=== PATIENT | male | born 1935 | race Caucasian/White ===

== ENCOUNTER → 2016-07-05 | Outpatient (CLI) | payer OTHER ==
[~2016-07-05] MED LIST: ACET-1311 PO; ASPI-232 PO; ASPI81TA28 PO; ATOR-26 PO; CARV12.52 PO; CARV3.122 PO; CARV6.252 PO; CNT PO; CRG3125 PO; EMOL-19 TOP; FISHOIL PO; FRS/40 PO; FURO40TA3 PO; LISI40TA PO; LSX20 PO; MENTOIN TOP; MULT-188 PO; MULT-845 PO; MULTTAB66 PO; OMEGCAP2 PO; POTA20TA16 PO; PRLSR20 PO; TERA5CAP PO
[2016-07-05 12:37] LABS: URINE APPEARANCE CLEAR (CLEAR); URINE BILIRUBIN NEG (NEG); URINE COLOR YELLOW; URINE EPITHELIAL CELL AUTO 20-30 /lpf (0-5); URINE NITRITE NEG (NEG); URINE SPECIFIC GRAVITY 1.014 (1.000-1.030); UROBILINOGEN NEG (NEG)
[2016-07-05 12:43] LABS: MANUAL MICROSCOPIC REQUIRED? NO; REVIEW REQ? NO
[2016-07-05 12:53] LABS: BLOOD UREA NITROGEN 26 mg/dl (7-18); BUN/CREATININE RATIO 17.4 (10-20); CALCIUM 8.8 mg/dl (8.5-10.1); CARBON DIOXIDE 23 mmol/L (21-32); CHLORIDE 109 mmol/L (98-107); GLUCOSE 92 mg/dl (70-99); PHOSPHORUS 2.5 mg/dl (2.5-4.9); POTASSIUM 4.3 mmol/L (3.5-5.1); SODIUM 141 mmol/L (136-145)
[2016-07-05 12:56] LABS: URINE PROTIEN/CREAT RATIO 0.2 (0-0.2); URINE TOTAL PROTEIN 31.7 mg/dl (0-11.9)
[2016-07-05 13:20] LABS: HEMATOCRIT 31.2 % (42-52); MEAN CELL VOLUME 88.9 fL (80-100); MEAN CORPUSCULAR HEMOGLOBIN 27.9 pg (25-34); MEAN CORPUSCULAR HGB CONC 31.4 g/dl (32-36); RED BLOOD COUNT 3.51 M/uL (4.7-6.1); WHITE BLOOD COUNT 4.11 K/uL (4.8-10.8)
== END | disposition home or self-care (01) ==
LOC: C.LAB1850 10:57
PROVIDERS: ATTEND Internal Medicine Nephrology
DX: I12.9 Hypertensive chronic kidney disease with stage 1 through stage 4 chronic kidney disease, or unspecified chronic kidney disease (principal); N25.81 Secondary hyperparathyroidism of renal origin; R60.9 Edema, unspecified; N18.3 Chronic kidney disease, stage 3 (moderate); D64.9 Anemia, unspecified

== ENCOUNTER 2016-08-02 10:46 | Inpatient (IN) | payer OTHER ==
[~2016-08-02] VITALS: Ht 162.6 cm; Wt 86.0 kg
[~2016-08-02 10:46] MED LIST changes: -ACET-1311 PO; -ASPI-232 PO; -ATOR-26 PO; -CARV3.122 PO; -CARV6.252 PO; -CRG3125 PO; -EMOL-19 TOP; -FRS/40 PO; -FURO40TA3 PO; -MENTOIN TOP; -MULT-845 PO; -MULTTAB66 PO; -OMEGCAP2 PO; -POTA20TA16 PO; -PRLSR20 PO
[2016-08-02] MEDS ORDERED: SODIUM CHLORIDE 0.9% 500ML 500 ML IV STA (11:34)
--- NOTE | 2016-08-02 11:43 | EMERGENCY ROOM VISIT NOTE ---
History Report prepared by Selma: Gagan Parker Under the Supervision of: Dr. Duran Pate M.D. First contact with patient: 11:35 Chief Complaint: FALL Stated Complaint: FALL History of Present Illness The patient is a 81 year old male who presents to the Emergency Room with complaints of an acute fall that occurred at approximately 0630 this morning. The patient was unable to get up this morning, even with the assistance of a friend. He required the assistance of EMS to get up. He has had minimal nose bleeding since the fall. The patient states that he was having black spots in his vision this morning, which usually indicates hypertension for him. Nursing notes indicate that he was actually hypotensive upon arrival. The patient has had diarrhea for two weeks. He denies abdominal pain. Patient's records indicate that he has a history of AAA. He is not on any blood thinners other than baby aspirin. Source of History: patient, transfer records, nursing staff Onset: 0630 this morning Position: other (global) Quality: other (fall) Timing: other (acute) Associated Symptoms: + diarrhea, No abdominal pain Review of Systems See HPI for pertinent positives & negatives. A total of 10 systems reviewed and were otherwise negative. Past Medical & Surgical Medical Problems: (1) BPH (benign prostatic hypertrophy) (2) CAD (coronary artery disease) (3) CKD (chronic kidney disease) stage 3, GFR 30-59 ml/min (4) Dyslipidemia (5) GERD (gastroesophageal reflux disease) (6) HTN (hypertension) (7) Thoracic aneurysm Surgical Problems: (1) H/O aortic aneurysm repair (2) H/O cataract removal with insertion of prosthetic lens (3) History of appendectomy (4) History of bilateral knee arthroplasty (5) History of tonsillectomy and adenoidectomy (6) S/P AVR (aortic valve replacement) Family History Patient reports no known family medical history. Social History Smoking Status: Former Smoker Alcohol Use: none Drug Use: none Occupation Status: retired Current/Historical Medications Scheduled Aspirin (Aspirin Ec), 81 MG PO DAILY Atorvastatin (Lipitor), 80 MG PO DAILY Carvedilol (Coreg), 12.5 MG PO BID Fish Oil (Fletcher-3), 1 CAP PO BID Furosemide (Lasix *), 20 MG PO DAILY Lisinopril (Zestril), 40 MG PO DAILY Multiple Vitamins W/ Minerals (Ocuvite), 1 TAB PO DAILY Multivitamins/Minerals (Centrum *), 1 TAB PO DAILY Omeprazole (Prilosec), 20 MG PO BID Potassium Ext Rel (Klor-Con), 20 MEQ PO QAM Terazosin (Hytrin), 5 MG PO DHS Allergies Coded Allergies: Penicillins (Verified Allergy, Unknown, ITCH,RASH, 02/26/15) ITCHY Physical Exam Vital Signs Date Time Temp Pulse Resp B/P Pulse Ox O2 Delivery O2 Flow Rate FiO2 08/02/16 15:11 54 21 96 08/02/16 15:06 58 20 08/02/16 15:01 61 20 08/02/16 14:59 123/62 08/02/16 14:58 58 12 123/62 93 Room Air 2.0 08/02/16 14:56 62 21 08/02/16 14:51 60 21 08/02/16 14:46 61 18 08/02/16 14:41 58 22 08/02/16 14:36 57 19 08/02/16 14:31 58 21 08/02/16 14:30 110/54 08/02/16 14:26 56 18 08/02/16 14:21 59 19 08/02/16 14:18 59 08/02/16 14:17 59 16 110/57 93 Room Air 08/02/16 14:16 60 21 110/57 08/02/16 12:36 66 22 08/02/16 12:31 65 23 93 Nasal Cannula 2.0 08/02/16 12:26 71 25 08/02/16 12:21 67 20 08/02/16 12:16 66 21 08/02/16 12:11 68 22 08/02/16 12:06 70 24 08/02/16 12:01 66 15 08/02/16 11:57 126/69 08/02/16 11:56 64 21 08/02/16 11:51 72 22 08/02/16 11:46 64 17 08/02/16 11:41 68 08/02/16 11:32 91 Nasal Cannula 2.0 08/02/16 11:32 88 Room Air 08/02/16 11:24 105/53 08/02/16 11:24 37.2 74 16 105/53 92 Room Air Physical Exam GENERAL: Patient is a healthy-appearing well-nourished HEAD: Normocephalic atraumatic EYES: Ocular movements intact pupils equal and react to light OROPHARYNX mucous membranes are moist no exudates present. Petechial lesions throughout, no bleeding on exam. NECK: Supple no nuchal rigidity CHEST: Good equal expansion LUNGS: Clear and equal to auscultation CARDIAC: Normal S1 and S2. Grade 2/6 systolic murmur. ABDOMEN: Soft nontender no guarding BACK: No CVA tenderness EXTREMITIES: No pain upon palpation normal muscle strength in all groups no clubbing cyanosis or edema NEURO: Patient is following commands is answering questions appropriately. Alert and oriented x3 Cranial Nerves 2-12 grossly intact Medical Decision & Procedures ER Provider Diagnostic Interpretation: Radiology results as stated below per my review and radiologist interpretation: CHEST ONE VIEW PORTABLE CLINICAL HISTORY: weakness, cough COMPARISON STUDY: 01/03/2014 FINDINGS: There are postsurgical changes of midline sternotomy. There is progressive aneurysmal dilatation of the aortic arch and descending thoracic aorta. There is no failure. There is no focal pulmonary consolidation. There are no pleural effusions..[ IMPRESSION: 1. Progressive dilatation of the aortic arch and descending thoracic aorta 2. No evidence of focal pulmonary consolidation Electronically signed by: Mateo Hutton M.D. 08/02/2016 12:14 PM Dictated Date/Time: 08/02/2016 12:[address] chest angiogram combination HISTORY: Dissection. Chest pain. Findings generalized aneurysmal dilatation of the apex of the thoracic aorta extending inferiorly to the upper abdomen. This is generally similar in configuration compared to the prior study. Maximum diameter has slightly slightly increased to 6.1 cm There continues be a small amount of posterior mural thrombus. This is similar as compared to the prior study and is considered chronic. Postoperative changes including a sending thoracic aneurysm repair are noted. There is no evidence for acute dissection. The proximal to mid aspect of the abdominal aorta is similar. There is no increase in diameter. Lungs are considered generally clear. Findings are prior median sternotomy. Upper pole left renal cyst unchanged. Mild splenomegaly. IMPRESSION:. Slight increase in aneurysmal dilatation of the proximal to mid thoracic aorta. 2. Maximum diameter has increased slightly to 6.1 cm from a prior maximum dimension of 5.7 cm. 3. Lungs remain clear. 4. No evidence for dissection. 5. Stable aneurysmal distention of the proximal to mid abdominal aorta. 7. Multiple gallstones within a contracted gallbladder lumen. Electronically signed by: Cliff Christiansen M.D. 08/02/2016 1:39 PM Dictated Date/Time: 08/02/2016 1:[address] HEAD WITHOUT CONTRAST (CT) CLINICAL HISTORY: Head trauma. Ecchymosis. Pain. Hypertension. COMPARISON STUDY: No previous studies for comparison. TECHNIQUE: Axial CT of the brain is performed from the vertex to the skull base. IV contrast was not administered for this examination. CT DOSE: 537.48 mGy.cm FINDINGS: No intra or extra-axial mass lesions are visualized. There is no CT evidence of acute cortical infarction. There is no evidence of midline shift. There is no acute hemorrhage. No calvarial fractures are visualized. A tiny focus of increased attenuation within the right frontal luna-white junction, likely represents dystrophic calcification. There are patchy white matter hypodensities likely on a small vessel basis. There is no evidence of pathologic ventricular dilatation. There is opacification of the right frontal sinus. IMPRESSION: No acute intracranial findings Electronically signed by: Mateo Hutton M.D. 08/02/2016 1:30 PM Dictated Date/Time: 08/02/2016 1:27 PM Laboratory Results Test 08/02/16 12:08 08/02/16 12:20 08/02/16 12:28 08/02/16 12:29 White Blood Count 5.00 K/uL (4.8-10.8) Red Blood Count 3.53 M/uL (4.7-6.1) Hemoglobin 9.9 g/dL (14.0-18.0) Hematocrit 30.5 % (42-52) Mean Corpuscular Volume 86.4 fL (80-100) Mean Corpuscular Hemoglobin 28.0 pg (25-34) Mean Corpuscular Hemoglobin Concent 32.5 g/dl (32-36) Platelet Count 6 K/uL (130-400) Mean Platelet Volume fL (7.4-10.4) Neutrophils (%) (Auto) 65.4 % Lymphocytes (%) (Auto) 24.0 % Monocytes (%) (Auto) 10.2 % Eosinophils (%) (Auto) 0.0 % Basophils (%) (Auto) 0.2 % Neutrophils # (Auto) 3.27 K/uL (1.4-6.5) Lymphocytes # (Auto) 1.20 K/uL (1.2-3.4) Monocytes # (Auto) 0.51 K/uL (0.11-0.59) Eosinophils # (Auto) 0.00 K/uL (0-0.5) Basophils # (Auto) 0.01 K/uL (0-0.2) Nucleated RBC Absolute Count (auto) 0.04 K/uL (0-0) Nucleated Red Blood Cells % 0.9 % Acanthocytes 1+ Peripheral Blood Smear Path Consult Prothrombin Time 16.1 SECONDS (9.0-12.0) Prothromb Time International Ratio 1.5 (0.9-1.1) Activated Partial Thromboplast Time 44.7 SECONDS (21.0-31.0) Partial Thromboplastin Ratio 1.7 Total Creatine Kinase 57 U/L (39-308) Creatine Kinase MB 2.0 ng/ml (0.5-3.6) Creatine Kinase MB Ratio 3.5 (0-3.0) Troponin I 0.016 ng/ml (0-0.045) Globulin 4.2 gm/dl (2.5-4.0) Albumin/Globulin Ratio 0.7 (0.9-2) Thyroid Stimulating Hormone (TSH) 2.330 uIu/ml (0.300-4.500) Bedside Troponin I 0.000 ng/ml (0-0.045) Bedside Hemoglobin 9.9 g/dl (14.0-18.0) Bedside Hematocrit 29 % (42-52) Bedside Sodium 138 mEq/L (135-144) Bedside Potassium 4.9 mEq/L (3.3-5.0) Bedside Chloride 106 mEq/L (101-112) Bedside Total CO2 20 mEq/l (24-31) Bedside Blood Urea Nitrogen 53 mg/dl (7-18) Bedside Creatinine 2.0 mg/dl (0.6-1.3) Bedside Glucose (other) 104 mg/dl (70-99) Bedside Ionized Calcium (Chris) 1.36 mmol/l (1.12-1.32) Date/Time Source Procedure Growth Status 08/02/16 12:08 Stool C.difficile Toxin B Gene (PCR) - Final No C. difficile toxin B gene detected Complete Labs reviewed by ED physician. Medications Administered Medications (Trade) Dose Ordered Sig/Song Route Start Time Stop Time Status Last Admin Dose Admin Sodium Chloride (Nss 500ml) 500 ml @ 999 mls/hr Q31M STAT IV 08/02/16 11:34 08/02/16 12:04 DC 08/02/16 12:32 999 MLS/HR ECG Indication: other (fall) Rate (beats per minute): 64 Rhythm: sinus rhythm Findings: 1st degree AV block, LBBB, other (old inferior infarct) Comparison ECG Date: no prior available ED Course 1134: NSS 500 ml @ 999 mls/hr. 1140: Past medical records reviewed. The patient was evaluated in room B6. A complete history and physical examination was performed. 1415: Discussed the case with Kay Acosta PA-C, [facility]. The patient will be evaluated. Medical Decision Differential diagnosis: Etiologies such as metabolic, infection, hypo/hyperglycemia, electrolyte abnormalities, cardiac sources, intracerebral event, toxicologic, neurologic, as well as others were entertained. This is a 81-year-old male who presents emergency Department with generalized weakness and inability to walk after fall at home. The patient is in acute renal failure in addition he has thrombocytopenia. The patient was started on antibiotics and pancultured up. He was also given normal saline bolus. Due to the nature the patient's conditions I did discuss the case with the hospitalist service who agreed to admit the patient. Patient was in agreement with the treatment plan. Consults Time Called: 1410 Consulting Physician: Kay Acosta PA-C, [facility]. Returned Call: 1415 1415: Discussed the case with Kay Acosta PA-C, [facility]. The patient will be evaluated. Impression Primary Impression: Thrombocytopenia Additional Impressions: Fall Weakness ARF (acute renal failure) Scribe Attestation The scribe's documentation has been prepared under my direction and personally reviewed by me in its entirety. I confirm that the note above accurately reflects all work, treatment, procedures, and medical decision making performed by me. Departure Information Dispostion Being Evaluated By Hospitalist Cliff Otero M.D. (PCP) Patient Instructions [facility] Problem Qualifiers Additional Impressions: Fall Encounter type: initial encounter Qualified Codes: W19.XXXA - Unspecified fall, initial encounter ARF (acute renal failure) Acute renal failure type: unspecified Qualified Codes: N17.9 - Acute kidney failure, unspecified
[2016-08-02] MEDS ORDERED: OPTIRAY 320 IV PRN (12:15)
--- NOTE | 2016-08-02 12:15 | DIAGNOSTIC IMAGING REPORT ---
CHEST ONE VIEW PORTABLE CLINICAL HISTORY: weakness, cough COMPARISON STUDY: 01/03/2014 FINDINGS: There are postsurgical changes of midline sternotomy. There is progressive aneurysmal dilatation of the aortic arch and descending thoracic aorta. There is no failure. There is no focal pulmonary consolidation. There are no pleural effusions..[ IMPRESSION: 1. Progressive dilatation of the aortic arch and descending thoracic aorta 2. No evidence of focal pulmonary consolidation Electronically signed by: Mateo Hutton M.D. 08/02/2016 12:14 PM Dictated Date/Time: 08/02/2016 12:12 PM
[2016-08-02 12:44] LABS: ISTAT HEMOGLOBIN 9.9 g/dl (14.0-18.0); ISTAT IONIZED CALCIUM 1.36 mmol/l (1.12-1.32)
[2016-08-02 12:52] LABS: URINE APPEARANCE CLEAR (CLEAR); URINE BILIRUBIN NEG (NEG); URINE COLOR DK YELLOW; URINE NITRITE NEG (NEG); URINE SPECIFIC GRAVITY 1.015 (1.000-1.030); UROBILINOGEN NEG (NEG); ZZUR CULT IF INDIC CLEAN CATCH YES
[2016-08-02 12:53] LABS: BUN/CREATININE RATIO 24.9 (10-20); CALCIUM 8.9 mg/dl (8.5-10.1); CREATININE 2.2 mg/dl (0.60-1.40); POTASSIUM 4.5 mmol/L (3.5-5.1)
[2016-08-02 13:01] LABS: MANUAL MICROSCOPIC REQUIRED? NO; REVIEW REQ? YES
[2016-08-02 13:03] LABS: ALB/GLOB RATIO 0.7 (0.9-2); CKMB/CK RATIO 3.5 (0-3.0); THYROID STIMULATING HORMONE 2.33 uIu/ml (0.300-4.500)
[2016-08-02 13:10] LABS: PLATELET COUNT 6 K/uL (130-400)
[2016-08-02 13:11] LABS: ACANTHOCYTES 1+; BASO % 0.2 %; BASO ABS # 0.01 K/uL (0-0.2); COMPLETE YES; HEMATOCRIT 30.5 % (42-52); IG% 0.2 %; MEAN CELL VOLUME 86.4 fL (80-100); MEAN CORPUSCULAR HGB CONC 32.5 g/dl (32-36); MONO % 10.2 %; NEUT % 65.4 %; RED BLOOD COUNT 3.53 M/uL (4.7-6.1)
[2016-08-02 13:11] LABS: URINE PATH CASTS 0-3 GRANULAR CASTS /lpf (0)
--- NOTE | 2016-08-02 13:31 | DIAGNOSTIC IMAGING REPORT ---
CT HEAD WITHOUT CONTRAST (CT) CLINICAL HISTORY: Head trauma. Ecchymosis. Pain. Hypertension. COMPARISON STUDY: No previous studies for comparison. TECHNIQUE: Axial CT of the brain is performed from the vertex to the skull base. IV contrast was not administered for this examination. CT DOSE: 537.48 mGy.cm FINDINGS: No intra or extra-axial mass lesions are visualized. There is no CT evidence of acute cortical infarction. There is no evidence of midline shift. There is no acute hemorrhage. No calvarial fractures are visualized. A tiny focus of increased attenuation within the right frontal luna-white junction, likely represents dystrophic calcification. There are patchy white matter hypodensities likely on a small vessel basis. There is no evidence of pathologic ventricular dilatation. There is opacification of the right frontal sinus. IMPRESSION: No acute intracranial findings Electronically signed by: Mateo Hutton M.D. 08/02/2016 1:30 PM Dictated Date/Time: 08/02/2016 1:27 PM
[2016-08-02 13:40] LABS: INR 1.5 (0.9-1.1); PARTIAL THROMBOPLASTIN RATIO 1.7; PROTHROMBIN TIME (PATIENT) 16.1 SECONDS (9.0-12.0)
--- NOTE | 2016-08-02 13:41 | DIAGNOSTIC IMAGING REPORT ---
Study. CT chest angiogram combination HISTORY: Dissection. Chest pain. Findings generalized aneurysmal dilatation of the apex of the thoracic aorta extending inferiorly to the upper abdomen. This is generally similar in configuration compared to the prior study. Maximum diameter has slightly slightly increased to 6.1 cm There continues be a small amount of posterior mural thrombus. This is similar as compared to the prior study and is considered chronic. Postoperative changes including a sending thoracic aneurysm repair are noted. There is no evidence for acute dissection. The proximal to mid aspect of the abdominal aorta is similar. There is no increase in diameter. Lungs are considered generally clear. Findings are prior median sternotomy. Upper pole left renal cyst unchanged. Mild splenomegaly. IMPRESSION:. Slight increase in aneurysmal dilatation of the proximal to mid thoracic aorta. 2. Maximum diameter has increased slightly to 6.1 cm from a prior maximum dimension of 5.7 cm. 3. Lungs remain clear. 4. No evidence for dissection. 5. Stable aneurysmal distention of the proximal to mid abdominal aorta. 7. Multiple gallstones within a contracted gallbladder lumen. Electronically signed by: Cliff Christiansen M.D. 08/02/2016 1:39 PM Dictated Date/Time: 08/02/2016 1:28 PM
[2016-08-02] MEDS ORDERED: NITROGLYCERIN 0.4 MG SL PER TAB CHARGE SL PRN (15:15)
[2016-08-02] MEDS ORDERED: ONDANSETRON INJ 2 MG/ML 2 ML VIAL IV PRN (15:15)
--- NOTE | 2016-08-02 16:47 | History and Physical ---
History & Physical Date & Time of Service: Aug 02, 2016 at 15:20 Chief Complaint: FALL Primary Care Physician: Cliff Perez M.D. History of Present Illness Source: patient This is a 81 y/o male with PMHx of CAD, aortic aneurysm s/p repair in 2009, CKD stage 3, HTN, Dyslipidemia and other problems as outlined below who presents to the ED c/o fall this morning. Pt reports that around 0630 this morning he lost his balance and fell while getting up out of his chair. Pt reports that he fell onto his bottom. He did not think he hit his head however patient has bruising to the top of his head. Pt was unable to get up on his own due to weakness and EMS was called. Pt admits he has not been feeling well for a few weeks. He has had diarrhea for 2 weeks as well as a productive cough and minor sore throat. He has been getting progressively weaker and he estimates he has fallen approximately 3 times in the past couple months. Pt currently lives at home alone. He uses a cane to assist with ambulation. Pt denies fever/chills, diaphoresis, chest pain, palpitations, SOB, wheezing, abd pain, N/V, hematochezia, bladder issues, worsening LE edema, calf pain, lightheadedness/ dizziness. In the ED, vitals are stable. HgB 9.9. Plt count 6. creat 2.2. BUN 55. INR 1.5. EKG: sinus rhythm at 64 bpm with 1* AV block and LBBB. CT head and CXR are negative for acute process. Pt is stable and will be admitted for further evaluation and treatment. Past Medical/Surgical History Medical Problems: (1) BPH (benign prostatic hypertrophy) Status: Chronic (2) CAD (coronary artery disease) Status: Chronic (3) CKD (chronic kidney disease) stage 3, GFR 30-59 ml/min Status: Chronic (4) Dyslipidemia Status: Chronic (5) GERD (gastroesophageal reflux disease) Status: Chronic (6) HTN (hypertension) Status: Chronic (7) Thoracic aneurysm Status: Chronic Surgical Problems: (1) H/O aortic aneurysm repair Status: Resolved (2) H/O cataract removal with insertion of prosthetic lens Status: Resolved (3) History of appendectomy Status: Resolved (4) History of bilateral knee arthroplasty Status: Resolved (5) History of tonsillectomy and adenoidectomy Status: Resolved (6) S/P AVR (aortic valve replacement) Status: Resolved Family History Patient reports no known family medical history. Social History Smoking Status: Former Smoker (15 pack year history; quit 40 years ago) Drug Use: none Occupational Status: retired Immunizations History of Influenza Vaccine: N/A History of Tetanus Vaccine?: Yes History of Pneumococcal: Yes History of Hepatitis B Vaccine: No Multi-Drug Resistant Organisms History of MDRO: No Allergies Coded Allergies: Penicillins (Verified Allergy, Unknown, ITCH,RASH, 02/26/15) ITCHY Home Medications Scheduled Aspirin (Aspirin Ec), 81 MG PO DAILY Atorvastatin (Lipitor), 80 MG PO DAILY Carvedilol (Coreg), 12.5 MG PO BID Fish Oil ([place]-3), 1 CAP PO BID Furosemide (Lasix *), 20 MG PO DAILY Lisinopril (Zestril), 40 MG PO DAILY Multiple Vitamins W/ Minerals (Ocuvite), 1 TAB PO DAILY Multivitamins/Minerals (Centrum *), 1 TAB PO DAILY Omeprazole (Prilosec), 20 MG PO BID Potassium Ext Rel (Klor-Con), 20 MEQ PO QAM Terazosin (Hytrin), 5 MG PO DHS Physical Exam Vital Signs Date Time Temp Pulse Resp B/P Pulse Ox O2 Delivery O2 Flow Rate FiO2 08/02/16 14:58 58 12 123/62 93 Room Air 2.0 08/02/16 14:18 59 08/02/16 14:17 59 16 110/57 93 Room Air 08/02/16 12:36 66 22 08/02/16 12:31 65 23 93 Nasal Cannula 2.0 08/02/16 12:26 71 25 08/02/16 12:21 67 20 08/02/16 12:16 66 21 08/02/16 12:11 68 22 08/02/16 12:06 70 24 08/02/16 12:01 66 15 08/02/16 11:57 126/69 08/02/16 11:56 64 21 08/02/16 11:51 72 22 08/02/16 11:46 64 17 08/02/16 11:41 68 08/02/16 11:32 91 Nasal Cannula 2.0 08/02/16 11:32 88 Room Air 08/02/16 11:24 105/53 08/02/16 11:24 37.2 74 16 105/53 92 Room Air General Appearance: WD/WN, no apparent distress, + pertinent finding (Pt is sitting up comfortably in bed; sleeping on my arrival ) Head: normocephalic, atraumatic Eyes: normal inspection, PERRL ENT: hearing grossly normal Neck: supple Respiratory/Chest: chest non-tender, lungs clear, normal breath sounds, no respiratory distress Cardiovascular: regular rate, rhythm, + systolic murmur Abdomen/GI: normal bowel sounds, non tender, soft Back: normal inspection Extremities/Musculoskelatal: normal inspection, + swelling, + pertinent finding (no open wounds noted) Neurologic/Psych: alert, normal mood/affect, oriented x 3 Skin: normal color, warm/dry, + pertinent finding (no bruising noted) Diagnostics Laboratory Results Results Past 24 Hours Test 08/02/16 11:42 08/02/16 12:08 08/02/16 12:20 08/02/16 12:28 Range/Units Urine Color DK YELLOW Urine Appearance CLEAR CLEAR Urine pH 5.0 4.5-7.5 Urine Specific [place] 1.015 1.000-1.030 Urine Protein NEG NEG Urine Glucose (UA) NEG NEG Urine Ketones NEG NEG Urine Occult Blood 1+ NEG Urine Nitrite NEG NEG Urine Bilirubin NEG NEG Urine Urobilinogen NEG NEG Urine Leukocyte Esterase MODERATE NEG Urine WBC (Auto) >30 0-5 /hpf Urine RBC (Auto) 5-10 0-4 /hpf Urine Hyaline Casts (Auto) 1-5 0-5 /lpf Urine Epithelial Cells (Auto) 10-20 0-5 /lpf Urine Bacteria (Auto) 1+ NEG Urine Crystals CALCIUM OXALATE NONE PRSENT Urine Pathogenic Casts 0-3 GRANULAR CASTS 0 /lpf White Blood Count 5.00 4.8-10.8 K/uL Red Blood Count 3.53 4.7-6.1 M/uL Hemoglobin 9.9 14.0-18.0 g/dL Hematocrit 30.5 42-52 % Mean Corpuscular Volume 86.4 80-100 fL Mean Corpuscular Hemoglobin 28.0 25-34 pg Mean Corpuscular Hemoglobin Concent 32.5 32-36 g/dl Platelet Count 6 130-400 K/uL Mean Platelet Volume 7.4-10.4 fL Neutrophils (%) (Auto) 65.4 % Lymphocytes (%) (Auto) 24.0 % Monocytes (%) (Auto) 10.2 % Eosinophils (%) (Auto) 0.0 % Basophils (%) (Auto) 0.2 % Neutrophils # (Auto) 3.27 1.4-6.5 K/uL Lymphocytes # (Auto) 1.20 1.2-3.4 K/uL Monocytes # (Auto) 0.51 0.11-0.59 K/uL Eosinophils # (Auto) 0.00 0-0.5 K/uL Basophils # (Auto) 0.01 0-0.2 K/uL RDW Standard Deviation 53.1 36.4-46.3 fL RDW Coefficient of Variation 16.7 11.5-14.5 % Immature Granulocyte % (Auto) 0.2 % Immature Granulocyte # (Auto) 0.01 0.00-0.02 K/uL Nucleated RBC Absolute Count (auto) 0.04 0-0 K/uL Nucleated Red Blood Cells % 0.9 % Acanthocytes 1+ Prothrombin Time 16.1 9.0-12.0 SECONDS Prothromb Time International Ratio 1.5 0.9-1.1 Activated Partial Thromboplast Time 44.7 21.0-31.0 SECONDS Partial Thromboplastin Ratio 1.7 Sodium Level 138 136-145 mmol/L Potassium Level 4.5 3.5-5.1 mmol/L Chloride Level 108 98-107 mmol/L Carbon Dioxide Level 21 21-32 mmol/L Anion Gap 9.0 3-11 mmol/L Blood Urea Nitrogen 55 7-18 mg/dl Creatinine 2.20 0.60-1.40 mg/dl Est Creatinine Clear Calc Drug Dose 24.6 ml/min Estimated GFR () 31.8 Estimated GFR (Non- 27.5 BUN/Creatinine Ratio 24.9 10-20 Random Glucose 100 70-99 mg/dl Calcium Level 8.9 8.5-10.1 mg/dl Total Bilirubin 1.5 0.2-1 mg/dl Aspartate Amino Transf (AST/SGOT) 28 15-37 U/L Alanine Aminotransferase (ALT/SGPT) 34 12-78 U/L Alkaline Phosphatase 97 45-117 U/L Total Creatine Kinase 57 39-308 U/L Creatine Kinase MB 2.0 0.5-3.6 ng/ml Creatine Kinase MB Ratio 3.5 0-3.0 Troponin I 0.016 0-0.045 ng/ml Total Protein 7.1 6.4-8.2 gm/dl Albumin 2.9 3.4-5.0 gm/dl Globulin 4.2 2.5-4.0 gm/dl Albumin/Globulin Ratio 0.7 0.9-2 Thyroid Stimulating Hormone (TSH) 2.330 0.300-4.500 uIu/ml Bedside Troponin I 0.000 0-0.045 ng/ml Test 08/02/16 12:29 Range/Units Bedside Hemoglobin 9.9 14.0-18.0 g/dl Bedside Hematocrit 29 42-52 % Bedside Sodium 138 135-144 mEq/L Bedside Potassium 4.9 3.3-5.0 mEq/L Bedside Chloride 106 101-112 mEq/L Bedside Total CO2 20 24-31 mEq/l Anion Gap 18.0 16-25 mmol/L Bedside Blood Urea Nitrogen 53 7-18 mg/dl Bedside Creatinine 2.0 0.6-1.3 mg/dl Bedside Glucose (other) 104 70-99 mg/dl Bedside Ionized Calcium (Chris) 1.36 1.12-1.32 mmol/l Microbiology Results 08/02/16 C.difficile Toxin B Gene (PCR) - Final, Complete No C. difficile toxin B gene detected 08/02/16 Shiga Toxin Test, Received Pending 08/02/16 Stool Culture, Received Pending 08/02/16 Urine Culture, Received Pending Diagnostic Radiology CT CHEST IMPRESSION:. Slight increase in aneurysmal dilatation of the proximal to mid thoracic aorta. 2. Maximum diameter has increased slightly to 6.1 cm from a prior maximum dimension of 5.7 cm. 3. Lungs remain clear. 4. No evidence for dissection. 5. Stable aneurysmal distention of the proximal to mid abdominal aorta. 7. Multiple gallstones within a contracted gallbladder lumen. CXR IMPRESSION: 1. Progressive dilatation of the aortic arch and descending thoracic aorta 2. No evidence of focal pulmonary consolidation CT HEAD IMPRESSION: No acute intracranial findings EKG EKG: sinus rhythm at 64 bpm with 1* AV Block, LBBB and LAD; T wave inversion in no longer present when compared to EKG from 01/04/14 Impression Assessment and Plan SEVERE THROMBOCYTOPENIA; ? ITP -admit to telemetry -plt count 6 (plt count dec 2015 was 118) -transfuse 1 unit platelets now -start IVF and Solu-Medrol -consult hem/onc, Dr. Fransisco Suero -pt denies any active bleeding -monitor with CBC daily DEE DEE ON CKD STAGE 3 -creatinine 2.2; baseline creatinine 1.3; may be secondary to dehydration from GI losses -hold Lasix and lisinopril -IVF -monitor with daily prp and avoid nephrotoxic agents when able DIARRHEA -C.diff negative -stool culture-pending -cont IVF MECHANICAL FALL -CT head negative -PT/OT -fall precautions AORTIC ANEURYSM -s/p graft repair in 2009 -CT chest + increase in dilatation of prox to mid thoracic aorta. Max diameter increased from 5.7 cm (01/30/15) to 6.1 cm. No evidence of dissection. -monitor AORTIC STENOSIS -s/p AVR 2009 CORONARY ARTERY DISEASE -EKG: no acute ischemic changes -cont ASA, BB, statin -follows with cardio, Dr. Colindres (apt scheduled for next month) -pt currently denies anginal sxs GERD -cont PPI HTN -BP stable -holding lisinopril and lasix 2* DEE DEE -cont carvedilol -monitor DYSLIPIDEMIA -cont statin DVT PROPHYLAXIS -SCDs only in setting of severe thrombocytopenia CODE STATUS -FULL CODE per discussion with patient upon admission DISPO Pt seen in collaboration with Dr. Arthur. Please see his addendum for further details. Thanks! -Of note : patient will be followed by Dr. Cartwright starting tomorrow AM. Attending Addendum Pt was seen and examined. 81 y/o male with PMHx of CAD, aortic aneurysm s/p repair in 2009, CKD stage 3, HTN, Dyslipidemia presents to the ED after he had an episode of Fall this morning from his chair. Pt said that EMS was called because he was not able to get up because he was very weak.. Pt said that he has not been feeling well for few weeks because he has had diarrhea. He said that he had a productive cough associated with sore throat. Denies any chest pain, palpitation, dizziness and SOB. General- No acute distress Head- atraumatic Eyes- PERRL, EOMI ENT- oropharynx clear Neck- supple, no JVD Lungs- clear to auscultation and percussion Heart- +systolic murmur Abdomen- normal bowel sounds, soft Extremities- +edema, no calf tenderness Neuro- alert, oriented x 3; PERRL, EOMI Skin- warm & dry A/P SEVERE THROMBOCYTOPENIA Possible related to ITP due to recent viral infection -plt count 6 (plt count dec 2015 was 118) -No active bleeding - He said that he had one episode of epistaxis that resolved -Received 1 units platelet -Will start on Dexamethasone 40mg daily x 4 days -consult hem/onc, Dr. Fransisco Suero - Case discussed with dr. Suero - Will get DIC panel ( fibrinogen, fibrin spit product, rec count, DDIMER, haptoglobin...) - Might consider to transfuse FFP base on lab result - Will check procalcitonin to r/o any source of infection - Will monitor closely for any bleeding -monitor with CBC daily AORTIC ANEURYSM -s/p graft repair in 2009 -CT chest showed Slight increase in aneurysmal dilatation of the proximal to mid thoracic aorta. Maximum diameter has increased slightly to 6.1 cm from a prior maximum dimension of 5.7 cm. - Will keep BP well control - Will need close monitor due to increase risk of dissection - Consider Vascular consult ANEMIA Will check iron study monitor cbc will transfuse if h/h drops below 8 MECHANICAL FALL -CT head negative -PT/OT -fall precautions Imaging, Lab, EKG reviewed by me Please refer to Kay DUGGAN documentation for other problems Koby Arthur MD VTE Prophylaxis VTE Risk Assessment Done? Y/N: Yes Risk Level: Moderate
[2016-08-02 17:00] VITALS: BP 109/63; PULSE 59; TEMP 37.1; O2SAT 94
[2016-08-02 17:10] VITALS: BP 109/63; PULSE 59; TEMP 37.1; O2SAT 93
[2016-08-02] MEDS ORDERED: METHYLPREDNISOLONE IV 20 MG in SYRINGE 0 ML IV SCH (18:00)
[2016-08-02 18:15] VITALS: BP 133/67; PULSE 72; TEMP 36.8; Ht 162.6 cm; Wt 86.0 kg
[2016-08-02 19:00] VITALS: BP 136/70; PULSE 76; TEMP 38.5; O2SAT 95
[2016-08-02] MEDS: SODIUM CHLORIDE 0.9% 1000ML 1,000 ML IV SCH (20:20)
[2016-08-02] MEDS: PANTOprazole SOD 40 MG TAB PO SCH (20:26)
[2016-08-02] MEDS: CARVEDILOL 12.5 MG TAB PO SCH (20:26)
[2016-08-02] MEDS: OMEGA-3 (PURIFIED FISH OIL) 1 GM CAP PO SCH (20:27)
[2016-08-02] MEDS: ACETAMINOPHEN 325 MG TAB PO PRN (20:47)
[2016-08-02] MEDS ORDERED: DEXAMETHASONE INJ 40 MG in SYRINGE 0 ML IV ONE (21:47)
[2016-08-02] MEDS ORDERED: DEXAMETHASONE INJ 40 MG in DEXTROSE 5% 50ML 50 ML IV STA (21:52)
[2016-08-02 22:30] LABS: FIBRINOGEN* 80 mg/dl (184-400)
[2016-08-02 23:07] LABS: HEMATOCRIT 27.2 % (42-52); IPF 15.5 % (0.9-8.3); MEAN CELL VOLUME 88.6 fL (80-100); MEAN CORPUSCULAR HEMOGLOBIN 28.3 pg (25-34); PLATELET COUNT 6 K/uL (130-400); PLT ESTIMATE SIGNIFIC DECREASED; RED BLOOD COUNT 3.07 M/uL (4.7-6.1); WHITE BLOOD COUNT 4.02 K/uL (4.8-10.8)
[2016-08-02 23:12] VITALS: BP 94/56; PULSE 59; TEMP 37.3; O2SAT 93
[2016-08-03] VITALS (28 sets, daily range): BP systolic 105–156; BP diastolic 55–81; PULSE 40–65; TEMP 36.2–36.8; O2SAT 92–100
--- NOTE | 2016-08-03 07:49 | Medical Consult ---
Consultation Date of Consultation: Aug 03, 2016. Attending Physician: Ronnie Cartwright M.D. Reason for Consultation: thrombocytopenia History of Present Illness 81 year old male present to ER after a fall. He states that for several weeks he has noted generalized weakness and fatigue and "not feeling well." He has had about 3 falls in the past few months. He denies hitting his head but was unable to get up. He states that he lost his balance while getting up and fell onto his buttock and back. He denies any LOC. He denies any fever or chills. He denies any abdominal pain. He denies any melena or hematochezia. He states that has diarrhea 3 to 5 times per day for about 2 weeks. He denies any cough or shortness of breath or lightheadedness. Last evening he had a fever 38.3 He denies any dysuria or hematuria or frequency. Fibrinogen low at 80, FDP>40 D dimer is also elevated, Platelet count severely low 5,000. I spoke to Dr Arthur and patient received platelet transfusion and 2 units of FFPs Had 1 episode of diarrhea this morning. Past Medical/Surgical History past medical history and past surgical history: Her artery disease, aortic aneurysm CKD stage 3, hypertension, dyslipidemia, BPH, GERD, thoracic aneurysm status post repair in 2009, cataract removal with insertion of prostatic glands, appendectomy, bilateral knee arthroplasty, status post AVR , tonsillectomy and adenoidectomy Medical Problems: (1) ARF (acute renal failure) Status: Acute (2) Thrombocytopenia Status: Acute Family History Patient reports no known family medical history. Social History Smoking Status: Former Smoker Alcohol Use: none Drug Use: none Housing Status: lives alone Occupation Status: retired Allergies Coded Allergies: Penicillins (Verified Allergy, Unknown, ITCH,RASH, 02/26/15) ITCHY Current Inpatient Medications Current Inpatient Medications Medications (Trade) Dose Ordered Sig/Song Route Start Time Stop Time Status Last Admin Dose Admin Ioversol 125 ml 125 ml UD PRN IV 08/02/16 12:15 08/06/16 12:14 Sodium Chloride (Nss 1000ml) 1,000 ml @ 75 mls/hr [id number] IV 08/02/16 18:00 09/01/16 17:59 08/02/16 20:20 75 MLS/HR Acetaminophen (Tylenol Tab) 650 mg Q4H PRN PO 08/02/16 15:15 09/01/16 15:14 08/02/16 20:47 650 MG Ondansetron HCl (Zofran Inj) 4 mg Q6H PRN IV 08/02/16 15:15 09/01/16 15:14 Nitroglycerin (Nitrostat Tab) 0.4 mg UD PRN SL 08/02/16 15:15 09/01/16 15:14 Atorvastatin Calcium (Lipitor Tab) 80 mg DAILY PO 08/03/16 09:00 09/02/16 08:59 Carvedilol (Coreg Tab) 12.5 mg BID PO 08/02/16 21:00 09/01/16 20:59 08/02/16 20:26 12.5 MG Fish Oil ([place]-3 (Purified Fish Oil) Cap) 1 gm BID PO 08/02/16 21:00 09/01/16 20:59 08/02/16 20:27 1 GM Multivitamins/ Minerals (Multivitamin W/ Minerals Tab) 1 tab DAILY PO 08/03/16 09:00 09/02/16 08:59 Terazosin HCl (Hytrin Cap) 5 mg HS PO 08/02/16 21:00 09/01/16 20:59 08/02/16 20:27 5 MG Pantoprazole Sodium 40 mg 40 mg BID PO 08/02/16 21:00 09/01/16 20:59 08/02/16 20:26 40 MG Dexamethasone Sodium Phosphate/ Dextrose (Decadron Inj/D5 50ml) 54 ml @ 50 mls/hr DAILY@0900 IV 08/03/16 09:00 08/06/16 10:05 Review of Systems Constitutional: + fatigue, + weakness, No chills, No sweats Eyes: No eye pain ENT: + sore throat (2 weeks ago, mild), + unusual epistaxis (once) Respiratory: No cough, No hemoptysis, No shortness of breath, No sputum, No wheezing Cardiovascular: No chest pain, No orthopnea, No palpitations Abdomen: + diarrhea, No nausea, No pain, No vomiting Genitourinary - Male: No dysuria, No hematuria (he has stahl catheter) Neurologic: + weakness (generalized), No numbness/tingling Psychiatric: No anxiety, No depression symptoms Endocrine: + excessive thirst, + fatigue Hematologic / Lymphatic: + problem reported ( epistaxis 1 episode yesterday), No night sweats, No swollen lymph nodes Integumentary: + problem reported ( pressure ulcer in gluteal fold) Physical Exam Date Time Temp Pulse Resp B/P Pulse Ox O2 Delivery O2 Flow Rate FiO2 08/03/16 06:44 36.3 46 20 124/62 94 08/03/16 06:36 40 08/03/16 06:14 36.5 46 20 115/55 96 08/03/16 06:12 42 08/03/16 05:46 36.6 49 20 116/65 96 08/03/16 05:33 36.6 56 18 115/67 96 08/03/16 05:15 43 08/03/16 04:29 36.5 50 20 105/68 96 08/03/16 04:02 Room Air 08/03/16 03:59 36.3 65 20 107/68 95 08/03/16 02:45 36.6 50 18 118/67 93 08/03/16 01:42 36.8 57 20 109/64 92 08/03/16 01:13 36.8 57 20 106/70 95 08/03/16 01:09 36.8 57 20 106/70 95 08/03/16 00:00 Room Air 08/02/16 23:12 37.3 59 20 94/56 93 Room Air 08/02/16 20:04 Room Air 08/02/16 19:00 38.5 76 18 136/70 95 Room Air 08/02/16 18:15 36.8 72 19 133/67 Room Air 08/02/16 17:36 37.1 58 20 109/63 93 08/02/16 17:11 58 20 08/02/16 17:10 37.1 59 16 109/63 93 08/02/16 17:06 59 17 08/02/16 17:01 57 19 08/02/16 17:00 37.1 59 14 109/63 94 08/02/16 17:00 109/63 08/02/16 16:56 57 22 08/02/16 16:51 57 18 08/02/16 16:46 56 18 08/02/16 16:41 56 20 08/02/16 16:36 58 20 08/02/16 16:31 65 21 136/72 08/02/16 16:26 65 25 08/02/16 16:21 68 23 08/02/16 16:16 62 22 08/02/16 16:11 56 20 08/02/16 16:06 58 19 08/02/16 16:01 59 13 100/46 08/02/16 15:56 57 19 08/02/16 15:51 58 19 08/02/16 15:46 59 19 08/02/16 15:41 60 22 08/02/16 15:36 61 19 08/02/16 15:31 79 24 08/02/16 15:30 128/60 08/02/16 15:26 68 19 08/02/16 15:21 66 24 08/02/16 15:16 63 24 98 08/02/16 15:11 54 21 96 08/02/16 15:06 58 20 08/02/16 15:01 61 20 08/02/16 14:59 123/62 08/02/16 14:58 58 12 123/62 93 Room Air 2.0 08/02/16 14:56 62 21 08/02/16 14:51 60 21 08/02/16 14:46 61 18 08/02/16 14:41 58 22 08/02/16 14:36 57 19 08/02/16 14:31 58 21 08/02/16 14:30 110/54 08/02/16 14:26 56 18 08/02/16 14:21 59 19 08/02/16 14:18 59 08/02/16 14:17 59 16 110/57 93 Room Air 08/02/16 14:16 60 21 110/57 08/02/16 12:36 66 22 08/02/16 12:31 65 23 93 Nasal Cannula 2.0 08/02/16 12:26 71 25 08/02/16 12:21 67 20 08/02/16 12:16 66 21 08/02/16 12:11 68 22 08/02/16 12:06 70 24 08/02/16 12:01 66 15 08/02/16 11:57 126/69 08/02/16 11:56 64 21 08/02/16 11:51 72 22 08/02/16 11:46 64 17 08/02/16 11:41 68 08/02/16 11:32 91 Nasal Cannula 2.0 08/02/16 11:32 88 Room Air 08/02/16 11:24 105/53 08/02/16 11:24 37.2 74 16 105/53 92 Room Air General Appearance: WD/WN, no apparent distress Head: normocephalic, + pertinent finding (ecchymotic area on frontal scalp) Eyes: PERRL, sclerae normal ENT: + pertinent finding ( hard of hearing) Neck: no adenopathy, no JVD Respiratory/Chest: chest non-tender, lungs clear, normal breath sounds, no respiratory distress, no accessory muscle use Cardiovascular: regular rate, rhythm, + systolic murmur, + pertinent finding ( trace edema) Abdomen/GI: normal bowel sounds, non tender, soft Back: normal inspection, no CVA tenderness Extremities/Musculoskelatal: no calf tenderness, non-tender, + pertinent finding ( trace pedal edema) Neurologic/Psych: alert, + pertinent finding ( oriented to person and place) Skin: warm/dry, + pertinent finding (+erythema in gluteal fold with ulceration , no drainage seen) Lymphatic: no adenopathy Laboratory Results CT head - no acute intracranial abnormality CT chest :reviewed CXR: revieweed Last 24 Hours Test 08/02/16 12:08 08/02/16 12:20 08/02/16 12:28 08/02/16 12:29 Urine Color DK YELLOW Urine Appearance CLEAR Urine pH 5.0 Urine Specific [place] 1.015 Urine Protein NEG Urine Glucose (UA) NEG Urine Ketones NEG Urine Occult Blood 1+ Urine Nitrite NEG Urine Bilirubin NEG Urine Urobilinogen NEG Urine Leukocyte Esterase MODERATE Urine WBC (Auto) >30 /hpf Urine RBC (Auto) 5-10 /hpf Urine Hyaline Casts (Auto) 1-5 /lpf Urine Epithelial Cells (Auto) 10-20 /lpf Urine Bacteria (Auto) 1+ Urine Crystals CALCIUM OXALATE Urine Pathogenic Casts 0-3 GRANULAR CASTS /lpf White Blood Count 5.00 K/uL Red Blood Count 3.53 M/uL Hemoglobin 9.9 g/dL Hematocrit 30.5 % Mean Corpuscular Volume 86.4 fL Mean Corpuscular Hemoglobin 28.0 pg Mean Corpuscular Hemoglobin Concent 32.5 g/dl Platelet Count 6 K/uL Mean Platelet Volume fL Neutrophils (%) (Auto) 65.4 % Lymphocytes (%) (Auto) 24.0 % Monocytes (%) (Auto) 10.2 % Eosinophils (%) (Auto) 0.0 % Basophils (%) (Auto) 0.2 % Neutrophils # (Auto) 3.27 K/uL Lymphocytes # (Auto) 1.20 K/uL Monocytes # (Auto) 0.51 K/uL Eosinophils # (Auto) 0.00 K/uL Basophils # (Auto) 0.01 K/uL RDW Standard Deviation 53.1 fL RDW Coefficient of Variation 16.7 % Immature Granulocyte % (Auto) 0.2 % Immature Granulocyte # (Auto) 0.01 K/uL Nucleated RBC Absolute Count (auto) 0.04 K/uL Nucleated Red Blood Cells % 0.9 % Acanthocytes 1+ Peripheral Blood Smear Path Consult Prothrombin Time 16.1 SECONDS Prothromb Time International Ratio 1.5 Activated Partial Thromboplast Time 44.7 SECONDS Partial Thromboplastin Ratio 1.7 Sodium Level 138 mmol/L Potassium Level 4.5 mmol/L Chloride Level 108 mmol/L Carbon Dioxide Level 21 mmol/L Anion Gap 9.0 mmol/L 18.0 mmol/L Blood Urea Nitrogen 55 mg/dl Creatinine 2.20 mg/dl Est Creatinine Clear Calc Drug Dose 24.6 ml/min Estimated GFR () 31.8 Estimated GFR (Non- 27.5 BUN/Creatinine Ratio 24.9 Random Glucose 100 mg/dl Calcium Level 8.9 mg/dl Total Bilirubin 1.5 mg/dl Aspartate Amino Transf (AST/SGOT) 28 U/L Alanine Aminotransferase (ALT/SGPT) 34 U/L Alkaline Phosphatase 97 U/L Total Creatine Kinase 57 U/L Creatine Kinase MB 2.0 ng/ml Creatine Kinase MB Ratio 3.5 Troponin I 0.016 ng/ml Total Protein 7.1 gm/dl Albumin 2.9 gm/dl Globulin 4.2 gm/dl Albumin/Globulin Ratio 0.7 Thyroid Stimulating Hormone (TSH) 2.330 uIu/ml Bedside Troponin I 0.000 ng/ml Bedside Hemoglobin 9.9 g/dl Bedside Hematocrit 29 % Bedside Sodium 138 mEq/L Bedside Potassium 4.9 mEq/L Bedside Chloride 106 mEq/L Bedside Total CO2 20 mEq/l Bedside Blood Urea Nitrogen 53 mg/dl Bedside Creatinine 2.0 mg/dl Bedside Glucose (other) 104 mg/dl Bedside Ionized Calcium (Chris) 1.36 mmol/l Test 08/02/16 21:30 08/03/16 04:44 08/03/16 07:08 White Blood Count 4.02 K/uL Red Blood Count 3.07 M/uL Hemoglobin 8.7 g/dL Hematocrit 27.2 % Mean Corpuscular Volume 88.6 fL Mean Corpuscular Hemoglobin 28.3 pg Mean Corpuscular Hemoglobin Concent 32.0 g/dl RDW Standard Deviation 54.4 fL RDW Coefficient of Variation 16.7 % Platelet Count 6 K/uL Platelet Estimate SIGNIFIC DECREASED Immature Platelet Fraction 15.5 % Absolute Reticulocyte Count 0.05 10^6/uL Percent Reticulocyte Count 1.6 % Fibrinogen 80 mg/dl Fibrin Degradation Products >40 mcg/ml D-Dimer 8550 ug/L FEU Lactate Dehydrogenase 268 U/L Transferrin % Saturation % Assessment & Plan 81 year old male with severe thrombocytopenia and moderate anemia Smear reviewed. No schistocytes. several acanthocytes, no clumping Coagulopathy and severe thrombocytopenia most likely secondary to acute DIC given the elevated D dimer and low fibrinogen. Treat underlying cause He is admitted s/p fall Recommend rule out infection/sepsis Recommend monitor serial CBC and fibrinogen level every 8hrs and and transfuse platelets and cryo as needed to keep platelet count >10 and fibrinogen >100. Repeat PT/PTT. Transfuse PRBCs/platelets/cryo or FFPs as needed if any bleeding. Recommend Check flow cytometry recommend age and gender appropriate screening Check CT scan abdomen/pelvis when feasible to rule out occult malignancy Recommend consider GI consult for his diarrhea Thanks you for allowing me to participate in the care of this patient
[2016-08-03 07:52] LABS: HEMATOCRIT 24.3 % (42-52); MEAN CELL VOLUME 86.2 fL (80-100); MEAN CORPUSCULAR HGB CONC 32.5 g/dl (32-36); PLATELET COUNT 10 K/uL (130-400); RED BLOOD COUNT 2.82 M/uL (4.7-6.1); WHITE BLOOD COUNT 2.47 K/uL (4.8-10.8)
[2016-08-03 07:58] LABS: BUN/CREATININE RATIO 28.5 (10-20); CALCIUM 8.8 mg/dl (8.5-10.1); CREATININE 1.9 mg/dl (0.60-1.40); POTASSIUM 4.5 mmol/L (3.5-5.1)
[2016-08-03] MEDS: CARVEDILOL 12.5 MG TAB PO SCH (08:02)
[2016-08-03] MEDS: SODIUM CHLORIDE 0.9% 1000ML 1,000 ML IV SCH ×2 (08:02→20:40)
[2016-08-03 08:03] LABS: FERRITIN 414.6 ng/ml (8.0-388.0)
[2016-08-03] MEDS: ATORVASTATIN 40 MG TAB PO SCH (08:03)
[2016-08-03] MEDS: OMEGA-3 (PURIFIED FISH OIL) 1 GM CAP PO SCH ×2 (08:03→20:23)
[2016-08-03] MEDS: PANTOprazole SOD 40 MG TAB PO SCH ×2 (08:04→20:23)
[2016-08-03] MEDS: CEROVITE ADV FORMULA TAB PO SCH (08:04)
[2016-08-03] MEDS ORDERED: DEXAMETHASONE INJ 40 MG in SYRINGE 0 ML IV SCH (09:00)
[2016-08-03] MEDS ORDERED: CEROVITE ADV FORMULA TAB PO SCH (09:00)
[2016-08-03] MEDS ORDERED: DEXAMETHASONE INJ 40 MG in DEXTROSE 5% 50ML 50 ML IV SCH (09:00)
[2016-08-03 09:51] LABS: COMPLETE YES; IG% 0.4 %; LYMPH % 35.2 %; LYMPH ABS # 0.87 K/uL (1.2-3.4); NEUT % 62.4 %
--- NOTE | 2016-08-03 11:50 | Clinical Documentation Query ---
CLINICAL DOCUMENTATION QUERY 81 year old male who presents to the Emergency Room with complaints of an acute fall. CBC has shown leukopenia 2.47, anemia (RBC 2.82, Hgb 7.9, Hct 24.3,) and low platelet count (6-10). In your clinical opinion is this patient being managed for: (+ ) Pancytopenia of unknown etiology ( ) Other explanation of clinical findings (Please Explain) ( ) Unable to determine (Please Define) ( ) Need to Discuss ( ) Not Agree The medical record reflects the following clinical findings, treatment, and risk factors. Clinical Indicators: As above. Treatment: FFP, platelets, and hematology consult. Risk Factors: Age Please clarify and document your clinical opinion in the progress notes and discharge summary. Terms such as "probable", "suspected", "likely", "questionable", "possible", or "still to be ruled out" are acceptable. IF IN AGREEMENT, YOU MUST DOCUMENT ABOVE DIAGNOSTIC STATEMENT IN DAILY PROGRESS NOTES AND DISCHARGE SUMMARY. This document is not part of the patient's record. Thank You, Omi Malhotra, RN [phone]
--- NOTE | 2016-08-03 14:09 | Surgery Consultation ---
Consultation Date of Service Aug 03, 2016. (Rea Flores, OLGA LIDIA) Chief Complaint Thoracic AA (Rea Flores, OLGA LIDIA) History of Present Illness The patient is a 81 year old male with multiple medical problems, including HTN , CKD, CAD, hypercholesterolemia, seen in consultation today for thoracic AA noted on CTA chest. Pt currently admitted d/t fall and severe thrombocytopenia. Pt with hx of ascending aortic aneurysm repair and aortic valve repair d/t severe aortic regurgitation in 2009 at [facility]. Pt states he has been aware of his Thoracic AA for years, but that Dr Perez monitors this yearly and advised him that no surgery needed to be done. Pt himself admits malaise. Denies SORIA, fever, chills, chest pain, SOB, abd pain, N/V, rest pain, claudication, other complaints. (Rea Flores, OLGA LIDIA) Vitals Vital Signs Past 12 Hours Date Time Temp Pulse Resp B/P Pulse Ox O2 Delivery O2 Flow Rate FiO2 08/03/16 11:43 36.2 48 20 136/66 97 Nasal Cannula 2.0 08/03/16 08:00 36.7 58 16 130/71 96 Room Air 08/03/16 07:31 36.5 51 20 125/66 95 Room Air 08/03/16 07:30 36.5 58 16 130/71 96 08/03/16 07:30 36.5 58 18 130/71 96 08/03/16 06:44 36.3 46 20 124/62 94 08/03/16 06:36 40 08/03/16 06:14 36.5 46 20 115/55 96 08/03/16 06:12 42 08/03/16 05:46 36.6 49 20 116/65 96 08/03/16 05:33 36.6 56 18 115/67 96 08/03/16 05:15 43 08/03/16 04:29 36.5 50 20 105/68 96 08/03/16 04:02 Room Air 08/03/16 03:59 36.3 65 20 107/68 95 08/03/16 02:45 36.6 50 18 118/67 93 (Rea Flores, OLGA LIDIA) Allergies Coded Allergies: Penicillins (Verified Allergy, Unknown, ITCH,RASH, 02/26/15) ITCHY Home Medications Scheduled Aspirin (Aspirin Ec), 81 MG PO DAILY Atorvastatin (Lipitor), 80 MG PO DAILY Carvedilol (Coreg), 12.5 MG PO BID Fish Oil (Hiram-3), 1 CAP PO BID Furosemide (Lasix *), 20 MG PO DAILY Lisinopril (Zestril), 40 MG PO DAILY Multiple Vitamins W/ Minerals (Ocuvite), 1 TAB PO DAILY Multivitamins/Minerals (Centrum *), 1 TAB PO DAILY Omeprazole (Prilosec), 20 MG PO BID Potassium Ext Rel (Klor-Con), 20 MEQ PO QAM Terazosin (Hytrin), 5 MG PO DHS Problem List Medical Problems: (1) BPH (benign prostatic hypertrophy) (2) CAD (coronary artery disease) (3) CKD (chronic kidney disease) stage 3, GFR 30-59 ml/min (4) Dyslipidemia (5) GERD (gastroesophageal reflux disease) (6) HTN (hypertension) (7) Thoracic aneurysm Surgical Problems: (1) H/O aortic aneurysm repair (2) H/O cataract removal with insertion of prosthetic lens (3) History of appendectomy (4) History of bilateral knee arthroplasty (5) History of tonsillectomy and adenoidectomy (6) S/P AVR (aortic valve replacement) (Rea Flores PA-C) Surgical / Medical History Hx Cardiac Surgery: Yes (valve replacement) Hx Abdominal Surgery: No Hx Cancer Surgery: No Hx Thoracic Surgery: No Hx Orthopedic: No Hx Urinary Tract Surgery: No HX Other Surgery: No Past Medical/Surgical History: Heart Disease, High Cholesterol, Hypertension, Kidney Disease, Valve Replacement (Rea Flores, KAVINC) Family History Patient reports no known family medical history. (Rea Flores PA-C) Patient reports no known family medical history. (Shemar Morrissey M.D.) Social History Smoking Status: Former Smoker Hx Tobacco Use In Past Year?: No Hx Alcohol Use - Type & Amnt: No Hx Substance Use -Type & Amnt: No (Rea Flores, KAVINC) Review of Systems Constitutional: + malaise, No chills, No fever Skin: No change in color Eyes: No visual changes ENMT: No sore throat Respiratory: No [place], No cough, No short of breath Cardiovascular: + edema, No chest pain, No intermittent claudication, No palpitations, No syncope Gastrointestinal: No abdominal pain, No nausea, No vomiting Musculoskeletal: No back pain Neurologic: No dizziness, No lethargy, No numbness, No tingling (Rea Flores, KAVINC) Physical Exam Constitutional: General Apperance: well-nourished, well-developed, obese Level of Distress: NAD, acutely ill, chronically ill Psychiatric: Mental Status: active & alert, normal mood, normal affect Orientation: oriented except where noted, to time, to place, to person Memory: recent memory abnormal (vague, poor historian), remote memory abnormal (vague, poor historian) Head: normocephalic, atraumatic Eyes: EOM: EOMI ENMT: normal ENT inspection, hearing grossly normal, TMs normal, pharynx normal Neck: supple, trachea midline, no masses, FROM Lungs: Respiratory effort: no dyspnea Auscultation: no wheezing, no rales/crackles, no rhonchi, decreased breath sounds Cardiovascular: Apical Impulse: not displaced Heart Auscultation: RRR, murmur (with click) Peripheral Pulses: Pulses: full and equal, in all extremities except if noted Bruits: none appreciated Carotid Pulse: normal on the left, normal on the right Brachial Pulses: normal on the left, normal on the right Radial Pulse: normal on the left, normal on the right Posterior Tibialis Pulse: decreased on the left, decreased on the right Dorsalis Pedis Pulse: decreased on the left, decreased on the right Abdomen: Bowel Sounds: normal Inspection & Palpation: soft, non-distended, no tenderness, guarding & rebound Musculoskeletal: normal strength (5/5 throughout), normal tone Extremities: Upper Right: no cyanosis, no edema, no varicosities Upper Left: no cyanosis, no edema, no varicosities Lower Right: no cyanosis, no varicosities, edema Lower Left: no cyanosis, no varicosities, edema Neurologic: Cranial Nerves: grossly intact Sensation: grossly intact (Rea Flores, KAVINC) Assessment and Plan ASSESSMENT and PLAN: Thoracic AA, 6.1cm by CTA Pt discussed with Dr Morrissey, who also reviewed CTA. No indications for vascular surgical intervention at this time. Pt is poor surgical candidate d/t multiple comorbidities. Please call if needed. (Rea Flores, PA-C) Patient was seen, examined, and chart reviewed. Agree with exam and treatment plan of the Vascular PA. Patient a high risk candidate for open and endovascular repair of his thoracic aortic aneurysm. No follow up needed by us. Thank you very much for letting me participate in the care of this patient. (Shemar Morrissey M.D.)
[2016-08-03 15:44] LABS: HEMATOCRIT 23.6 % (42-52); MEAN CELL VOLUME 87.7 fL (80-100); MEAN CORPUSCULAR HEMOGLOBIN 28.6 pg (25-34); MEAN CORPUSCULAR HGB CONC 32.6 g/dl (32-36); PLATELET COUNT 11 K/uL (130-400); RED BLOOD COUNT 2.69 M/uL (4.7-6.1); WHITE BLOOD COUNT 2.52 K/uL (4.8-10.8)
[2016-08-03 15:45] LABS: PLT ESTIMATE SIGNIFIC DECREASED
[2016-08-03 15:58] LABS: FIBRINOGEN* 86 mg/dl (184-400)
--- NOTE | 2016-08-03 16:26 | Progress Note ---
Internal Med Progress Note Date of Service: Aug 03, 2016. Provider Documentation: SUBJECTIVE: The patient was seen and examined Complains of generalized weakness Some abdominal pain OBJECTIVE: Vital Signs-as noted below Exam: General-Looks pale Not in any distress Eyes-normal ENT-normal Neck-supple Lungs-clear to ausucltate bilaterally Heart-Regular,3/6 ESM precordial and AA radiation to neck Abdomen-Benign,mildly tender upper quadrants Extremities-No edema Neuro-AAOx3 Generally weak Lab data as noted below. ASSESSMENT & PLAN: Pancytopenia with severe Thrombocytopenia -plt count 6 (plt count dec 2015 was 118) -Generally weak -differential includes-infection,sepsis,ITP,marrow infiltration,leukemia , aplastic anemia -transfuse as needed-received 2 unit of FFP and 2 plateletpheresis -appreciate Hematology input -no evidence of hemolysis -LDH is high -check Flow Cytometry Possible DIC Sepsis not yet ruled out Blood and Urine cultures CT abdomen and Pelvis for any source Transfuse blood products as needed No signs of active bleeding Will monitor Fibrinogen and FDP DEE DEE ON CKD STAGE 3 -creatinine 2.2; baseline creatinine 1.3; may be secondary to dehydration from GI losses -hold Lasix and lisinopril -IVF with caution -monitor with daily prp and avoid nephrotoxic agents when able DIARRHEA -C.diff negative -stool culture-negative -cont IVF MECHANICAL FALL -likely secondary to dehydration and anemia -CT head negative -PT/OT -fall precautions AORTIC ANEURYSM -s/p graft repair in 2009 -CT chest + increase in dilatation of prox to mid thoracic aorta. Max diameter increased from 5.7 cm (01/30/15) to 6.1 cm. No evidence of dissection. -appreciate Vascular surgery input-no intervention now AORTIC STENOSIS -s/p AVR 2009 -no chest pain CORONARY ARTERY DISEASE -EKG: no acute ischemic changes -cont ASA, BB, statin -follows with cardio, Dr. Colindres (apt scheduled for next month) -pt currently denies anginal sxs -having bradyarrhythmia -may need cardiology input if not any better GERD -cont PPI HTN -BP stable -holding lisinopril and lasix 2* DEE DEE -cont carvedilol -monitor DYSLIPIDEMIA -cont statin DVT PROPHYLAXIS -SCDs only in setting of severe thrombocytopenia CODE STATUS -FULL CODE per discussion with patient upon admission DISPO Awaited Vital Signs: Date Time Temp Pulse Resp B/P Pulse Ox O2 Delivery O2 Flow Rate FiO2 3/22/17 11:43 36.2 48 20 136/66 97 Nasal Cannula 2.0 08/03/16 08:00 36.7 58 16 130/71 96 Room Air 08/03/16 07:31 36.5 51 20 125/66 95 Room Air 08/03/16 07:30 36.5 58 16 130/71 96 08/03/16 07:30 36.5 58 18 130/71 96 08/03/16 06:44 36.3 46 20 124/62 94 08/03/16 06:36 40 08/03/16 06:14 36.5 46 20 115/55 96 08/03/16 06:12 42 08/03/16 05:46 36.6 49 20 116/65 96 08/03/16 05:33 36.6 56 18 115/67 96 08/03/16 05:15 43 08/03/16 04:29 36.5 50 20 105/68 96 08/03/16 04:02 Room Air 08/03/16 03:59 36.3 65 20 107/68 95 08/03/16 02:45 36.6 50 18 118/67 93 08/03/16 01:42 36.8 57 20 109/64 92 08/03/16 01:13 36.8 57 20 106/70 95 08/03/16 01:09 36.8 57 20 106/70 95 08/03/16 00:00 Room Air 08/02/16 23:12 37.3 59 20 94/56 93 Room Air 08/02/16 20:04 Room Air 08/02/16 19:00 38.5 76 18 136/70 95 Room Air 08/02/16 18:15 36.8 72 19 133/67 Room Air 08/02/16 17:36 37.1 58 20 109/63 93 08/02/16 17:11 58 20 08/02/16 17:10 37.1 59 16 109/63 93 08/02/16 17:06 59 17 08/02/16 17:01 57 19 08/02/16 17:00 37.1 59 14 109/63 94 08/02/16 17:00 109/63 08/02/16 16:56 57 22 08/02/16 16:51 57 18 08/02/16 16:46 56 18 08/02/16 16:41 56 20 08/02/16 16:36 58 20 08/02/16 16:31 65 21 136/72 08/02/16 16:26 65 25 08/02/16 16:21 68 23 08/02/16 16:16 62 22 Lab Results: Results Past 24 Hours Test 08/02/16 21:30 08/03/16 00:00 08/03/16 07:08 08/03/16 15:10 Range/Units White Blood Count 4.02 2.47 2.52 4.8-10.8 K/uL Red Blood Count 3.07 2.82 2.69 4.7-6.1 M/uL Hemoglobin 8.7 7.9 7.7 14.0-18.0 g/dL Hematocrit 27.2 24.3 23.6 42-52 % Mean Corpuscular Volume 88.6 86.2 87.7 80-100 fL Mean Corpuscular Hemoglobin 28.3 28.0 28.6 25-34 pg Mean Corpuscular Hemoglobin Concent 32.0 32.5 32.6 32-36 g/dl RDW Standard Deviation 54.4 52.6 54.2 36.4-46.3 fL RDW Coefficient of Variation 16.7 16.6 16.7 11.5-14.5 % Platelet Count 6 10 11 130-400 K/uL Platelet Estimate SIGNIFIC DECREASED SIGNIFIC DECREASED Immature Platelet Fraction 15.5 0.9-8.3 % Absolute Reticulocyte Count 0.05 0.05 0.02-0.10 10^6/uL Percent Reticulocyte Count 1.6 1.7 0.5-2.0 % Fibrinogen 80 86 184-400 mg/dl Fibrin Degradation Products >40 10-40 <10 mcg/ml D-Dimer 8550 0-500 ug/L FEU Lactate Dehydrogenase 268 87-241 U/L Neutrophils (%) (Auto) 62.4 % Lymphocytes (%) (Auto) 35.2 % Monocytes (%) (Auto) 2.0 % Eosinophils (%) (Auto) 0.0 % Basophils (%) (Auto) 0.0 % Neutrophils # (Auto) 1.54 1.4-6.5 K/uL Lymphocytes # (Auto) 0.87 1.2-3.4 K/uL Monocytes # (Auto) 0.05 0.11-0.59 K/uL Eosinophils # (Auto) 0.00 0-0.5 K/uL Basophils # (Auto) 0.00 0-0.2 K/uL Immature Granulocyte % (Auto) 0.4 % Immature Granulocyte # (Auto) 0.01 0.00-0.02 K/uL Sodium Level 140 136-145 mmol/L Potassium Level 4.5 3.5-5.1 mmol/L Chloride Level 111 98-107 mmol/L Carbon Dioxide Level 20 21-32 mmol/L Anion Gap 9.0 3-11 mmol/L Blood Urea Nitrogen 54 7-18 mg/dl Creatinine 1.90 0.60-1.40 mg/dl Est Creatinine Clear Calc Drug Dose 28.5 ml/min Estimated GFR () 38.0 Estimated GFR (Non- 32.8 BUN/Creatinine Ratio 28.5 10-20 Random Glucose 165 70-99 mg/dl Calcium Level 8.8 8.5-10.1 mg/dl Iron Level 41 35-175 mcg/dl Total Iron Binding Capacity 218 250-450 mcg/dl Transferrin 180 200-360 mg/dl Transferrin % Saturation 16 20-50 % Ferritin 414.6 8.0-388.0 ng/ml Vitamin B12 Level 1207 211-911 pg/mL Folate > 24.00 >5.38 ng/mL Procalcitonin 0.19 0-0.5 ng/mL Test 08/03/16 16:01 Range/Units
[2016-08-03 16:34] LABS: URINE APPEARANCE TURBID (CLEAR); URINE BILIRUBIN NEG (NEG); URINE COLOR YELLOW; URINE NITRITE NEG (NEG); UROBILINOGEN NEG (NEG); ZZUR CULT IF INDIC CLEAN CATCH YES
--- NOTE | 2016-08-03 16:47 | DIAGNOSTIC IMAGING REPORT ---
CT SCAN OF THE ABDOMEN AND PELVIS WITHOUT CONTRAST CLINICAL HISTORY: Abdominal pain. Evaluate for occult source of infection. COMPARISON STUDY: A 2214 TECHNIQUE: CT scan of the abdomen and pelvis was performed from the lung bases to the proximal femurs. Images are reviewed in the axial, sagittal, and coronal planes. IV contrast was not administered for this examination. CT DOSE: 465.21 mGy.cm FINDINGS: Lower chest: There is aneurysmal dilatation of the descending thoracic aorta which measures 6.1 cm. This previously measured 5.2 cm. There is mild left lower lobe bronchial wall thickening and presumed atelectatic change. Liver: The unenhanced liver is normal in size, contour, and attenuation. There is no intrahepatic biliary ductal dilatation. Gallbladder: Cholelithiasis Spleen: The spleen is mildly enlarged measuring 12 cm. Pancreas: Unremarkable. Adrenal glands: Unremarkable. Kidneys: There are bilateral renal masses. Most of these represent cysts. A 14 mm lower pole left renal lesion exceeds water attenuation and is therefore indeterminate. The largest cyst on the left measures 26 mm. There is also a 7 mm exophytic left renal nodule which exceeds water attenuation and is also indeterminate. Bowel: There are no transition zones indicate bowel obstruction. Evaluation the bowel is limited given the lack of intravenous and oral contrast. Peritoneum: There is a small amount of free fluid within the pelvis. No free air is visualized. There is mild edema within the mesentery. Vasculature: There is aneurysmal dilatation of the descending thoracic aorta as described above. There is mild diffuse ectasia of the abdominal aorta which measures 32 mm in diameter. Adenopathy: None. Pelvic viscera: There is indwelling Atkinson catheter. There is mild bladder wall thickening. Skeletal structures: No destructive osseous lesions are seen. IMPRESSION: 1. Technically limited study given the lack of intravenous and oral contrast, and moderate respiratory motion artifact 2. Low volume pelvic ascites 3. Cholelithiasis 4. Mild splenomegaly 5. Bilateral renal cysts, and small bilateral indeterminate renal lesions 6. No evidence of bowel obstruction. No evidence of free air 7. 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 Electronically signed by: Mateo Hutton M.D. 08/03/2016 4:46 PM Dictated Date/Time: 08/03/2016 4:36 PM
[2016-08-03 16:53] LABS: MANUAL MICROSCOPIC REQUIRED? NO; REVIEW REQ? YES
[2016-08-03] MEDS: ACETAMINOPHEN 325 MG TAB PO PRN (19:35)
[2016-08-04] VITALS (18 sets, daily range): BP systolic 122–156; BP diastolic 64–79; PULSE 31–70; TEMP 36.3–36.9; O2SAT 91–100
[2016-08-04 07:50] LABS: HEMATOCRIT 27.7 % (42-52); MEAN CELL VOLUME 85.8 fL (80-100); MEAN CORPUSCULAR HEMOGLOBIN 28.5 pg (25-34); MEAN CORPUSCULAR HGB CONC 33.2 g/dl (32-36); PLATELET COUNT 21 K/uL (130-400); RED BLOOD COUNT 3.23 M/uL (4.7-6.1); WHITE BLOOD COUNT 4.18 K/uL (4.8-10.8)
[2016-08-04 07:56] LABS: FIBRINOGEN* 106 mg/dl (184-400)
[2016-08-04] MEDS: CEROVITE ADV FORMULA TAB PO SCH (08:15)
[2016-08-04] MEDS: OMEGA-3 (PURIFIED FISH OIL) 1 GM CAP PO SCH ×2 (08:15→20:21)
[2016-08-04] MEDS: ATORVASTATIN 40 MG TAB PO SCH (08:15)
[2016-08-04] MEDS: PANTOprazole SOD 40 MG TAB PO SCH ×2 (08:16→20:21)
[2016-08-04 08:18] LABS: BUN/CREATININE RATIO 26.9 (10-20); CALCIUM 8.5 mg/dl (8.5-10.1); CREATININE 1.8 mg/dl (0.60-1.40); POTASSIUM 4.6 mmol/L (3.5-5.1)
[2016-08-04 08:34] LABS: MAGNESIUM 2.2 mg/dl (1.8-2.4); PHOSPHORUS 3.6 mg/dl (2.5-4.9)
[2016-08-04 10:34] LABS: LYME DISEASE AB IGG NEG (NEG); LYME DISEASE AB IGM NEG (NEG)
[2016-08-04] MEDS ORDERED: VANCOMYCIN CONSULT ACTIVE PRN (10:45)
--- NOTE | 2016-08-04 10:49 | Pharmacy Progress Note ---
Pharmacy Antibiotic Consult Date of Service: Aug 04, 2016. Pharmacy Dosing Scope Pharmacy is consulted to initiate vancomycin IV dosing therapy, order appropriate labs and adjust drug dose/frequency. Mr Hartman was admitted the other day for weakness and falling multiple times over the past month. He has a history of CKD stage 3 but currently serum creatinine is elevated 1.8 mg/dL ( baseline is 1.4-1.5 mg/dL). The patient also has developed pancytopenia. Two separate urine samples were cultured and are growing streptococcus and enterococcus species. Sensitivities are pending. Subjective The patient is a 81 year old male admitted on Aug 02, 2016 at 15:11. Objective Height (Feet): 5 Height (Inches): 2.00 Weight (Kilograms): 80.100 Lab Results (24hrs): Laboratory Tests Test 08/03/16 15:10 08/04/16 07:15 White Blood Count 2.52 K/uL 4.18 K/uL BUN/Creatinine Ratio 26.9 Blood Urea Nitrogen 48 mg/dl Creatinine 1.80 mg/dl Micro Results: RUN DATE: 08/04/16 [facility] LAB PAGE 1 RUN TIME: 1001 Specimen Inquiry PATIENT: JOSHUA HARTMAN LOC: [facility] U # : [id number] AGE/SX: 81/M ROOM: 41 REG : 08/02/[address]: Ronnie Cartwright M.D. : 1935 BED: 2 DIS : STATUS: ADM IN TLOC: SPEC #: [id number] MITCHELL: 08/03/16-UNK STATUS: RES REQ #: [id number] RECD: 08/03/[address] [facility] [address]: Ronnie Cartwright M.D. SOURCE: UR, CC ENTR: 08/03/[address] [facility] [address]: Koby Arthur M.D. SPDESC: Fransisco Suero MD Landrey, Shauna ., Cliff Travis M.D. Simoni, Eugene J., M.D. ORDERED: CULTURE URCLEAN Procedure Result Verified Site URINE CULTURE Preliminary 08/04/16-1001 Organism 1 ENTEROCOCCUS SPECIES COLONY COUNT >100,000 CFU/ml SENS SENSITIVITY TO FOLLOW RUN DATE: 08/03/16 [facility] LAB PAGE 1 RUN TIME: 917 Specimen Inquiry PATIENT: JOSHUA HARTMAN LOC: [facility] U # : [id number] AGE/SX: 81/M ROOM: [place] REG : 08/02/[address]: Ronnie Cartwright M.D. : 1935 BED: 2 DIS : STATUS: ADM IN TLOC: SPEC #: [id number] MITCHELL: 08/02/16-1208 STATUS: RES REQ #: [id number] RECD: 08/02/16-[address]: ARIELLE,PROTOCOL SOURCE: MIKAYLA PAZ ENTR: 08/02/16-1 NAVEED BRANNON: Duran Pate MD [facility]: Cliff Perez M.D. ORDERED: CULTURE URCLEAN Procedure Result Verified Site URINE CULTURE Preliminary 08/03/16 Organism 1 STREPTOCOCCUS SPECIES COLONY COUNT >100,000 CFU/ml SENS SENSITIVITY TO FOLLOW +MIX PLUS LOW COUNTS OTHER MIXED DARCIE Assessment & Plan Loading dose: vancomycin 1600 mg IV X 1 dose then: Random level has been ordered for: . Goal peak level estimate: between 35 - 40 mcg/mL. Goal trough level estimate: between 10 - 15 mcg/mL (indication UTI). Pharmacy will continue to follow and will adjust dose/frequency as necessary. Thank you
--- NOTE | 2016-08-04 10:52 | DIAGNOSTIC IMAGING REPORT ---
CHEST ONE VIEW PORTABLE CLINICAL HISTORY: [facility] dyspnea COMPARISON STUDY: 08/02/2016 FINDINGS: Findings of congestive failure slightly improved from the prior study. Pulmonary vasculature is moderately diminished in prominence. Prominence of the thoracic aorta is stable. IMPRESSION: 1. Stable prominence of the thoracic aorta. 2. Improving components of mild congestive failure Electronically signed by: Cliff Christiansen M.D. 08/04/2016 10:51 AM Dictated Date/Time: 08/04/2016 10:50 AM
[2016-08-04] MEDS ORDERED: VANCOMYCIN INJ 1,600 MG in SODIUM CHLORIDE 0.9% 500ML 500 ML IV ONE (11:00)
--- NOTE | 2016-08-04 17:10 | Progress Note ---
Internal Med Progress Note Date of Service: Aug 04, 2016. Provider Documentation: SUBJECTIVE: The patient was seen and examined Complains of generalized weakness Some abdominal pain Clinically much better today Remains generally weak OBJECTIVE: Vital Signs-as noted below Exam: General-Looks better today Not in any distress Eyes-normal ENT-normal Neck-supple Lungs-clear to ausucltate bilaterally Heart-Regular,3/6 ESM precordial and AA radiation to neck Abdomen-Benign,mildly tender upper quadrants Extremities-No edema Neuro-AAOx3 Generally weak Lab data as noted below. ASSESSMENT & PLAN: Pancytopenia with severe Thrombocytopenia -plt count 6 (plt count dec 2015 was 118) -Generally weak and lethargic -differential includes-infection,sepsis,ITP,marrow infiltration,leukemia , aplastic anemia -transfuse as needed-received 2 unit of FFP and 3 plateletpheresis,2 units PRBC and 1 pool of Cryoprecipitate -appreciate Hematology input -no evidence of hemolysis -LDH is high -check Flow Cytometry -pending -counts are a little better CORONARY ARTERY DISEASE-with Bradyarrhythmia and pauses -EKG: no acute ischemic changes -cont ASA, BB, statin -follows with cardio, Dr. Colindres (apt scheduled for next month) -pt currently denies anginal sxs -having bradyarrhythmia -will consult CARDIOLOGY Sepsis Likely secondary to Enterococci UTI Started on Vancomycin Possible DIC Sepsis not yet ruled out Blood and Urine cultures CT abdomen and Pelvis for any source Transfuse blood products as needed No signs of active bleeding Will monitor Fibrinogen and FDP Fibrinogen >100 08/04/16 DEE DEE ON CKD STAGE 3 -creatinine 2.2; baseline creatinine 1.3; may be secondary to dehydration from GI losses -hold Lasix and lisinopril -IVF with caution -monitor with daily prp and avoid nephrotoxic agents when able -Kidney function is improving DIARRHEA -C.diff negative -stool culture-negative -cont IVF MECHANICAL FALL -likely secondary to dehydration and anemia -CT head negative -PT/OT -fall precautions AORTIC ANEURYSM -s/p graft repair in 2009 -CT chest + increase in dilatation of prox to mid thoracic aorta. Max diameter increased from 5.7 cm (01/30/15) to 6.1 cm. No evidence of dissection. -appreciate Vascular surgery input-no intervention now AORTIC STENOSIS -s/p AVR 2009 -no chest pain GERD -cont PPI HTN -BP stable -holding lisinopril and lasix 2* DEE DEE -cont carvedilol -monitor DYSLIPIDEMIA -cont statin DVT PROPHYLAXIS -SCDs only in setting of severe thrombocytopenia CODE STATUS -FULL CODE per discussion with patient upon admission DISPO Awaited Vital Signs: Date Time Temp Pulse Resp B/P Pulse Ox O2 Delivery O2 Flow Rate FiO2 08/04/16 15:23 36.5 46 18 129/64 100 Nasal Cannula 3.0 08/04/16 12:00 Nasal Cannula 2.0 08/04/16 11:35 36.3 43 20 144/72 100 Nasal Cannula 2.0 08/04/16 08:00 Nasal Cannula 2.0 08/04/16 07:50 36.5 51 20 133/72 99 Nasal Cannula 2.0 08/04/16 04:57 36.4 41 18 151/75 96 2.0 08/04/16 04:00 36.4 35 20 146/79 96 Nasal Cannula 3.0 08/04/16 04:00 Nasal Cannula 2.0 08/04/16 03:30 36.5 42 18 141/73 98 2.0 08/04/16 03:00 36.6 31 18 127/69 98 2.0 08/04/16 03:00 36.5 37 20 141/73 97 2.0 08/04/16 02:51 36.4 42 18 140/76 97 2.0 08/04/16 02:48 36.4 42 18 140/76 97 2.0 08/04/16 02:43 36.5 38 16 124/74 98 2.0 08/04/16 02:00 36.6 41 18 133/78 98 2.0 08/04/16 01:59 36.6 40 18 140/75 100 2.0 08/04/16 01:30 36.5 41 18 135/74 100 2.0 08/04/16 01:19 36.5 45 20 142/77 98 2.0 08/04/16 00:01 Nasal Cannula 2.0 08/03/16 23:46 36.5 48 20 127/69 97 Nasal Cannula 3.0 08/03/16 22:30 36.6 53 20 151/75 100 2.0 08/03/16 21:45 36.5 49 20 156/77 100 2.0 08/03/16 21:23 36.5 51 22 152/81 100 3/22/17 20:00 36.4 52 19 149/77 100 2.0 08/03/16 20:00 Nasal Cannula 2.0 08/03/16 19:45 36.4 51 18 155/79 100 08/03/16 19:29 36.4 55 20 144/69 100 2.0 08/03/16 19:08 36.4 54 20 136/70 99 Nasal Cannula 3.0 Lab Results: Results Past 24 Hours Test 08/04/16 07:15 Range/Units White Blood Count 4.18 4.8-10.8 K/uL Red Blood Count 3.23 4.7-6.1 M/uL Hemoglobin 9.2 14.0-18.0 g/dL Hematocrit 27.7 42-52 % Mean Corpuscular Volume 85.8 80-100 fL Mean Corpuscular Hemoglobin 28.5 25-34 pg Mean Corpuscular Hemoglobin Concent 33.2 32-36 g/dl RDW Standard Deviation 50.3 36.4-46.3 fL RDW Coefficient of Variation 16.0 11.5-14.5 % Platelet Count 21 130-400 K/uL Fibrinogen 106 184-400 mg/dl Fibrin Degradation Products >40 <10 mcg/ml Sodium Level 140 136-145 mmol/L Potassium Level 4.6 3.5-5.1 mmol/L Chloride Level 110 98-107 mmol/L Carbon Dioxide Level 20 21-32 mmol/L Anion Gap 10.0 3-11 mmol/L Blood Urea Nitrogen 48 7-18 mg/dl Creatinine 1.80 0.60-1.40 mg/dl Est Creatinine Clear Calc Drug Dose 30.5 ml/min Estimated GFR () 40.6 Estimated GFR (Non- 35.0 BUN/Creatinine Ratio 26.9 10-20 Random Glucose 140 70-99 mg/dl Calcium Level 8.5 8.5-10.1 mg/dl Phosphorus Level 3.6 2.5-4.9 mg/dl Magnesium Level 2.2 1.8-2.4 mg/dl Total Bilirubin 1.0 0.2-1 mg/dl Direct Bilirubin 0.4 0-0.2 mg/dl Aspartate Amino Transf (AST/SGOT) 20 15-37 U/L Alanine Aminotransferase (ALT/SGPT) 33 12-78 U/L Alkaline Phosphatase 82 45-117 U/L Total Protein 6.7 6.4-8.2 gm/dl Albumin 2.8 3.4-5.0 gm/dl Lyme Disease IgG Antibody NEG NEG Lyme Disease IgM Antibody NEG NEG
[2016-08-04] MEDS: SODIUM CHLORIDE 0.9% 1000ML 1,000 ML IV SCH ×2 (20:21→23:34)
[2016-08-05 04:09] VITALS: BP 137/72; PULSE 51; TEMP 36.8; O2SAT 96
--- NOTE | 2016-08-05 07:09 | CARDIOLOGY CONSULTATION ---
DATE OF CONSULTATION: 08/04/2016 TIME OF CONSULTATION: 5:15 p.m. CONSULTATION REQUESTED BY: Ronnie Cartwright MD REASON FOR CONSULTATION: Bradycardia. 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 Hartman is a 81-year-old man with a complex prior cardiac history including coronary artery disease, prior aortic valve insufficiency, status post bioprosthetic aortic valve replacement and ascending aortic aneurysm repair, known descending thoracic aortic aneurysm and mild nonischemic cardiomyopathy; who was admitted in the setting of generalized fatigue and found to have severe hematologic abnormalities and possible sepsis with DIC. Cardiology was consulted for further management of bradycardia noted on telemetry. The patient states he had been in his usual state of health up until a week or so prior when he noticed increasing diarrhea. He had been at his home the day prior to admission and endorsed generalized fatigue. He had a fall, was unable to get up and as a result EMS was contacted. Upon presentation initial lab work was remarkable for a white blood cell count of 2.5, hemoglobin of 7.9 and initial platelet count of 6. In addition, creatinine was 2.2 and fibrinogen was less than 80 with a D-dimer greater than 8500. The patient was treated for possible infection with broad spectrum antibiotics, has been evaluated by hematology and thought to possibly have DIC which has been treated with FFP, packed red blood cells and cryoprecipitate. The patient has also underwent a CT scan of the chest which showed slightly increased descending aorta dilation. The patient has known descending thoracic aortic aneurysm, up from 5.7 prior up to 6.1 on recent study. The patient was seen by vascular surgery and no intervention was thought necessary at this time. More recently, on the day of consultation the patient had recurrent episodes of bradycardia in the 30s and 40s. Today, he had one episode of prolonged what appears to be sinus arrest lasting four seconds. Evidently, the patient was working with physical therapy at that time. The patient denies any symptoms of dizziness, lightheadedness, chest pain or shortness of breath. Also of note, during the time of interview today, the patient also had an episode of wide complex tachycardia lasting approximately 25 beats; the patient was completely asymptomatic during this event. PAST MEDICAL HISTORY: 1. Prior aortic insufficiency with ascending aortic aneurysm, status post bioprosthetic aortic valve replacement, aortic aneurysm repair and known descending thoracic aortic aneurysm. 2. Coronary artery disease. 3. Chronic kidney disease stage 3. 4. History of anemia. 5. Hypertension. 6. Hyperlipidemia. 7. Left bundle branch block. 8. Secondary hyperparathyroidism. FAMILY HISTORY: Noncontributory to current issues. SOCIAL HISTORY: The patient is single. He is retired. He is a former smoker, quit 15 years ago, previously smoked for 40 years. ALLERGIES: PENICILLINS. HOME MEDICATIONS: Include; aspirin 81, atorvastatin 80 mg, Coreg 12.5 p.o. b.i.d., fish oil 1 cap p.o. b.i.d., furosemide 20 mg daily, lisinopril 40, multivitamin, omeprazole 20 b.i.d., potassium and terazosin. PHYSICAL EXAMINATION: VITAL SIGNS: Temperature 36.5, pulse 46, blood pressure 129/64 and he is satting 100% on 3 liters. GENERAL: The patient appears comfortable. He is sitting up in a chair, eating his dinner without any issues. HEENT: Sclerae are anicteric. Oropharynx is clear. Mucous membranes are moist. He appears slightly pale. NECK: Supple, though with no lymphadenopathy. LUNGS: Clear to auscultation bilaterally. HEART: He has a 2/6 systolic murmur heard best at the left upper sternal border. Otherwise, though he is regular, bradycardic and no other appreciable rubs or gallops. ABDOMEN: Soft, nontender and nondistended with positive bowel sounds. EXTREMITIES: Warm with intact distal pulses. SKIN: Shows a few petechiae and minimal bruising. NEUROLOGIC: Grossly nonfocal. PSYCHIATRIC: He is alert, oriented and appropriate. LABORATORY DATA: Fibrinogen this morning was 106. Sodium was 140, potassium 4.6, bicarbonate of 20, BUN of 48 and creatinine 1.8. LFTs were within normal limits. White blood cell count 4.2, hemoglobin 9.2 and platelets of 21. Urine culture growing enterococcus. Stool cultures negative for C. diff. Blood cultures have been no growth to date. IMAGING: Chest x-ray showed no acute cardiopulmonary process. Head CT showed no acute intracranial findings. CT of chest showed a 6.1 cm descending thoracic aortic aneurysm, slightly increased from prior. CT scan of abdomen and pelvis showed no evidence of bowel obstruction, free air or any other sources of infection. Prior cardiac studies include; abdominal aortic ultrasound in 01/2015 which showed a suprarenal AAA 3.4 to 3.8 cm. Pharmacologic SPECT in 01/2014 showed small amount of moderate stress induced perfusion defect involving the anterior apical segments, EF of 45%. Echo in 12/2013 showed an EF of 55-60%. Bioprosthetic aortic valve with expected transvalvular gradient with a mean gradient of 17 and a mildly dilated arch. He had a cardiac catheterization in 06/2009 which showed a total apical LAD occlusion with collateral flow from RCA. No other significant coronary artery disease. Current cardiac imaging; EKG shows sinus rhythm with first degree AV block and left bundle branch block. IMPRESSION AND PLAN: 1. Sinus pauses, sinus bradycardia. 2. Nonsustained, wide complex tachycardia. 3. Sepsis. 4. Severe thrombocytopenia, pancytopenia with suspected disseminated intravascular coagulation. 5. Chronic left bundle branch block. 6. Bioprosthetic aortic valve. 7. Descending thoracic aortic aneurysm. 8. Chronic kidney disease. I have reviewed the patient's recent telemetry including 4-second pause earlier today and nonsustained wide complex tachycardia which occurred during the time of interview. The patient's pause earlier this afternoon appears to be sinus in nature, lasting approximately 4 seconds. With this, though the patient appeared to be largely asymptomatic. Wide complex tachycardia was monomorphic with heart rates in the 120s to 130s, and appears most consistent with VT; again, with this though the patient was asymptomatic. In the setting of the patient's significant acute illness including suspected disseminated intravascular coagulation with severe thrombocytopenia would favor conservative management at this time. Would continue to monitor on telemetry as asymptomatic, no acute need for either temporary or permanent pacing at this time. Would continue to hold patient's prior AV benny agents and continue to monitor electrolytes with goal, potassium greater than 4 and magnesium greater than 2. We will continue to follow the patient on telemetry. Further decisions regarding antiarrhythmic therapy or need for pacing pending clinical course. Thank you for allowing us to participate in the care of this patient. Please contact with any questions. DL
[2016-08-05 08:01] LABS: BUN/CREATININE RATIO 26.7 (10-20); CALCIUM 8.9 mg/dl (8.5-10.1); CREATININE 1.6 mg/dl (0.60-1.40); POTASSIUM 4.4 mmol/L (3.5-5.1)
[2016-08-05] MEDS ORDERED: SODIUM PHOSPHATE 3 MMOL/1 ML INFUSION IV STA (08:40)
[2016-08-05] MEDS ORDERED: SODIUM PHOSPHATE INJ 15 MMOL in SODIUM CHLORIDE 0.9% 250ML 250 ML IV SCH (09:00)
[2016-08-05 09:18] LABS: HEMATOCRIT 30.3 % (42-52); MEAN CELL VOLUME 88.9 fL (80-100); MEAN CORPUSCULAR HEMOGLOBIN 28.7 pg (25-34); MEAN CORPUSCULAR HGB CONC 32.3 g/dl (32-36); PLATELET COUNT 22 K/uL (130-400); RED BLOOD COUNT 3.41 M/uL (4.7-6.1); WHITE BLOOD COUNT 3.53 K/uL (4.8-10.8)
[2016-08-05 09:21] LABS: PLT ESTIMATE SIGNIFIC DECREASED
[2016-08-05] MEDS: ATORVASTATIN 40 MG TAB PO SCH (09:46)
[2016-08-05] MEDS: CEROVITE ADV FORMULA TAB PO SCH (09:46)
[2016-08-05] MEDS: OMEGA-3 (PURIFIED FISH OIL) 1 GM CAP PO SCH ×2 (09:47→21:14)
[2016-08-05] MEDS: PANTOprazole SOD 40 MG TAB PO SCH ×2 (09:47→21:14)
[2016-08-05] MEDS ORDERED: FUROSEMIDE INJ 20 MG in SYRINGE 0 ML IV ONE (10:15)
[2016-08-05 11:14] VITALS: BP 142/73; PULSE 55; TEMP 36.7; O2SAT 99
[2016-08-05 11:23] VITALS: BP 161/67; PULSE 56; O2SAT 100
[2016-08-05] MEDS ORDERED: LEVOFLOXACIN CONSULT ACTIVE PRN (11:45)
--- NOTE | 2016-08-05 11:48 | CARDIOLOGY PROGRESS NOTE ---
DATE: 08/04/2016 SUBJECTIVE: This morning Mr. Hartman claims to be feeling well. He was up eating breakfast. He denied any symptoms of abdominal discomfort, breathing difficulty or chest pain. Question regarding his ambulation yesterday, he states that while up with physical therapy, he had no symptoms despite having a documented 4-second pause during that time. He states he has not had episodes of significant dizziness at home. He did suffer a fall recently, but does not appear to be in any loss of consciousness and his fall appears to be due to gait instability. PHYSICAL EXAMINATION: GENERAL: He was alert and oriented. His mood and affect appeared to be normal. He answered all questions appropriately. CURRENT VITAL SIGNS: Include blood pressure 161/67 with a pulse of 56. LUNGS: Auscultation of both lung byrnes revealed them to be clear. There were no rales, wheezes or rhonchi. He had good respiratory effort without use of accessory muscles. CARDIAC EVALUATION: Reveals him to be a regular rhythm with occasional ectopy. LABORATORY DATA: Today included a white cell count of 3.5, a hemoglobin of 9.8, and a platelet count of 22. Sodium was 140, potassium was 4.4, BUN was 43, and creatinine was 1.6. ASSESSMENT AND PLAN: 1. Sinus arrest. Review of the patient's telemetry suggests this is likely sinus arrest, although very low amplitude P waves could be present in the tracing. He does have an element of baseline conduction of these and it seems reasonable to discontinue the beta anthony as previously mentioned. In the absence of additional symptoms or evidence of additional pauses or high grade AV block, it would seem reasonable to simply monitor the patient overtime. Given the patient's other acute medical problems, would defer any additional intervention at this time. 2. Ventricular tachycardia. No additional episodes overnight. Ideally, the patient would be maintained on beta anthony, but given the aforementioned conduction disease, discontinue at this time. DL
--- NOTE | 2016-08-05 12:18 | Progress Note ---
Internal Med Progress Note Date of Service: Aug 05, 2016. Provider Documentation: SUBJECTIVE: The patient was seen and examined Complains of generalized weakness Some abdominal pain after food Clinically much better today Remains generally weak OBJECTIVE: Vital Signs-as noted below Exam: General-Looks better today Not in any distress Eyes-normal ENT-normal Neck-supple Lungs-clear to ausucltate bilaterally Heart-Regular,3/6 ESM precordial and AA radiation to neck Abdomen-Benign,mildly tender upper quadrants mainly on the left side Extremities-No edema Neuro-AAOx3 Generally weak Lab data as noted below. ASSESSMENT & PLAN: Pancytopenia with severe Thrombocytopenia -plt count 6 (plt count dec 2015 was 118) -Generally weak and lethargic -differential includes-infection,sepsis,ITP,marrow infiltration,leukemia , aplastic anemia -transfuse as needed-received 2 unit of FFP and 3 plateletpheresis,2 units PRBC and 1 pool of Cryoprecipitate -appreciate Hematology input -no evidence of hemolysis -LDH is high -check Flow Cytometry -pending -counts are a little better -Will transfuse 1 unit of Cryo today CORONARY ARTERY DISEASE-with Bradyarrhythmia and pauses -EKG: no acute ischemic changes -cont ASA, BB, statin -follows with cardio, Dr. Colindres (apt scheduled for next month) -pt currently denies anginal sxs -having bradyarrhythmia -will consult CARDIOLOGY-appreciate Input -may need PPM Sepsis Likely secondary to Enterococci UTI Started on Vancomycin Deescalated to Levaquin Pharmacy consult -appreciate input Possible DIC Sepsis not yet ruled out Blood and Urine cultures CT abdomen and Pelvis for any source Transfuse blood products as needed No signs of active bleeding Will monitor Fibrinogen and FDP Fibrinogen >100 08/04/16 DEE DEE ON CKD STAGE 3 -creatinine 2.2; baseline creatinine 1.3; may be secondary to dehydration from GI losses -hold Lasix and lisinopril -IVF with caution -monitor with daily prp and avoid nephrotoxic agents when able -Kidney function is improving DIARRHEA -C.diff negative -stool culture-negative -cont IVF MECHANICAL FALL -likely secondary to dehydration and anemia -CT head negative -PT/OT -fall precautions AORTIC ANEURYSM -s/p graft repair in 2009 -CT chest + increase in dilatation of prox to mid thoracic aorta. Max diameter increased from 5.7 cm (01/30/15) to 6.1 cm. No evidence of dissection. -appreciate Vascular surgery input-no intervention now AORTIC STENOSIS -s/p AVR 2009 -no chest pain GERD -cont PPI HTN -BP stable -holding lisinopril and lasix 2* DEE DEE -cont carvedilol -monitor DYSLIPIDEMIA -cont statin DVT PROPHYLAXIS -SCDs only in setting of severe thrombocytopenia CODE STATUS -FULL CODE per discussion with patient upon admission DISPO Awaited Vital Signs: Date Time Temp Pulse Resp B/P Pulse Ox O2 Delivery O2 Flow Rate FiO2 08/05/16 11:23 56 20 161/67 100 2.0 08/05/16 11:14 36.7 55 20 142/73 99 08/05/16 04:09 36.8 51 20 137/72 96 Nasal Cannula 2.0 08/05/16 04:00 Nasal Cannula 2.0 08/05/16 00:01 Nasal Cannula 2.0 08/04/16 23:54 36.8 54 20 156/79 99 Nasal Cannula 2.0 08/04/16 20:00 Nasal Cannula 2.0 08/04/16 19:00 36.9 52 18 150/76 99 Nasal Cannula 3.0 08/04/16 17:54 65 21 153/72 98 Nasal Cannula 2.0 08/04/16 16:00 Nasal Cannula 2.0 08/04/16 16:00 Nasal Cannula 2.0 08/04/16 15:23 36.5 46 18 129/64 100 Nasal Cannula 3.0 Lab Results: Results Past 24 Hours Test 08/05/16 07:13 Range/Units White Blood Count 3.53 4.8-10.8 K/uL Red Blood Count 3.41 4.7-6.1 M/uL Hemoglobin 9.8 14.0-18.0 g/dL Hematocrit 30.3 42-52 % Mean Corpuscular Volume 88.9 80-100 fL Mean Corpuscular Hemoglobin 28.7 25-34 pg Mean Corpuscular Hemoglobin Concent 32.3 32-36 g/dl RDW Standard Deviation 54.6 36.4-46.3 fL RDW Coefficient of Variation 16.7 11.5-14.5 % Platelet Count 22 130-400 K/uL Platelet Estimate SIGNIFIC DECREASED Fibrinogen 73 184-400 mg/dl Sodium Level 140 136-145 mmol/L Potassium Level 4.4 3.5-5.1 mmol/L Chloride Level 110 98-107 mmol/L Carbon Dioxide Level 24 21-32 mmol/L Anion Gap 6.0 3-11 mmol/L Blood Urea Nitrogen 43 7-18 mg/dl Creatinine 1.60 0.60-1.40 mg/dl Est Creatinine Clear Calc Drug Dose 34.3 ml/min Estimated GFR () 46.8 Estimated GFR (Non- 40.4 BUN/Creatinine Ratio 26.7 10-20 Random Glucose 93 70-99 mg/dl Calcium Level 8.9 8.5-10.1 mg/dl Phosphorus Level 2.0 2.5-4.9 mg/dl Magnesium Level 2.0 1.8-2.4 mg/dl Random Vancomycin Level 10.6 mcg/ml
[2016-08-05 12:29] VITALS: BP 120/83; PULSE 61; O2SAT 99
[2016-08-05] MEDS ORDERED: NURSING VERBAL MED ORDER ONE (13:30)
[2016-08-05] MEDS: LEVOFLOXACIN 750MG / D5W IV SCH (13:31)
[2016-08-05 15:18] VITALS: BP 127/67; PULSE 92; TEMP 36.9; O2SAT 93
[2016-08-05 18:57] VITALS: BP 129/73; PULSE 87; TEMP 37.3; O2SAT 94
--- NOTE | 2016-08-05 19:50 | Hematology/Oncology Prog Note ---
Hematology/Onc Progress Note Date of Service Aug 05, 2016. Diagnoses 1. Coagulopathy and severe thrombocytopenia most likely secondary to acute DIC given the elevated D dimer and low fibrinogen 2. UTI from E. Faecalis Medications Medications Administered Medications (Trade) Dose Ordered Sig/Song Route Start Time Stop Time Status Last Admin Dose Admin Sodium Chloride 500 ml @ 999 mls/hr Q31M STAT IV 08/02/16 11:34 08/02/16 12:04 DC 08/02/16 12:32 999 MLS/HR Sodium Chloride (Nss 1000ml) 1,000 ml @ 75 mls/hr [id number] IV 08/02/16 18:00 09/01/16 17:59 Future hold 08/04/16 23:34 75 MLS/HR Acetaminophen (Tylenol Tab) 650 mg Q4H PRN PO 08/02/16 15:15 09/01/16 15:14 08/03/16 19:35 650 MG Atorvastatin Calcium (Lipitor Tab) 80 mg DAILY PO 08/03/16 09:00 09/02/16 08:59 08/05/16 09:46 80 MG Carvedilol (Coreg Tab) 12.5 mg BID PO 08/02/16 21:00 09/01/16 20:59 Future Hold 08/02/16 20:26 12.5 MG Fish Oil ([place]-3 (Purified Fish Oil) Cap) 1 gm BID PO 08/02/16 21:00 09/01/16 20:59 08/05/16 09:47 1 GM Multivitamins/ Minerals (Multivitamin W/ Minerals Tab) 1 tab DAILY PO 08/03/16 09:00 09/02/16 08:59 08/05/16 09:46 1 TAB Terazosin HCl (Hytrin Cap) 5 mg HS PO 08/02/16 21:00 09/01/16 20:59 08/04/16 20:22 5 MG Pantoprazole Sodium 40 mg 40 mg BID PO 08/02/16 21:00 09/01/16 20:59 08/05/16 09:47 40 MG Methylprednisolone Sodium Succinate 20 mg/Syringe 0.32 ml @ 1.5 mls/min Q8H IV 08/02/16 18:00 08/02/16 21:49 DC 08/02/16 20:19 1.5 MLS/MIN Dexamethasone Sodium Phosphate 40 mg/Dextrose 54 ml @ 50 mls/hr NOW STAT IV 08/02/16 21:52 08/03/16 07:46 DC 08/02/16 22:28 50 MLS/HR Vancomycin HCl 1600 mg/Sodium Chloride 532 ml @ 200 mls/hr NOW ONCE IV 08/04/16 11:00 08/04/16 13:39 DC 08/04/16 11:31 200 MLS/HR Sodium Phosphate 15 mmol/Sodium Chloride 255 ml @ 102 mls/hr TODAY@0900 IV 08/05/16 09:00 08/05/16 11:29 DC 08/05/16 09:46 102 MLS/HR Furosemide 20 mg/ Syringe 2 ml @ 4 mls/min NOW ONCE IV 08/05/16 10:15 08/05/16 10:16 DC 08/05/16 11:18 4 MLS/MIN Levofloxacin/Prmx (Levaquin / D5W/ Premixed D5W) 150 ml @ 100 mls/hr Q2D IV 08/05/16 14:00 08/15/16 13:59 08/05/16 13:31 100 MLS/HR Subjective The patient reports feeling somewhat better today. He continues to require Atkinson catheter as he has not regularly up and out of bed. His diarrhea has improved and he has not yet had a bowel movement today. He does experience cramping with eating. He has not had bleeding from any sites. He denies any chest pain, cough or dyspnea. He denies any peripheral pain. Vital Signs Vital Signs Past 12 Hours Date Time Temp Pulse Resp B/P Pulse Ox O2 Delivery O2 Flow Rate FiO2 08/05/16 16:00 Nasal Cannula 2.0 08/05/16 15:18 36.9 92 18 127/67 93 Nasal Cannula 2.0 08/05/16 12:29 61 18 120/83 99 2.0 08/05/16 12:00 Nasal Cannula 2.0 08/05/16 11:23 56 20 161/67 100 2.0 08/05/16 11:14 36.7 55 20 142/73 99 08/05/16 08:00 Nasal Cannula 2.0 Physical Exam ENMT: hearing grossly normal Lungs: Respiratory Effort: no dyspnea Auscuitation: no wheezing, no rhonchi Cardiovascular: Heart Auscultation: RRR, murmur (harsh systolic) Abdomen: Inspection & Palpation: soft, no tenderness, guarding & rebound, distended Extremities: edema (1+ bilateral ankles), pertinent finding (no calf tenderness ) Petechiae noted on anterior lower legs. Laboratory 08/02/16 21:30 08/03/16 07:08 Red Blood Count 2.82, Mean Corpuscular Volume 86.2, Mean Corpuscular Hemoglobin 28.0, Mean Corpuscular Hemoglobin Concent 32.5, Neutrophils (%) (Auto) 62.4, Lymphocytes (%) (Auto) 35.2, Monocytes (%) (Auto) 2.0, Eosinophils (%) (Auto) 0.0, Basophils (%) (Auto) 0.0, Neutrophils # (Auto) 1.54, Lymphocytes # (Auto) 0.87, Monocytes # (Auto) 0.05, Eosinophils # (Auto) 0.00, Basophils # (Auto) 0.00 08/03/16 15:10 08/04/16 07:15 08/05/16 07:13 08/03/16 07:08 08/04/16 07:15 08/05/16 07:13 Test 08/02/16 21:30 08/03/16 00:00 08/03/16 07:08 08/03/16 15:10 Red Blood Count 3.07 M/uL (4.7-6.1) 2.82 M/uL (4.7-6.1) 2.69 M/uL (4.7-6.1) Mean Corpuscular Volume 88.6 fL (80-100) 86.2 fL (80-100) 87.7 fL (80-100) Mean Corpuscular Hemoglobin 28.3 pg (25-34) 28.0 pg (25-34) 28.6 pg (25-34) Mean Corpuscular Hemoglobin Concent 32.0 g/dl (32-36) 32.5 g/dl (32-36) 32.6 g/dl (32-36) RDW Standard Deviation 54.4 fL (36.4-46.3) 52.6 fL (36.4-46.3) 54.2 fL (36.4-46.3) RDW Coefficient of Variation 16.7 % (11.5-14.5) 16.6 % (11.5-14.5) 16.7 % (11.5-14.5) Platelet Estimate SIGNIFIC DECREASED SIGNIFIC DECREASED Immature Platelet Fraction 15.5 % (0.9-8.3) Absolute Reticulocyte Count 0.05 10^6/uL (0.02-0.10) 0.05 10^6/uL (0.02-0.10) Percent Reticulocyte Count 1.6 % (0.5-2.0) 1.7 % (0.5-2.0) Haptoglobin <15 MG/DL (43-212) Fibrinogen 80 mg/dl (184-400) 86 mg/dl (184-400) Fibrin Degradation Products >40 mcg/ml (<10) 10-40 mcg/ml (<10) D-Dimer 8550 ug/L FEU (0-500) Lactate Dehydrogenase 268 U/L (87-241) Urine Color YELLOW Urine Appearance TURBID (CLEAR) Urine pH 5.0 (4.5-7.5) Urine Specific [place] 1.020 (1.000-1.030) Urine Protein 1+ (NEG) Urine Glucose (UA) NEG (NEG) Urine Ketones NEG (NEG) Urine Occult Blood 3+ (NEG) Urine Nitrite NEG (NEG) Urine Bilirubin NEG (NEG) Urine Urobilinogen NEG (NEG) Urine Leukocyte Esterase LARGE (NEG) Urine WBC (Auto) >30 /hpf (0-5) Urine RBC (Auto) >30 /hpf (0-4) Urine Hyaline Casts (Auto) 0 /lpf (0-5) Urine Epithelial Cells (Auto) 5-10 /lpf (0-5) Urine Bacteria (Auto) 2+ (NEG) Urine Crystals URIC ACID (NONE PRSENT) Urine Pathogenic Casts /lpf (0) Urine Yeast (Auto) (NONE PRSENT) White Blood Count 2.47 K/uL (4.8-10.8) Hemoglobin 7.9 g/dL (14.0-18.0) Hematocrit 24.3 % (42-52) Platelet Count 10 K/uL (130-400) Neutrophils (%) (Auto) 62.4 % Lymphocytes (%) (Auto) 35.2 % Monocytes (%) (Auto) 2.0 % Eosinophils (%) (Auto) 0.0 % Basophils (%) (Auto) 0.0 % Neutrophils # (Auto) 1.54 K/uL (1.4-6.5) Lymphocytes # (Auto) 0.87 K/uL (1.2-3.4) Monocytes # (Auto) 0.05 K/uL (0.11-0.59) Eosinophils # (Auto) 0.00 K/uL (0-0.5) Basophils # (Auto) 0.00 K/uL (0-0.2) Immature Granulocyte % (Auto) 0.4 % Immature Granulocyte # (Auto) 0.01 K/uL (0.00-0.02) Anion Gap 9.0 mmol/L (3-11) Est Creatinine Clear Calc Drug Dose 28.5 ml/min Estimated GFR () 38.0 Estimated GFR (Non- 32.8 BUN/Creatinine Ratio 28.5 (10-20) Calcium Level 8.8 mg/dl (8.5-10.1) Iron Level 41 mcg/dl (35-175) Total Iron Binding Capacity 218 mcg/dl (250-450) Transferrin 180 mg/dl (200-360) Transferrin % Saturation 16 % (20-50) Ferritin 414.6 ng/ml (8.0-388.0) Vitamin B12 Level 1207 pg/mL (211-911) Folate > 24.00 ng/mL (>5.38) Procalcitonin 0.19 ng/mL (0-0.5) Test 08/04/16 07:15 08/05/16 07:13 Red Blood Count 3.23 M/uL (4.7-6.1) 3.41 M/uL (4.7-6.1) Mean Corpuscular Volume 85.8 fL (80-100) 88.9 fL (80-100) Mean Corpuscular Hemoglobin 28.5 pg (25-34) 28.7 pg (25-34) Mean Corpuscular Hemoglobin Concent 33.2 g/dl (32-36) 32.3 g/dl (32-36) RDW Standard Deviation 50.3 fL (36.4-46.3) 54.6 fL (36.4-46.3) RDW Coefficient of Variation 16.0 % (11.5-14.5) 16.7 % (11.5-14.5) Fibrinogen 106 mg/dl (184-400) 73 mg/dl (184-400) Fibrin Degradation Products >40 mcg/ml (<10) Flow Cytometry Comment See Comment Anion Gap 10.0 mmol/L (3-11) 6.0 mmol/L (3-11) Est Creatinine Clear Calc Drug Dose 30.5 ml/min 34.3 ml/min Estimated GFR () 40.6 46.8 Estimated GFR (Non- 35.0 40.4 BUN/Creatinine Ratio 26.9 (10-20) 26.7 (10-20) Calcium Level 8.5 mg/dl (8.5-10.1) 8.9 mg/dl (8.5-10.1) Phosphorus Level 3.6 mg/dl (2.5-4.9) 2.0 mg/dl (2.5-4.9) Magnesium Level 2.2 mg/dl (1.8-2.4) 2.0 mg/dl (1.8-2.4) Total Bilirubin 1.0 mg/dl (0.2-1) Direct Bilirubin 0.4 mg/dl (0-0.2) Aspartate Amino Transf (AST/SGOT) 20 U/L (15-37) Alanine Aminotransferase (ALT/SGPT) 33 U/L (12-78) Alkaline Phosphatase 82 U/L (45-117) Total Protein 6.7 gm/dl (6.4-8.2) Albumin 2.8 gm/dl (3.4-5.0) Lyme Disease IgG Antibody NEG (NEG) Lyme Disease IgM Antibody NEG (NEG) Platelet Estimate SIGNIFIC DECREASED Random Vancomycin Level 10.6 mcg/ml Date/Time Source Procedure Growth Status 08/03/16 00:00 Urine , Clean Catch Urine Culture - Final Enterococcus Faecalis Complete Peripheral flow cytometry: No diagnostic immunophenotypic abnormalities detected. Specifically including lymphoproliferative disorder, acute leukemia or circulating blasts. CT of the abdomen/pelvis from 08/03/2016: Aneurysmal dilatation of the descending thoracic aorta measuring 6.1 centimeter. Previously measured 5.2 centimeter. The liver is normal in size, contour and attenuation. No intrahepatic biliary ductal dilatation. Spleen is mildly enlarged at 12 cm. 14 mm lower pole left renal lesion exceeds water or attenuation in is therefore indeterminate. Also a 7 millimeter exophytic left renal nodule which exceeds water attenuation and is also indeterminate. Mild edema within the mesentery. No adenopathy. No destructive osseous lesions. Chest x-ray from 08/04/2016: Findings of congestive failure slightly improved from prior study. Radiology See above. Assessment & Plan 1. Acute DIC likely from UTI from enterococcus * Has received 2 units PRBC, 3 units PLT, 2 cryo since admission * Treat underlying cause- UTI from enterococcus (blood cultures x 2 negative) * Expecting condition to improve in the next few days with treatment of infection * Recommend monitor serial CBC and fibrinogen level every 8hrs and and transfuse platelets and cryo as needed to keep platelet count >10 and fibrinogen >100. Repeat PT/PTT. Transfuse PRBCs/platelets/cryo or FFPs as needed if any bleeding. * Fibrinogen remains low as of today, PT/PTT have not been repeated, so these orders will be placed to be done tomorrow * Peripheral flow cyto negative pathologic findings * CT of abdomen/pelvis does not reveal malignancy- 2 indeterminate lesions in left kidney, recommend patient establish with urology for monitoring of lesions , further work up * Attending note Case discussed with Dr Cartwright and Rosalba Vazquez PA-C and agree with above
[2016-08-06] VITALS (7 sets, daily range): BP systolic 104–135; BP diastolic 56–75; PULSE 53–81; TEMP 36.5–37.1; O2SAT 96–99
[2016-08-06 07:34] LABS: MEAN CORPUSCULAR HEMOGLOBIN 28.6 pg (25-34); MEAN CORPUSCULAR HGB CONC 32.9 g/dl (32-36); PLATELET COUNT 22 K/uL (130-400); PLT ESTIMATE SIGNIFIC DECREASED; RED BLOOD COUNT 3.22 M/uL (4.7-6.1); WHITE BLOOD COUNT 3.19 K/uL (4.8-10.8)
[2016-08-06 07:37] LABS: INR 1.4 (0.9-1.1); PARTIAL THROMBOPLASTIN RATIO 1.6; PROTHROMBIN TIME (PATIENT) 15.7 SECONDS (9.0-12.0)
[2016-08-06 07:38] LABS: BUN/CREATININE RATIO 22.7 (10-20); CALCIUM 8.2 mg/dl (8.5-10.1); CREATININE 1.4 mg/dl (0.60-1.40); MAGNESIUM 1.9 mg/dl (1.8-2.4); POTASSIUM 3.9 mmol/L (3.5-5.1)
[2016-08-06 07:39] LABS: PHOSPHORUS 1.9 mg/dl (2.5-4.9)
[2016-08-06] MEDS: PANTOprazole SOD 40 MG TAB PO SCH ×2 (08:13→20:58)
[2016-08-06] MEDS: CEROVITE ADV FORMULA TAB PO SCH (08:14)
[2016-08-06] MEDS: OMEGA-3 (PURIFIED FISH OIL) 1 GM CAP PO SCH ×2 (08:14→20:58)
[2016-08-06] MEDS: ATORVASTATIN 40 MG TAB PO SCH (08:14)
[2016-08-06] MEDS ORDERED: POTASSIUM PHOS 3 MMOL/1 ML INFUSION IV STA (08:24)
[2016-08-06] MEDS ORDERED: NURSING VERBAL MED ORDER ONE (08:45)
[2016-08-06] MEDS ORDERED: POTASSIUM PHOSPHATE INJ 24 MMOL in SODIUM CHLORIDE 0.9% 500ML 500 ML IV ONE (09:00)
--- NOTE | 2016-08-06 17:19 | Progress Note ---
Internal Med Progress Note Date of Service: Aug 06, 2016. Provider Documentation: SUBJECTIVE: The patient was seen and examined Clinically better Denies any complaints OBJECTIVE: Vital Signs-as noted below Exam: General-Looks better today Not in any distress Eyes-normal ENT-normal Neck-supple Lungs-clear to ausucltate bilaterally Heart-Regular,3/6 ESM precordial and AA radiation to neck Abdomen-Benign,mildly tender upper quadrants mainly on the left side Extremities-No edema Neuro-AAOx3 Generally weak Lab data as noted below. ASSESSMENT & PLAN: Pancytopenia with severe Thrombocytopenia -plt count 6 (plt count dec 2015 was 118) -Generally weak and lethargic -differential includes-infection,sepsis,ITP,marrow infiltration,leukemia , aplastic anemia -transfuse as needed-received 2 unit of FFP and 3 plateletpheresis,2 units PRBC and 2 pool of Cryoprecipitate -appreciate Hematology input -no evidence of hemolysis -LDH is high -Flow Cyrtometry -negative -Platelet 22,WCC- 3.19 and Hb 9.2 as of 08/06/16 Sepsis Likely secondary to Enterococci UTI Started on Vancomycin Deescalated to Levaquin Pharmacy consult -appreciate input Clinically better and showing improvement Lyme-negative,Norovirus RNA-negative Parvovirus-pending DIC-secondary to Sepsis Enterococci UTI CT abdomen and Pelvis for any source Transfuse blood products as needed No signs of active bleeding Will monitor Fibrinogen and FDP Try to keep Fibrinogen >~100 CORONARY ARTERY DISEASE-with Bradyarrhythmia and pauses -EKG: no acute ischemic changes -cont ASA, BB, statin -follows with cardio, Dr. Colindres (apt scheduled for next month) -pt currently denies anginal sxs -having bradyarrhythmia -will consult CARDIOLOGY-appreciate Input -may need PPM DEE DEE ON CKD STAGE 3 -creatinine 2.2; baseline creatinine 1.3; may be secondary to dehydration from GI losses -hold Lasix and lisinopril -IVF with caution -monitor with daily prp and avoid nephrotoxic agents when able -Kidney function is improving DIARRHEA -C.diff negative -stool culture-negative -controlled MECHANICAL FALL -likely secondary to dehydration and anemia -CT head negative -PT/OT -fall precautions AORTIC ANEURYSM -s/p graft repair in 2009 -CT chest + increase in dilatation of prox to mid thoracic aorta. Max diameter increased from 5.7 cm (01/30/15) to 6.1 cm. No evidence of dissection. -appreciate Vascular surgery input-no intervention now AORTIC STENOSIS -s/p AVR 2009 -no chest pain GERD -cont PPI HTN -BP stable -holding lisinopril and lasix 2* DEE DEE -cont carvedilol -monitor DYSLIPIDEMIA -cont statin DVT PROPHYLAXIS -SCDs only in setting of severe thrombocytopenia CODE STATUS -FULL CODE per discussion with patient upon admission DISPO Awaited Vital Signs: Date Time Temp Pulse Resp B/P Pulse Ox O2 Delivery O2 Flow Rate FiO2 08/06/16 15:42 36.7 66 20 122/71 99 Nasal Cannula 1.0 08/06/16 12:00 37.0 81 20 125/75 97 Nasal Cannula 1.0 08/06/16 08:00 Nasal Cannula 2.0 08/06/16 07:40 36.5 66 22 135/71 98 Room Air 08/06/16 04:35 36.9 53 18 130/66 98 08/06/16 04:00 Nasal Cannula 2.0 08/06/16 00:13 37.0 58 18 104/56 96 08/06/16 00:00 Nasal Cannula 2.0 08/05/16 20:00 Nasal Cannula 2.0 08/05/16 18:57 37.3 87 18 129/73 94 Nasal Cannula 2.0 Lab Results: Results Past 24 Hours Test 08/06/16 06:35 Range/Units White Blood Count 3.19 4.8-10.8 K/uL Red Blood Count 3.22 4.7-6.1 M/uL Hemoglobin 9.2 14.0-18.0 g/dL Hematocrit 28.0 42-52 % Mean Corpuscular Volume 87.0 80-100 fL Mean Corpuscular Hemoglobin 28.6 25-34 pg Mean Corpuscular Hemoglobin Concent 32.9 32-36 g/dl RDW Standard Deviation 52.5 36.4-46.3 fL RDW Coefficient of Variation 16.6 11.5-14.5 % Platelet Count 22 130-400 K/uL Platelet Estimate SIGNIFIC DECREASED Prothrombin Time 15.7 9.0-12.0 SECONDS Prothromb Time International Ratio 1.4 0.9-1.1 Activated Partial Thromboplast Time 41.4 21.0-31.0 SECONDS Partial Thromboplastin Ratio 1.6 Fibrinogen 93 184-400 mg/dl Sodium Level 140 136-145 mmol/L Potassium Level 3.9 3.5-5.1 mmol/L Chloride Level 109 98-107 mmol/L Carbon Dioxide Level 27 21-32 mmol/L Anion Gap 4.0 3-11 mmol/L Blood Urea Nitrogen 32 7-18 mg/dl Creatinine 1.40 0.60-1.40 mg/dl Est Creatinine Clear Calc Drug Dose 39.5 ml/min Estimated GFR () 55.0 Estimated GFR (Non- 47.5 BUN/Creatinine Ratio 22.7 10-20 Random Glucose 86 70-99 mg/dl Calcium Level 8.2 8.5-10.1 mg/dl Phosphorus Level 1.9 2.5-4.9 mg/dl Magnesium Level 1.9 1.8-2.4 mg/dl
[2016-08-07] VITALS (7 sets, daily range): BP systolic 118–157; BP diastolic 69–87; PULSE 63–90; TEMP 36.6–37.6; O2SAT 96–99
[2016-08-07 07:15] LABS: CREATININE 1.4 mg/dl (0.60-1.40)
[2016-08-07] MEDS: PANTOprazole SOD 40 MG TAB PO SCH ×2 (08:25→21:44)
[2016-08-07] MEDS: CEROVITE ADV FORMULA TAB PO SCH (08:26)
[2016-08-07] MEDS: OMEGA-3 (PURIFIED FISH OIL) 1 GM CAP PO SCH ×2 (08:26→21:44)
[2016-08-07] MEDS: ATORVASTATIN 40 MG TAB PO SCH (08:26)
[2016-08-07 09:03] LABS: HEMATOCRIT 31.5 % (42-52); MEAN CELL VOLUME 87.5 fL (80-100); MEAN CORPUSCULAR HEMOGLOBIN 28.6 pg (25-34); MEAN CORPUSCULAR HGB CONC 32.7 g/dl (32-36); MEAN PLATELET VOLUME 10.3 fL (7.4-10.4); PLATELET COUNT 20 K/uL (130-400); WHITE BLOOD COUNT 3.49 K/uL (4.8-10.8)
[2016-08-07 09:08] LABS: BUN/CREATININE RATIO 19.1 (10-20); CALCIUM 8.6 mg/dl (8.5-10.1); CREATININE 1.4 mg/dl (0.60-1.40); POTASSIUM 3.7 mmol/L (3.5-5.1)
--- NOTE | 2016-08-07 14:38 | Progress Note ---
Internal Med Progress Note Date of Service: Aug 07, 2016. Provider Documentation: SUBJECTIVE: The patient was seen and examined Clinically much better Denies any complaints OOB in a chair OBJECTIVE: Vital Signs-as noted below Exam: General-Looks better today Not in any distress Eyes-normal ENT-normal Neck-supple Lungs-clear to ausucltate bilaterally Heart-Regular,3/6 ESM precordial and AA radiation to neck Abdomen-Benign,mildly tender upper quadrants mainly on the left side Extremities-No edema Neuro-AAOx3 Generally weak Lab data as noted below. ASSESSMENT & PLAN: Pancytopenia with severe Thrombocytopenia -plt count 6 (plt count dec 2015 was 118) -Generally weak and lethargic -differential includes-infection,sepsis,ITP,marrow infiltration,leukemia , aplastic anemia -transfuse as needed-received 2 unit of FFP and 3 plateletpheresis,2 units PRBC and 2 pool of Cryoprecipitate -appreciate Hematology input -no evidence of hemolysis -LDH is high -Flow Cyrtometry -negative -Platelet 20,WCC- 3.49 and Hb 10.3 as of 08/07/16 Sepsis Likely secondary to Enterococci UTI Started on Vancomycin Deescalated to Levaquin Pharmacy consult -appreciate input Clinically better and showing improvement Lyme-negative,Norovirus RNA-negative Parvovirus-pending DIC-secondary to Sepsis Enterococci UTI CT abdomen and Pelvis for any source Transfuse blood products as needed No signs of active bleeding Will monitor Fibrinogen and FDP Try to keep Fibrinogen >~100 PTT ratio 1.6 CORONARY ARTERY DISEASE-with Bradyarrhythmia and pauses -EKG: no acute ischemic changes -cont ASA, BB, statin -follows with cardio, Dr. Colindres (apt scheduled for next month) -pt currently denies anginal sxs -having bradyarrhythmia -will consult CARDIOLOGY-appreciate Input -may need PPM -No more Bradyarrhythmia DEE DEE ON CKD STAGE 3 -creatinine 2.2; baseline creatinine 1.3; may be secondary to dehydration from GI losses -hold Lasix and lisinopril -IVF with caution -monitor with daily prp and avoid nephrotoxic agents when able -Kidney function is improving and normalized DIARRHEA -C.diff negative -stool culture-negative -controlled MECHANICAL FALL -likely secondary to dehydration and anemia -CT head negative -PT/OT -fall precautions AORTIC ANEURYSM -s/p graft repair in 2009 -CT chest + increase in dilatation of prox to mid thoracic aorta. Max diameter increased from 5.7 cm (01/30/15) to 6.1 cm. No evidence of dissection. -appreciate Vascular surgery input-no intervention now AORTIC STENOSIS -s/p AVR 2010 -no chest pain GERD -cont PPI HTN -BP stable -holding lisinopril and lasix 2* DEE DEE -cont carvedilol -monitor DYSLIPIDEMIA -cont statin DVT PROPHYLAXIS -SCDs only in setting of severe thrombocytopenia CODE STATUS -FULL CODE per discussion with patient upon admission DISPO Awaited Vital Signs: Date Time Temp Pulse Resp B/P Pulse Ox O2 Delivery O2 Flow Rate FiO2 08/07/16 12:18 37.0 90 20 118/69 99 Nasal Cannula 1.0 08/07/16 12:00 Room Air 08/07/16 08:00 Room Air 08/07/16 07:19 36.9 81 20 148/83 98 Nasal Cannula 1.0 08/07/16 04:05 36.6 63 20 122/71 97 Nasal Cannula 1.0 08/07/16 04:00 Room Air 08/07/16 00:00 Room Air 08/06/16 23:25 36.7 59 16 129/72 98 Nasal Cannula 1.0 08/06/16 20:00 Room Air 08/06/16 18:58 37.1 70 20 119/68 97 Nasal Cannula 1.0 08/06/16 16:00 Nasal Cannula 2.0 08/06/16 15:42 36.7 66 20 122/71 99 Nasal Cannula 1.0 Lab Results: Results Past 24 Hours Test 08/07/16 06:25 08/07/16 08:23 Range/Units Creatinine 1.40 1.40 0.60-1.40 mg/dl Est Creatinine Clear Calc Drug Dose 39.5 39.5 ml/min Estimated GFR () 55.0 55.0 Estimated GFR (Non- 47.5 47.5 White Blood Count 3.49 4.8-10.8 K/uL Red Blood Count 3.60 4.7-6.1 M/uL Hemoglobin 10.3 14.0-18.0 g/dL Hematocrit 31.5 42-52 % Mean Corpuscular Volume 87.5 80-100 fL Mean Corpuscular Hemoglobin 28.6 25-34 pg Mean Corpuscular Hemoglobin Concent 32.7 32-36 g/dl RDW Standard Deviation 53.2 36.4-46.3 fL RDW Coefficient of Variation 16.6 11.5-14.5 % Platelet Count 20 130-400 K/uL Mean Platelet Volume 10.3 7.4-10.4 fL Fibrinogen 90 184-400 mg/dl Sodium Level 140 136-145 mmol/L Potassium Level 3.7 3.5-5.1 mmol/L Chloride Level 108 98-107 mmol/L Carbon Dioxide Level 26 21-32 mmol/L Anion Gap 6.0 3-11 mmol/L Blood Urea Nitrogen 27 7-18 mg/dl BUN/Creatinine Ratio 19.1 10-20 Random Glucose 122 70-99 mg/dl Calcium Level 8.6 8.5-10.1 mg/dl
[2016-08-07] MEDS: LEVOFLOXACIN 750MG / D5W IV SCH (15:00)
[2016-08-07 19:37] LABS: PARVOVIRUS IgG INDEX 1.2 (<0.9); PARVOVIRUS IgM INDEX 0.1 (<0.9)
[2016-08-08] VITALS (14 sets, daily range): BP systolic 118–156; BP diastolic 69–82; PULSE 60–92; TEMP 36.8–37.2; O2SAT 94–100
[2016-08-08 07:42] LABS: PARTIAL THROMBOPLASTIN RATIO 1.9
[2016-08-08 07:58] LABS: BUN/CREATININE RATIO 20.6 (10-20); CALCIUM 8.1 mg/dl (8.5-10.1); CREATININE 1.2 mg/dl (0.60-1.40); MAGNESIUM 1.7 mg/dl (1.8-2.4); PHOSPHORUS 1.9 mg/dl (2.5-4.9)
[2016-08-08] MEDS: PANTOprazole SOD 40 MG TAB PO SCH ×2 (08:02→21:18)
[2016-08-08] MEDS: CEROVITE ADV FORMULA TAB PO SCH (08:02)
[2016-08-08] MEDS: OMEGA-3 (PURIFIED FISH OIL) 1 GM CAP PO SCH ×2 (08:03→21:18)
[2016-08-08] MEDS: ATORVASTATIN 40 MG TAB PO SCH (08:03)
[2016-08-08 08:16] LABS: HEMATOCRIT 29.5 % (42-52); MEAN CELL VOLUME 88.3 fL (80-100); MEAN CORPUSCULAR HEMOGLOBIN 28.4 pg (25-34); MEAN CORPUSCULAR HGB CONC 32.2 g/dl (32-36); PLATELET COUNT 29 K/uL (130-400); RED BLOOD COUNT 3.34 M/uL (4.7-6.1); WHITE BLOOD COUNT 3.64 K/uL (4.8-10.8)
[2016-08-08] MEDS ORDERED: SODIUM PHOSPHATE 3 MMOL/1 ML INFUSION IV STA (09:24)
[2016-08-08] MEDS ORDERED: SODIUM PHOSPHATE INJ 24 MMOL in SODIUM CHLORIDE 0.9% 500ML 500 ML IV SCH (09:45)
[2016-08-08] MEDS ORDERED: MAGNESIUM SULFATE 1GM / D5W 1 GM in PREMIXED IN D5W 100 ML IV ONE (09:45)
--- NOTE | 2016-08-08 10:46 | CARDIOLOGY PROGRESS NOTE ---
DATE: 08/08/2016 This morning Mr. Hartman claims to be feeling well. He denies any significant chest discomfort. He has not had any episodes of dizziness or lightheadedness. He denies any breathing difficulty. He has not been very ambulatory over the weekend, he transferred from the bed to chair but did little other activity. PHYSICAL EXAMINATION: GENERAL: He is alert and oriented. His mood and affect appeared normal. CURRENT VITAL SIGNS: Included a blood pressure of 119/74 and a pulse of 76. HEENT: Sclerae anicteric. LUNGS: Auscultation of his lungs revealed them to be clear. He had no rales, wheezes or rhonchi. CARDIAC: Revealed him to be in a regular rhythm. He had a slightly crescendo systolic murmur heard at the upper sternal border. There was no evidence of peripheral edema on exam. LABORATORY STUDIES: Today included a white cell count of 3.6, hemoglobin of 9.5, platelet count was 29. Fibrinogen was 74. Sodium was 141, potassium was 4.0, BUN was 25, creatinine 1.2. ASSESSMENT AND PLAN: 1. Sinus arrest. The patient has not had any additional episodes of sinus arrest or pauses. He has not been symptomatic with respect to his bradycardia, although he has been very sedentary during this admission. I think with discontinuation of his carvedilol, we are unlikely to see any additional episodes in the short term. He does have significant conduction disease and we will need to monitor him for symptoms of recurrent pauses, bradycardia or heart block. 2. Ventricular tachycardia. Early in the patient's admission, he did have a brief episode of nonsustained ventricular tachycardia. He has a history of preserved left ventricular systolic function, no symptoms of heart failure. The episode itself was asymptomatic. Ideally, he would be on a beta anthony, but given his conduction disease and the documented sinus arrest, it seems reasonable to discontinue the beta anthony as accomplished. No recurrent episodes during this hospitalization. 3. Aortic valve disease. The patient appears to have normally functioning bioprosthetic aortic valve, no symptoms currently. 4. Thoracic aortic aneurysm. He has been evaluated by the surgeons during this hospitalization and their recommendations were reviewed.
--- NOTE | 2016-08-08 12:41 | Hematology/Oncology Prog Note ---
Hematology/Onc Progress Note Date of Service Aug 08, 2016. Diagnoses 1. Coagulopathy and severe thrombocytopenia most likely secondary to acute DIC given the elevated D dimer and low fibrinogen 2. Sepsis from UTI due to E. Faecalis 3. Anemia of multiple mechanisms- blood from infection, acute illness Medications Medications Administered Medications (Trade) Dose Ordered Sig/Song Route Start Time Stop Time Status Last Admin Dose Admin Sodium Chloride 500 ml @ 999 mls/hr Q31M STAT IV 08/02/16 11:34 08/02/16 12:04 DC 08/02/16 12:32 999 MLS/HR Sodium Chloride (Nss 1000ml) 1,000 ml @ 75 mls/hr [id number] IV 08/02/16 18:00 08/06/16 08:50 DC 08/04/16 23:34 75 MLS/HR Acetaminophen (Tylenol Tab) 650 mg Q4H PRN PO 08/02/16 15:15 09/01/16 15:14 08/03/16 19:35 650 MG Atorvastatin Calcium (Lipitor Tab) 80 mg DAILY PO 08/03/16 09:00 09/02/16 08:59 08/08/16 08:03 80 MG Carvedilol (Coreg Tab) 12.5 mg BID PO 08/02/16 21:00 09/01/16 20:59 Future Hold 08/02/16 20:26 12.5 MG Fish Oil ([place]-3 (Purified Fish Oil) Cap) 1 gm BID PO 08/02/16 21:00 09/01/16 20:59 08/08/16 08:03 1 GM Multivitamins/ Minerals (Multivitamin W/ Minerals Tab) 1 tab DAILY PO 08/03/16 09:00 09/02/16 08:59 08/08/16 08:02 1 TAB Terazosin HCl (Hytrin Cap) 5 mg HS PO 08/02/16 21:00 09/01/16 20:59 08/07/16 21:44 5 MG Pantoprazole Sodium 40 mg 40 mg BID PO 08/02/16 21:00 09/01/16 20:59 08/08/16 08:02 40 MG Methylprednisolone Sodium Succinate 20 mg/Syringe 0.32 ml @ 1.5 mls/min Q8H IV 08/02/16 18:00 08/02/16 21:49 DC 08/02/16 20:19 1.5 MLS/MIN Dexamethasone Sodium Phosphate 40 mg/Dextrose 54 ml @ 50 mls/hr NOW STAT IV 08/02/16 21:52 08/03/16 07:46 DC 08/02/16 22:28 50 MLS/HR Vancomycin HCl 1600 mg/Sodium Chloride 532 ml @ 200 mls/hr NOW ONCE IV 08/04/16 11:00 08/04/16 13:39 DC 08/04/16 11:31 200 MLS/HR Sodium Phosphate 15 mmol/Sodium Chloride 255 ml @ 102 mls/hr TODAY@0900 IV 08/05/16 09:00 08/05/16 11:29 DC 08/05/16 09:46 102 MLS/HR Furosemide 20 mg/ Syringe 2 ml @ 4 mls/min NOW ONCE IV 08/05/16 10:15 08/05/16 10:16 DC 08/05/16 11:18 4 MLS/MIN Levofloxacin 750 mg/Prmx 150 ml @ 100 mls/hr Q2D IV 08/05/16 14:00 08/15/16 13:59 08/07/16 15:00 100 MLS/HR Potassium Phosphate 24 mmol/ Sodium Chloride 508 ml @ 127 mls/hr NOW ONCE IV 08/06/16 09:00 08/06/16 12:59 DC 08/06/16 09:18 127 MLS/HR Magnesium Sulfate 1 gm/Prmx 100 ml @ 100 mls/hr NOW ONCE IV 08/08/16 09:45 08/08/16 10:44 DC 08/08/16 10:34 100 MLS/HR Sodium Phosphate/ Sodium Chloride (Sodium Phosphate Inj/Nss 500ml) 508 ml @ 127 mls/hr TODAY@0945 IV 08/08/16 09:45 08/08/16 13:44 08/08/16 10:33 127 MLS/HR Subjective The patient reports feeling fine today, has been up and out of bed. He continues to require Atkinson catheter; he is planning to start walking today and after that point consideration for removal of Atkinson as likely. He had 2 liquid stools yesterday, but no hematochezia or melena. He has a good appetite and denies nausea. He has not had epistaxis or gingival bleeding. He denies cough or dyspnea. He has not had dizziness getting up out of bed. He denies any peripheral pain. Review of Systems: Constitutional: No chills, No fever Respiratory: No cough, No shortness of breath, No sputum Abdomen: + diarrhea, No GI bleeding, No nausea, No pain Musculoskeletal: No calf pain Male : + see HPI Vital Signs Vital Signs Past 12 Hours Date Time Temp Pulse Resp B/P Pulse Ox O2 Delivery O2 Flow Rate FiO2 08/08/16 12:15 82 20 131/74 97 1.0 08/08/16 12:02 37.2 63 20 156/82 98 1.0 08/08/16 08:10 37.0 76 22 118/74 99 Nasal Cannula 1.0 08/08/16 04:00 96 Nasal Cannula 1.0 08/08/16 03:01 36.8 60 22 127/70 100 Nasal Cannula 1.0 Physical Exam ENMT: hearing grossly normal Lungs: Respiratory Effort: no dyspnea Auscuitation: no wheezing, no rhonchi Cardiovascular: Heart Auscultation: RRR, murmur (harsh systolic) Abdomen: Inspection & Palpation: soft, no tenderness, guarding & rebound, distended Extremities: edema (1+ bilateral ankles), pertinent finding (no calf tenderness ) Laboratory 08/06/16 06:35 08/07/16 08:23 08/08/16 07:12 08/06/16 06:35 08/07/16 06:25 08/07/16 08:23 08/08/16 07:12 Test 08/06/16 06:35 08/07/16 06:25 08/07/16 08:23 08/08/16 07:12 Red Blood Count 3.22 M/uL (4.7-6.1) 3.60 M/uL (4.7-6.1) 3.34 M/uL (4.7-6.1) Mean Corpuscular Volume 87.0 fL (80-100) 87.5 fL (80-100) 88.3 fL (80-100) Mean Corpuscular Hemoglobin 28.6 pg (25-34) 28.6 pg (25-34) 28.4 pg (25-34) Mean Corpuscular Hemoglobin Concent 32.9 g/dl (32-36) 32.7 g/dl (32-36) 32.2 g/dl (32-36) RDW Standard Deviation 52.5 fL (36.4-46.3) 53.2 fL (36.4-46.3) 53.3 fL (36.4-46.3) RDW Coefficient of Variation 16.6 % (11.5-14.5) 16.6 % (11.5-14.5) 16.6 % (11.5-14.5) Platelet Estimate SIGNIFIC DECREASED Prothrombin Time 15.7 SECONDS (9.0-12.0) Prothromb Time International Ratio 1.4 (0.9-1.1) Activated Partial Thromboplast Time 41.4 SECONDS (21.0-31.0) 48.7 SECONDS (21.0-31.0) Partial Thromboplastin Ratio 1.6 1.9 Fibrinogen 93 mg/dl (184-400) 90 mg/dl (184-400) 74 mg/dl (184-400) Anion Gap 4.0 mmol/L (3-11) 6.0 mmol/L (3-11) 8.0 mmol/L (3-11) Est Creatinine Clear Calc Drug Dose 39.5 ml/min 39.5 ml/min 39.5 ml/min 45.2 ml/min Estimated GFR () 55.0 55.0 55.0 66.3 Estimated GFR (Non- 47.5 47.5 47.5 57.2 BUN/Creatinine Ratio 22.7 (10-20) 19.1 (10-20) 20.6 (10-20) Calcium Level 8.2 mg/dl (8.5-10.1) 8.6 mg/dl (8.5-10.1) 8.1 mg/dl (8.5-10.1) Phosphorus Level 1.9 mg/dl (2.5-4.9) 1.9 mg/dl (2.5-4.9) Magnesium Level 1.9 mg/dl (1.8-2.4) 1.7 mg/dl (1.8-2.4) Mean Platelet Volume 10.3 fL (7.4-10.4) Nucleated RBC Absolute Count (auto) 0.04 K/uL (0-0) Nucleated Red Blood Cells % 1.2 % Assessment & Plan 1. Acute DIC likely from UTI from enterococcus complicated by sepsis on admission * Has received 2 units PRBC, 3 units PLT, 3 cryo since admission (including cryo ordered today) * Treat underlying cause- UTI from enterococcus (blood cultures x 2 negative) * Expecting condition to improve in the next few days with treatment of infection * Recommend monitor serial CBC and fibrinogen level daily and and transfuse platelets and cryo as needed to keep platelet count >10 and fibrinogen >100. Transfuse PRBCs/platelets/cryo or FFPs as needed if any bleeding. * Fibrinogen remains low as of today, hospitalist team has ordered cryoprecipitate today * Platelets minimally improved today, at 29K * Peripheral flow cyto negative pathologic findings * CT of abdomen/pelvis does not reveal malignancy- 2 indeterminate lesions in left kidney, recommend patient establish with urology for monitoring of lesions , further work up 2. UTI from enterococcus- management per hospitalist team. Antibiotics backed down to Levaquin. 3. Anemia of multiple mechanisms- stable- acute blood loss from infection, acute illness; had baseline at low 11 g/dL in 12/28, possibly from chronic disease. Iron studies, vitamin B 12 and folate not deficient this hospitalization.
--- NOTE | 2016-08-08 12:49 | Progress Note ---
Internal Med Progress Note Date of Service: Aug 08, 2016. Provider Documentation: SUBJECTIVE: The patient was seen and examined Clinically much better OOB in a chair Remains stable without any complaints OBJECTIVE: Vital Signs-as noted below Exam: General-Looks much better today Not in any distress at rest Eyes-normal ENT-normal Neck-supple Lungs-clear to ausucltate bilaterally Heart-Regular,3/6 ESM precordial and AA radiation to neck Abdomen-Benign,mildly tender upper quadrants mainly on the left side Extremities-No edema Neuro-AAOx3 Generally weak Lab data as noted below. ASSESSMENT & PLAN: Pancytopenia with severe Thrombocytopenia -plt count 6 (plt count dec 2015 was 118) -Generally weak and lethargic -differential includes-infection,sepsis,ITP,marrow infiltration,leukemia , aplastic anemia -transfuse as needed-received 2 unit of FFP and 3 plateletpheresis,2 units PRBC and 2 pool of Cryoprecipitate -appreciate Hematology input -no evidence of hemolysis -LDH is high -Flow Cyrtometry -negative -Platelet 29,WCC- 3.49 and Hb >9 as of 08/08/16 Electrolytes Imbalance Supplement and recheck Sepsis Likely secondary to Enterococci UTI Started on Vancomycin Deescalated to Levaquin Pharmacy consult -appreciate input Clinically better and showing improvement Lyme-negative,Norovirus RNA-negative Parvovirus-Ig M -negative ,Ig G positive Clinically better DIC-secondary to Sepsis Enterococci UTI CT abdomen and Pelvis for any source Transfuse blood products as needed No signs of active bleeding Will monitor Fibrinogen and FDP Try to keep Fibrinogen >~100 PTT ratio 1.6 Fibrinogen <80 will give another coprecipitate CORONARY ARTERY DISEASE-with Bradyarrhythmia and pauses -EKG: no acute ischemic changes -cont ASA, BB, statin -follows with cardio, Dr. Colindres (apt scheduled for next month) -pt currently denies anginal sxs -having bradyarrhythmia -will consult CARDIOLOGY-appreciate Input -may need PPM -No more Bradyarrhythmia DEE DEE ON CKD STAGE 3 -creatinine 2.2; baseline creatinine 1.3; may be secondary to dehydration from GI losses -hold Lasix and lisinopril -IVF with caution -monitor with daily prp and avoid nephrotoxic agents when able -Kidney function is improving and normalized DIARRHEA -C.diff negative -stool culture-negative -controlled MECHANICAL FALL -likely secondary to dehydration and anemia -CT head negative -PT/OT -fall precautions AORTIC ANEURYSM -s/p graft repair in 2010 -CT chest + increase in dilatation of prox to mid thoracic aorta. Max diameter increased from 5.7 cm (01/30/15) to 6.1 cm. No evidence of dissection. -appreciate Vascular surgery input-no intervention now AORTIC STENOSIS -s/p AVR 2010 -no chest pain GERD -cont PPI HTN -BP stable -holding lisinopril and lasix 2* DEE DEE -cont carvedilol -monitor DYSLIPIDEMIA -cont statin DVT PROPHYLAXIS -SCDs only in setting of severe thrombocytopenia CODE STATUS -FULL CODE per discussion with patient upon admission DISPO PT/OT evaluation Awaited Vital Signs: Date Time Temp Pulse Resp B/P Pulse Ox O2 Delivery O2 Flow Rate FiO2 08/08/16 12:15 82 20 131/74 97 1.0 08/08/16 12:02 37.2 63 20 156/82 98 1.0 08/08/16 08:10 37.0 76 22 118/74 99 Nasal Cannula 1.0 08/08/16 04:00 96 Nasal Cannula 1.0 08/08/16 03:01 36.8 60 22 127/70 100 Nasal Cannula 1.0 08/08/16 00:00 96 Nasal Cannula 1.0 08/07/16 23:36 36.8 64 18 128/74 97 Nasal Cannula 2.0 08/07/16 20:00 96 Nasal Cannula 1.0 08/07/16 19:08 36.8 85 20 157/87 96 Nasal Cannula 1.0 08/07/16 16:00 Room Air 08/07/16 15:22 37.6 77 19 144/84 99 Room Air Lab Results: Results Past 24 Hours Test 08/08/16 07:12 Range/Units White Blood Count 3.64 4.8-10.8 K/uL Red Blood Count 3.34 4.7-6.1 M/uL Hemoglobin 9.5 14.0-18.0 g/dL Hematocrit 29.5 42-52 % Mean Corpuscular Volume 88.3 80-100 fL Mean Corpuscular Hemoglobin 28.4 25-34 pg Mean Corpuscular Hemoglobin Concent 32.2 32-36 g/dl RDW Standard Deviation 53.3 36.4-46.3 fL RDW Coefficient of Variation 16.6 11.5-14.5 % Platelet Count 29 130-400 K/uL Nucleated RBC Absolute Count (auto) 0.04 0-0 K/uL Nucleated Red Blood Cells % 1.2 % Activated Partial Thromboplast Time 48.7 21.0-31.0 SECONDS Partial Thromboplastin Ratio 1.9 Fibrinogen 74 184-400 mg/dl Sodium Level 141 136-145 mmol/L Potassium Level 4.0 3.5-5.1 mmol/L Chloride Level 109 98-107 mmol/L Carbon Dioxide Level 24 21-32 mmol/L Anion Gap 8.0 3-11 mmol/L Blood Urea Nitrogen 25 7-18 mg/dl Creatinine 1.20 0.60-1.40 mg/dl Est Creatinine Clear Calc Drug Dose 45.2 ml/min Estimated GFR () 66.3 Estimated GFR (Non- 57.2 BUN/Creatinine Ratio 20.6 10-20 Random Glucose 90 70-99 mg/dl Calcium Level 8.1 8.5-10.1 mg/dl Phosphorus Level 1.9 2.5-4.9 mg/dl Magnesium Level 1.7 1.8-2.4 mg/dl
[2016-08-09] VITALS (15 sets, daily range): BP systolic 111–148; BP diastolic 61–84; PULSE 62–109; TEMP 36.4–37.1; O2SAT 96–99
[2016-08-09 07:39] LABS: CALCIUM 8.4 mg/dl (8.5-10.1); CREATININE 1.3 mg/dl (0.60-1.40); MAGNESIUM 1.9 mg/dl (1.8-2.4); POTASSIUM 3.8 mmol/L (3.5-5.1)
[2016-08-09 07:52] LABS: PARTIAL THROMBOPLASTIN RATIO 1.7
[2016-08-09 07:56] LABS: HEMATOCRIT 28.5 % (42-52); MEAN CELL VOLUME 87.2 fL (80-100); MEAN CORPUSCULAR HEMOGLOBIN 28.1 pg (25-34); MEAN CORPUSCULAR HGB CONC 32.3 g/dl (32-36); PLATELET COUNT 27 K/uL (130-400); RED BLOOD COUNT 3.27 M/uL (4.7-6.1); WHITE BLOOD COUNT 4.04 K/uL (4.8-10.8)
[2016-08-09] MEDS: CEROVITE ADV FORMULA TAB PO SCH (10:36)
[2016-08-09] MEDS: ATORVASTATIN 40 MG TAB PO SCH (10:36)
[2016-08-09] MEDS: PANTOprazole SOD 40 MG TAB PO SCH ×2 (10:37→20:42)
[2016-08-09] MEDS: OMEGA-3 (PURIFIED FISH OIL) 1 GM CAP PO SCH ×2 (10:37→20:41)
--- NOTE | 2016-08-09 11:14 | Cardiology Follow-Up ---
Subjective Subjective Date of Service: Aug 09, 2016. Pt evaluation today including: conversation w/ patient, physical exam, chart review, lab review, review of studies, review of inpatient medication list Additional Details: Patient feeling well. No chest pain, palpitations, or presyncope Tele reviewed -- no further events. Problem List Medical Problems: (1) ARF (acute renal failure) Status: Acute (2) Thrombocytopenia Status: Acute Review of Systems Constitutional: No fever Respiratory: No cough, No shortness of breath Cardiac: No chest pain, No palpitations Abdomen: + diarrhea, No nausea, No pain Musculoskeletal: No calf pain Heme: + abnormal bleeding/bruising Endo: No fatigue Skin: No rash Objective Vital Signs Last Vital Signs Documentation Date Time Temp Pulse Resp B/P Pulse Ox O2 Delivery O2 Flow Rate FiO2 08/09/16 08:19 36.4 63 18 136/77 97 08/09/16 04:00 Nasal Cannula 1.0 Physical Exam: General Appearance: no apparent distress Neck: no JVD Respiratory/Chest: lungs clear, normal breath sounds Cardiovascular: regular rate, rhythm, + systolic murmur (3/6 systolic ejectiom murmur) Abdomen: non tender, soft Extremities: + pertinent finding (1+ edema to shins) Neurologic/Psychiatric: alert, normal mood/affect Skin: warm/dry, no rash Assessment and Plan 1. Urosepsis -- on IV antibiotics 2. DIC/thrombocytopenia/anemia -- stable platelets, Hb, fibrinogen 3. Sinus arrest -- No further events off beta-anthony 4. NSVT -- no further events over-weekend 5. TAA -- stable 6. Bioprosthetic AVR -- expected transvalvular gradients on prior echo Has remained electrically stable over last 4 days. Agree with continuing to hold beta-anthony Continue telemetry No new other changes to current cardiac regiment Medications: Current Inpatient Medications Medications (Trade) Dose Ordered Sig/Song Route Start Time Stop Time Status Last Admin Dose Admin Acetaminophen (Tylenol Tab) 650 mg Q4H PRN PO 08/02/16 15:15 09/01/16 15:14 08/03/16 19:35 650 MG Ondansetron HCl (Zofran Inj) 4 mg Q6H PRN IV 08/02/16 15:15 09/01/16 15:14 Nitroglycerin (Nitrostat Tab) 0.4 mg UD PRN SL 3/21/17 15:15 09/01/16 15:14 Atorvastatin Calcium (Lipitor Tab) 80 mg DAILY PO 08/03/16 09:00 09/02/16 08:59 08/09/16 10:36 80 MG Carvedilol (Coreg Tab) 12.5 mg BID PO 08/02/16 21:00 09/01/16 20:59 Future Hold 08/02/16 20:26 12.5 MG Fish Oil ([place]-3 (Purified Fish Oil) Cap) 1 gm BID PO 08/02/16 21:00 09/01/16 20:59 08/09/16 10:37 1 GM Multivitamins/ Minerals (Multivitamin W/ Minerals Tab) 1 tab DAILY PO 08/03/16 09:00 09/02/16 08:59 08/09/16 10:36 1 TAB Terazosin HCl (Hytrin Cap) 5 mg HS PO 08/02/16 21:00 09/01/16 20:59 08/08/16 21:18 5 MG Pantoprazole Sodium (Protonix Tab) 40 mg BID PO 08/02/16 21:00 09/01/16 20:59 08/09/16 10:37 40 MG Levofloxacin 1 ea 1 ea UD PRN N/A 08/05/16 11:45 09/04/16 11:44 Levofloxacin/Prmx (Levaquin / D5W/ Premixed D5W) 150 ml @ 100 mls/hr Q2D IV 08/05/16 14:00 08/15/16 13:59 08/07/16 15:00 100 MLS/HR Lab Results: 08/09/16 06:36 08/09/16 06:36 Test 08/09/16 06:36 Red Blood Count 3.27 M/uL (4.7-6.1) Mean Corpuscular Volume 87.2 fL (80-100) Mean Corpuscular Hemoglobin 28.1 pg (25-34) Mean Corpuscular Hemoglobin Concent 32.3 g/dl (32-36) RDW Standard Deviation 52.6 fL (36.4-46.3) RDW Coefficient of Variation 16.4 % (11.5-14.5) Mean Platelet Volume 11.0 fL (7.4-10.4) Activated Partial Thromboplast Time 45.1 SECONDS (21.0-31.0) Partial Thromboplastin Ratio 1.7 Fibrinogen 94 mg/dl (184-400) Anion Gap 7.0 mmol/L (3-11) Est Creatinine Clear Calc Drug Dose 42.4 ml/min Estimated GFR () 60.1 Estimated GFR (Non- 51.9 BUN/Creatinine Ratio 18.0 (10-20) Calcium Level 8.4 mg/dl (8.5-10.1) Phosphorus Level 2.0 mg/dl (2.5-4.9) Magnesium Level 1.9 mg/dl (1.8-2.4)
--- NOTE | 2016-08-09 13:06 | Progress Note ---
Medicine Progress Note Date & Time of Visit: Aug 09, 2016 at 12:44. Subjective Pt was seen and examined Sitting in chair very comfortable with no distress Pt said that he feels fine Denies any chest pain, palpitation, dizziness, fever and SOB Objective Last 8 Hrs Date Time Temp Pulse Resp B/P Pulse Ox O2 Delivery O2 Flow Rate FiO2 08/09/16 11:59 37.0 68 18 111/61 99 Nasal Cannula 1.0 08/09/16 08:19 36.4 63 18 136/77 97 Physical Exam: General- no acute distress Head- atraumatic Eyes- PERRL, EOMI ENT- oropharynx clear Neck- supple, no JVD, Lungs- clear to auscultation, no wheezing Heart- regular rhythm, 3/6 ESM precordial and AA radiation to neck Abdomen- normal bowel sounds, soft Extremities- no calf tenderness Neuro- alert, oriented x 3; PERRL, EOMI Skin- warm & dry Laboratory Results: Last 24 Hours Test 08/09/16 06:36 White Blood Count 4.04 K/uL Red Blood Count 3.27 M/uL Hemoglobin 9.2 g/dL Hematocrit 28.5 % Mean Corpuscular Volume 87.2 fL Mean Corpuscular Hemoglobin 28.1 pg Mean Corpuscular Hemoglobin Concent 32.3 g/dl RDW Standard Deviation 52.6 fL RDW Coefficient of Variation 16.4 % Platelet Count 27 K/uL Mean Platelet Volume 11.0 fL Activated Partial Thromboplast Time 45.1 SECONDS Partial Thromboplastin Ratio 1.7 Fibrinogen 94 mg/dl Sodium Level 140 mmol/L Potassium Level 3.8 mmol/L Chloride Level 108 mmol/L Carbon Dioxide Level 25 mmol/L Anion Gap 7.0 mmol/L Blood Urea Nitrogen 23 mg/dl Creatinine 1.30 mg/dl Est Creatinine Clear Calc Drug Dose 42.4 ml/min Estimated GFR () 60.1 Estimated GFR (Non- 51.9 BUN/Creatinine Ratio 18.0 Random Glucose 90 mg/dl Calcium Level 8.4 mg/dl Phosphorus Level 2.0 mg/dl Magnesium Level 1.9 mg/dl Assessment & Plan Pancytopenia with severe Thrombocytopenia -plt count 6 on admission (plt count dec 2015 was 118) -Generally weak and lethargic -differential includes-infection,sepsis,ITP,marrow infiltration,leukemia , aplastic anemia -received 2 unit of FFP and 3 platelet, 2 units PRBC and 3 pool of Cryoprecipitate -no evidence of hemolysis -LDH is high -Flow Cyrtometry -negative -Platelet 27,WCC- 4.04 and Hb >9 as of 08/09/16 - Hematology on board recommended platelets and cryo as needed to keep platelet count >10 and fibrinogen >100. -Transfuse PRBCs/platelets/cryo or FFPs as needed if any bleeding. -Monitor cbc and fibrinogen daily -Will transfuse 1 cryo today Electrolytes Imbalance continue monitor Sepsis Likely secondary to Enterococci UTI Started on Vancomycin Deescalated to [facility] consult -appreciate input Clinically better and showing improvement Lyme-negative,Norovirus RNA-negative Parvovirus-Ig M -negative ,Ig G positive Clinically better DIC-secondary to Sepsis Enterococci UTI CT abdomen and Pelvis shown any mource for malignancy No signs of active bleeding Will monitor Fibrinogen and FDP Try to keep Fibrinogen >~100 PTT ratio 1.7 Fibrinogen 94 today will give another cryoprecipitate 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 Colindres (apt scheduled for next month) -pt currently denies anginal sxs -having bradyarrhythmia -Cardiology consult recommended to continue hold BB -No more Bradyarrhythmia DEE DEE ON CKD STAGE 3 -creatinine 2.2; baseline creatinine 1.3; may be secondary to dehydration from GI losses -hold Lasix and lisinopril -Creatine today 1.3 -monitor with daily prp and avoid nephrotoxic agents when able -Kidney function is improving and normalized - Resolved DIARRHEA -C.diff negative -stool culture-negative -controlled MECHANICAL FALL -likely secondary to dehydration and anemia -CT head negative -PT/OT -fall precautions AORTIC ANEURYSM -s/p graft repair in 2009 -CT chest showed increase in dilatation of prox to mid thoracic aorta. Max diameter increased from 5.7 cm (01/30/15) to 6.1 cm. No evidence of dissection. -Vascular surgery consulted recommended no intervention.at this time AORTIC STENOSIS -s/p AVR 2009 -no chest pain GERD -cont PPI HTN -BP stable -holding lisinopril and lasix 2* DEE DEE -cont carvedilol -monitor DYSLIPIDEMIA -cont statin DVT PROPHYLAXIS -SCDs only in setting of severe thrombocytopenia CODE STATUS FULL CODE Current Inpatient Medications: Current Inpatient Medications Medications (Trade) Dose Ordered Sig/Song Route Start Time Stop Time Status Last Admin Dose Admin Acetaminophen (Tylenol Tab) 650 mg Q4H PRN PO 08/02/16 15:15 09/01/16 15:14 08/03/16 19:35 650 MG Ondansetron HCl (Zofran Inj) 4 mg Q6H PRN IV 08/02/16 15:15 09/01/16 15:14 Nitroglycerin (Nitrostat Tab) 0.4 mg UD PRN SL 08/02/16 15:15 09/01/16 15:14 Atorvastatin Calcium (Lipitor Tab) 80 mg DAILY PO 08/03/16 09:00 09/02/16 08:59 08/09/16 10:36 80 MG Carvedilol (Coreg Tab) 12.5 mg BID PO 08/02/16 21:00 09/01/16 20:59 Future Hold 08/02/16 20:26 12.5 MG Fish Oil ([place]-3 (Purified Fish Oil) Cap) 1 gm BID PO 08/02/16 21:00 09/01/16 20:59 08/09/16 10:37 1 GM Multivitamins/ Minerals (Multivitamin W/ Minerals Tab) 1 tab DAILY PO 08/03/16 09:00 09/02/16 08:59 08/09/16 10:36 1 TAB Terazosin HCl (Hytrin Cap) 5 mg HS PO 08/02/16 21:00 09/01/16 20:59 08/08/16 21:18 5 MG Pantoprazole Sodium (Protonix Tab) 40 mg BID PO 08/02/16 21:00 09/01/16 20:59 08/09/16 10:37 40 MG Levofloxacin 1 ea 1 ea UD PRN N/A 08/05/16 11:45 09/04/16 11:44 Levofloxacin/Prmx (Levaquin / D5W/ Premixed D5W) 150 ml @ 100 mls/hr Q2D IV 08/05/16 14:00 08/15/16 13:59 08/07/16 15:00 100 MLS/HR
[2016-08-09] MEDS ORDERED: POTASSIUM PHOS 3 MMOL/1 ML INFUSION IV ONE (13:15)
--- NOTE | 2016-08-09 13:33 | Hematology/Oncology Prog Note ---
Hematology/Onc Progress Note Date of Service Aug 09, 2016. Diagnoses 1. Coagulopathy and severe thrombocytopenia most likely secondary to acute DIC given the elevated D dimer and low fibrinogen 2. Sepsis from UTI due to E. Faecalis 3. Anemia of multiple mechanisms- blood loss from infection, acute illness Medications Medications Administered Medications (Trade) Dose Ordered Sig/Song Route Start Time Stop Time Status Last Admin Dose Admin Sodium Chloride 500 ml @ 999 mls/hr Q31M STAT IV 08/02/16 11:34 08/02/16 12:04 DC 08/02/16 12:32 999 MLS/HR Sodium Chloride (Nss 1000ml) 1,000 ml @ 75 mls/hr [id number] IV 08/02/16 18:00 08/06/16 08:50 DC 08/04/16 23:34 75 MLS/HR Acetaminophen (Tylenol Tab) 650 mg Q4H PRN PO 08/02/16 15:15 09/01/16 15:14 08/03/16 19:35 650 MG Atorvastatin Calcium (Lipitor Tab) 80 mg DAILY PO 08/03/16 09:00 09/02/16 08:59 08/09/16 10:36 80 MG Carvedilol (Coreg Tab) 12.5 mg BID PO 08/02/16 21:00 09/01/16 20:59 Future Hold 08/02/16 20:26 12.5 MG Fish Oil ([place]-3 (Purified Fish Oil) Cap) 1 gm BID PO 08/02/16 21:00 09/01/16 20:59 08/09/16 10:37 1 GM Multivitamins/ Minerals (Multivitamin W/ Minerals Tab) 1 tab DAILY PO 08/03/16 09:00 09/02/16 08:59 08/09/16 10:36 1 TAB Terazosin HCl (Hytrin Cap) 5 mg HS PO 08/02/16 21:00 09/01/16 20:59 08/08/16 21:18 5 MG Pantoprazole Sodium 40 mg 40 mg BID PO 08/02/16 21:00 09/01/16 20:59 08/09/16 10:37 40 MG Methylprednisolone Sodium Succinate 20 mg/Syringe 0.32 ml @ 1.5 mls/min Q8H IV 08/02/16 18:00 08/02/16 21:49 DC 08/02/16 20:19 1.5 MLS/MIN Dexamethasone Sodium Phosphate 40 mg/Dextrose 54 ml @ 50 mls/hr NOW STAT IV 08/02/16 21:52 08/03/16 07:46 DC 08/02/16 22:28 50 MLS/HR Vancomycin HCl 1600 mg/Sodium Chloride 532 ml @ 200 mls/hr NOW ONCE IV 08/04/16 11:00 08/04/16 13:39 DC 08/04/16 11:31 200 MLS/HR Sodium Phosphate 15 mmol/Sodium Chloride 255 ml @ 102 mls/hr TODAY@0900 IV 08/05/16 09:00 08/05/16 11:29 DC 08/05/16 09:46 102 MLS/HR Furosemide 20 mg/ Syringe 2 ml @ 4 mls/min NOW ONCE IV 08/05/16 10:15 08/05/16 10:16 DC 08/05/16 11:18 4 MLS/MIN Levofloxacin 750 mg/Prmx 150 ml @ 100 mls/hr Q2D IV 08/05/16 14:00 08/09/16 12:52 DC 08/07/16 15:00 100 MLS/HR Potassium Phosphate 24 mmol/ Sodium Chloride 508 ml @ 127 mls/hr NOW ONCE IV 08/06/16 09:00 08/06/16 12:59 DC 08/06/16 09:18 127 MLS/HR Magnesium Sulfate 1 gm/Prmx 100 ml @ 100 mls/hr NOW ONCE IV 08/08/16 09:45 08/08/16 10:44 DC 08/08/16 10:34 100 MLS/HR Sodium Phosphate/ Sodium Chloride (Sodium Phosphate Inj/Nss 500ml) 508 ml @ 127 mls/hr TODAY@0945 IV 08/08/16 09:45 08/08/16 13:44 DC 08/08/16 10:33 127 MLS/HR Subjective The patient reports feeling stable today, has been up in his chair by bedside. He did walk yesterday without any issues; he plans to walk the halls again today. He continues to require Atkinson catheter. His stools are formed today, and he continues to deny hematochezia or melena. He has a good appetite and denies nausea. He denies cough or dyspnea. He has not had dizziness or headache. He denies any peripheral pain. Vital Signs Vital Signs Past 12 Hours Date Time Temp Pulse Resp B/P Pulse Ox O2 Delivery O2 Flow Rate FiO2 08/09/16 11:59 37.0 68 18 111/61 99 Nasal Cannula 1.0 08/09/16 08:19 36.4 63 18 136/77 97 08/09/16 04:00 Nasal Cannula 1.0 08/09/16 03:36 36.6 62 20 142/84 98 Nasal Cannula 1.0 Physical Exam ENMT: hearing grossly normal Lungs: Respiratory Effort: no dyspnea Auscuitation: no wheezing, no rhonchi Cardiovascular: Heart Auscultation: RRR, murmur (harsh systolic) Extremities: edema (1+ bilateral ankles), pertinent finding (no calf tenderness ) Petechiae on lower legs Laboratory 08/07/16 08:23 08/08/16 07:12 08/09/16 06:36 08/07/16 06:25 08/07/16 08:23 08/08/16 07:12 08/09/16 06:36 Test 08/07/16 06:25 08/07/16 08:23 08/08/16 07:12 08/09/16 06:36 Est Creatinine Clear Calc Drug Dose 39.5 ml/min 39.5 ml/min 45.2 ml/min 42.4 ml/min Estimated GFR () 55.0 55.0 66.3 60.1 Estimated GFR (Non- 47.5 47.5 57.2 51.9 Red Blood Count 3.60 M/uL (4.7-6.1) 3.34 M/uL (4.7-6.1) 3.27 M/uL (4.7-6.1) Mean Corpuscular Volume 87.5 fL (80-100) 88.3 fL (80-100) 87.2 fL (80-100) Mean Corpuscular Hemoglobin 28.6 pg (25-34) 28.4 pg (25-34) 28.1 pg (25-34) Mean Corpuscular Hemoglobin Concent 32.7 g/dl (32-36) 32.2 g/dl (32-36) 32.3 g/dl (32-36) RDW Standard Deviation 53.2 fL (36.4-46.3) 53.3 fL (36.4-46.3) 52.6 fL (36.4-46.3) RDW Coefficient of Variation 16.6 % (11.5-14.5) 16.6 % (11.5-14.5) 16.4 % (11.5-14.5) Mean Platelet Volume 10.3 fL (7.4-10.4) 11.0 fL (7.4-10.4) Fibrinogen 90 mg/dl (184-400) 74 mg/dl (184-400) 94 mg/dl (184-400) Anion Gap 6.0 mmol/L (3-11) 8.0 mmol/L (3-11) 7.0 mmol/L (3-11) BUN/Creatinine Ratio 19.1 (10-20) 20.6 (10-20) 18.0 (10-20) Calcium Level 8.6 mg/dl (8.5-10.1) 8.1 mg/dl (8.5-10.1) 8.4 mg/dl (8.5-10.1) Nucleated RBC Absolute Count (auto) 0.04 K/uL (0-0) Nucleated Red Blood Cells % 1.2 % Activated Partial Thromboplast Time 48.7 SECONDS (21.0-31.0) 45.1 SECONDS (21.0-31.0) Partial Thromboplastin Ratio 1.9 1.7 Phosphorus Level 1.9 mg/dl (2.5-4.9) 2.0 mg/dl (2.5-4.9) Magnesium Level 1.7 mg/dl (1.8-2.4) 1.9 mg/dl (1.8-2.4) Assessment & Plan 1. Acute DIC likely from UTI from enterococcus complicated by sepsis on admission * Has received 2 units PRBC, 3 units PLT, 4 cryo since admission (including today) * Treat underlying cause- UTI from enterococcus (blood cultures x 2 negative) * Expecting condition to improve with treatment of infection, slow recovery expected * Recommend monitor serial CBC and fibrinogen level daily and transfuse platelets and cryo as needed to keep platelet count >10 and fibrinogen >100. Transfuse PRBCs/platelets/cryo or FFPs as needed if any bleeding. * Fibrinogen is borderline today in 90 range, cryoprecipitate ordered today * Platelets minimally improved today, at 27K * Peripheral flow cyto negative pathologic findings * CT of abdomen/pelvis does not reveal malignancy- 2 indeterminate lesions in left kidney, recommend patient establish with urology for monitoring of lesions , further work up 2. UTI from enterococcus- management per hospitalist team. Antibiotics backed down to Levaquin. 3. Anemia of multiple mechanisms- stable- acute blood loss from infection, acute illness; had baseline at low 11 g/dL in 12/28, possibly from chronic disease. Iron studies, vitamin B 12 and folate not deficient this hospitalization.
[2016-08-09] MEDS ORDERED: POTASSIUM PHOSPHATE INJ 9 MMOL in SODIUM CHLORIDE 0.9% 250ML 250 ML IV SCH (13:45)
[2016-08-09] MEDS: LEVOFLOXACIN 750 MG TAB PO SCH (14:35)
[2016-08-10] VITALS (9 sets, daily range): BP systolic 114–143; BP diastolic 71–77; PULSE 71–80; TEMP 36.9–37.3; O2SAT 95–98
[2016-08-10 07:15] LABS: HEMATOCRIT 28.5 % (42-52); MEAN CELL VOLUME 86.1 fL (80-100); MEAN CORPUSCULAR HEMOGLOBIN 28.7 pg (25-34); MEAN CORPUSCULAR HGB CONC 33.3 g/dl (32-36); PLATELET COUNT 21 K/uL (130-400); RED BLOOD COUNT 3.31 M/uL (4.7-6.1); WHITE BLOOD COUNT 3.63 K/uL (4.8-10.8)
[2016-08-10 07:42] LABS: PARTIAL THROMBOPLASTIN RATIO 1.7
[2016-08-10] MEDS: CEROVITE ADV FORMULA TAB PO SCH (08:13)
[2016-08-10] MEDS: PANTOprazole SOD 40 MG TAB PO SCH ×2 (08:13→19:50)
[2016-08-10] MEDS: ATORVASTATIN 40 MG TAB PO SCH (08:13)
[2016-08-10] MEDS: OMEGA-3 (PURIFIED FISH OIL) 1 GM CAP PO SCH ×2 (08:13→19:50)
[2016-08-10] MEDS ORDERED: POTASSIUM PHOS 3 MMOL/1 ML INFUSION IV ONE (10:15)
[2016-08-10] MEDS ORDERED: POTASSIUM PHOSPHATE INJ 21 MMOL in SODIUM CHLORIDE 0.9% 500ML 500 ML IV ONE (11:30)
--- NOTE | 2016-08-10 11:33 | Progress Note ---
Medicine Progress Note Date & Time of Visit: Aug 10, 2016 at 11:19. Subjective Pt was seen and examined Sitting in bed very comfortable with no distress Pt said that he feels OK he denies any chest pain, palpitation, dizziness and SOB. Objective Last 8 Hrs Date Time Temp Pulse Resp B/P Pulse Ox O2 Delivery O2 Flow Rate FiO2 08/10/16 08:13 36.9 75 20 120/77 95 Room Air 08/10/16 04:00 Nasal Cannula 08/10/16 03:43 37.1 71 18 120/73 96 Room Air Physical Exam: General- no acute distress Head- atraumatic Eyes- PERRL, EOMI ENT- oropharynx clear Neck- supple, no JVD, Lungs- clear to auscultation, no wheezing Heart- regular rhythm, Systolic murmur precordial and AA radiation to neck Abdomen- normal bowel sounds, soft Extremities- no calf tenderness Neuro- alert, oriented x 3; PERRL, EOMI Skin- warm & dry Laboratory Results: Last 24 Hours Test 08/10/16 06:22 08/10/16 06:38 White Blood Count 3.63 K/uL Red Blood Count 3.31 M/uL Hemoglobin 9.5 g/dL Hematocrit 28.5 % Mean Corpuscular Volume 86.1 fL Mean Corpuscular Hemoglobin 28.7 pg Mean Corpuscular Hemoglobin Concent 33.3 g/dl RDW Standard Deviation 52.5 fL RDW Coefficient of Variation 16.5 % Platelet Count 21 K/uL Phosphorus Level 1.8 mg/dl Activated Partial Thromboplast Time 44.1 SECONDS Partial Thromboplastin Ratio 1.7 Fibrinogen 110 mg/dl Assessment & Plan Pancytopenia with severe Thrombocytopenia -plt count 6 on admission (plt count dec 2015 was 118) -Generally weak and lethargic -differential includes-infection,sepsis,ITP,marrow infiltration,leukemia , aplastic anemia -received 2 unit of FFP and 3 platelet, 2 units PRBC and 4 pool of Cryoprecipitate -no evidence of hemolysis -Elevated LDH on admission -Flow Cyrtometry -negative -Platelet 21,WCC- 3.63 and Hb >9.5 (stable) as of 08/10/16 - Hematology on board recommended platelets and cryo as needed to keep platelet count >10 and fibrinogen >100. -Transfuse PRBCs/platelets/cryo or FFPs as needed if any bleeding. -Monitor cbc and fibrinogen daily Electrolytes Imbalance continue monitor Phosphate replaced Sepsis Likely secondary to Enterococci UTI Started on Vancomycin Deescalated to Levaquin On levaquin PO Pharmacy consult -appreciate input Clinically better and showing improvement Lyme-negative,Norovirus RNA-negative Parvovirus-Ig M -negative ,Ig G positive Clinically better DIC-secondary to Sepsis Enterococci UTI CT abdomen and Pelvis shown any mource for malignancy No signs of active bleeding Will monitor Fibrinogen and FDP Try to keep Fibrinogen 110 today PTT ratio 1.7 Fibrinogen 94 today will give another cryoprecipitate 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 Colindres (apt scheduled for next month) -pt currently denies anginal sxs -having bradyarrhythmia -Cardiology consult recommended to continue hold BB -No more Bradyarrhythmia DEE DEE ON CKD STAGE 3 -creatinine 2.2; baseline creatinine 1.3; may be secondary to dehydration from GI losses -hold Lasix and lisinopril -Creatine today 1.3 -monitor with daily prp and avoid nephrotoxic agents when able -Kidney function is improving and normalized - Resolved DIARRHEA -C.diff negative -stool culture-negative -controlled MECHANICAL FALL -likely secondary to dehydration and anemia -CT head negative -PT/OT -fall precautions AORTIC ANEURYSM -s/p graft repair in 2009 -CT chest showed increase in dilatation of prox to mid thoracic aorta. Max diameter increased from 5.7 cm (01/30/15) to 6.1 cm. No evidence of dissection. -Vascular surgery consulted recommended no intervention.at this time AORTIC STENOSIS -s/p AVR 2009 -no chest pain B/L RENAL LESIONS Need outpatient follow GERD -cont PPI HTN -BP stable -holding lisinopril and lasix 2* DEE DEE -cont carvedilol -monitor DYSLIPIDEMIA -cont statin DVT PROPHYLAXIS -SCDs only in setting of severe thrombocytopenia CODE STATUS FULL CODE DISPOSITION Will transfer to medical floor Consultants: Hematology/oncology Current Inpatient Medications: Current Inpatient Medications Medications (Trade) Dose Ordered Sig/Song Route Start Time Stop Time Status Last Admin Dose Admin Acetaminophen (Tylenol Tab) 650 mg Q4H PRN PO 08/02/16 15:15 09/01/16 15:14 08/03/16 19:35 650 MG Ondansetron HCl (Zofran Inj) 4 mg Q6H PRN IV 08/02/16 15:15 09/01/16 15:14 Nitroglycerin (Nitrostat Tab) 0.4 mg UD PRN SL 08/02/16 15:15 09/01/16 15:14 Atorvastatin Calcium (Lipitor Tab) 80 mg DAILY PO 08/03/16 09:00 09/02/16 08:59 08/10/16 08:13 80 MG Carvedilol (Coreg Tab) 12.5 mg BID PO 08/02/16 21:00 09/01/16 20:59 Future Hold 08/02/16 20:26 12.5 MG Fish Oil ([place]-3 (Purified Fish Oil) Cap) 1 gm BID PO 08/02/16 21:00 09/01/16 20:59 08/10/16 08:13 1 GM Multivitamins/ Minerals (Multivitamin W/ Minerals Tab) 1 tab DAILY PO 08/03/16 09:00 09/02/16 08:59 08/10/16 08:13 1 TAB Terazosin HCl (Hytrin Cap) 5 mg HS PO 08/02/16 21:00 09/01/16 20:59 08/09/16 20:41 5 MG Pantoprazole Sodium (Protonix Tab) 40 mg BID PO 08/02/16 21:00 09/01/16 20:59 08/10/16 08:13 40 MG Levofloxacin (Consult) 1 ea UD PRN N/A 08/05/16 11:45 08/14/16 23:59 Levofloxacin 750 mg 750 mg Q2D@1400 PO 08/09/16 14:00 08/14/16 23:59 08/09/16 14:35 750 MG Potassium Phosphate/Sodium Chloride (Potassium Phosphate Inj/Nss 500ml) 507 ml @ 145 mls/hr TODAY@1130 ONCE IV 08/10/16 11:30 08/10/16 14:59
--- NOTE | 2016-08-10 21:36 | Hematology/Oncology Prog Note ---
Hematology/Onc Progress Note Date of Service Aug 10, 2016. Diagnoses 1. Coagulopathy and severe thrombocytopenia most likely secondary to acute DIC given the elevated D dimer and low fibrinogen 2. Sepsis from UTI due to E. Faecalis 3. Anemia of multiple mechanisms- blood loss from infection, acute illness Medications Medications Administered Medications (Trade) Dose Ordered Sig/Song Route Start Time Stop Time Status Last Admin Dose Admin Sodium Chloride 500 ml @ 999 mls/hr Q31M STAT IV 08/02/16 11:34 08/02/16 12:04 DC 08/02/16 12:32 999 MLS/HR Sodium Chloride (Nss 1000ml) 1,000 ml @ 75 mls/hr [id number] IV 08/02/16 18:00 08/06/16 08:50 DC 08/04/16 23:34 75 MLS/HR Acetaminophen (Tylenol Tab) 650 mg Q4H PRN PO 08/02/16 15:15 09/01/16 15:14 08/03/16 19:35 650 MG Atorvastatin Calcium (Lipitor Tab) 80 mg DAILY PO 08/03/16 09:00 09/02/16 08:59 08/10/16 08:13 80 MG Carvedilol (Coreg Tab) 12.5 mg BID PO 08/02/16 21:00 09/01/16 20:59 Future Hold 08/02/16 20:26 12.5 MG Fish Oil ([place]-3 (Purified Fish Oil) Cap) 1 gm BID PO 08/02/16 21:00 09/01/16 20:59 08/10/16 19:50 1 GM Multivitamins/ Minerals (Multivitamin W/ Minerals Tab) 1 tab DAILY PO 08/03/16 09:00 09/02/16 08:59 08/10/16 08:13 1 TAB Terazosin HCl (Hytrin Cap) 5 mg HS PO 08/02/16 21:00 09/01/16 20:59 08/10/16 19:50 5 MG Pantoprazole Sodium 40 mg 40 mg BID PO 08/02/16 21:00 09/01/16 20:59 08/10/16 19:50 40 MG Methylprednisolone Sodium Succinate 20 mg/Syringe 0.32 ml @ 1.5 mls/min Q8H IV 08/02/16 18:00 08/02/16 21:49 DC 08/02/16 20:19 1.5 MLS/MIN Dexamethasone Sodium Phosphate 40 mg/Dextrose 54 ml @ 50 mls/hr NOW STAT IV 08/02/16 21:52 08/03/16 07:46 DC 08/02/16 22:28 50 MLS/HR Vancomycin HCl 1600 mg/Sodium Chloride 532 ml @ 200 mls/hr NOW ONCE IV 08/04/16 11:00 08/04/16 13:39 DC 08/04/16 11:31 200 MLS/HR Sodium Phosphate 15 mmol/Sodium Chloride 255 ml @ 102 mls/hr TODAY@0900 IV 08/05/16 09:00 08/05/16 11:29 DC 08/05/16 09:46 102 MLS/HR Furosemide 20 mg/ Syringe 2 ml @ 4 mls/min NOW ONCE IV 08/05/16 10:15 08/05/16 10:16 DC 08/05/16 11:18 4 MLS/MIN Levofloxacin 750 mg/Prmx 150 ml @ 100 mls/hr Q2D IV 08/05/16 14:00 08/09/16 12:52 DC 08/07/16 15:00 100 MLS/HR Potassium Phosphate 24 mmol/ Sodium Chloride 508 ml @ 127 mls/hr NOW ONCE IV 08/06/16 09:00 08/06/16 12:59 DC 08/06/16 09:18 127 MLS/HR Magnesium Sulfate 1 gm/Prmx 100 ml @ 100 mls/hr NOW ONCE IV 08/08/16 09:45 08/08/16 10:44 DC 08/08/16 10:34 100 MLS/HR Sodium Phosphate/ Sodium Chloride (Sodium Phosphate Inj/Nss 500ml) 508 ml @ 127 mls/hr TODAY@0945 IV 08/08/16 09:45 08/08/16 13:44 DC 08/08/16 10:33 127 MLS/HR Levofloxacin 750 mg 750 mg Q2D@1400 PO 08/09/16 14:00 08/14/16 23:59 08/09/16 14:35 750 MG Potassium Phosphate 9 mmol/ Sodium Chloride 253 ml @ 150 mls/hr TODAY@1345 IV 08/09/16 13:45 08/09/16 15:27 DC 08/09/16 14:35 150 MLS/HR Potassium Phosphate/Sodium Chloride (Potassium Phosphate Inj/Nss 500ml) 507 ml @ 145 mls/hr TODAY@1130 ONCE IV 08/10/16 11:30 08/10/16 14:59 DC 08/10/16 12:38 145 MLS/HR Subjective The patient reports feeling stable today, up finishing his breakfast. He did walk yesterday without any [place]; he plans to walk the halls again today. He retains his [place] catheter. it has been about 2 days since his last bowel movement. He has a good appetite and denies nausea. He denies cough or dyspnea. He is not requiring oxygen at this time. He denies any bleeding from any sites. Vital Signs Vital Signs Past 12 Hours Date Time Temp Pulse Resp B/P Pulse Ox O2 Delivery O2 Flow Rate FiO2 08/10/16 20:00 Room Air 08/10/16 19:48 37.3 80 22 143/74 95 Room Air 08/10/16 16:00 96 Room Air 08/10/16 15:35 37.0 72 20 121/71 97 Room Air 08/10/16 12:23 37.1 79 20 126/73 98 Room Air 08/10/16 12:00 98 Room Air Physical Exam ENMT: hearing grossly normal Lungs: Respiratory Effort: no dyspnea Auscuitation: no wheezing, no rhonchi, pertinent finding (coarse at left lung base) Cardiovascular: Heart Auscultation: RRR, murmur (harsh systolic) Extremities: edema (1+ bilateral ankles), pertinent finding (no calf tenderness ) Laboratory 08/10/16 06:22 Test 08/10/16 06:22 08/10/16 06:38 08/10/16 11:38 Red Blood Count 3.31 M/uL (4.7-6.1) Mean Corpuscular Volume 86.1 fL (80-100) Mean Corpuscular Hemoglobin 28.7 pg (25-34) Mean Corpuscular Hemoglobin Concent 33.3 g/dl (32-36) RDW Standard Deviation 52.5 fL (36.4-46.3) RDW Coefficient of Variation 16.5 % (11.5-14.5) Phosphorus Level 1.8 mg/dl (2.5-4.9) Activated Partial Thromboplast Time 44.1 SECONDS (21.0-31.0) Partial Thromboplastin Ratio 1.7 Fibrinogen 110 mg/dl (184-400) Bedside Glucose 107 mg/dl (70-99) Assessment & Plan 1. Acute DIC likely from UTI from enterococcus complicated by sepsis on admission * Has received 2 units PRBC, 3 units PLT, 4 cryo since admission * Treat underlying cause- UTI from enterococcus (blood cultures x 2 negative) * Expecting condition to improve with treatment of infection, slow recovery expected * Recommend monitor serial CBC and fibrinogen level daily and transfuse platelets and cryo as needed to keep platelet count >10 and fibrinogen >100. Transfuse PRBCs/platelets/cryo or FFPs as needed if any bleeding. * Fibrinogen > 100 today * Platelets stable today, at 21K * Peripheral flow cyto negative pathologic findings * CT of abdomen/pelvis does not reveal malignancy- 2 indeterminate lesions in left kidney, recommend patient establish with urology for monitoring of lesions , further work up 2. UTI from enterococcus- management per hospitalist team. Antibiotics backed down to Levaquin. 3. Anemia of multiple mechanisms- stable- acute blood loss from infection, acute illness; had baseline at low 11 g/dL in 12/28, possibly from chronic disease. Iron studies, vitamin B 12 and folate not deficient this hospitalization. Case discussed with Rosalba Vazquez PA-C and agree with her note above
[2016-08-11] VITALS (8 sets, daily range): BP systolic 117–142; BP diastolic 54–82; PULSE 69–76; TEMP 36.6–37.3; O2SAT 96–98
[2016-08-11 07:56] LABS: CREATININE 1.3 mg/dl (0.60-1.40)
[2016-08-11 08:06] LABS: HEMATOCRIT 28.7 % (42-52); MEAN CELL VOLUME 87.8 fL (80-100); MEAN CORPUSCULAR HEMOGLOBIN 28.7 pg (25-34); MEAN CORPUSCULAR HGB CONC 32.8 g/dl (32-36); PLATELET COUNT 23 K/uL (130-400); RED BLOOD COUNT 3.27 M/uL (4.7-6.1); WHITE BLOOD COUNT 3.11 K/uL (4.8-10.8)
[2016-08-11 08:34] LABS: PARTIAL THROMBOPLASTIN RATIO 1.8
[2016-08-11] MEDS: CEROVITE ADV FORMULA TAB PO SCH (08:59)
[2016-08-11] MEDS: PANTOprazole SOD 40 MG TAB PO SCH ×2 (08:59→21:07)
[2016-08-11] MEDS: ATORVASTATIN 40 MG TAB PO SCH (08:59)
[2016-08-11] MEDS: OMEGA-3 (PURIFIED FISH OIL) 1 GM CAP PO SCH ×2 (08:59→21:07)
[2016-08-11] MEDS: LEVOFLOXACIN 750 MG TAB PO SCH (13:40)
--- NOTE | 2016-08-11 15:56 | Progress Note ---
Medicine Progress Note Date & Time of Visit: Aug 11, 2016 at 15:50. Subjective Pt was seen and examined Sitting in bed with no distress Pt said that he feels fine denies any chest pain, palpitation, dizziness and SOB Objective Last 8 Hrs Date Time Temp Pulse Resp B/P Pulse Ox O2 Delivery O2 Flow Rate FiO2 08/11/16 12:32 36.6 75 20 131/54 97 Room Air 08/11/16 10:50 97 08/11/16 08:01 37.0 71 20 131/82 97 Room Air Physical Exam: General- no acute distress Head- atraumatic Eyes- PERRL, EOMI ENT- oropharynx clear Neck- supple, no JVD, Lungs- clear to auscultation, no wheezing Heart- regular rhythm, Systolic murmur precordial and AA radiation to neck Abdomen- normal bowel sounds, soft Extremities- no calf tenderness Neuro- alert, oriented x 3; PERRL, EOMI Skin- warm & dry Laboratory Results: Last 24 Hours Test 08/11/16 06:58 White Blood Count 3.11 K/uL Red Blood Count 3.27 M/uL Hemoglobin 9.4 g/dL Hematocrit 28.7 % Mean Corpuscular Volume 87.8 fL Mean Corpuscular Hemoglobin 28.7 pg Mean Corpuscular Hemoglobin Concent 32.8 g/dl RDW Standard Deviation 53.2 fL RDW Coefficient of Variation 16.5 % Platelet Count 23 K/uL Activated Partial Thromboplast Time 46.9 SECONDS Partial Thromboplastin Ratio 1.8 Fibrinogen 101 mg/dl Creatinine 1.30 mg/dl Est Creatinine Clear Calc Drug Dose 42.4 ml/min Estimated GFR () 60.1 Estimated GFR (Non- 51.9 Assessment & Plan Pancytopenia with severe Thrombocytopenia -plt count 6 on admission (plt count dec 2015 was 118) -Generally weak and lethargic -differential includes-infection,sepsis,ITP,marrow infiltration,leukemia , aplastic anemia -received 2 unit of FFP and 3 platelet, 2 units PRBC and 4 pool of Cryoprecipitate -no evidence of hemolysis -Elevated LDH on admission -Flow Cyrtometry -negative -Platelet 23,WCC- 3.11 and Hb >9.4 (stable) as of 08/11/16 - Hematology on board recommended platelets and cryo as needed to keep platelet count >10 and fibrinogen >100. -Transfuse PRBCs/platelets/cryo or FFPs as needed if any bleeding. -Monitor cbc and fibrinogen daily Electrolytes Imbalance continue monitor Sepsis Likely secondary to Enterococci UTI Started on Vancomycin Deescalated to Levaquin On levaquin PO Pharmacy consult -appreciate input Clinically better and showing improvement Lyme-negative,Norovirus RNA-negative Parvovirus-Ig M -negative ,Ig G positive Clinically better DIC-secondary to Sepsis Enterococci UTI CT abdomen and Pelvis shown any mource for malignancy No signs of active bleeding Will monitor Fibrinogen and FDP Try to keep Fibrinogen 110 today PTT ratio 1.8 Fibrinogen 101 today will give another cryoprecipitate 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 Colindres (apt scheduled for next month) -pt currently denies anginal sxs -having bradyarrhythmia -Cardiology consult recommended to continue hold BB -No more Bradyarrhythmia - Stable DEE DEE ON CKD STAGE 3 -creatinine 2.2; baseline creatinine 1.3; may be secondary to dehydration from GI losses -hold Lasix and lisinopril -Creatine today 1.3 -monitor with daily prp and avoid nephrotoxic agents when able -Kidney function is improving and normalized - Resolved DIARRHEA -C.diff negative -stool culture-negative -Resolved MECHANICAL FALL -likely secondary to dehydration and anemia -CT head negative -PT/OT -fall precautions AORTIC ANEURYSM -s/p graft repair in 2009 -CT chest showed increase in dilatation of prox to mid thoracic aorta. Max diameter increased from 5.7 cm (01/30/15) to 6.1 cm. No evidence of dissection. -Vascular surgery consulted recommended no intervention.at this time AORTIC STENOSIS -s/p AVR 2009 -no chest pain B/L RENAL LESIONS Need outpatient follow GERD -cont PPI HTN -BP stable -holding lisinopril and lasix 2* DEE DEE -will resume lisinopril in am -cont carvedilol -monitor DYSLIPIDEMIA -cont statin DVT PROPHYLAXIS -SCDs only in setting of severe thrombocytopenia CODE STATUS FULL CODE DISPOSITION Will transfer to medical floor Consultants: Hematology/oncology Current Inpatient Medications: Current Inpatient Medications Medications (Trade) Dose Ordered Sig/Song Route Start Time Stop Time Status Last Admin Dose Admin Acetaminophen (Tylenol Tab) 650 mg Q4H PRN PO 08/02/16 15:15 09/01/16 15:14 08/03/16 19:35 650 MG Ondansetron HCl (Zofran Inj) 4 mg Q6H PRN IV 08/02/16 15:15 09/01/16 15:14 Nitroglycerin (Nitrostat Tab) 0.4 mg UD PRN SL 08/02/16 15:15 09/01/16 15:14 Atorvastatin Calcium (Lipitor Tab) 80 mg DAILY PO 08/03/16 09:00 09/02/16 08:59 08/11/16 08:59 80 MG Carvedilol (Coreg Tab) 12.5 mg BID PO 08/02/16 21:00 09/01/16 20:59 Future Hold 08/02/16 20:26 12.5 MG Fish Oil ([place]-3 (Purified Fish Oil) Cap) 1 gm BID PO 08/02/16 21:00 09/01/16 20:59 08/11/16 08:59 1 GM Multivitamins/ Minerals (Multivitamin W/ Minerals Tab) 1 tab DAILY PO 08/03/16 09:00 09/02/16 08:59 08/11/16 08:59 1 TAB Terazosin HCl (Hytrin Cap) 5 mg HS PO 08/02/16 21:00 09/01/16 20:59 08/10/16 19:50 5 MG Pantoprazole Sodium (Protonix Tab) 40 mg BID PO 08/02/16 21:00 09/01/16 20:59 08/11/16 08:59 40 MG Levofloxacin (Consult) 1 ea UD PRN N/A 08/05/16 11:45 08/14/16 23:59 Levofloxacin (Levaquin Tab) 750 mg Q2D@1400 PO 08/09/16 14:00 08/14/16 23:59 08/11/16 13:40 750 MG
[2016-08-12] VITALS (9 sets, daily range): BP systolic 97–153; BP diastolic 57–79; PULSE 72–95; TEMP 36.8–37.1; O2SAT 93–97
[2016-08-12] MEDS: CEROVITE ADV FORMULA TAB PO SCH (07:29)
[2016-08-12] MEDS: PANTOprazole SOD 40 MG TAB PO SCH ×2 (07:30→20:33)
[2016-08-12] MEDS: OMEGA-3 (PURIFIED FISH OIL) 1 GM CAP PO SCH ×2 (07:30→20:33)
[2016-08-12] MEDS: ATORVASTATIN 40 MG TAB PO SCH (07:30)
[2016-08-12] MEDS: LISINOPRIL 40 MG TAB PO SCH (07:30)
[2016-08-12 08:01] LABS: HEMATOCRIT 29.1 % (42-52); MEAN CELL VOLUME 86.1 fL (80-100); MEAN CORPUSCULAR HEMOGLOBIN 27.8 pg (25-34); MEAN CORPUSCULAR HGB CONC 32.3 g/dl (32-36); PLATELET COUNT 23 K/uL (130-400); PLT ESTIMATE SIGNIFIC DECREASED; RED BLOOD COUNT 3.38 M/uL (4.7-6.1); WHITE BLOOD COUNT 3.68 K/uL (4.8-10.8)
[2016-08-12 08:13] LABS: BUN/CREATININE RATIO 19.4 (10-20); CREATININE 1.4 mg/dl (0.60-1.40); PHOSPHORUS 2.1 mg/dl (2.5-4.9)
[2016-08-12] MEDS ORDERED: POTASSIUM PHOS 3 MMOL/1 ML INFUSION IV ONE (09:45)
[2016-08-12] MEDS ORDERED: POTASSIUM PHOSPHATE INJ 15 MMOL in SODIUM CHLORIDE 0.9% 250ML 250 ML IV ONE (10:00)
[2016-08-12 11:29] LABS: PARTIAL THROMBOPLASTIN RATIO 1.5
[2016-08-12 11:32] LABS: FIBRINOGEN* 98 mg/dl (184-400)
--- NOTE | 2016-08-12 18:38 | Progress Note ---
Medicine Progress Note Date & Time of Visit: Aug 12, 2016 at 13:27. Subjective Pt was seen and examined Sitting in chair with no distress Pt said that he feels fine denies any chest pain, palpitation, dizziness and sob Objective Last 8 Hrs Date Time Temp Pulse Resp B/P Pulse Ox O2 Delivery O2 Flow Rate FiO2 08/12/16 11:15 37.0 95 18 153/77 96 Room Air 08/12/16 10:46 37.0 77 20 94 2.0 08/12/16 08:18 37.0 77 20 128/77 94 Room Air 08/12/16 08:00 Room Air Physical Exam: General- no acute distress Head- atraumatic Eyes- PERRL, EOMI ENT- oropharynx clear Neck- supple, no JVD, Lungs- clear to auscultation, no wheezing Heart- regular rhythm, Systolic murmur precordial and AA radiation to neck Abdomen- normal bowel sounds, soft Extremities- no calf tenderness Neuro- alert, oriented x 3; PERRL, EOMI Skin- warm & dry Laboratory Results: Last 24 Hours Test 08/12/16 07:25 08/12/16 10:56 White Blood Count 3.68 K/uL Red Blood Count 3.38 M/uL Hemoglobin 9.4 g/dL Hematocrit 29.1 % Mean Corpuscular Volume 86.1 fL Mean Corpuscular Hemoglobin 27.8 pg Mean Corpuscular Hemoglobin Concent 32.3 g/dl RDW Standard Deviation 52.2 fL RDW Coefficient of Variation 16.6 % Platelet Count 23 K/uL Platelet Estimate SIGNIFIC DECREASED Sodium Level 139 mmol/L Potassium Level 4.0 mmol/L Chloride Level 108 mmol/L Carbon Dioxide Level 24 mmol/L Anion Gap 7.0 mmol/L Blood Urea Nitrogen 27 mg/dl Creatinine 1.40 mg/dl Est Creatinine Clear Calc Drug Dose 39.4 ml/min Estimated GFR () 55.0 Estimated GFR (Non- 47.5 BUN/Creatinine Ratio 19.4 Random Glucose 89 mg/dl Calcium Level 8.0 mg/dl Phosphorus Level 2.1 mg/dl Activated Partial Thromboplast Time 39.2 SECONDS Partial Thromboplastin Ratio 1.5 Fibrinogen 98 mg/dl Fibrin Degradation Products >40 mcg/ml Date/Time Source Procedure Growth Status 08/12/16 06:20 Stool C.difficile Toxin B Gene (PCR) - Final No C. difficile toxin B gene detected Complete Assessment & Plan Pancytopenia with severe Thrombocytopenia -plt count 6 on admission (plt count dec 2015 was 118) -Generally weak and lethargic -differential includes-infection,sepsis,ITP,marrow infiltration,leukemia , aplastic anemia -received 2 unit of FFP and 3 platelet, 2 units PRBC and 5 pool of Cryoprecipitate -no evidence of hemolysis, no active bleeding -Elevated LDH on admission -Flow Cyrtometry -negative -Platelet 23,WCC- 3.68 and Hb >9.4 (stable) as of 08/12/16 - Hematology on board recommended platelets and cryo as needed to keep platelet count >10 and fibrinogen >100. -Transfuse PRBCs/platelets/cryo or FFPs as needed if any bleeding. -Case discussed with Dr. Suero today that recommended to continue monitor fibrinogen and cbc over the weekend. - Transfused 1 pool cryo today -Monitor cbc and fibrinogen daily Electrolytes Imbalance Phosphate replaced continue monitor Sepsis Likely secondary to Enterococci UTI Started on Vancomycin Deescalated to Levaquin On levaquin PO Pharmacy consult -appreciate input Clinically better and showing improvement Lyme-negative,Norovirus RNA-negative Parvovirus-Ig M -negative ,Ig G positive stable DIC-secondary to Sepsis Enterococci UTI CT abdomen and Pelvis shown any mource for malignancy No signs of active bleeding Will monitor Fibrinogen and FDP Try to keep Fibrinogen above 100 PTT ratio 1.5 Fibrinogen 98 today will give another cryoprecipitate 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 Colindres (apt scheduled for next month) -pt currently denies anginal sxs -having bradyarrhythmia -Cardiology consult recommended to continue hold BB -No more Bradyarrhythmia - Stable DEE DEE ON CKD STAGE 3 -creatinine 2.2; baseline creatinine 1.3; may be secondary to dehydration from GI losses -hold Lasix and lisinopril -Creatine today 1.3 -monitor with daily prp and avoid nephrotoxic agents when able -Kidney function is improving and normalized - Resolved DIARRHEA -C.diff negative -stool culture-negative -Resolved MECHANICAL FALL -likely secondary to dehydration and anemia -CT head negative -PT/OT -fall precautions AORTIC ANEURYSM -s/p graft repair in 2009 -CT chest showed increase in dilatation of prox to mid thoracic aorta. Max diameter increased from 5.7 cm (01/30/15) to 6.1 cm. No evidence of dissection. -Vascular surgery consulted recommended no intervention.at this time AORTIC STENOSIS -s/p AVR 2009 -no chest pain B/L RENAL LESIONS Need outpatient follow GERD -cont PPI HTN -BP stable -holding lisinopril and lasix 2* DEE DEE -will resume lisinopril in am -cont carvedilol -monitor DYSLIPIDEMIA -cont statin DVT PROPHYLAXIS -SCDs only in setting of severe thrombocytopenia CODE STATUS FULL CODE DISPOSITION will discharge once stable as per hematology Consultants: Hematology/oncology Current Inpatient Medications: Current Inpatient Medications Medications (Trade) Dose Ordered Sig/Song Route Start Time Stop Time Status Last Admin Dose Admin Acetaminophen (Tylenol Tab) 650 mg Q4H PRN PO 08/02/16 15:15 09/01/16 15:14 08/03/16 19:35 650 MG Ondansetron HCl (Zofran Inj) 4 mg Q6H PRN IV 08/02/16 15:15 09/01/16 15:14 Nitroglycerin (Nitrostat Tab) 0.4 mg UD PRN SL 08/02/16 15:15 09/01/16 15:14 Atorvastatin Calcium (Lipitor Tab) 80 mg DAILY PO 08/03/16 09:00 09/02/16 08:59 08/12/16 07:30 80 MG Carvedilol (Coreg Tab) 12.5 mg BID PO 08/02/16 21:00 09/01/16 20:59 Future Hold 08/02/16 20:26 12.5 MG Fish Oil ([place]-3 (Purified Fish Oil) Cap) 1 gm BID PO 08/02/16 21:00 09/01/16 20:59 08/12/16 07:30 1 GM Multivitamins/ Minerals (Multivitamin W/ Minerals Tab) 1 tab DAILY PO 08/03/16 09:00 09/02/16 08:59 08/12/16 07:29 1 TAB Terazosin HCl (Hytrin Cap) 5 mg HS PO 08/02/16 21:00 09/01/16 20:59 08/11/16 21:07 5 MG Pantoprazole Sodium (Protonix Tab) 40 mg BID PO 08/02/16 21:00 09/01/16 20:59 08/12/16 07:30 40 MG Levofloxacin (Consult) 1 ea UD PRN N/A 08/05/16 11:45 08/14/16 23:59 Levofloxacin (Levaquin Tab) 750 mg Q2D@1400 PO 08/09/16 14:00 08/14/16 23:59 08/11/16 13:40 750 MG Lisinopril (Zestril Tab) 40 mg QAM PO 08/12/16 09:00 09/11/16 08:59 08/12/16 07:30 40 MG
[2016-08-13] VITALS (7 sets, daily range): BP systolic 102–138; BP diastolic 60–83; PULSE 62–77; TEMP 36.6–36.9; O2SAT 96–97
[2016-08-13] MEDS: ATORVASTATIN 40 MG TAB PO SCH (09:08)
[2016-08-13] MEDS: PANTOprazole SOD 40 MG TAB PO SCH ×2 (09:08→20:48)
[2016-08-13] MEDS: CEROVITE ADV FORMULA TAB PO SCH (09:09)
[2016-08-13] MEDS: OMEGA-3 (PURIFIED FISH OIL) 1 GM CAP PO SCH ×2 (09:13→20:47)
[2016-08-13] MEDS: LISINOPRIL 40 MG TAB PO SCH (09:13)
[2016-08-13 10:27] LABS: PARTIAL THROMBOPLASTIN RATIO 1.9
[2016-08-13 10:34] LABS: HEMATOCRIT 29.4 % (42-52); MEAN CELL VOLUME 86.7 fL (80-100); MEAN CORPUSCULAR HGB CONC 32.3 g/dl (32-36); MEAN PLATELET VOLUME 11.5 fL (7.4-10.4); PLATELET COUNT 31 K/uL (130-400); RED BLOOD COUNT 3.39 M/uL (4.7-6.1); WHITE BLOOD COUNT 3.57 K/uL (4.8-10.8)
[2016-08-13 11:44] LABS: BUN/CREATININE RATIO 19.7 (10-20); CALCIUM 8.2 mg/dl (8.5-10.1); CREATININE 1.5 mg/dl (0.60-1.40); PHOSPHORUS 2.2 mg/dl (2.5-4.9); POTASSIUM 3.8 mmol/L (3.5-5.1)
[2016-08-13] MEDS: LEVOFLOXACIN 750 MG TAB PO SCH (16:55)
--- NOTE | 2016-08-13 20:46 | Progress Note ---
Medicine Progress Note Date & Time of Visit: Aug 13, 2016 at 20:41. Subjective Pt was seen and examined sitting in chair comfortable with no distress pt said that he feels fine denies any chest pain, palpitation, dizziness and sob Objective Last 8 Hrs Date Time Temp Pulse Resp B/P Pulse Ox O2 Delivery O2 Flow Rate FiO2 08/13/16 16:56 97 Room Air 08/13/16 15:00 36.9 71 18 102/60 97 Physical Exam: General- no acute distress Head- atraumatic Eyes- PERRL, EOMI ENT- oropharynx clear Neck- supple, no JVD, Lungs- clear to auscultation, no wheezing Heart- regular rhythm, Systolic murmur precordial and AA radiation to neck Abdomen- normal bowel sounds, soft Extremities- no calf tenderness Neuro- alert, oriented x 3; PERRL, EOMI Skin- warm & dry Laboratory Results: Last 24 Hours Test 08/13/16 10:00 White Blood Count 3.57 K/uL Red Blood Count 3.39 M/uL Hemoglobin 9.5 g/dL Hematocrit 29.4 % Mean Corpuscular Volume 86.7 fL Mean Corpuscular Hemoglobin 28.0 pg Mean Corpuscular Hemoglobin Concent 32.3 g/dl RDW Standard Deviation 53.1 fL RDW Coefficient of Variation 16.4 % Platelet Count 31 K/uL Mean Platelet Volume 11.5 fL Activated Partial Thromboplast Time 48.8 SECONDS Partial Thromboplastin Ratio 1.9 Fibrinogen 120 mg/dl Sodium Level 139 mmol/L Potassium Level 3.8 mmol/L Chloride Level 108 mmol/L Carbon Dioxide Level 24 mmol/L Anion Gap 7.0 mmol/L Blood Urea Nitrogen 30 mg/dl Creatinine 1.50 mg/dl Est Creatinine Clear Calc Drug Dose 36.8 ml/min Estimated GFR () 50.6 Estimated GFR (Non- 43.7 BUN/Creatinine Ratio 19.7 Random Glucose 134 mg/dl Calcium Level 8.2 mg/dl Phosphorus Level 2.2 mg/dl Assessment & Plan Pancytopenia with severe Thrombocytopenia -plt count 6 on admission (plt count dec 2015 was 118) -Generally weak and lethargic -differential includes-infection,sepsis,ITP,marrow infiltration,leukemia , aplastic anemia -received 2 unit of FFP and 3 platelet, 2 units PRBC and 5 pool of Cryoprecipitate -no evidence of hemolysis, no active bleeding -Elevated LDH on admission -Flow Cyrtometry -negative -Platelet 31,WCC- 3.68 and Hb >9.5 (stable) as of 08/13/16 - Hematology on board recommended platelets and cryo as needed to keep platelet count >10 and fibrinogen >100. -Transfuse PRBCs/platelets/cryo or FFPs as needed if any bleeding. -Case discussed with Dr. Suero today that recommended to continue monitor fibrinogen and cbc over the weekend. - Transfused 1 pool cryo yesterday -Monitor cbc and fibrinogen daily Electrolytes Imbalance Phosphate replaced continue monitor Sepsis Likely secondary to Enterococci UTI Started on Vancomycin Deescalated to Levaquin On levaquin PO Pharmacy consult -appreciate input Clinically better and showing improvement Lyme-negative,Norovirus RNA-negative Parvovirus-Ig M -negative ,Ig G positive stable DIC-secondary to Sepsis Enterococci UTI CT abdomen and Pelvis shown any mource for malignancy No signs of active bleeding Will monitor Fibrinogen and FDP Try to keep Fibrinogen above 100 PTT ratio 1.9 Fibrinogen 120 today 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 Colindres (apt scheduled for next month) -pt currently denies anginal sxs -having bradyarrhythmia -Cardiology consult recommended to continue hold BB -No more Bradyarrhythmia - Stable DEE DEE ON CKD STAGE 3 -creatinine 2.2; baseline creatinine 1.3; may be secondary to dehydration from GI losses -hold Lasix and lisinopril -Creatine today 1.5 -monitor with daily prp and avoid nephrotoxic agents when able -will hold lisinopril until tomorrow lab result and lasix DIARRHEA -C.diff negative -stool culture-negative -Resolved MECHANICAL FALL -likely secondary to dehydration and anemia -CT head negative -PT/OT -fall precautions AORTIC ANEURYSM -s/p graft repair in 2009 -CT chest showed increase in dilatation of prox to mid thoracic aorta. Max diameter increased from 5.7 cm (01/30/15) to 6.1 cm. No evidence of dissection. -Vascular surgery consulted recommended no intervention.at this time AORTIC STENOSIS -s/p AVR 2009 -no chest pain B/L RENAL LESIONS Need outpatient follow GERD -cont PPI HTN -BP stable -holding lisinopril and lasix 2* DEE DEE -will resume lisinopril in am -cont carvedilol -monitor DYSLIPIDEMIA -cont statin DVT PROPHYLAXIS -SCDs only in setting of severe thrombocytopenia CODE STATUS FULL CODE DISPOSITION will discharge once stable as per hematology Consultants: Hematology/oncology Current Inpatient Medications: Current Inpatient Medications Medications (Trade) Dose Ordered Sig/Song Route Start Time Stop Time Status Last Admin Dose Admin Acetaminophen (Tylenol Tab) 650 mg Q4H PRN PO 08/02/16 15:15 09/01/16 15:14 08/03/16 19:35 650 MG Ondansetron HCl (Zofran Inj) 4 mg Q6H PRN IV 08/02/16 15:15 09/01/16 15:14 Nitroglycerin (Nitrostat Tab) 0.4 mg UD PRN SL 08/02/16 15:15 09/01/16 15:14 Atorvastatin Calcium (Lipitor Tab) 80 mg DAILY PO 08/03/16 09:00 09/02/16 08:59 08/13/16 09:08 80 MG Carvedilol (Coreg Tab) 12.5 mg BID PO 08/02/16 21:00 09/01/16 20:59 Future Hold 08/02/16 20:26 12.5 MG Fish Oil ([place]-3 (Purified Fish Oil) Cap) 1 gm BID PO 08/02/16 21:00 09/01/16 20:59 08/13/16 09:13 1 GM Multivitamins/ Minerals (Multivitamin W/ Minerals Tab) 1 tab DAILY PO 08/03/16 09:00 09/02/16 08:59 08/13/16 09:09 1 TAB Terazosin HCl (Hytrin Cap) 5 mg HS PO 08/02/16 21:00 09/01/16 20:59 08/12/16 20:34 5 MG Pantoprazole Sodium (Protonix Tab) 40 mg BID PO 08/02/16 21:00 09/01/16 20:59 08/13/16 09:08 40 MG Levofloxacin (Consult) 1 ea UD PRN N/A 08/05/16 11:45 08/14/16 23:59 Levofloxacin (Levaquin Tab) 750 mg Q2D@1400 PO 08/09/16 14:00 08/14/16 23:59 08/13/16 16:55 750 MG Lisinopril (Zestril Tab) 40 mg QAM PO 08/12/16 09:00 09/11/16 08:59 08/13/16 09:13 40 MG
[2016-08-14] VITALS (7 sets, daily range): BP systolic 97–129; BP diastolic 58–68; PULSE 71–78; TEMP 36.6–36.7; O2SAT 95–97
[2016-08-14 06:53] LABS: PARTIAL THROMBOPLASTIN RATIO 1.7
[2016-08-14 07:18] LABS: HEMATOCRIT 26.9 % (42-52); MEAN CELL VOLUME 86.8 fL (80-100); MEAN CORPUSCULAR HEMOGLOBIN 28.1 pg (25-34); MEAN CORPUSCULAR HGB CONC 32.3 g/dl (32-36); PLATELET COUNT 28 K/uL (130-400); WHITE BLOOD COUNT 3.43 K/uL (4.8-10.8)
[2016-08-14 07:25] LABS: BUN/CREATININE RATIO 22.9 (10-20); CALCIUM 7.9 mg/dl (8.5-10.1); CREATININE 1.4 mg/dl (0.60-1.40); POTASSIUM 3.6 mmol/L (3.5-5.1)
[2016-08-14] MEDS: ATORVASTATIN 40 MG TAB PO SCH (07:42)
[2016-08-14] MEDS: CEROVITE ADV FORMULA TAB PO SCH (07:42)
[2016-08-14] MEDS: PANTOprazole SOD 40 MG TAB PO SCH ×2 (07:43→20:26)
[2016-08-14] MEDS: OMEGA-3 (PURIFIED FISH OIL) 1 GM CAP PO SCH ×2 (07:43→20:26)
--- NOTE | 2016-08-14 13:58 | Progress Note ---
Medicine Progress Note Date & Time of Visit: Aug 14, 2016 at 13:21. Subjective Pt was seen and examined Sitting in chair with no distress watching TV Pt said that he feels fine denies any chest pain, palpitation, dizziness and sob Objective Last 8 Hrs Date Time Temp Pulse Resp B/P Pulse Ox O2 Delivery O2 Flow Rate FiO2 08/14/16 08:00 95 Room Air 2.0 08/14/16 07:09 36.6 71 20 114/67 95 Room Air Physical Exam: General- no acute distress Head- atraumatic Eyes- PERRL, EOMI ENT- oropharynx clear Neck- supple, no JVD, Lungs- clear to auscultation, no wheezing Heart- regular rhythm, Systolic murmur precordial and AA radiation to neck Abdomen- normal bowel sounds, soft Extremities- no calf tenderness Neuro- alert, oriented x 3; PERRL, EOMI Skin- warm & dry Laboratory Results: Last 24 Hours Test 08/14/16 05:40 08/14/16 10:58 White Blood Count 3.43 K/uL Red Blood Count 3.10 M/uL Hemoglobin 8.7 g/dL Hematocrit 26.9 % Mean Corpuscular Volume 86.8 fL Mean Corpuscular Hemoglobin 28.1 pg Mean Corpuscular Hemoglobin Concent 32.3 g/dl RDW Standard Deviation 53.1 fL RDW Coefficient of Variation 16.6 % Platelet Count 28 K/uL Activated Partial Thromboplast Time 44.6 SECONDS Partial Thromboplastin Ratio 1.7 Sodium Level 140 mmol/L Potassium Level 3.6 mmol/L Chloride Level 110 mmol/L Carbon Dioxide Level 24 mmol/L Anion Gap 6.0 mmol/L Blood Urea Nitrogen 32 mg/dl Creatinine 1.40 mg/dl Est Creatinine Clear Calc Drug Dose 39.4 ml/min Estimated GFR () 55.0 Estimated GFR (Non- 47.5 BUN/Creatinine Ratio 22.9 Random Glucose 87 mg/dl Calcium Level 7.9 mg/dl Fibrinogen 93 mg/dl Assessment & Plan Pancytopenia with severe Thrombocytopenia -plt count 6 on admission (plt count dec 2015 was 118) -Generally weak and lethargic -differential includes-infection,sepsis,ITP,marrow infiltration,leukemia , aplastic anemia -received 2 unit of FFP and 3 platelet, 2 units PRBC and 6 pool of Cryoprecipitate (include today) -no evidence of hemolysis, no active bleeding -Elevated LDH on admission -Flow Cyrtometry -negative -Platelet 28,WCC- 3.43 and Hb >8.7 as of 08/14/16 - Hematology on board recommended platelets and cryo as needed to keep platelet count >10 and fibrinogen >100. -Transfuse PRBCs/platelets/cryo or FFPs as needed if any bleeding. -Case discussed with Dr. Suero today that recommended to continue monitor fibrinogen and cbc over the weekend. - Will Transfuse 1 pool cryo today -Monitor cbc and fibrinogen daily Electrolytes Imbalance Phosphate replaced continue monitor Sepsis Likely secondary to Enterococci UTI Started on Vancomycin Deescalated to Levaquin On levaquin PO Pharmacy consult -appreciate input Clinically better and showing improvement Lyme-negative,Norovirus RNA-negative Parvovirus-Ig M -negative ,Ig G positive stable DIC-secondary to Sepsis Enterococci UTI CT abdomen and Pelvis shown any mource for malignancy No signs of active bleeding Will monitor Fibrinogen and FDP Try to keep Fibrinogen above 100 PTT ratio 1.7 Fibrinogen 93 today 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 Colindres (apt scheduled for next month) -pt currently denies anginal sxs -having bradyarrhythmia -Cardiology consult recommended to continue hold BB -No more Bradyarrhythmia - Stable DEE DEE ON CKD STAGE 3 -creatinine 2.2; baseline creatinine 1.3; may be secondary to dehydration from GI losses -hold Lasix and lisinopril -Creatine today 1.4 -monitor with daily prp and avoid nephrotoxic agents when able -continue lisinopril DIARRHEA -C.diff negative -stool culture-negative -Resolved MECHANICAL FALL -likely secondary to dehydration and anemia -CT head negative -PT/OT -fall precautions AORTIC ANEURYSM -s/p graft repair in 2009 -CT chest showed increase in dilatation of prox to mid thoracic aorta. Max diameter increased from 5.7 cm (01/30/15) to 6.1 cm. No evidence of dissection. -Vascular surgery consulted recommended no intervention.at this time AORTIC STENOSIS -s/p AVR 2009 -no chest pain B/L RENAL LESIONS Need outpatient follow GERD -cont PPI HTN -BP stable -holding lisinopril and lasix 2* DEE DEE -will resume lisinopril in am -cont carvedilol -monitor DYSLIPIDEMIA -cont statin DVT PROPHYLAXIS -SCDs only in setting of severe thrombocytopenia CODE STATUS FULL CODE DISPOSITION will discharge once stable as per hematology Consultants: Hematology/oncology Current Inpatient Medications: Current Inpatient Medications Medications (Trade) Dose Ordered Sig/Song Route Start Time Stop Time Status Last Admin Dose Admin Acetaminophen (Tylenol Tab) 650 mg Q4H PRN PO 08/02/16 15:15 09/01/16 15:14 08/03/16 19:35 650 MG Ondansetron HCl (Zofran Inj) 4 mg Q6H PRN IV 08/02/16 15:15 09/01/16 15:14 Nitroglycerin (Nitrostat Tab) 0.4 mg UD PRN SL 08/02/16 15:15 09/01/16 15:14 Atorvastatin Calcium (Lipitor Tab) 80 mg DAILY PO 08/03/16 09:00 09/02/16 08:59 08/14/16 07:42 80 MG Carvedilol (Coreg Tab) 12.5 mg BID PO 08/02/16 21:00 09/01/16 20:59 Future Hold 08/02/16 20:26 12.5 MG Fish Oil ([place]-3 (Purified Fish Oil) Cap) 1 gm BID PO 08/02/16 21:00 09/01/16 20:59 08/14/16 07:43 1 GM Multivitamins/ Minerals (Multivitamin W/ Minerals Tab) 1 tab DAILY PO 08/03/16 09:00 09/02/16 08:59 08/14/16 07:42 1 TAB Terazosin HCl (Hytrin Cap) 5 mg HS PO 08/02/16 21:00 09/01/16 20:59 08/13/16 20:48 5 MG Pantoprazole Sodium (Protonix Tab) 40 mg BID PO 08/02/16 21:00 09/01/16 20:59 08/14/16 07:43 40 MG Levofloxacin (Consult) 1 ea UD PRN N/A 08/05/16 11:45 08/14/16 23:59 Levofloxacin (Levaquin Tab) 750 mg Q2D@1400 PO 08/09/16 14:00 08/14/16 23:59 08/13/16 16:55 750 MG Lisinopril (Zestril Tab) 40 mg QAM PO 08/12/16 09:00 09/11/16 08:59 Future hold 08/13/16 09:13 40 MG
[2016-08-15 00:12] VITALS: BP 143/77; PULSE 69; TEMP 36.4; O2SAT 98
[2016-08-15 08:04] VITALS: BP 134/80; PULSE 77; TEMP 36.7; O2SAT 95
[2016-08-15] MEDS: OMEGA-3 (PURIFIED FISH OIL) 1 GM CAP PO SCH ×2 (08:06→21:03)
[2016-08-15] MEDS: PANTOprazole SOD 40 MG TAB PO SCH ×2 (08:07→21:03)
[2016-08-15] MEDS: ATORVASTATIN 40 MG TAB PO SCH (08:07)
[2016-08-15] MEDS: CEROVITE ADV FORMULA TAB PO SCH (08:07)
[2016-08-15 09:11] LABS: HEMATOCRIT 29.4 % (42-52); MEAN CELL VOLUME 88.3 fL (80-100); MEAN CORPUSCULAR HEMOGLOBIN 28.2 pg (25-34); MEAN PLATELET VOLUME 10.9 fL (7.4-10.4); PLATELET COUNT 44 K/uL (130-400); RED BLOOD COUNT 3.33 M/uL (4.7-6.1); WHITE BLOOD COUNT 3.14 K/uL (4.8-10.8)
[2016-08-15 09:12] LABS: PARTIAL THROMBOPLASTIN RATIO 1.8
[2016-08-15 09:19] LABS: BUN/CREATININE RATIO 20.5 (10-20); CALCIUM 8.4 mg/dl (8.5-10.1); CREATININE 1.5 mg/dl (0.60-1.40); POTASSIUM 3.6 mmol/L (3.5-5.1)
--- NOTE | 2016-08-15 12:18 | Progress Note ---
Medicine Progress Note Date & Time of Visit: Aug 15, 2016 at 12:11. Subjective Pt was seen and examined sitting in chair with no distress Pt said that he feels fine. Denies any chest pain, palpitation and sob Objective Last 8 Hrs Date Time Temp Pulse Resp B/P Pulse Ox O2 Delivery O2 Flow Rate FiO2 08/15/16 08:04 36.7 77 18 134/80 95 Room Air Physical Exam: General- no acute distress Head- atraumatic Eyes- PERRL, EOMI ENT- oropharynx clear Neck- supple, no JVD, Lungs- clear to auscultation, no wheezing Heart- regular rhythm, Systolic murmur precordial and AA radiation to neck Abdomen- normal bowel sounds, soft Extremities- no calf tenderness Neuro- alert, oriented x 3; PERRL, EOMI Skin- warm & dry Laboratory Results: Last 24 Hours Test 08/15/16 08:44 08/15/16 12:05 White Blood Count 3.14 K/uL Red Blood Count 3.33 M/uL Hemoglobin 9.4 g/dL Hematocrit 29.4 % Mean Corpuscular Volume 88.3 fL Mean Corpuscular Hemoglobin 28.2 pg Mean Corpuscular Hemoglobin Concent 32.0 g/dl RDW Standard Deviation 53.4 fL RDW Coefficient of Variation 16.5 % Platelet Count 44 K/uL Mean Platelet Volume 10.9 fL Activated Partial Thromboplast Time 46.4 SECONDS Partial Thromboplastin Ratio 1.8 Sodium Level 141 mmol/L Potassium Level 3.6 mmol/L Chloride Level 108 mmol/L Carbon Dioxide Level 24 mmol/L Anion Gap 9.0 mmol/L Blood Urea Nitrogen 31 mg/dl Creatinine 1.50 mg/dl Est Creatinine Clear Calc Drug Dose 36.8 ml/min Estimated GFR () 50.6 Estimated GFR (Non- 43.7 BUN/Creatinine Ratio 20.5 Random Glucose 121 mg/dl Calcium Level 8.4 mg/dl Assessment & Plan Pancytopenia with severe Thrombocytopenia -plt count 6 on admission (plt count dec 2015 was 118) -Generally weak and lethargic -differential includes-infection,sepsis,ITP,marrow infiltration,leukemia , aplastic anemia -received 2 unit of FFP and 3 platelet, 2 units PRBC and 6 pool of Cryoprecipitate -no evidence of hemolysis, no active bleeding -Elevated LDH on admission -Flow Cyrtometry -negative -Platelet 44,WCC- 3.14 and Hb >9.4 as of 08/15/16 - Hematology on board recommended platelets and cryo as needed to keep platelet count >10 and fibrinogen >100. -Transfuse PRBCs/platelets/cryo or FFPs as needed if any bleeding. -Case discussed with Dr. Suero today that recommended to continue monitor fibrinogen and cbc over the weekend. - Transfuse 1 pool cryo yesterday -Monitor cbc and fibrinogen daily Electrolytes Imbalance Phosphate replaced continue monitor Sepsis Likely secondary to Enterococci UTI Started on Vancomycin Deescalated to Levaquin Completed levaquin course Pharmacy consult -appreciate input Clinically better and showing improvement Lyme-negative,Norovirus RNA-negative Parvovirus-Ig M -negative ,Ig G positive stable DIC-secondary to Sepsis Enterococci UTI CT abdomen and Pelvis shown any mource for malignancy No signs of active bleeding Will monitor Fibrinogen and FDP keep Fibrinogen above 100 PTT ratio 1.8 Fibrinogen 93 today 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 Colindres (apt scheduled for next month) -pt currently denies anginal sxs -having bradyarrhythmia -Cardiology consult recommended to continue hold BB -No more Bradyarrhythmia - Stable DEE DEE ON CKD STAGE 3 -creatinine 2.2; baseline creatinine 1.3; may be secondary to dehydration from GI losses -hold Lasix and lisinopril -Creatine today 1.5 -monitor with daily prp and avoid nephrotoxic agents when able - Will hold lisinopril morning dose until lab DIARRHEA -C.diff negative -stool culture-negative -Resolved MECHANICAL FALL -likely secondary to dehydration and anemia -CT head negative -PT/OT -fall precautions AORTIC ANEURYSM -s/p graft repair in 2009 -CT chest showed increase in dilatation of prox to mid thoracic aorta. Max diameter increased from 5.7 cm (01/30/15) to 6.1 cm. No evidence of dissection. -Vascular surgery consulted recommended no intervention.at this time AORTIC STENOSIS -s/p AVR 2009 -no chest pain B/L RENAL LESIONS Need outpatient follow GERD -cont PPI HTN -BP stable -holding lisinopril and lasix 2* DEE DEE -will resume lisinopril in am -cont carvedilol -monitor DYSLIPIDEMIA -cont statin DVT PROPHYLAXIS -SCDs only in setting of severe thrombocytopenia CODE STATUS FULL CODE DISPOSITION Possible discharge tomorrow once stable as per hematology Consultants: Hematology/oncology Current Inpatient Medications: Current Inpatient Medications Medications (Trade) Dose Ordered Sig/Song Route Start Time Stop Time Status Last Admin Dose Admin Acetaminophen (Tylenol Tab) 650 mg Q4H PRN PO 08/02/16 15:15 09/01/16 15:14 08/03/16 19:35 650 MG Ondansetron HCl (Zofran Inj) 4 mg Q6H PRN IV 08/02/16 15:15 09/01/16 15:14 Nitroglycerin (Nitrostat Tab) 0.4 mg UD PRN SL 08/02/16 15:15 09/01/16 15:14 Atorvastatin Calcium (Lipitor Tab) 80 mg DAILY PO 08/03/16 09:00 09/02/16 08:59 08/15/16 08:07 80 MG Carvedilol (Coreg Tab) 12.5 mg BID PO 08/02/16 21:00 09/01/16 20:59 Future Hold 08/02/16 20:26 12.5 MG Fish Oil ([place]-3 (Purified Fish Oil) Cap) 1 gm BID PO 08/02/16 21:00 09/01/16 20:59 08/15/16 08:06 1 GM Multivitamins/ Minerals (Multivitamin W/ Minerals Tab) 1 tab DAILY PO 08/03/16 09:00 09/02/16 08:59 08/15/16 08:07 1 TAB Terazosin HCl (Hytrin Cap) 5 mg HS PO 08/02/16 21:00 09/01/16 20:59 08/14/16 20:25 5 MG Pantoprazole Sodium (Protonix Tab) 40 mg BID PO 08/02/16 21:00 09/01/16 20:59 08/15/16 08:07 40 MG Lisinopril (Zestril Tab) 40 mg QAM PO 08/12/16 09:00 09/11/16 08:59 Future hold 08/13/16 09:13 40 MG
[2016-08-15 15:08] VITALS: BP 116/90; PULSE 65; TEMP 36.6; O2SAT 97
--- NOTE | 2016-08-15 19:56 | Hematology/Oncology Prog Note ---
Hematology/Onc Progress Note Date of Service Aug 15, 2016. Diagnoses 1. Coagulopathy and severe thrombocytopenia most likely secondary to acute DIC given the elevated D dimer and low fibrinogen 2. Sepsis from UTI due to E. Faecalis 3. Anemia of multiple mechanisms- blood loss from infection, acute illness Subjective The patient reports feeling fine today, up in his chair. He did walk yesterday with [place], but this resolved uneventfully. He has a good appetite and denies nausea. His bowels are regular. He is not requiring oxygen at this time. He denies any bleeding from any sites. He anticipates being discharged to rehabilitation facility prior to being able to return to his home. Vital Signs Vital Signs Past 12 Hours Date Time Temp Pulse Resp B/P Pulse Ox O2 Delivery O2 Flow Rate FiO2 08/15/16 16:00 Room Air 08/15/16 15:08 36.6 65 24 116/90 97 Room Air 08/15/16 08:20 Room Air 08/15/16 08:04 36.7 77 18 134/80 95 Room Air Physical Exam ENMT: hearing grossly normal Lungs: Respiratory Effort: no dyspnea Auscuitation: no wheezing, no rhonchi, pertinent finding (coarse at left lung base) Cardiovascular: Heart Auscultation: RRR, murmur (harsh systolic) Extremities: edema (2+ of calves), pertinent finding (no calf tenderness) Laboratory 08/15/16 08:44 08/15/16 08:44 Test 08/15/16 08:44 08/15/16 12:05 Red Blood Count 3.33 M/uL (4.7-6.1) Mean Corpuscular Volume 88.3 fL (80-100) Mean Corpuscular Hemoglobin 28.2 pg (25-34) Mean Corpuscular Hemoglobin Concent 32.0 g/dl (32-36) RDW Standard Deviation 53.4 fL (36.4-46.3) RDW Coefficient of Variation 16.5 % (11.5-14.5) Mean Platelet Volume 10.9 fL (7.4-10.4) Activated Partial Thromboplast Time 46.4 SECONDS (21.0-31.0) Partial Thromboplastin Ratio 1.8 Anion Gap 9.0 mmol/L (3-11) Est Creatinine Clear Calc Drug Dose 36.8 ml/min Estimated GFR () 50.6 Estimated GFR (Non- 43.7 BUN/Creatinine Ratio 20.5 (10-20) Calcium Level 8.4 mg/dl (8.5-10.1) Fibrinogen 106 mg/dl (184-400) Assessment & Plan 1. Acute DIC likely from UTI from enterococcus complicated by sepsis on admission * Has received 2 units PRBC, 2FFP, 3 units PLT, 6 cryo since admission * Treat underlying cause- UTI from enterococcus (blood cultures x 2 negative) * Slow recovery, PLT had significant increase to 40K range today, fibrinogen > 100 * Recommend monitor serial CBC and fibrinogen level daily and transfuse platelets and cryo as needed to keep platelet count >10 and fibrinogen >100. Transfuse PRBCs/platelets/cryo or FFPs as needed if any bleeding. * Peripheral flow cyto negative pathologic findings * CT of abdomen/pelvis does not reveal malignancy- 2 indeterminate lesions in left kidney, recommend patient establish with urology for monitoring of lesions , further work up 2. UTI from enterococcus- management per hospitalist team. Antibiotics backed down to Levaquin and now discontinued 3. Anemia of multiple mechanisms- stable- acute blood loss from infection, acute illness; had baseline at low 11 g/dL in 12/28, possibly from chronic disease. Iron studies, vitamin B 12 and folate not deficient this hospitalization. Attending Discussed with Rosalba Vazquez PA-C and agree with her note above. Platelet count is improved and he is not requiring platelet transfusion currently as it is improving now, however, he is still requiring cryo periodically for low fibrinogen less than 100
[2016-08-16] VITALS (8 sets, daily range): BP systolic 94–158; BP diastolic 57–79; PULSE 69–79; TEMP 36.4–36.8; O2SAT 90–98
[2016-08-16] MEDS: ATORVASTATIN 40 MG TAB PO SCH (07:50)
[2016-08-16] MEDS: CEROVITE ADV FORMULA TAB PO SCH (07:50)
[2016-08-16] MEDS: PANTOprazole SOD 40 MG TAB PO SCH ×2 (07:50→20:54)
[2016-08-16] MEDS: OMEGA-3 (PURIFIED FISH OIL) 1 GM CAP PO SCH ×2 (07:50→20:53)
[2016-08-16 08:25] LABS: HEMATOCRIT 30.4 % (42-52); MEAN CELL VOLUME 87.9 fL (80-100); MEAN CORPUSCULAR HEMOGLOBIN 28.6 pg (25-34); MEAN CORPUSCULAR HGB CONC 32.6 g/dl (32-36); MEAN PLATELET VOLUME 10.9 fL (7.4-10.4); PLATELET COUNT 42 K/uL (130-400); RED BLOOD COUNT 3.46 M/uL (4.7-6.1); WHITE BLOOD COUNT 3.45 K/uL (4.8-10.8)
[2016-08-16 08:39] LABS: PARTIAL THROMBOPLASTIN RATIO 1.7
[2016-08-16 08:55] LABS: BUN/CREATININE RATIO 21.1 (10-20); CALCIUM 8.7 mg/dl (8.5-10.1); CREATININE 1.4 mg/dl (0.60-1.40); PHOSPHORUS 2.3 mg/dl (2.5-4.9); POTASSIUM 3.7 mmol/L (3.5-5.1)
[2016-08-16] MEDS ORDERED: POTASSIUM PHOS 3 MMOL/1 ML INFUSION IV ONE (12:00)
--- NOTE | 2016-08-16 12:35 | Progress Note ---
Medicine Progress Note Date & Time of Visit: Aug 16, 2016 at 12:25. Subjective Pt was seen and examined Sitting in chair with no distress watching the news Pt said that he feels good he denies any bleeding, chest pain, palpitation and sob Objective Last 8 Hrs Date Time Temp Pulse Resp B/P Pulse Ox O2 Delivery O2 Flow Rate FiO2 08/16/16 12:16 36.8 76 16 116/70 08/16/16 11:53 36.4 70 18 104/63 98 08/16/16 08:29 36.7 69 20 158/79 90 Room Air 08/16/16 08:00 Room Air Physical Exam: General- no acute distress Head- atraumatic Eyes- PERRL, EOMI ENT- oropharynx clear Neck- supple, no JVD, Lungs- clear to auscultation, no wheezing Heart- regular rhythm, Systolic murmur precordial and AA radiation to neck Abdomen- normal bowel sounds, soft Extremities- no calf tenderness Neuro- alert, oriented x 3; PERRL, EOMI Skin- warm & dry Laboratory Results: Last 24 Hours Test 08/16/16 08:07 White Blood Count 3.45 K/uL Red Blood Count 3.46 M/uL Hemoglobin 9.9 g/dL Hematocrit 30.4 % Mean Corpuscular Volume 87.9 fL Mean Corpuscular Hemoglobin 28.6 pg Mean Corpuscular Hemoglobin Concent 32.6 g/dl RDW Standard Deviation 52.9 fL RDW Coefficient of Variation 16.5 % Platelet Count 42 K/uL Mean Platelet Volume 10.9 fL Activated Partial Thromboplast Time 43.9 SECONDS Partial Thromboplastin Ratio 1.7 Fibrinogen 93 mg/dl Sodium Level 139 mmol/L Potassium Level 3.7 mmol/L Chloride Level 107 mmol/L Carbon Dioxide Level 25 mmol/L Anion Gap 7.0 mmol/L Blood Urea Nitrogen 30 mg/dl Creatinine 1.40 mg/dl Est Creatinine Clear Calc Drug Dose 39.4 ml/min Estimated GFR () 55.0 Estimated GFR (Non- 47.5 BUN/Creatinine Ratio 21.1 Random Glucose 89 mg/dl Calcium Level 8.7 mg/dl Phosphorus Level 2.3 mg/dl Assessment & Plan Pancytopenia with severe Thrombocytopenia -plt count 6 on admission (plt count dec 2015 was 118) -Generally weak and lethargic -differential includes-infection,sepsis,ITP,marrow infiltration,leukemia , aplastic anemia -received 2 unit of FFP and 3 platelet, 2 units PRBC and 7 pool of Cryoprecipitate (including today one) -no evidence of hemolysis, no active bleeding -Elevated LDH on admission -Flow Cyrtometry -negative -Platelet 42,WCC- 3.45 and Hb >9.9 as of 08/16/16 - Hematology on board recommended platelets and cryo as needed to keep platelet count >10 and fibrinogen >100. -Transfuse PRBCs/platelets/cryo or FFPs as needed if any bleeding. -Case discussed with Dr. Suero today that recommended to continue monitor fibrinogen and cbc daily - Hopefully if fibrinogen stays above 100 for the next few days, and platelet continue to increase, we can anticipate to discharge him - Transfuse 1 pool cryo today -Monitor cbc and fibrinogen daily Electrolytes Imbalance Phosphate replaced continue monitor Sepsis Likely secondary to Enterococci UTI Started on Vancomycin Deescalated to Levaquin Completed levaquin course Pharmacy consult -appreciate input Clinically better and showing improvement Lyme-negative,Norovirus RNA-negative Parvovirus-Ig M -negative ,Ig G positive stable DIC-secondary to Sepsis Enterococci UTI CT abdomen and Pelvis shown any mource for malignancy No signs of active bleeding Will monitor Fibrinogen and FDP keep Fibrinogen above 100 PTT ratio 1.7 Fibrinogen 93 today Will transfuse 1 pool cryo today 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 Colindres (apt scheduled for next month) -pt currently denies anginal sxs -having bradyarrhythmia -Cardiology consult recommended to continue hold BB -No more Bradyarrhythmia - Stable DEE DEE ON CKD STAGE 3 -creatinine 2.2; baseline creatinine 1.3; may be secondary to dehydration from GI losses -Continue to hold Lasix -Creatine today 1.4 -monitor with daily prp and avoid nephrotoxic agents when able - Resume lisinopril in am DIARRHEA -C.diff negative -stool culture-negative -Resolved MECHANICAL FALL -likely secondary to dehydration and anemia -CT head negative -PT/OT -fall precautions AORTIC ANEURYSM -s/p graft repair in 2009 -CT chest showed increase in dilatation of prox to mid thoracic aorta. Max diameter increased from 5.7 cm (01/30/15) to 6.1 cm. No evidence of dissection. -Vascular surgery consulted recommended no intervention.at this time AORTIC STENOSIS -s/p AVR 2009 -no chest pain B/L RENAL LESIONS Need outpatient follow GERD -cont PPI HTN -BP stable -holding lisinopril and lasix 2* DEE DEE -will resume lisinopril in am -cont carvedilol -monitor DYSLIPIDEMIA -cont statin DVT PROPHYLAXIS -SCDs only in setting of severe thrombocytopenia CODE STATUS FULL CODE DISPOSITION Will discharge to [facility] once stable per hematology Consultants: Hematology/oncology Current Inpatient Medications: Current Inpatient Medications Medications (Trade) Dose Ordered Sig/Song Route Start Time Stop Time Status Last Admin Dose Admin Acetaminophen (Tylenol Tab) 650 mg Q4H PRN PO 08/02/16 15:15 09/01/16 15:14 08/03/16 19:35 650 MG Ondansetron HCl (Zofran Inj) 4 mg Q6H PRN IV 08/02/16 15:15 09/01/16 15:14 Nitroglycerin (Nitrostat Tab) 0.4 mg UD PRN SL 08/02/16 15:15 09/01/16 15:14 Atorvastatin Calcium (Lipitor Tab) 80 mg DAILY PO 08/03/16 09:00 09/02/16 08:59 08/16/16 07:50 80 MG Carvedilol (Coreg Tab) 12.5 mg BID PO 08/02/16 21:00 09/01/16 20:59 Future Hold 08/02/16 20:26 12.5 MG Fish Oil ([place]-3 (Purified Fish Oil) Cap) 1 gm BID PO 08/02/16 21:00 09/01/16 20:59 08/16/16 07:50 1 GM Multivitamins/ Minerals (Multivitamin W/ Minerals Tab) 1 tab DAILY PO 08/03/16 09:00 09/02/16 08:59 08/16/16 07:50 1 TAB Terazosin HCl (Hytrin Cap) 5 mg HS PO 08/02/16 21:00 09/01/16 20:59 08/15/16 21:04 5 MG Pantoprazole Sodium (Protonix Tab) 40 mg BID PO 08/02/16 21:00 09/01/16 20:59 08/16/16 07:50 40 MG Lisinopril 40 mg 40 mg QAM PO 08/12/16 09:00 09/11/16 08:59 Future Hold 08/13/16 09:13 40 MG Potassium Phosphate/Sodium Chloride (Potassium Phosphate Inj/Nss 500ml) 507 ml @ 126.75 mls/ hr TODAY@1245 IV 08/16/16 12:45 08/16/16 16:44
[2016-08-16] MEDS ORDERED: POTASSIUM PHOSPHATE INJ 21 MMOL in SODIUM CHLORIDE 0.9% 500ML 500 ML IV SCH (12:45)
[2016-08-17 00:33] VITALS: BP 112/73; PULSE 70; TEMP 36.5; O2SAT 97
[2016-08-17 06:02] LABS: HEMATOCRIT 27.9 % (42-52); MEAN CELL VOLUME 88.6 fL (80-100); MEAN CORPUSCULAR HEMOGLOBIN 28.6 pg (25-34); MEAN CORPUSCULAR HGB CONC 32.3 g/dl (32-36); RED BLOOD COUNT 3.15 M/uL (4.7-6.1); WHITE BLOOD COUNT 3.26 K/uL (4.8-10.8)
[2016-08-17 06:07] LABS: MEAN PLATELET VOLUME 11.8 fL (7.4-10.4); PLATELET COUNT 38 K/uL (130-400)
[2016-08-17 06:28] LABS: BUN/CREATININE RATIO 19.9 (10-20); CALCIUM 8.1 mg/dl (8.5-10.1); CREATININE 1.4 mg/dl (0.60-1.40)
[2016-08-17 06:53] LABS: PARTIAL THROMBOPLASTIN RATIO 1.6
[2016-08-17] MEDS: CEROVITE ADV FORMULA TAB PO SCH (08:04)
[2016-08-17] MEDS: PANTOprazole SOD 40 MG TAB PO SCH ×2 (08:04→20:49)
[2016-08-17] MEDS: ATORVASTATIN 40 MG TAB PO SCH (08:04)
[2016-08-17] MEDS: OMEGA-3 (PURIFIED FISH OIL) 1 GM CAP PO SCH ×2 (08:04→20:49)
[2016-08-17 08:08] VITALS: BP 120/68; PULSE 70; TEMP 36.6; O2SAT 95
--- NOTE | 2016-08-17 14:48 | Progress Note ---
Internal Med Progress Note Date of Service: Aug 17, 2016. Provider Documentation: SUBJECTIVE: Patient is doing better. No c/o bleeding, fever, chills, chest pain, SOB, nausea, vomiting, abdominal pain OBJECTIVE: Vital Signs-as noted below Exam: General- no acute distress Neck- supple, no JVD, Lungs- clear to auscultation, no wheezing Heart- regular rhythm, Systolic murmur precordial and AA radiation to neck Abdomen- normal bowel sounds, soft Extremities- no Edema Lab data as noted below. ASSESSMENT & PLAN: ACUTE DIC SECONDARY TO SEPSIS SECONDARY TO UTI ENTEROCOCCUS -Platelet count 6 on admission (plt count dec 2015 was 118) -Clinically improved -D/D included -ITP,marrow infiltration,leukemia ,aplastic anemia , but likely secondary to Sepsis/UTI enterococcus -Received 2 unit of FFP and 3 platelet, 2 units PRBC and 7 pool of Cryoprecipitate since admission -No evidence of hemolysis, no active bleeding -Flow Cyrtometry -negative -Platelet 38 and Hb >9.0, Fibrinogen 114 -Hematology on board recommends platelets and cryo as needed to keep platelet count >10 and fibrinogen >100. -Transfuse PRBCs/platelets/cryo or FFPs as needed if any bleeding. -Case discussed with Dr. 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 Colindres (apt scheduled for next month) -pt currently denies anginal sxs -Cardiology consult recommended to continue hold BB -Stable DEE DEE ON CKD STAGE 3 - Resolved -Creatinine 2.2 on presentation; baseline creatinine 1.3; may be secondary to dehydration from GI losses -Continue to hold Lasix -Monitor DIARRHEA- Resolved -C.diff negative -Stool culture-negative MECHANICAL FALL -likely secondary to dehydration and anemia -CT head negative -PT/OT -fall precautions AORTIC ANEURYSM -s/p graft repair in 2009 -CT chest showed increase in dilatation of prox to mid thoracic aorta. Max diameter increased from 5.7 cm (01/30/15) to 6.1 cm. No evidence of dissection. -Vascular surgery consulted recommended no intervention.at this time AORTIC STENOSIS -s/p AVR 2009 -no chest pain B/L RENAL LESIONS Need outpatient follow GERD -cont PPI HTN -BP stable -Resumed Lisinopril DYSLIPIDEMIA -cont statin DVT PROPHYLAXIS -SCDs only in setting of severe thrombocytopenia CODE STATUS FULL CODE DISPOSITION Will discharge to [facility] once stable per hematology Vital Signs: Date Time Temp Pulse Resp B/P Pulse Ox O2 Delivery O2 Flow Rate FiO2 08/17/16 08:08 36.6 70 16 120/68 95 Room Air 08/17/16 08:00 Room Air 08/17/16 00:33 36.5 70 18 112/73 97 Room Air 08/17/16 00:30 Room Air 08/16/16 16:28 36.6 72 20 153/75 98 Room Air 08/16/16 16:00 Room Air Lab Results: Results Past 24 Hours Test 08/17/16 05:15 08/17/16 05:20 Range/Units Activated Partial Thromboplast Time 42.5 21.0-31.0 SECONDS Partial Thromboplastin Ratio 1.6 Fibrinogen 114 184-400 mg/dl Sodium Level 141 136-145 mmol/L Potassium Level 4.0 3.5-5.1 mmol/L Chloride Level 109 98-107 mmol/L Carbon Dioxide Level 26 21-32 mmol/L Anion Gap 6.0 3-11 mmol/L Blood Urea Nitrogen 28 7-18 mg/dl Creatinine 1.40 0.60-1.40 mg/dl Est Creatinine Clear Calc Drug Dose 39.4 ml/min Estimated GFR () 55.0 Estimated GFR (Non- 47.5 BUN/Creatinine Ratio 19.9 10-20 Random Glucose 91 70-99 mg/dl Calcium Level 8.1 8.5-10.1 mg/dl White Blood Count 3.26 4.8-10.8 K/uL Red Blood Count 3.15 4.7-6.1 M/uL Hemoglobin 9.0 14.0-18.0 g/dL Hematocrit 27.9 42-52 % Mean Corpuscular Volume 88.6 80-100 fL Mean Corpuscular Hemoglobin 28.6 25-34 pg Mean Corpuscular Hemoglobin Concent 32.3 32-36 g/dl RDW Standard Deviation 53.9 36.4-46.3 fL RDW Coefficient of Variation 16.6 11.5-14.5 % Platelet Count 38 130-400 K/uL Mean Platelet Volume 11.8 7.4-10.4 fL
[2016-08-17 16:33] VITALS: BP 126/76; PULSE 72; TEMP 36.5; O2SAT 99
[2016-08-18 00:03] VITALS: BP 136/78; PULSE 70; TEMP 36.6; O2SAT 98
[2016-08-18 07:27] LABS: MEAN CORPUSCULAR HGB CONC 32.5 g/dl (32-36)
[2016-08-18 08:09] LABS: HEMATOCRIT 27.4 % (42-52); MEAN CORPUSCULAR HEMOGLOBIN 28.3 pg (25-34); RED BLOOD COUNT 3.15 M/uL (4.7-6.1); WHITE BLOOD COUNT 2.84 K/uL (4.8-10.8)
[2016-08-18 08:16] VITALS: BP 122/74; PULSE 71; TEMP 36.9; O2SAT 95
[2016-08-18 08:23] LABS: PLATELET COUNT 29 K/uL (130-400)
[2016-08-18 08:24] LABS: PLT ESTIMATE DECREASED
[2016-08-18] MEDS: ATORVASTATIN 40 MG TAB PO SCH (08:38)
[2016-08-18] MEDS: CEROVITE ADV FORMULA TAB PO SCH (08:38)
[2016-08-18] MEDS: OMEGA-3 (PURIFIED FISH OIL) 1 GM CAP PO SCH ×2 (08:39→21:34)
[2016-08-18] MEDS: LISINOPRIL 40 MG TAB PO SCH (08:39)
[2016-08-18] MEDS: PANTOprazole SOD 40 MG TAB PO SCH ×2 (08:39→21:34)
[2016-08-18 11:20] VITALS: BP 116/66; PULSE 76; TEMP 36.4; O2SAT 99
--- NOTE | 2016-08-18 14:13 | Progress Note ---
Internal Med Progress Note Date of Service: Aug 18, 2016. Provider Documentation: SUBJECTIVE: Patient is c/o redness in right lower extremity which is new. Swelling present No c/o bleeding, fever, chills, chest pain, SOB, nausea, vomiting, abdominal pain OBJECTIVE : Vital Signs-as noted below Exam: General- no acute distress Neck- supple, no JVD, Lungs- clear to auscultation, no wheezing Heart- regular rhythm, Systolic murmur precordial and AA radiation to neck Abdomen- normal bowel sounds, soft Extremities- B/L Edema, Right lower extremity- Erythema, swelling + Lab data as noted below. ASSESSMENT & PLAN: ACUTE DIC SECONDARY TO SEPSIS SECONDARY TO UTI ENTEROCOCCUS -Platelet count 6 on admission (plt count dec 2015 was 118) -Clinically improved -D/D included -ITP,marrow infiltration,leukemia ,aplastic anemia , but likely secondary to Sepsis/UTI enterococcus -Received 2 unit of FFP and 3 platelet, 2 units PRBC and 7 pool of Cryoprecipitate since admission -No evidence of hemolysis, no active bleeding -Flow Cyrtometry -negative -Platelet 29 and Hb > 9.0, Fibrinogen 106 -Hematology on board recommends platelets and cryo as needed to keep platelet count >10 and fibrinogen >100. -Transfuse PRBCs/platelets/cryo or FFPs as needed if any bleeding. -Case discussed with Dr. 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 Colindres (apt scheduled for next month) -pt currently denies anginal sxs -Cardiology consult recommended to continue hold BB -Stable DEE DEE ON CKD STAGE 3 - Resolved -Creatinine 2.2 on presentation; baseline creatinine 1.3; may be secondary to dehydration from GI losses -Continue to hold Lasix -Monitor DIARRHEA- Resolved -C.diff negative -Stool culture-negative MECHANICAL FALL -likely secondary to dehydration and anemia -CT head negative -PT/OT -fall precautions AORTIC ANEURYSM -s/p graft repair in 2009 -CT chest showed increase in dilatation of prox to mid thoracic aorta. Max diameter increased from 5.7 cm (01/30/15) to 6.1 cm. No evidence of dissection. -Vascular surgery consulted recommended no intervention.at this time AORTIC STENOSIS -s/p AVR 2009 -no chest pain B/L RENAL LESIONS Need outpatient follow GERD -cont PPI HTN -BP stable -Resumed Lisinopril DYSLIPIDEMIA -cont statin DVT PROPHYLAXIS -SCDs only in setting of severe thrombocytopenia CODE STATUS FULL CODE DISPOSITION Will discharge to [facility] once stable per hematology Vital Signs: Date Time Temp Pulse Resp B/P Pulse Ox O2 Delivery O2 Flow Rate FiO2 08/18/16 11:20 36.4 76 18 116/66 99 Room Air 08/18/16 09:21 Room Air 08/18/16 08:40 Room Air 08/18/16 08:16 36.9 71 16 122/74 95 Room Air 08/18/16 00:05 Room Air 08/18/16 00:03 36.6 70 20 136/78 98 Room Air 08/17/16 16:33 36.5 72 18 126/76 99 Room Air 08/17/16 16:00 Room Air Lab Results: Results Past 24 Hours Test 08/18/16 05:29 Range/Units White Blood Count 2.84 4.8-10.8 K/uL Red Blood Count 3.15 4.7-6.1 M/uL Hemoglobin 8.9 14.0-18.0 g/dL Hematocrit 27.4 42-52 % Mean Corpuscular Volume 87.0 80-100 fL Mean Corpuscular Hemoglobin 28.3 25-34 pg Mean Corpuscular Hemoglobin Concent 32.5 32-36 g/dl RDW Standard Deviation 53.0 36.4-46.3 fL RDW Coefficient of Variation 16.5 11.5-14.5 % Platelet Count 29 130-400 K/uL Platelet Estimate DECREASED Fibrinogen 106 184-400 mg/dl
[2016-08-18 15:41] VITALS: BP 135/70; PULSE 74; TEMP 36.6; O2SAT 98
--- NOTE | 2016-08-18 17:43 | DIAGNOSTIC IMAGING REPORT ---
ULTRASOUND VENOUS DOPPLER LWR EXT BILA CLINICAL HISTORY: Leg swelling COMPARISON STUDY: No previous studies for comparison. FINDINGS: Real-time and color flow Doppler imaging were performed. Flow was seen within the femoral, popliteal and calf veins with no intraluminal thrombus demonstrated. The saphenous vein is patent. IMPRESSION: No evidence of lower extremity DVT Electronically signed by: Mateo Hutton M.D. 08/18/2016 5:41 PM Dictated Date/Time: 08/18/2016 5:40 PM
[2016-08-18] MEDS: DOXYCYCLINE HYCLATE 100 MG CAP PO SCH (21:34)
[2016-08-19 01:10] VITALS: BP 116/70; PULSE 66; TEMP 36.6; O2SAT 98
[2016-08-19 07:45] VITALS: BP 129/71; PULSE 77; TEMP 36.7; O2SAT 94
[2016-08-19] MEDS: ATORVASTATIN 40 MG TAB PO SCH (08:35)
[2016-08-19] MEDS: SACCHAROMYCES BOUL (FLORASTOR) 250 MG CAP PO SCH (08:35)
[2016-08-19] MEDS: LISINOPRIL 40 MG TAB PO SCH (08:36)
[2016-08-19] MEDS: PANTOprazole SOD 40 MG TAB PO SCH ×2 (08:36→20:36)
[2016-08-19] MEDS: OMEGA-3 (PURIFIED FISH OIL) 1 GM CAP PO SCH ×2 (08:36→20:36)
[2016-08-19] MEDS: CEROVITE ADV FORMULA TAB PO SCH (08:36)
[2016-08-19] MEDS: DOXYCYCLINE HYCLATE 100 MG CAP PO SCH ×2 (08:36→20:37)
[2016-08-19 09:14] LABS: MEAN CORPUSCULAR HGB CONC 32.4 g/dl (32-36)
[2016-08-19 09:25] LABS: HEMATOCRIT 29.6 % (42-52); MEAN CELL VOLUME 86.5 fL (80-100); MEAN CORPUSCULAR HEMOGLOBIN 28.1 pg (25-34); RED BLOOD COUNT 3.42 M/uL (4.7-6.1); WHITE BLOOD COUNT 3.22 K/uL (4.8-10.8)
[2016-08-19 09:36] LABS: PLATELET COUNT 38 K/uL (130-400)
[2016-08-19 09:37] LABS: PLT ESTIMATE DECREASED
[2016-08-19 14:56] VITALS: BP 112/72; PULSE 76; TEMP 36.4; O2SAT 96
--- NOTE | 2016-08-19 16:00 | Progress Note ---
Internal Med Progress Note Date of Service: Aug 19, 2016. Provider Documentation: SUBJECTIVE: Patient is c/o redness in B/L lower extremity x 2 days - No improvement. Swelling present No c/o bleeding, fever, chills, chest pain, SOB, nausea, vomiting, abdominal pain. OBJECTIVE : Vital Signs-as noted below Exam: General- no acute distress Neck- supple, no JVD Lungs- clear to auscultation, no wheezing Heart- regular rhythm, Systolic murmur precordial and AA radiation to neck Abdomen- Normal bowel sounds, soft Extremities- B/L Lower extremity edema + pitting +, Erythematous patches bilaterally Lab data as noted below. ASSESSMENT & PLAN: ACUTE DIC SECONDARY TO SEPSIS SECONDARY TO UTI ENTEROCOCCUS -Platelet count 6 on admission (plt count dec 2015 was 118) -Clinically improved -D/D included -ITP,marrow infiltration,leukemia ,aplastic anemia , but likely secondary to Sepsis/UTI enterococcus -Received 2 unit of FFP and 3 platelet, 2 units PRBC and 7 pool of Cryoprecipitate (last one on 08/16/16) since admission -No evidence of hemolysis, no active bleeding -Flow Cyrtometry -negative -Platelet 38 and Hb > 9.0, Fibrinogen 111 -Hematology on board recommends platelets and cryo as needed to keep platelet count >10 and fibrinogen >100. -Transfuse PRBCs/platelets/cryo or FFPs as needed if any bleeding. -Hopefully if fibrinogen stays above 100 for the next few days, and platelet continue to increase, we can anticipate to discharge him -Monitor CBC, Fibrinogen daily BILATERALLY LOWER EXTREMITY ERYTHEMA -Clinically looks less like cellulitis, but empirically started on Doxycycline on 08/18/16 . Could be reaction to transfusions ? as developed suddenly the day after transfusion, but limited to just both lower extremities- symmetrically involved and platelets have been stable. -Unclear etiology -Discussed with Dr Suero who will re evaluate patient today- will ask the blood bank to run tests -Continue with Doxycycline 100 mg PO BID (Day 2). 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 Colindres (apt scheduled for next month) -pt currently denies anginal sxs -Cardiology consult recommended to continue hold BB -Stable DEE DEE ON CKD STAGE 3 - Resolved -Creatinine 2.2 on presentation; baseline creatinine 1.3; may be secondary to dehydration from GI losses -Continue to hold Lasix -Monitor DIARRHEA- Resolved -C.diff negative -Stool culture-negative MECHANICAL FALL -likely secondary to dehydration and anemia -CT head negative -PT/OT -fall precautions AORTIC ANEURYSM -s/p graft repair in 2009 -CT chest showed increase in dilatation of prox to mid thoracic aorta. Max diameter increased from 5.7 cm (01/30/15) to 6.1 cm. No evidence of dissection. -Vascular surgery consulted recommended no intervention.at this time AORTIC STENOSIS -s/p AVR 2009 -no chest pain B/L RENAL LESIONS Need outpatient follow GERD -cont PPI HTN -BP stable -Resumed Lisinopril DYSLIPIDEMIA -cont statin DVT PROPHYLAXIS -SCDs only in setting of severe thrombocytopenia CODE STATUS FULL CODE DISPOSITION [facility] once stable per hematology Vital Signs: Date Time Temp Pulse Resp B/P Pulse Ox O2 Delivery O2 Flow Rate FiO2 08/19/16 14:56 36.4 76 20 112/72 96 08/19/16 11:04 Room Air 08/19/16 07:45 36.7 77 20 129/71 94 08/19/16 01:10 36.6 66 18 116/70 98 Room Air 08/19/16 00:00 Room Air 08/18/16 16:00 Room Air Lab Results: Results Past 24 Hours Test 08/19/16 08:25 Range/Units White Blood Count 3.22 4.8-10.8 K/uL Red Blood Count 3.42 4.7-6.1 M/uL Hemoglobin 9.6 14.0-18.0 g/dL Hematocrit 29.6 42-52 % Mean Corpuscular Volume 86.5 80-100 fL Mean Corpuscular Hemoglobin 28.1 25-34 pg Mean Corpuscular Hemoglobin Concent 32.4 32-36 g/dl RDW Standard Deviation 52.5 36.4-46.3 fL RDW Coefficient of Variation 16.6 11.5-14.5 % Platelet Count 38 130-400 K/uL Platelet Estimate DECREASED Fibrinogen 111 184-400 mg/dl
--- NOTE | 2016-08-19 20:46 | Hematology/Oncology Prog Note ---
Hematology/Onc Progress Note Date of Service Aug 19, 2016. Subjective S: Overall he feels improved but complains that he has noticed redness in the bilateral legs for 2 days. He also has swelling of both legs He had venous doppler that was negative for DVT He denies any fever or chills, denies any epistaxis or gingival bleeding or melena or hematochezia or hematuria Denies any chest pain or cough or shortness of breath Vital Signs Vital Signs Past 12 Hours Date Time Temp Pulse Resp B/P Pulse Ox O2 Delivery O2 Flow Rate FiO2 08/19/16 19:45 Room Air 08/19/16 16:00 Room Air 08/19/16 14:56 36.4 76 20 112/72 96 08/19/16 11:04 Room Air Physical Exam Gen: awake and alert NAD' HEENT: normocephalic anicteric Lungs; CTAB, no wheezes or rales CV: RRR, +Systolic murmur Abd: obese soft nontender Ext: +bilateral LE edema, +bilateral leg erythematous areas ENMT: hearing grossly normal Lungs: Respiratory Effort: no dyspnea Auscuitation: no wheezing, no rhonchi, pertinent finding (coarse at left lung base) Cardiovascular: Heart Auscultation: RRR, murmur (harsh systolic) Extremities: edema (2+ of calves), pertinent finding (no calf tenderness) Laboratory Results Past 24 Hours Test 08/19/16 08:25 Range/Units White Blood Count 3.22 4.8-10.8 K/uL Red Blood Count 3.42 4.7-6.1 M/uL Hemoglobin 9.6 14.0-18.0 g/dL Hematocrit 29.6 42-52 % Mean Corpuscular Volume 86.5 80-100 fL Mean Corpuscular Hemoglobin 28.1 25-34 pg Mean Corpuscular Hemoglobin Concent 32.4 32-36 g/dl RDW Standard Deviation 52.5 36.4-46.3 fL RDW Coefficient of Variation 16.6 11.5-14.5 % Platelet Count 38 130-400 K/uL Platelet Estimate DECREASED Fibrinogen 111 184-400 mg/dl Assessment & Plan 81 year old male admitted with fall and enterococcus UTI, severely low platelet count and coagulopathy with low fibrinogen and elevated D dimer FSP c/w acute DIC Flow cytometry was negative He received transfusions since admission - 2 units PRBC, 3 units platelets and 2 units FFPs on admission Platelets have now been stable 38,000 today and anemia stable. fibrinogen now 111 He received cryoprecipitate 5pk x 7 since admission due to low fibrinogen levels under 100 Bilateral LE erythema: agree with antibiotic He also has dependent edema and low platelets but the platelet count is stable Recheck PT/PTT and FSP D DIMER CBC FIBRINGOEN LEVEL Check protein C In setting of DIC this is concerning as could be developing purpura fulminans - in that case he could get transfused FFPs but as it has short half life would need to be transfused frequently about every 6hrs but this patient may not tolerate the volume. He denies any history of clots or cellulitis. Post transfusion purpura is rare and his platelet count is stable, but I spoke with pathologist and he will send test to reference lab Will discuss with hospitalist regarding consider transfer to tertiary center as purpura fulminans can have a high mortality and testing for protein C has to be sent to reference lab
--- NOTE | 2016-08-19 22:24 | Progress Note ---
Progress Note Date of Service Aug 19, 2016. Progress Note PROFESSOR OF PUBLIC ADMINISTRATION HOSPITALIST NOTE : notified by Hematology /Oncology Dr Suero -pt's bilateral lower extremity erythema /purpura could be sign of a very serious life threatening complication /sequel of DIC pt evaluated at bedside in room [address] Suero pt found sitting on chair , comfortable, denies of any SOB exam of lower ext reveals : bilateral lower ext patchy erythematous /purpuric spot below knee worse on right leg and right foot /ankle has + 2 bilat pitting edema dark /purple purpuric spot with raised macular distribution - complains of tenderness on some spots no bleeding notes no bullous lesion noted in presence of DIC ( possible due to sepsis-enterococci UTI ) concern for possible development of Purpura fulminans -thrombosis of microvessels , associated with decrease 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 lab reviewed : D dimer elevated 40930 FDP > 40 -compatible with DIC platelet count 68 , INR remains unchanged 1.4 protein C level ordered by Dr Suero -reference lab will not be available soon given seriousness of symptom Abx changed to Iv Vancomycin -sensitive to enterococcus will order for 2 units of FFP to be transfused now close monitoring of pt clinically ordered to be transferred to PCU repeat labs to be checked in AM will possibly need transfer to [facility] [place] -as pt may need large vol of FFP transfusion -(1020 mL/kg every 812 hours) and/or protein C concentrate to replace pro-coagulant and anticoagulant plasma proteins that have been depleted by the disseminated intravascular coagulation process
[2016-08-19 23:15] VITALS: BP 119/68; PULSE 79; TEMP 36.6; O2SAT 100
[2016-08-19 23:20] LABS: HEMATOCRIT 29.4 % (42-52); MEAN CELL VOLUME 87.2 fL (80-100); MEAN CORPUSCULAR HEMOGLOBIN 28.5 pg (25-34); MEAN CORPUSCULAR HGB CONC 32.7 g/dl (32-36); MEAN PLATELET VOLUME 10.5 fL (7.4-10.4); PLATELET COUNT 61 K/uL (130-400); RED BLOOD COUNT 3.37 M/uL (4.7-6.1); WHITE BLOOD COUNT 3.26 K/uL (4.8-10.8)
[2016-08-19 23:30] LABS: FIBRINOGEN* 107 mg/dl (184-400); INR 1.4 (0.9-1.1); PARTIAL THROMBOPLASTIN RATIO 1.7; PROTHROMBIN TIME (PATIENT) 14.7 SECONDS (9.0-12.0)
[2016-08-20] VITALS (16 sets, daily range): BP systolic 107–155; BP diastolic 60–99; PULSE 68–99; TEMP 36.5–37; O2SAT 93–100
[2016-08-20] MEDS ORDERED: VANCOMYCIN INJ 1,000 MG in SODIUM CHLORIDE 0.9% 250ML 250 ML IV STA (00:14)
[2016-08-20] MEDS ORDERED: VANCOMYCIN CONSULT ACTIVE PRN (00:30)
[2016-08-20] MEDS ORDERED: VANCOMYCIN INJ 1,600 MG in SODIUM CHLORIDE 0.9% 500ML 500 ML IV SCH (00:30)
[2016-08-20 07:41] LABS: HEMATOCRIT 26.5 % (42-52); MEAN CELL VOLUME 86.6 fL (80-100); MEAN CORPUSCULAR HEMOGLOBIN 28.1 pg (25-34); MEAN CORPUSCULAR HGB CONC 32.5 g/dl (32-36); RED BLOOD COUNT 3.06 M/uL (4.7-6.1)
[2016-08-20 07:44] LABS: MEAN PLATELET VOLUME 10.3 fL (7.4-10.4); PLATELET COUNT 56 K/uL (130-400)
[2016-08-20 07:56] LABS: INR 1.3 (0.9-1.1); PROTHROMBIN TIME (PATIENT) 14.1 SECONDS (9.0-12.0)
[2016-08-20 08:11] LABS: BUN/CREATININE RATIO 19.4 (10-20); CALCIUM 8.4 mg/dl (8.5-10.1); CREATININE 1.3 mg/dl (0.60-1.40); POTASSIUM 4.2 mmol/L (3.5-5.1)
[2016-08-20] MEDS: LISINOPRIL 40 MG TAB PO SCH (08:12)
[2016-08-20] MEDS: CEROVITE ADV FORMULA TAB PO SCH (08:12)
[2016-08-20] MEDS: PANTOprazole SOD 40 MG TAB PO SCH ×2 (08:13→20:40)
[2016-08-20] MEDS: ATORVASTATIN 40 MG TAB PO SCH (08:13)
[2016-08-20] MEDS: OMEGA-3 (PURIFIED FISH OIL) 1 GM CAP PO SCH ×2 (08:14→20:40)
[2016-08-20] MEDS: SACCHAROMYCES BOUL (FLORASTOR) 250 MG CAP PO SCH (08:14)
[2016-08-20 08:17] LABS: ACANTHOCYTES 1+; BASO % 0.3 %; BASO ABS # 0.01 K/uL (0-0.2); COMPLETE YES; IG% 0.3 %; LYMPH ABS # 1.19 K/uL (1.2-3.4); MONO % 11.4 %
[2016-08-20] MEDS ORDERED: VANCOMYCIN INJ 1,000 MG in SODIUM CHLORIDE 0.9% 250ML 250 ML IV SCH (09:00)
--- NOTE | 2016-08-20 10:54 | Progress Note ---
Internal Med Progress Note Date of Service: Aug 20, 2016. Provider Documentation: SUBJECTIVE: Patient c/o rash/redness in bilaterally lower extremities. Not pruritic, swelling + (chronic) No c/o bleeding, fever, chills, chest pain, SOB, nausea, vomiting, abdominal pain. No urinary symptoms. BM + OBJECTIVE : Vital Signs-as noted below Exam: General- no acute distress Neck- supple, no JVD Lungs- clear to auscultation, no wheezing Heart- regular rhythm, Systolic murmur precordial and AA radiation to neck Abdomen- Normal bowel sounds, soft Extremities- B/L Lower extremity edema + pitting + which is chronic, Purpuric rash bilateral lower extremities extending from ankle to upto below knee (area marked) Lab data as noted below. ASSESSMENT & PLAN: ACUTE DIC SECONDARY TO SEPSIS SECONDARY TO UTI ENTEROCOCCUS : -Platelet count 6 on admission (plt count dec 2015 was 118)--> 56 today -Clinically improved except for a new rash 3 days ago. -D/D included initially - ITP, Marrow infiltration, leukemia , Aplastic anemia , but likely secondary to Sepsis/UTI enterococcus -Received 2 unit of FFP and 3 platelet, 2 units PRBC and 7 pool of Cryoprecipitate (last one on 08/16/16) since admission. -Today WBC 2.90, HB 8.6, Platelets 56, FDP >40, Fibrinogen 128, PT 14.1, INR 1.3 , D dimer 85924 -No evidence of hemolysis, no active bleeding -Work up- Flow Cyrtometry -negative; Lyme-negative,Norovirus RNA-negative; Parvovirus-Ig M - negative ,Ig G positive -Hematology on board recommends platelets and cryo as needed to keep platelet count >10 and fibrinogen >100. Fibrinogen/Platelets have been stable for past 3 -4 days requiring no more transfusions -Transfuse PRBCs/platelets/cryo or FFPs as needed if any bleeding. NEW PURPURIC RASH- B/L LOWER EXTREMITIES -Patient developed a new rash bilateral lower extremity extending from ankle to up to below knee, progressively worsening -Etiology unclear- D/D considered: Purpura fulminans with active DIC though overall improving, platelets improving, Post transfusion purpura though rare and with platelets improving, less likely. Antiplatelet antibody test sent ( send out lab), Protein C levels ordered (send out lab)-pending, LDH, Reticulocyte count- pending. If worsens, may need to consider frequent FFP/ protein c precipitate transfusions. Cellulitis considered but less likely clinically given the rash/appearance. -Empirically on Doxycycline (Day 3 today) -Discussed with Dr Suero- recommends transfer to tertiary center as will require further testing as above to get the answers for etiology, anticipate if it worsens may require more transfusions as above. Will need to order Antiphospholipid antibody, cardiolipin antibody. She discussed case with Dr Antoine (hem/onc at [facility]), agreeable for hospitalist service admission. ELECTROLYTES IMBALANCE -S/P Hypophosphatemia- replaced -Monitor SEPSIS- Resolved Likely secondary to Enterococci UTI -S/P IV Vancomycin--> Levofloxacin PO --> Completed course on 08/15/16 x 10 days per Urine c/s results -Lyme-negative,Norovirus RNA-negative; Parvovirus-Ig M - negative ,Ig G positive CORONARY ARTERY DISEASE S/P Bradyarrhythmia and pauses -EKG: no acute ischemic changes -cont ASA, BB, statin -follows with cardio, Dr. Colindres (apt scheduled for next month) -pt currently denies anginal sxs -Cardiology consult recommended to continue hold BB secondary to bradyarrhythmias/pauses. -Was monitored on telemetry and moved to med-surg since past 5 days. DEE DEE ON CKD STAGE 3 - Resolved -Creatinine 2.2 on presentation; baseline creatinine 1.3; may be secondary to dehydration from GI losses -Continue to hold Lasix DIARRHEA- Resolved -C.diff negative -Stool culture-negative MECHANICAL FALL -likely secondary to dehydration and anemia -CT head negative -PT/OT -fall precautions AORTIC ANEURYSM -s/p graft repair in 2009 -CT chest showed increase in dilatation of prox to mid thoracic aorta. Max diameter increased from 5.7 cm (01/30/15) to 6.1 cm. No evidence of dissection. -Vascular surgery consulted recommended no intervention.at this time AORTIC STENOSIS -s/p AVR 2009 -no chest pain B/L RENAL LESIONS Need outpatient follow GERD -cont PPI HTN -BP stable -Resumed Lisinopril DYSLIPIDEMIA -cont statin DVT PROPHYLAXIS -SCDs only in setting of severe thrombocytopenia CODE STATUS FULL CODE DISPOSITION Discussed with Dr Suero- recommends transfer to tertiary center as will require further testing with new purpuric rash, progressively worsening to look into the cause, purpura fulminans is a concern and anticipate if it worsens may require more transfusions - FFP, Protein c She discussed case with Dr Antoine (hem/onc at [facility]), agreeable for hospitalist service admission. Accepting physician- Dr Prado (Hospitalist). Vital Signs: Date Time Temp Pulse Resp B/P Pulse Ox O2 Delivery O2 Flow Rate FiO2 08/20/16 08:20 Room Air 08/20/16 07:50 36.5 78 19 147/80 97 Room Air 08/20/16 07:35 36.9 75 24 133/78 95 08/20/16 06:14 36.9 74 18 114/67 97 08/20/16 05:44 36.9 75 18 115/62 97 08/20/16 05:26 36.9 68 18 117/70 96 08/20/16 04:10 37.0 77 18 123/64 97 Room Air 08/20/16 04:00 Room Air 08/20/16 03:09 36.8 78 18 132/74 97 08/20/16 02:39 36.7 77 20 129/67 98 08/20/16 02:25 36.6 81 18 132/65 97 08/20/16 01:21 36.6 99 20 149/91 93 Room Air 08/20/16 01:15 36.6 79 20 100 08/20/16 00:00 Room Air 08/19/16 23:15 36.6 79 20 119/68 100 Room Air 08/19/16 19:45 Room Air 08/19/16 16:00 Room Air 08/19/16 14:56 36.4 76 20 112/72 96 08/19/16 11:04 Room Air Lab Results: Results Past 24 Hours Test 08/19/16 22:57 08/20/16 07:14 08/20/16 09:51 Range/Units White Blood Count 3.26 2.90 4.8-10.8 K/uL Red Blood Count 3.37 3.06 4.7-6.1 M/uL Hemoglobin 9.6 8.6 14.0-18.0 g/dL Hematocrit 29.4 26.5 42-52 % Mean Corpuscular Volume 87.2 86.6 80-100 fL Mean Corpuscular Hemoglobin 28.5 28.1 25-34 pg Mean Corpuscular Hemoglobin Concent 32.7 32.5 32-36 g/dl RDW Standard Deviation 53.1 52.6 36.4-46.3 fL RDW Coefficient of Variation 16.5 16.4 11.5-14.5 % Platelet Count 61 56 130-400 K/uL Mean Platelet Volume 10.5 10.3 7.4-10.4 fL Prothrombin Time 14.7 14.1 9.0-12.0 SECONDS Prothromb Time International Ratio 1.4 1.3 0.9-1.1 Activated Partial Thromboplast Time 44.1 21.0-31.0 SECONDS Partial Thromboplastin Ratio 1.7 Fibrinogen 107 128 184-400 mg/dl Fibrin Degradation Products >40 <10 mcg/ml D-Dimer 42439 0-500 ug/L FEU Neutrophils (%) (Auto) 47.0 % Lymphocytes (%) (Auto) 41.0 % Monocytes (%) (Auto) 11.4 % Eosinophils (%) (Auto) 0.0 % Basophils (%) (Auto) 0.3 % Neutrophils # (Auto) 1.36 1.4-6.5 K/uL Lymphocytes # (Auto) 1.19 1.2-3.4 K/uL Monocytes # (Auto) 0.33 0.11-0.59 K/uL Eosinophils # (Auto) 0.00 0-0.5 K/uL Basophils # (Auto) 0.01 0-0.2 K/uL Immature Granulocyte % (Auto) 0.3 % Immature Granulocyte # (Auto) 0.01 0.00-0.02 K/uL Acanthocytes 1+ Sodium Level 141 136-145 mmol/L Potassium Level 4.2 3.5-5.1 mmol/L Chloride Level 110 98-107 mmol/L Carbon Dioxide Level 25 21-32 mmol/L Anion Gap 6.0 3-11 mmol/L Blood Urea Nitrogen 25 7-18 mg/dl Creatinine 1.30 0.60-1.40 mg/dl Est Creatinine Clear Calc Drug Dose 44.0 ml/min Estimated GFR () 60.1 Estimated GFR (Non- 51.9 BUN/Creatinine Ratio 19.4 10-20 Random Glucose 79 70-99 mg/dl Calcium Level 8.4 8.5-10.1 mg/dl Total Bilirubin 1.2 0.2-1 mg/dl Direct Bilirubin 0.3 0-0.2 mg/dl Aspartate Amino Transf (AST/SGOT) 30 15-37 U/L Alanine Aminotransferase (ALT/SGPT) 46 12-78 U/L Alkaline Phosphatase 108 45-117 U/L Total Protein 6.1 6.4-8.2 gm/dl Albumin 2.5 3.4-5.0 gm/dl
--- NOTE | 2016-08-20 10:58 | Discharge Instructions ---
Discharge Instructions Date of Service Aug 20, 2016. Admission Reason for Admission: Thrombocytopenai Discharge Discharge Diagnosis / Problem: 1. DIC 2. Sepsis secondary to UTI Enterococcus 3. Rash-B/L lower extremitie Discharge Goals Goal(s): Diagnostic testing, Therapeutic intervention Activity Recommendations Activity Limitations: resume your previous activity (PT/OT recommended) . Instructions / Follow-Up Instructions / Follow-Up MEDICATION CHANGES: 1. Completed course of PO levofloxacin on 08/15/16 for Enterococcus UTI 2. Held beta anthony- due to bradyarrhythmias Current Hospital Diet Patient's current hospital diet: AHA Diet (Heart Healthy), Low Fiber Diet Discharge Diet Recommended Diet: AHA Diet (Heart Healthy), Low Fiber Diet Pending Studies Studies pending at discharge: yes List of pending studies: Protein c (sent out) Antiplatelet antibody test (sent out lab) Medical Emergencies . Who to Call and When: Medical Emergencies: If at any time you feel your situation is an emergency, please call 911 immediately. . Non-Emergent Contact Non-Emergency issues call your: Primary Care Provider . . "Provider Documentation" section prepared by Anabel Olson. VTE Core Measure Inpt VTE Proph given/why not?: Contraindicated (re: severe thrombocytopenia)
--- NOTE | 2016-08-20 11:07 | Discharge Summary ---
Discharge Summary Date of Service Aug 20, 2016. Discharge Summary Admission Date: Aug 02, 2016 at 15:11 Discharge Date: Aug 20, 2016 Discharge Disposition: Acute care facility ([facility]) Principal Diagnosis: 1. Acute DIC (Disseminated Intravascular Coagulation) secondary to sepsis 2. Sepsis secondary to Enterococcus UTI 3. DEE DEE on CKD-III 4. Hypophosphatemia 5. Mechanical fall 6. Diarrhea, resolved Secondary Diagnoses/Problems: 1. Aortic aneurysm s/p repair 2. Aortic stenosis 3. GERD 4. HTN 5. Dyslipidemia Procedures: -Tele monitoring -Received 4 units of FFP (last one given on 08/19/16) and 3 platelet, 2 units PRBC and 7 pool of Cryoprecipitate (last one on 08/16/16) since admission. IMAGING: -CXR on 08/02/16-IMPRESSION: 1. Progressive dilatation of the aortic arch and descending thoracic aorta 2. No evidence of focal pulmonary consolidation -CT Dissection- on 08/02/16- IMPRESSION:. Slight increase in aneurysmal dilatation of the proximal to mid thoracic aorta. 2. Maximum diameter has increased slightly to 6.1 cm from a prior maximum dimension of 5.7 cm. 3. Lungs remain clear. 4. No evidence for dissection. 5. Stable aneurysmal distention of the proximal to mid abdominal aorta. 7. Multiple gallstones within a contracted gallbladder lumen. -CT ABD/PELVIS; 08/03/16 IMPRESSION: 1. Technically limited study given the lack of intravenous and oral contrast, and moderate respiratory motion artifact 2. Low volume pelvic ascites 3. Cholelithiasis 4. Mild splenomegaly 5. Bilateral renal cysts, and small bilateral indeterminate renal lesions 6. No evidence of bowel obstruction. No evidence of free air 7. 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 HEAD - 08/02/16- No acute abnormalities VENOUS DUPLEX ON 08/18/16- No DVT PT/OT Consultations: Hematology/oncology Pending Studies/Follow-Up: -Antiplatelet antibody test sent (sent out lab) -Protein C levels ordered (sent out lab)-pending. MEDICATION CHANGES: Held carvedilol due to bradyarrhythmias/pause- none since 08/05/16 Medication Reconciliation Continued Medications: Atorvastatin (Lipitor) 80 Mg Tab 80 MG PO DAILY, TAB Fish Oil ([place]-3) Oil 1 CAP PO BID Lisinopril (Zestril) 40 Mg Tab 40 MG PO DAILY, TAB Multiple Vitamins W/ Minerals (Ocuvite) 1 Tab Tab 1 TAB PO DAILY Multivitamins/Minerals (Centrum *) 1 Tab Tab 1 TAB PO DAILY Omeprazole (Prilosec) 20 Mg Capcr 20 MG PO BID, 0 Refills Terazosin (Hytrin) 5 Mg Cap 5 MG PO DHS, 0 Refills Discontinued Medications: Aspirin (Aspirin Ec) 81 Mg Tab 81 MG PO DAILY Carvedilol (Coreg) 12.5 Mg Tab 12.5 MG PO BID, TAB Furosemide (Lasix *) 20 Mg Tab 20 MG PO DAILY, 0 Refills Potassium Ext Rel (Klor-Con) 20 Meq Tabcr 20 MEQ PO QAM, 0 Refills Admission Information HPI (per Admitting provider): This is a 81 y/o male with PMHx of CAD, aortic aneurysm s/p repair in 2009, CKD stage 3, HTN, Dyslipidemia and other problems as outlined below who presents to the ED c/o fall this morning. Pt reports that around 0630 this morning he lost his balance and fell while getting up out of his chair. Pt reports that he fell onto his bottom. He did not think he hit his head however patient has bruising to the top of his head. Pt was unable to get up on his own due to weakness and EMS was called. Pt admits he has not been feeling well for a few weeks. He has had diarrhea for 2 weeks as well as a productive cough and minor sore throat. He has been getting progressively weaker and he estimates he has fallen approximately 3 times in the past couple months. Pt currently lives at home alone. He uses a cane to assist with ambulation. Pt denies fever/chills, diaphoresis, chest pain, palpitations, SOB, wheezing, abd pain, N/V, hematochezia, bladder issues, worsening LE edema, calf pain, lightheadedness/ dizziness. In the ED, vitals are stable. HgB 9.9. Plt count 6. creat 2.2. BUN 55. INR 1.5. EKG: sinus rhythm at 64 bpm with 1* AV block and LBBB. CT head and CXR are negative for acute process. Pt is stable and will be admitted for further evaluation and treatment. Physical Exam (per Admitting): General Appearance: WD/WN, no apparent distress, + pertinent finding (Pt is sitting up comfortably in bed; sleeping on my arrival ) Head: normocephalic, atraumatic Eyes: normal inspection, PERRL ENT: hearing grossly normal Neck: supple Respiratory/Chest: chest non-tender, lungs clear, normal breath sounds, no respiratory distress Cardiovascular: regular rate, rhythm, + systolic murmur Abdomen/GI: normal bowel sounds, non tender, soft Back: normal inspection Extremities/Musculoskelatal: normal inspection, + swelling, + pertinent finding (no open wounds noted) Neurologic/Psych: alert, normal mood/affect, oriented x 3 Skin: normal color, warm/dry, + pertinent finding (no bruising noted) Hospital Course ACUTE DIC SECONDARY TO SEPSIS SECONDARY TO UTI ENTEROCOCCUS : Improving -Platelet count 6 on admission (plt count dec 2015 was 118)--> 56 today -Clinically improved except for a new rash 3 days ago. -D/D included initially - ITP, Marrow infiltration, leukemia , Aplastic anemia , but likely secondary to Sepsis/UTI enterococcus -Received 4 unit of FFP (last 2 FFP given on 08/19/16) and 3 platelet, 2 units PRBC and 7 pool of Cryoprecipitate (last one on 08/16/16) since admission. -Today WBC 2.90, HB 8.6, Platelets 56, FDP >40, Fibrinogen 128, PT 14.1, INR 1.3 , D dimer 47423 -No evidence of hemolysis, no active bleeding -Work up- Flow Cyrtometry -negative; Lyme-negative,Norovirus RNA-negative; Parvovirus-Ig M - negative ,Ig G positive -Hematology on board recommends platelets and cryo as needed to keep platelet count >10 and fibrinogen >100. Fibrinogen/Platelets have been stable for past 3 -4 days requiring no more transfusions -Transfuse PRBCs/platelets/cryo or FFPs as needed if any bleeding. NEW PURPURIC RASH- B/L LOWER EXTREMITIES - Worsening -Patient developed a new rash bilateral lower extremity extending from ankle to up to below knee, progressively worsening -Etiology unclear- D/D considered: Purpura fulminans with active DIC though overall improving, platelets improving, Post transfusion purpura though rare and with platelets improving, less likely. Antiplatelet antibody test sent ( sent out lab), Protein C levels ordered (sent out lab)-pending. If worsens, may need to consider frequent FFP/ protein c precipitate transfusions. Cellulitis considered but less likely clinically given the rash/appearance. -Empirically on Doxycycline (Day 3 today). May consider discontinuation if no improvement -Discussed with Dr Suero- recommends transfer to tertiary center as will require further testing as above to get the answers for etiology, anticipate if it worsens may require more transfusions as above. Will need to order Antiphospholipid antibody, cardiolipin antibody, LDH, Reticulocyte count. She discussed case with Dr Antoine (hem/onc at [facility]), agreeable for hospitalist service admission. ELECTROLYTES IMBALANCE -S/P Hypophosphatemia- replaced -Monitor SEPSIS- Resolved Likely secondary to Enterococci UTI -S/P IV Vancomycin--> Levofloxacin PO --> Completed course on 08/15/16 x 10 days per Urine c/s results -Lyme-negative,Norovirus RNA-negative; Parvovirus-Ig M - negative ,Ig G positive CORONARY ARTERY DISEASE S/P Bradyarrhythmia and pauses -EKG: no acute ischemic changes -cont ASA, BB, statin -follows with cardio, Dr. Colindres (apt scheduled for next month) -pt currently denies anginal sxs -Cardiology consult recommended to continue hold BB secondary to bradyarrhythmias/pauses. -Was monitored on telemetry and moved to med-surg since past 5 days. DEE DEE ON CKD STAGE 3 - Resolved -Creatinine 2.2 on presentation; baseline creatinine 1.3; may be secondary to dehydration from GI losses -Continue to hold Lasix DIARRHEA- Resolved -C.diff negative -Stool culture-negative MECHANICAL FALL -likely secondary to dehydration and anemia -CT head negative -PT/OT -fall precautions AORTIC ANEURYSM -s/p graft repair in 2009 -CT chest showed increase in dilatation of prox to mid thoracic aorta. Max diameter increased from 5.7 cm (01/30/15) to 6.1 cm. No evidence of dissection. -Vascular surgery consulted recommended no intervention.at this time AORTIC STENOSIS -s/p AVR 2009 -no chest pain B/L RENAL LESIONS Need outpatient follow GERD -cont PPI HTN -BP stable -Resumed Lisinopril DYSLIPIDEMIA -cont statin DVT PROPHYLAXIS -SCDs only in setting of severe thrombocytopenia CODE STATUS FULL CODE DISPOSITION Discussed with Dr Suero- recommends transfer to tertiary center as will require further testing with new purpuric rash, progressively worsening to look into the cause, purpura fulminans is a concern and anticipate if it worsens may require more transfusions - FFP, Protein c She discussed case with Dr Atnoine (hem/onc at [facility]), agreeable for hospitalist service admission. Accepting physician- Dr Prado (Hospitalist). Total time spent on discharge =50 minutes This includes examination of the patient, discharge planning, medication reconciliation, and communication with other providers. Discharge Instructions Transfer to [facility]
[2016-08-21 03:58] VITALS: BP 104/62; PULSE 76; TEMP 36.9; O2SAT 95
[2016-08-21] MEDS: ATORVASTATIN 40 MG TAB PO SCH (07:40)
[2016-08-21] MEDS: OMEGA-3 (PURIFIED FISH OIL) 1 GM CAP PO SCH (07:40)
[2016-08-21] MEDS: PANTOprazole SOD 40 MG TAB PO SCH (07:40)
[2016-08-21] MEDS: CEROVITE ADV FORMULA TAB PO SCH (07:40)
[2016-08-21] MEDS: LISINOPRIL 40 MG TAB PO SCH (07:40)
[2016-08-21] MEDS: SACCHAROMYCES BOUL (FLORASTOR) 250 MG CAP PO SCH (07:40)
[2016-08-21 08:05] VITALS: BP 116/70; PULSE 74; TEMP 37; O2SAT 96
[2016-08-21 08:08] LABS: CREATININE 1.4 mg/dl (0.60-1.40)
[2016-08-21 09:01] LABS: HEMATOCRIT 25.4 % (42-52); MEAN CELL VOLUME 88.8 fL (80-100); MEAN CORPUSCULAR HGB CONC 32.7 g/dl (32-36); MEAN PLATELET VOLUME 12.5 fL (7.4-10.4); PLATELET COUNT 61 K/uL (130-400); RED BLOOD COUNT 2.86 M/uL (4.7-6.1)
[2016-12-09] MEDS ORDERED: POTA20TA16 PO (13:28)
[2016-12-16] MEDS ORDERED: CRG3125 PO (14:04)
[2017-01-02] MEDS ORDERED: ATOR-26 PO (10:18)
[2017-01-02] MEDS ORDERED: PRLSR20 PO (14:19)
[2017-01-02] MEDS ORDERED: OMEGCAP2 PO (17:57)
[2017-01-02] MEDS ORDERED: MULT-845 PO (17:57)
[2017-01-02] MEDS ORDERED: EMOL-19 TOP (18:16)
[2017-01-02] MEDS ORDERED: TERA5CAP PO (18:16)
[2017-01-02] MEDS ORDERED: MULTTAB66 PO (18:16)
[2017-01-02] MEDS ORDERED: ACET-1311 PO (18:16)
[2017-03-19] MEDS ORDERED: LTRSCR45 TOP (11:41)
[2017-03-19] MEDS ORDERED: OMEG120013 PO (11:41)
[2017-03-19] MEDS ORDERED: MELA1TAB7 PO (11:41)
== END 2016-08-21 08:15 | disposition short-term general hospital (02) | DRG 871 ==
LOC: ENRESERVTM → ENRESERVDT → EDBD 10:46 → C.EDB 10:47 → C.2T 15:11 → C.4E 08-12 11:12 → EDBEDREQ 08-20 00:38 → C.2T 08-20 01:15
PROVIDERS: ADMIT Internal Medicine; ATTEND Internal Medicine
DX: A41.9 Sepsis, unspecified organism (principal); D65 Disseminated intravascular coagulation [defibrination syndrome]; N17.9 Acute kidney failure, unspecified; N39.0 Urinary tract infection, site not specified; L03.116 Cellulitis of left lower limb; L03.115 Cellulitis of right lower limb; D61.818 Other pancytopenia; D69.3 Immune thrombocytopenic purpura; I47.2 Ventricular tachycardia; C95.90 Leukemia, unspecified not having achieved remission; N18.3 Chronic kidney disease, stage 3 (moderate); R19.7 Diarrhea, unspecified; E86.0 Dehydration; K21.9 Gastro-esophageal reflux disease without esophagitis; E78.5 Hyperlipidemia, unspecified; B95.2 Enterococcus as the cause of diseases classified elsewhere; E87.8 Other disorders of electrolyte and fluid balance, not elsewhere classified; I25.10 Atherosclerotic heart disease of native coronary artery without angina pectoris; Z95.2 Presence of prosthetic heart valve; N40.0 Benign prostatic hyperplasia without lower urinary tract symptoms; Z87.891 Personal history of nicotine dependence; Z96.653 Presence of artificial knee joint, bilateral; E78.00 Pure hypercholesterolemia, unspecified; I12.9 Hypertensive chronic kidney disease with stage 1 through stage 4 chronic kidney disease, or unspecified chronic kidney disease; I71.2 Thoracic aortic aneurysm, without rupture; E83.39 Other disorders of phosphorus metabolism; I35.0 Nonrheumatic aortic (valve) stenosis; N28.1 Cyst of kidney, acquired; K80.20 Calculus of gallbladder without cholecystitis without obstruction

== ENCOUNTER → 2016-08-30 | Outpatient (CLI) | payer OTHER ==
[~2016-08-30] MED LIST changes: +ACET-1311 PO; +ASPI-232 PO; +ATOR-26 PO; +CARV3.122 PO; +CARV6.252 PO; +CRG3125 PO; +EMOL-19 TOP; +FRS/40 PO; +FURO40TA3 PO; +LTRSCR45 TOP; +MELA1TAB7 PO; +MENTOIN TOP; +MULT-845 PO; +MULTTAB66 PO; +OMEG120013 PO; +OMEGCAP2 PO; +POTA20TA16 PO; +PRLSR20 PO
[2016-08-30 08:26] LABS: MEAN CORPUSCULAR HGB CONC 31.9 g/dl (32-36)
[2016-08-30 08:32] LABS: BLOOD UREA NITROGEN 24 mg/dl (7-18); BUN/CREATININE RATIO 18.2 (10-20); CARBON DIOXIDE 31 mmol/L (21-32); CHLORIDE 105 mmol/L (98-107); GLUCOSE 86 mg/dl (70-99); POTASSIUM 3.4 mmol/L (3.5-5.1); SODIUM 142 mmol/L (136-145)
[2016-08-30 08:39] LABS: INR 1.3 (0.9-1.1); PARTIAL THROMBOPLASTIN RATIO 1.4; PROTHROMBIN TIME (PATIENT) 13.8 SECONDS (9.0-12.0)
[2016-08-30 08:43] LABS: HEMATOCRIT 27.6 % (42-52); MEAN CELL VOLUME 89.6 fL (80-100); MEAN CORPUSCULAR HEMOGLOBIN 28.6 pg (25-34); RED BLOOD COUNT 3.08 M/uL (4.7-6.1); WHITE BLOOD COUNT 2.95 K/uL (4.8-10.8)
[2016-08-30 08:48] LABS: PLATELET COUNT 71 K/uL (130-400); PLT ESTIMATE DECREASED
[2016-08-30 09:49] LABS: CALCIUM 8.9 mg/dl (8.5-10.1)
--- NOTE | 2016-08-31 14:01 | CODING QUERY NO DIAGNOSIS ---
: 1935 TREATMENT RENDERED WITHOUT A DIAGNOSIS To promote full compliance with coding requirements relating to patient care, physician participation is requested in all cases of slicing machine operator/tender uncertainty. Please assist us with providing a diagnosis/symptom for the test(s) below: A diagnosis/symptom was not documented on your Order. A valid diagnosis/symptom is required to bill all insurances. Please remember that we are unable to code a diagnosis of rule out, probable, possible, questionable, or suspected. Tests that require a diagnosis: DOS: 08/30/13 * Partial Renal Profile DIAGNOSIS: * CBC w/o Differential DIAGNOSIS: * Prothrombin Time Profile DIAGNOSIS: * PTT DIAGNOSIS: Provider Signature: Date: Thank you Karley Lopes Health Information Management Once completed, please kindly fax back to [phone] For questions please call [phone]
== END ==
LOC: C.LABCC 08:05
PROVIDERS: ATTEND Internal Medicine
DX: D50.0 Iron deficiency anemia secondary to blood loss (chronic) (principal)

== ENCOUNTER 2016-12-09 16:21 | Inpatient (IN) | payer OTHER ==
[~2016-12-09] VITALS: Ht 157.5 cm; Wt 77.9 kg
[~2016-12-09 16:21] MED LIST changes: -ACET-1311 PO; -ASPI-232 PO; -ATOR-26 PO; -CARV3.122 PO; -CARV6.252 PO; -CRG3125 PO; -EMOL-19 TOP; -FRS/40 PO; -FURO40TA3 PO; -LTRSCR45 TOP; -MELA1TAB7 PO; -MENTOIN TOP; -MULT-845 PO; -MULTTAB66 PO; -OMEG120013 PO; -OMEGCAP2 PO; -PRLSR20 PO
--- NOTE | 2016-12-09 16:52 | EMERGENCY ROOM VISIT NOTE ---
History Report prepared by [place]: Traci Haile Under the Supervision of: Dr. Elfego Monroy D.O. First contact with patient: 16:28 Chief Complaint: REFERRED BY DOCTOR Stated Complaint: DOC REFERRED;BLOOD WORK IS OFF History of Present Illness The patient is a 81 year old male who presents to the Emergency Room with complaints of worsening low platelet count yesterday. He resides at the [facility]. He had routine blood work yesterday which found that his platelets were low. His family was contacted by his PCP today and told to present to the ED to rule out infection and for admission. Four months ago, the patient was admitted to the hospital after he had fallen and diagnosed with a UTI. At that time, he had similar abnormal blood work. He had diarrhea 1 week ago which stopped after he was given Imodium. He has a cough. He denies any recent falls. He denies any abdominal pain, urinary symptoms, chest pain, SOB, or trouble with bowel movements. He has had a heart valve replacement. He denies being on any blood thinners. Source of History: patient, family Onset: yesterday Position: other (global) Quality: other (low platelet) Timing: worsening Associated Symptoms: + cough, No chest pain, No SOB, No abdominal pain, No diarrhea, No urinary symptoms Note: Pt denies trouble with bowel movements. Review of Systems See HPI for pertinent positives & negatives. A total of 10 systems reviewed and were otherwise negative. Past Medical & Surgical Medical Problems: (1) Aortic stenosis (2) BPH (benign prostatic hypertrophy) (3) CAD (coronary artery disease) (4) CKD (chronic kidney disease) stage 3, GFR 30-59 ml/min (5) Dyslipidemia (6) GERD (gastroesophageal reflux disease) (7) History of disseminated intravascular coagulation (8) HTN (hypertension) (9) Pancytopenia (10) Renal lesion (11) Thoracic aneurysm (12) Thyroid cyst Surgical Problems: (1) H/O aortic aneurysm repair (2) H/O cataract removal with insertion of prosthetic lens (3) History of appendectomy (4) History of bilateral knee arthroplasty (5) History of tonsillectomy and adenoidectomy (6) S/P AVR (aortic valve replacement) Family History Patient reports no known family medical history. Social History Smoking Status: Former Smoker Alcohol Use: none Drug Use: none Housing Status: lives alone Occupation Status: retired Current/Historical Medications Scheduled Atorvastatin (Lipitor), 80 MG PO DAILY Carvedilol (Coreg), 6.25 MG PO BID Emollient (Lubriderm), 1 APPLN TOP DAILY Furosemide (Lasix), 40 MG PO BID Multiple Vitamins W/ Minerals (Centrum Silver Adult 50+), 1 TAB PO DAILY Multiple Vitamins W/ Minerals (I-Rayray), 1 TAB PO DAILY [place]-3 Fatty Acids (Fish Oil), 1 CAP PO BID Omeprazole (Prilosec), 20 MG PO BID Potassium Ext Rel (Klor-Con), 20 MEQ PO QAM Terazosin (Hytrin), 5 MG PO HS Scheduled PRN Acetaminophen (Tylenol), 650 MG PO Q6H PRN for Pain or Fever Allergies Coded Allergies: Penicillins (Verified Allergy, Unknown, ITCH,RASH, 02/26/15) ITCHY Physical Exam Vital Signs Date Time Temp Pulse Resp B/P (MAP) Pulse Ox O2 Delivery O2 Flow Rate FiO2 12/09/16 18:25 58 18 135/66 98 Room Air 12/09/16 17:14 58 12/09/16 17:09 97 Room Air 12/09/16 16:24 36.7 62 18 129/63 97 Room Air Physical Exam GENERAL: Patient is awake, alert, non anxious appearing and comfortable. EYES: The conjunctivae are clear. The pupils are round and reactive. EARS, NOSE, MOUTH AND THROAT: The nose is without any evidence of any deformity. Mucous membranes are moist tongue is midline NECK: The neck is nontender and supple. RESPIRATORY: Lung sounds diminished at both bases, rales at both bases, mild tachypnea noted, no conversational dyspnea noted. CARDIOVASCULAR: Regular rate and rhythm noted to auscultation, there was a loud systolic murmur noted to auscultation. GASTROINTESTINAL: The abdomen is soft. Bowel sounds are present in all quadrants. Abdomen is nontender MUSCULOSKELETAL/EXTREMITIES: There is no evidence of gross deformity full range of motion is noted in the hips and shoulders SKIN: There is pedal edema bilaterally. NEUROLOGIC: Patient is awake alert and oriented x3 Medical Decision & Procedures ER Provider Diagnostic Interpretation: X-ray results as stated below per interpretation by me and the radiologist. Radiology results as stated below per my review and radiologist interpretation: CHEST ONE VIEW PORTABLE CLINICAL HISTORY: Sepsis sepsis COMPARISON STUDY: 08/04/2016 FINDINGS: Stable prominence and ectasia of the thoracic aorta. Prior median sternotomy. Mild stable cardiomegaly. Lungs are clear. IMPRESSION: Stable cardiomegaly. No acute process. The above report was generated using voice recognition software. It may contain grammatical, syntax or spelling errors. Electronically signed by: Cliff Christiansen M.D. 12/09/2016 4:58 PM Dictated Date/Time: 12/09/2016 4:57 PM (CHEST) THORAX WITHOUT CT DOSE: 431.17 mGycm HISTORY: Chest pain rule out infiltrate TECHNIQUE: Multiaxial CT images of the chest were performed without contrast. A dose lowering technique was utilized adhering to the principles of ALARA. COMPARISON: 01/30/2015 FINDINGS: Aneurysmal dilatation of the thoracic aorta. Maximum diameter is 6.5 cm slightly increased from the prior study of 5.7 cm slight increase in tortuosity and ectasia of the aorta. Maximum diameter in the lower chest region is 4.3 cm, stable from the prior exam. Lungs are clear. Mild scattered atelectatic change. Prominence of the pulmonary arterial vasculature similar to that of the prior study. IMPRESSION: 1. Generalized aneurysmal distention of the thoracic aorta is somewhat increased from the prior study 2. Maximum diameter currently is 6.5 cm, increased from the prior study of 5.7 cm. 3. No evidence for acute infiltrate. 4. Moderate stable cardiomegaly. 5. Gallstones. The above report was generated using voice recognition software. It may contain grammatical, syntax or spelling errors. Electronically signed by: Cliff Christiansen M.D. 12/09/2016 8:10 PM Dictated Date/Time: 12/09/2016 8:05 PM Laboratory Results Test 12/09/16 16:40 12/09/16 16:53 12/09/16 18:35 Smudge Cells PRESENT Acanthocytes 1+ Absolute Reticulocyte Count 0.05 10^6/uL (0.02-0.10) Percent Reticulocyte Count 1.7 % (0.5-2.0) Phosphorus Level 3.2 mg/dl (2.5-4.9) Magnesium Level 2.3 mg/dl (1.8-2.4) Total Bilirubin 1.5 mg/dl (0.2-1) Aspartate Amino Transf (AST/SGOT) 37 U/L (15-37) Alanine Aminotransferase (ALT/SGPT) 43 U/L (12-78) Alkaline Phosphatase 136 U/L (45-117) Total Creatine Kinase 22 U/L (39-308) Creatine Kinase MB 1.2 ng/ml (0.5-3.6) Creatine Kinase MB Ratio 5.5 (0-3.0) Troponin I < 0.015 ng/ml (0-0.045) C-Reactive Protein 0.72 mg/dl (0-0.29) Pro-B-Type Natriuretic Peptide 3290 pg/ml (0-1800) Total Protein 7.1 gm/dl (6.4-8.2) Albumin 2.9 gm/dl (3.4-5.0) Globulin 4.2 gm/dl (2.5-4.0) Albumin/Globulin Ratio 0.7 (0.9-2) Lipase 407 U/L (73-393) Bedside Lactic Acid Venous 0.94 mmol/L (0.90-1.70) Urine Color YELLOW Urine Appearance CLEAR (CLEAR) Urine pH 5.0 (4.5-7.5) Urine Specific [place] 1.015 (1.000-1.030) Urine Protein TRACE (NEG) Urine Glucose (UA) NEG (NEG) Urine Ketones NEG (NEG) Urine Occult Blood TRACE (NEG) Urine Nitrite NEG (NEG) Urine Bilirubin NEG (NEG) Urine Urobilinogen NEG (NEG) Urine Leukocyte Esterase NEG (NEG) Urine WBC (Auto) 1-5 /hpf (0-5) Urine RBC (Auto) 0-4 /hpf (0-4) Urine Hyaline Casts (Auto) 1-5 /lpf (0-5) Urine Epithelial Cells (Auto) 5-10 /lpf (0-5) Urine Bacteria (Auto) NEG (NEG) Laboratory results per my review. Medications Administered Medications (Trade) Dose Ordered Sig/Song Route Start Time Stop Time Status Last Admin Dose Admin Sodium Chloride 500 ml @ 999 mls/hr Q31M STAT IV 12/09/16 18:12 12/09/16 18:42 DC 12/09/16 18:32 999 MLS/HR ECG Indication: weakness Rate (beats per minute): 58 Rhythm: sinus rhythm Findings: 1st degree AV block, LBBB Comparison ECG Date: 20-Aug-2016 Change: no significant change ED Course 1632: The patient was evaluated in room B6. A complete history and physical examination were performed. 1800: Upon reevaluation, the patient is resting comfortably. I discussed results and treatment plan with him and his family. They verbalize agreement and understanding. The patient will be evaluated for further management and care. 181: I discussed the patient's case with Jessika Peck [facility] service. The patient will be evaluated for further management. 181: NSS 500 ml @ 999 mls/hr IV. Medical Decision Prior records/ancillary studies reviewed and summarized above. Nursing notes reviewed. Additional history obtained from family. The patient's history was concerning for abnormal labs. Differential diagnosis: Etiologies such as metabolic, infection, hypo/hyperglycemia, electrolyte abnormalities, cardiac sources, intracerebral event, toxicologic, neurologic, as well as others were entertained. The patient is a 81-year-old male who presented to the emergency department for an evaluation of abnormal blood work. He the patient had a low platelet count. He was sent to the emergency department for evaluation. The patient is a history of DIC in the past. Clinically he does not appear to be ill but given his laboratory findings I discussed his [facility] They've agreed to evaluate the patient in emergency department for further management and disposition. The patient was treated with a small fluid bolus. Medication Reconcilliation Current Medication List: was personally reviewed by me Blood Pressure Screening Patient's blood pressure: Normal blood pressure Blood pressure disposition: Did not require urgent referral Consults Time Called: 1800 Consulting Physician: [facility] Returned Call: [phone] I discussed the patient's case with her. The patient will be evaluated for further management. Impression Primary Impression: Thrombocytopenia Additional Impressions: Weakness Pancytopenia Scribe Attestation The scribe's documentation has been prepared under my direction and personally reviewed by me in its entirety. I confirm that the note above accurately reflects all work, treatment, procedures, and medical decision making performed by me. Departure Information Dispostion Being Evaluated By Hospitalist Referrals [place] (PCP) Patient Instructions [facility] Problem Qualifiers
--- NOTE | 2016-12-09 17:00 | DIAGNOSTIC IMAGING REPORT ---
CHEST ONE VIEW PORTABLE CLINICAL HISTORY: Sepsis sepsis COMPARISON STUDY: 08/04/2016 FINDINGS: Stable prominence and ectasia of the thoracic aorta. Prior median sternotomy. Mild stable cardiomegaly. Lungs are clear. IMPRESSION: Stable cardiomegaly. No acute process. The above report was generated using voice recognition software. It may contain grammatical, syntax or spelling errors. Electronically signed by: Cliff Christiansen M.D. 12/09/2016 4:58 PM Dictated Date/Time: 12/09/2016 4:57 PM
[2016-12-09 17:33] LABS: ALT/SGPT 43 U/L (12-78); AST/SGOT 37 U/L (15-37); BLOOD UREA NITROGEN 47 mg/dl (7-18); BUN/CREATININE RATIO 23.7 (10-20); CALCIUM 8.9 mg/dl (8.5-10.1); CARBON DIOXIDE 25 mmol/L (21-32); CHLORIDE 107 mmol/L (98-107); GLUCOSE 101 mg/dl (70-99); MAGNESIUM 2.3 mg/dl (1.8-2.4); POTASSIUM 4.4 mmol/L (3.5-5.1); SODIUM 136 mmol/L (136-145)
[2016-12-09 17:35] LABS: ALB/GLOB RATIO 0.7 (0.9-2); ALKALINE PHOSPHATASE 136 U/L (45-117); C-REACTIVE PROTEIN 0.72 mg/dl (0-0.29); CKMB/CK RATIO 5.5 (0-3.0); PHOSPHORUS 3.2 mg/dl (2.5-4.9)
[2016-12-09 17:45] LABS: INR 1.4 (0.9-1.1); PARTIAL THROMBOPLASTIN RATIO 1.6; PROTHROMBIN TIME (PATIENT) 15.5 SECONDS (9.0-12.0)
[2016-12-09 17:51] LABS: HEMATOCRIT 29.2 % (42-52); MEAN CELL VOLUME 88.8 fL (80-100); MEAN CORPUSCULAR HEMOGLOBIN 28.6 pg (25-34); MEAN CORPUSCULAR HGB CONC 32.2 g/dl (32-36); RED BLOOD COUNT 3.29 M/uL (4.7-6.1); WHITE BLOOD COUNT 3.38 K/uL (4.8-10.8)
[2016-12-09] MEDS ORDERED: FURO40TA3 PO (17:57)
[2016-12-09 17:58] LABS: PLATELET COUNT 34 K/uL (130-400)
[2016-12-09] MEDS ORDERED: CARV6.252 PO (17:58)
[2016-12-09] MEDS ORDERED: SODIUM CHLORIDE 0.9% 500ML 500 ML IV STA (18:12)
[2016-12-09 18:25] LABS: BASO % 0.3 %; BASO ABS # 0.01 K/uL (0-0.2); COMPLETE YES; IG% 0.3 %; LYMPH ABS # 1.69 K/uL (1.2-3.4); MONO % 8.9 %; NEUT % 40.5 %; SMUDGE CELLS PRESENT
[2016-12-09 18:27] LABS: ACANTHOCYTES 1+
[2016-12-09 19:10] LABS: URINE APPEARANCE CLEAR (CLEAR); URINE BILIRUBIN NEG (NEG); URINE COLOR YELLOW; URINE NITRITE NEG (NEG); URINE SPECIFIC GRAVITY 1.015 (1.000-1.030); UROBILINOGEN NEG (NEG); ZZUR CULT IF INDIC CLEAN CATCH NO
[2016-12-09 19:21] LABS: MANUAL MICROSCOPIC REQUIRED? NO; REVIEW REQ? NO
[2016-12-09] MEDS ORDERED: ONDANSETRON INJ 2 MG/ML 2 ML VIAL IV PRN (19:30)
[2016-12-09] MEDS ORDERED: ACETAMINOPHEN 500 MG TAB PO ONE (19:45)
--- NOTE | 2016-12-09 20:11 | DIAGNOSTIC IMAGING REPORT ---
(CHEST) THORAX WITHOUT CT DOSE: 431.17 mGycm HISTORY: Chest pain rule out infiltrate TECHNIQUE: Multiaxial CT images of the chest were performed without contrast. A dose lowering technique was utilized adhering to the principles of ALARA. COMPARISON: 01/30/2015 FINDINGS: Aneurysmal dilatation of the thoracic aorta. Maximum diameter is 6.5 cm slightly increased from the prior study of 5.7 cm slight increase in tortuosity and ectasia of the aorta. Maximum diameter in the lower chest region is 4.3 cm, stable from the prior exam. Lungs are clear. Mild scattered atelectatic change. Prominence of the pulmonary arterial vasculature similar to that of the prior study. IMPRESSION: 1. Generalized aneurysmal distention of the thoracic aorta is somewhat increased from the prior study 2. Maximum diameter currently is 6.5 cm, increased from the prior study of 5.7 cm. 3. No evidence for acute infiltrate. 4. Moderate stable cardiomegaly. 5. Gallstones. The above report was generated using voice recognition software. It may contain grammatical, syntax or spelling errors. Electronically signed by: Cliff Christiansen M.D. 12/09/2016 8:10 PM Dictated Date/Time: 12/09/2016 8:05 PM
[2016-12-09 20:15] VITALS: BP 145/74; PULSE 63; TEMP 36.6; O2SAT 96; Ht 157.5 cm; Wt 77.9 kg
[2016-12-09] MEDS ORDERED: ACETAMINOPHEN 325 MG TAB PO ONE (21:00)
--- NOTE | 2016-12-09 21:17 | Progress Note ---
Progress Note Date of Service Dec 09, 2016. Progress Note ATTENDING ADDENDUM: 81 yo M with chronic DIC presents to the ER for abnormal labwork. Currently resides at [facility] long-term. He was admitted in July 2016 with DIC thought 2/2 sepsis 2/2 UTI. He was given RBC, platelets and cryo and developed a petechial rash on lower extremities concerning for purpura fulminans so he was transferred to [facility]. He left there and went to [facility] which is where he has been since, and states that he feels back to normal. He currently denies any infectious symptoms. Cancer screening is UTD. Recent peripheral smear showed some abnormal cells, for which Hematology is considering flow cytometry and a bone marrow biopsy. For now, he is asymptomatic, has no rash and is not bleeding. He ambulates with a walker at baseline. Other chronic medical problems include AoV replacement with bovine valve, chronic diastolic heart failure- currently compensated, HTN, CAD no stents, CKD Stage III. He last had normal platelets in fall of 2015. Dr. Suero aware of case and sent him to the hospital. GEN: WNWD, in no acute distress, alert and appropriate HEENT: NC/AT, PERRL, normal sclerae, MMM CARDIO: reg rate, S1/2 heard without m/g/r LUNGS: CTA bilaterally, no crackles, rales or wheezes, good diaphragmatic excursion ABD: soft, non-tender, non-distended, no rebound or guarding, +BS EXTREMITY: RP and DP palpable 2+ bilat, bilateral swelling LE, no edema, extremities are warm and well-perfused NEURO: CN 2-12 grossly intact, sensation intact throughout, no gross focal deficits. MUSC: moves all extremities equally SKIN: warm and dry, no petechiae or rash noted. Plan: admit to med/surg as patient is asymptomatic and HD stable. Trend DIC labs and obtain D-dimer, LDH, haptoglobin, flow cytometry and other workup per Hematology who is consulted. Need to get fibrinogen >100, which is currently 75. Giving 1 pack cryo now with premedication as a precaution with last rash issue after transfusion. Uncertain if transfusion-related reaction at that time. [address] [facility] at [place] thought c/w petechiae from thrombocytopenia and edema in lieu of reaction. Will repeat fibrinogen in am. Currently, no infectious symptoms present and no evidence of infection on workup. Need to rule out underlying malignancy. Sophie Rodrigues DO [facility]
--- NOTE | 2016-12-09 21:37 | History and Physical ---
History & Physical Date & Time of Service: Dec 09, 2016 at 20:09 Chief Complaint: Doc Referred;Blood Work Is Off Primary Care Physician: [facility] History of Present Illness Source: patient, clinic records, hospital records This is a 81 year old male with PMH of CAD, chronic diastolic heart failure, s/p AVR, aortic aneurysm, CKD stage III, and other problems listed below who was sent to the ED for abnormal labs from yesterday 12/08/16. Patient was admitted to [facility] in July-August 2016 for acute DIC 2/2 sepsis from enterococcus UTI, DEE DEE on CKD III, hypophosphatemia. She received 4 units FFP, 3 units platelets, 2 units PRBC and 7 pool of cryoprecipitate. Pt developed rash on bilateral lower extremities and was transferred to [facility] for further evaluation to rule out purpura fulminans. He was seen by dermatology who felt the rash was secondary to dependent edema. Pt was diuresed. Pt was discharged to rehab then to [facility]. Saw Dr. Suero in follow up, noted to have improvement in thrombocytopenia and fibrinogen since hospitalization. Bone marrow bx was discussed however patient declined at that time. Labs were being monitored by Dr. Suero, and yesterday 12/08 noted to have WBC 2.97, Hg 9.4, platelets 39 and fibrinogen 83, all of which were decreased from mid-November, therefore pt was called today and sent to hospital. Also had peripheral smear interpreted as normocytic hypochromic anemia with anisopoikilocytosis, leukopenia with absolute neutropenia, few plasmacytoid lymphocytes, thrombocytopenia. Pt admits to generalized weakness but has been ambulating with his walker w/out issue. No recent falls. He admits to cough for ~2 weeks with light yellow sputum. Had approx 2 episodes diarrhea ~6 days ago which resolved with Imodium. Admits to irritation on his gluteal fold region. Denies rash or open wound. States BLLE edema is at baseline. He denies fevers, chills, rhinorrhea, sore throat, ear ache, SOB, wheezing, chest pain, N/V, abdominal pain, dysuria, frequency, urgency. Denies bleeding including epistaxis, gum bleeding, hematochezia, melena, hematuria. Past Medical/Surgical History Medical Problems: (1) Aortic stenosis Status: Chronic (2) BPH (benign prostatic hypertrophy) Status: Chronic (3) CAD (coronary artery disease) Status: Chronic (4) CKD (chronic kidney disease) stage 3, GFR 30-59 ml/min Status: Chronic (5) Dyslipidemia Status: Chronic (6) GERD (gastroesophageal reflux disease) Status: Chronic (7) History of disseminated intravascular coagulation Status: Chronic (8) HTN (hypertension) Status: Chronic (9) Renal lesion Permanent Comment: CT a/p 07/2016- Bilateral renal cysts, and small bilateral indeterminate renal lesions Status: Chronic (10) Thoracic aneurysm Permanent Comment: s/p graft repair in 2009; 07/2016 CT chest showed increase in dilatation of prox to mid thoracic aorta, max diameter increased from 5.7 (01/30/15) to 6.1 cm Status: Chronic (11) Thyroid cyst Status: Chronic Surgical Problems: (1) H/O aortic aneurysm repair Status: Resolved (2) H/O cataract removal with insertion of prosthetic lens Status: Resolved (3) History of appendectomy Status: Resolved (4) History of bilateral knee arthroplasty Status: Resolved (5) History of tonsillectomy and adenoidectomy Status: Resolved (6) S/P AVR (aortic valve replacement) Permanent Comment: 2009 Status: Resolved Family History Patient reports no known family medical history. Social History Smoking Status: Former Smoker (quit 35 years ago) Alcohol Use: none Drug Use: none Housing status: other ([facility]) Occupational Status: retired Immunizations History of Influenza Vaccine: N/A History of Tetanus Vaccine?: Yes History of Pneumococcal: Yes History of Hepatitis B Vaccine: No Multi-Drug Resistant Organisms History of MDRO: No Allergies Coded Allergies: Penicillins (Verified Allergy, Unknown, ITCH,RASH, 02/26/15) ITCHY Home Medications Scheduled Atorvastatin (Lipitor), 80 MG PO DAILY Carvedilol (Coreg), 6.25 MG PO BID Emollient (Lubriderm), 1 APPLN TOP DAILY Furosemide (Lasix), 40 MG PO BID Multiple Vitamins W/ Minerals (Centrum Silver Adult 50+), 1 TAB PO DAILY Multiple Vitamins W/ Minerals (I-Rayray), 1 TAB PO DAILY [place]-3 Fatty Acids (Fish Oil), 1 CAP PO BID Omeprazole (Prilosec), 20 MG PO BID Potassium Ext Rel (Klor-Con), 20 MEQ PO QAM Terazosin (Hytrin), 5 MG PO HS Scheduled PRN Acetaminophen (Tylenol), 650 MG PO Q6H PRN for Pain or Fever Review of Systems Ten systems reviewed and negative except as noted in HPI. Physical Exam Vital Signs Date Time Temp Pulse Resp B/P (MAP) Pulse Ox O2 Delivery O2 Flow Rate FiO2 12/09/16 18:25 58 18 135/66 98 Room Air 12/09/16 17:14 58 12/09/16 17:09 97 Room Air 12/09/16 16:24 36.7 62 18 129/63 97 Room Air General Appearance: WD/WN, no apparent distress, + pertinent finding (alert cooperative elderly male, brother and sister in law at bedside) Head: normocephalic, atraumatic Eyes: normal inspection, PERRL, sclerae normal ENT: hearing grossly normal, pharynx normal Neck: supple, trachea midline Respiratory/Chest: lungs clear, normal breath sounds, no respiratory distress, no accessory muscle use Cardiovascular: regular rate, rhythm, + systolic murmur Abdomen/GI: normal bowel sounds, non tender, soft Extremities/Musculoskelatal: no calf tenderness, + pertinent finding (trace swelling of lower extremities) Neurologic/Psych: alert, normal mood/affect, oriented x 3 Skin: normal color, warm/dry, + pertinent finding (mild erythema and few pinpoint areas of superficial skin breakdown in gluteal fold.) Diagnostics Laboratory Results Results Past 24 Hours Test 12/09/16 16:40 12/09/16 16:53 12/09/16 17:28 12/09/16 18:35 Range/Units White Blood Count 3.38 4.8-10.8 K/uL Red Blood Count 3.29 4.7-6.1 M/uL Hemoglobin 9.4 14.0-18.0 g/dL Hematocrit 29.2 42-52 % Mean Corpuscular Volume 88.8 80-100 fL Mean Corpuscular Hemoglobin 28.6 25-34 pg Mean Corpuscular Hemoglobin Concent 32.2 32-36 g/dl Platelet Count 34 130-400 K/uL Neutrophils (%) (Auto) 40.5 % Lymphocytes (%) (Auto) 50.0 % Monocytes (%) (Auto) 8.9 % Eosinophils (%) (Auto) 0.0 % Basophils (%) (Auto) 0.3 % Neutrophils # (Auto) 1.37 1.4-6.5 K/uL Lymphocytes # (Auto) 1.69 1.2-3.4 K/uL Monocytes # (Auto) 0.30 0.11-0.59 K/uL Eosinophils # (Auto) 0.00 0-0.5 K/uL Basophils # (Auto) 0.01 0-0.2 K/uL RDW Standard Deviation 52.3 36.4-46.3 fL RDW Coefficient of Variation 16.2 11.5-14.5 % Immature Granulocyte % (Auto) 0.3 % Immature Granulocyte # (Auto) 0.01 0.00-0.02 K/uL Nucleated RBC Absolute Count (auto) 0.02 0-0 K/uL Nucleated Red Blood Cells % 0.7 % Smudge Cells PRESENT Acanthocytes 1+ Absolute Reticulocyte Count 0.05 0.02-0.10 10^6/uL Percent Reticulocyte Count 1.7 0.5-2.0 % Prothrombin Time 15.5 9.0-12.0 SECONDS Prothromb Time International Ratio 1.4 0.9-1.1 Activated Partial Thromboplast Time 41.3 21.0-31.0 SECONDS Partial Thromboplastin Ratio 1.6 Fibrinogen 75 184-400 mg/dl D-Dimer 8570 0-500 ug/L FEU Sodium Level 136 136-145 mmol/L Potassium Level 4.4 3.5-5.1 mmol/L Chloride Level 107 98-107 mmol/L Carbon Dioxide Level 25 21-32 mmol/L Anion Gap 4.0 3-11 mmol/L Blood Urea Nitrogen 47 7-18 mg/dl Creatinine 2.00 0.60-1.40 mg/dl Est Creatinine Clear Calc Drug Dose 26.7 ml/min Estimated GFR () 35.7 Estimated GFR (Non- 30.8 BUN/Creatinine Ratio 23.7 10-20 Random Glucose 101 70-99 mg/dl Calcium Level 8.9 8.5-10.1 mg/dl Phosphorus Level 3.2 2.5-4.9 mg/dl Magnesium Level 2.3 1.8-2.4 mg/dl Total Bilirubin 1.5 0.2-1 mg/dl Aspartate Amino Transf (AST/SGOT) 37 15-37 U/L Alanine Aminotransferase (ALT/SGPT) 43 12-78 U/L Alkaline Phosphatase 136 45-117 U/L Total Creatine Kinase 22 39-308 U/L Creatine Kinase MB 1.2 0.5-3.6 ng/ml Creatine Kinase MB Ratio 5.5 0-3.0 Troponin I < 0.015 0-0.045 ng/ml C-Reactive Protein 0.72 0-0.29 mg/dl Pro-B-Type Natriuretic Peptide 3290 0-1800 pg/ml Total Protein 7.1 6.4-8.2 gm/dl Albumin 2.9 3.4-5.0 gm/dl Globulin 4.2 2.5-4.0 gm/dl Albumin/Globulin Ratio 0.7 0.9-2 Lipase 407 73-393 U/L Bedside Lactic Acid Venous 0.94 0.90-1.70 mmol/L Fibrin Degradation Products >40 <10 mcg/ml Urine Color YELLOW Urine Appearance CLEAR CLEAR Urine pH 5.0 4.5-7.5 Urine Specific [place] 1.015 1.000-1.030 Urine Protein TRACE NEG Urine Glucose (UA) NEG NEG Urine Ketones NEG NEG Urine Occult Blood TRACE NEG Urine Nitrite NEG NEG Urine Bilirubin NEG NEG Urine Urobilinogen NEG NEG Urine Leukocyte Esterase NEG NEG Urine WBC (Auto) 1-5 0-5 /hpf Urine RBC (Auto) 0-4 0-4 /hpf Urine Hyaline Casts (Auto) 1-5 0-5 /lpf Urine Epithelial Cells (Auto) 5-10 0-5 /lpf Urine Bacteria (Auto) NEG NEG Microbiology Results 12/09/16 Blood Culture, Received Pending 12/09/16 Blood Culture, Received Pending Diagnostic Radiology CHEST ONE VIEW PORTABLE IMPRESSION: Stable cardiomegaly. No acute process. (CHEST) THORAX WITHOUT IMPRESSION: 1. Generalized aneurysmal distention of the thoracic aorta is somewhat increased from the prior study 2. Maximum diameter currently is 6.5 cm, increased from the prior study of 5.7 cm. 3. No evidence for acute infiltrate. 4. Moderate stable cardiomegaly. 5. Gallstones. *On review of records, CT dissection on prior admission in 07/2016 showed maximum diameter of 6.1 cm (from prior maximum dimension 5.7 cm) EKG Sinus bradycardia with sinus arrhythmia with 1st degree A-V block, LAD, Non- specific intra-ventricular conduction delay as per cardiology read Impression Assessment and Plan DIC Sent by hem/ onc Dr. Suero Possibly secondary to malignancy vs. infection- malignancy considered more likely No evidence of infection- afebrile, no tachy or hypotension, c/o cough however CXR and CT chest neg for infiltrates; UA unremarkable; urine and blood cultures pending Platelets 34, Fibrinogen 75, FDP >40, PT 15.5, INR 1.4, APTT 41.3, d dimer >8K Peripheral smear 12/08-normocytic hypochromic anemia with anisopoikilocytosis, leukopenia with absolute neutropenia, few plasmacytoid lymphocytes, thrombocytopenia Repeat peripheral smear ordered Will defer to hem/onc for ordering flow cytometry No active bleeding; will keep on fall precautions Give 1 cryoprecipitate 5-pack with premedication given prior rxn of edema as per hem/onc Repeat CBC and coags in am, check LDH and haptoglobin Hem/onc consulted; discussed case w/ Dr. Suero, appreciate input Likely needs bone marrow bx- this was declined as outpatient PANCYTOPENIA/ NEUTROPENIA Neutrophils 1.37 Afebrile, no evidence infection Neutropenic precautions Follow up CBC DEE DEE ON CKD STAGE III Creat is 2.0 from baseline ~1.4 Likely from dehydration 2/2 recent diarrhea- resolved 500 mL bolus given in ER Hold Lasix and f/u renal function RENAL LESIONS CT a/p from last hospitalization 07/2016- Bilateral renal cysts, and small bilateral indeterminate renal lesions Check renal US in am CAD Stable, no anginal symptoms Continue aspirin, beta anthony, statin CHRONIC DIASTOLIC CHF Currently compensated Hold Lasix for DEE DEE AORTIC ANEURYSM S/p graft repair 2009 CT chest today showed increased distension- Max diameter currently is 6.5 cm- upon chart review the CT dissection in 07/2016 showed max diameter 6.1 cm; was 5.7 cm in 01/2015 HTN BP is stable Continue carvedilol DYSLIPIDEMIA Continue statin GLUTEAL FOLD IRRITATION/ TINY AREAS OF BREAKDOWN Does not appear infected Consult wound care nurse DVT PROPHYLAXIS GRANT's due to thrombocytopenia FULL CODE Per my discussion w/ the patient. DISPOSITION Admit to med/ surg Resides at [facility] planning eval requested. Patient seen in collaboration with Dr. Rodrigues. Please see her addendum. VTE Prophylaxis VTE Risk Assessment Done? Y/N: Yes Risk Level: Moderate
[2016-12-09 21:57] VITALS: BP 129/72; PULSE 56; TEMP 36.9; O2SAT 94
[2016-12-09 22:15] VITALS: BP 110/68; PULSE 54; TEMP 36.9; O2SAT 94
[2016-12-09 22:30] VITALS: BP 108/64; PULSE 53; TEMP 36.8; O2SAT 93
[2016-12-09 23:50] VITALS: BP 107/64; PULSE 49; TEMP 36.6; O2SAT 90
[2016-12-10] VITALS (9 sets, daily range): BP systolic 97–126; BP diastolic 54–72; PULSE 50–81; TEMP 36.6–37.1; O2SAT 90–95
[2016-12-10 05:48] LABS: MEAN CORPUSCULAR HGB CONC 30.9 g/dl (32-36)
[2016-12-10 06:03] LABS: HEMATOCRIT 27.8 % (42-52); MEAN CELL VOLUME 88.5 fL (80-100); MEAN CORPUSCULAR HEMOGLOBIN 27.4 pg (25-34); RED BLOOD COUNT 3.14 M/uL (4.7-6.1); WHITE BLOOD COUNT 2.62 K/uL (4.8-10.8)
[2016-12-10 06:16] LABS: PLATELET COUNT 36 K/uL (130-400)
[2016-12-10 06:17] LABS: BASO % 0.4 %; BASO ABS # 0.01 K/uL (0-0.2); COMPLETE YES; GIANT PLATELETS 1+; IG% 0.4 %; LYMPH % 44.3 %; LYMPH ABS # 1.16 K/uL (1.2-3.4); MONO % 10.3 %; NEUT % 44.6 %; PLT ESTIMATE DECREASED
[2016-12-10 06:19] LABS: BUN/CREATININE RATIO 24.5 (10-20); CREATININE 1.8 mg/dl (0.60-1.40); POTASSIUM 4.1 mmol/L (3.5-5.1)
[2016-12-10 06:42] LABS: INR 1.4 (0.9-1.1); PARTIAL THROMBOPLASTIN RATIO 1.8; PROTHROMBIN TIME (PATIENT) 14.8 SECONDS (9.0-12.0)
[2016-12-10 06:53] LABS: FIBRINOGEN* 86 mg/dl (184-400)
[2016-12-10] MEDS ORDERED: CEROVITE ADV FORMULA TAB PO SCH (08:00)
[2016-12-10] MEDS: CARVEDILOL 6.25 MG TAB PO SCH ×2 (08:00→19:44)
[2016-12-10] MEDS: EUCERIN CR 120 GM JAR EXT SCH (08:21)
[2016-12-10] MEDS: PANTOprazole SOD 40 MG TAB PO SCH ×2 (08:22→19:45)
[2016-12-10] MEDS: POTASSIUM CHLORIDE 20 MEQ TABCR PO SCH (08:22)
[2016-12-10] MEDS: ATORVASTATIN 40 MG TAB PO SCH (08:23)
[2016-12-10] MEDS: CEROVITE ADV FORMULA TAB PO SCH (08:23)
[2016-12-10] MEDS: ACETAMINOPHEN 325 MG TAB PO SCH ×2 (08:45→10:28)
[2016-12-10 19:31] LABS: IPF 15.6 % (0.9-8.3)
--- NOTE | 2016-12-10 19:37 | Medical Consult ---
Consultation Date of Consultation: Dec 10, 2016. Attending Physician: Sophie Rodrigues DO Reason for Consultation: pancytopenia History of Present Illness 81 year old male who was sent to ER for low fibrinogen level and worsening pancytopenia that was noted on outpatient labs. The patient was admitted at [facility] in 07/2016 with pancytopenia with severe thrombocytopenia at that time, and had low fibrinogen, elevated PT/PTT and elevated D dimer and FSPs and was felt to have acute DIC in the setting of infection. He received transfusions of platelets FFP, cryoprecipitate and PRBC at that time and his counts and fibrinogen levels improved. He was transferred to [facility] for evaluation when he developed a petechial/purpura rash on his bilateral lower extremities despite improvement in his platelet count. He was evaluated by hematology and dermatology there and rash was felt to be from his edema in the setting of thrombocytopenia rather than purpura fulminans in the setting of DIC. The patient was discharged. The rash subsequently resolved outpatient with improvement in his edema though he still has edema. Though counts improved, they did not normalize I discussed bone marrow with the patient but he declined bone marrow aspirate and biopsy but he agreed to do follow up labs. He went for labs and was found to have worsening pancytopenia and also had low fibrinogen level in 80s so he was sent in for evaluation and transfusion. Here his fibrinogen was 75 on arrival and platelet count 34,000. The patient reports that he has been feeling well overall ad states that he has been ambulating with his walker. He denies fatigue or fevers or chills or night sweats or appetite loss or dysuria or skin rash or pain in legs. He states that he has had a cough for about 1 to 2 weeks with yellowish phlegm. He denies any hemoptysis or shortness of breath. He said that he recently had diarrhea for about 2 days at [facility] where he lives and he was given imodium and it resolved. He denies any abdominal pain or melena or hematochezia. He still has edema of his legs but no rash. He had CXR and CT scan chest and urine culture negative. Blood cultures pending. Smear reviewed and He has leukopenia, no blasts seen. He has occasional hypo lobulated polys. normocytic normochromic RBCs, no schistocytes, occasional smudge cells, platelets are low, occasional large platelets seen Pathologist Dr Mckeon also reviewed peripheral smear and agreed Past Medical/Surgical History PAST MEDICAL HISTORY:pancytopenia, , CAD, BPH, DIC, HTN, thoracic arotic aneurysm, renal cysts, small indeterminate renal lesions CKD PAST SURGICAL HISTORY: tonsillectomy, appendectomy, knee replacement, cataract, aortic aneurysm repair, AVR, Family History Patient reports no known family medical history. Social History Smoking Status: Former Smoker (quit 35 years ago) Alcohol Use: none Drug Use: none Housing Status: assisted living (lives at [facility]) Occupation Status: retired Allergies Coded Allergies: Penicillins (Verified Allergy, Unknown, ITCH,RASH, 02/26/15) ITCHY Current Inpatient Medications Current Inpatient Medications Medications (Trade) Dose Ordered Sig/Song Route Start Time Stop Time Status Last Admin Dose Admin Acetaminophen (Tylenol Tab) 650 mg Q4H PRN PO 12/09/16 19:30 01/08/17 19:29 Ondansetron HCl (Zofran Inj) 4 mg Q6H PRN IV 12/09/16 19:30 01/08/17 19:29 Atorvastatin Calcium (Lipitor Tab) 80 mg DAILY PO 12/10/16 08:00 01/09/17 07:59 12/10/16 08:23 80 MG Carvedilol (Coreg Tab) 6.25 mg BID PO 12/10/16 08:00 01/09/17 07:59 Multivitamins/ Minerals (Multivitamin W/ Minerals Tab) 1 tab DAILY PO 12/10/16 08:00 01/09/17 07:59 12/10/16 08:23 1 TAB Potassium Chloride (Klor-Con Tab) 20 meq QAM PO 12/10/16 08:00 01/09/17 07:59 12/10/16 08:22 20 MEQ Terazosin HCl (Hytrin Cap) 5 mg HS PO 12/09/16 21:00 01/08/17 20:59 12/09/16 21:36 5 MG Multi-Ingredient Ointment (Eucerin Unscented Cr) 1 appln DAILY EXT 12/10/16 08:00 01/09/17 07:59 12/10/16 08:21 1 APPLN Pantoprazole Sodium (Protonix Tab) 40 mg BID PO 12/10/16 08:00 01/09/17 07:59 12/10/16 08:22 40 MG Review of Systems Constitutional: No fever, No chills, No sweats, No weight loss, No weakness, No fatigue Eyes: No eye pain, No redness ENT: No unusual epistaxis, No nasal symptoms, No sore throat, No trouble swallowing Respiratory: + cough, + sputum, No wheezing, No shortness of breath, No dyspnea on exertion, No dyspnea at rest, No hemoptysis (yellowish) Cardiovascular: No chest pain, No orthopnea, No PND, No edema, No palpitations Abdomen: + diarrhea (states for 2 to 3 times recently for about 2 days but resolved ), No pain, No nausea, No vomiting, No constipation, No GI bleeding Musculoskeletal: + swelling, No joint pain, No muscle pain, No calf pain Genitourinary - Male: No hematuria, No dysuria, No urinary frequency Neurologic: No weakness (no focal weakness, walks with walker), No numbness/ tingling Endocrine: No fatigue Hematologic / Lymphatic: No swollen lymph nodes Integumentary: No rash, No itch Physical Exam Date Time Temp Pulse Resp B/P (MAP) Pulse Ox O2 Delivery O2 Flow Rate FiO2 12/10/16 14:35 36.8 50 16 103/63 (76) 93 Room Air 12/10/16 11:25 36.9 56 18 111/65 94 12/10/16 11:10 36.8 56 18 97/54 95 12/10/16 10:49 36.8 57 18 108/59 12/10/16 08:00 Room Air 12/10/16 07:24 36.8 53 18 115/72 (86) 93 Room Air 12/10/16 04:13 36.6 56 18 111/63 (79) 90 Room Air 12/10/16 00:00 Room Air 12/09/16 23:50 36.6 49 18 107/64 (78) 90 Room Air 12/09/16 22:30 36.8 53 18 108/64 93 12/09/16 22:15 36.9 54 20 110/68 94 12/09/16 21:57 36.9 56 18 129/72 94 12/09/16 20:15 36.6 63 18 145/74 96 Room Air General Appearance: WD/WN, no apparent distress Head: normocephalic, atraumatic Eyes: PERRL, sclerae normal (wears glasses), + pertinent finding (wears) ENT: pharynx normal, + pertinent finding (moist buccal mucosa) Neck: supple, no adenopathy, no JVD Respiratory/Chest: chest non-tender, lungs clear, normal breath sounds, no respiratory distress, no accessory muscle use Cardiovascular: regular rate, rhythm, + systolic murmur Abdomen/GI: normal bowel sounds, non tender, soft, no organomegaly Back: normal inspection, no CVA tenderness Extremities/Musculoskelatal: no calf tenderness, non-tender, + pedal edema Neurologic/Psych: alert, oriented x 3, + pertinent finding (grossly nonfocal exam) Skin: warm/dry Lymphatic: no adenopathy Laboratory Results Last 24 Hours Test 12/10/16 05:31 12/10/16 17:44 12/10/16 17:48 12/10/16 17:59 White Blood Count 2.62 K/uL Red Blood Count 3.14 M/uL Hemoglobin 8.6 g/dL Hematocrit 27.8 % Mean Corpuscular Volume 88.5 fL Mean Corpuscular Hemoglobin 27.4 pg Mean Corpuscular Hemoglobin Concent 30.9 g/dl Platelet Count 36 K/uL Neutrophils (%) (Auto) 44.6 % Lymphocytes (%) (Auto) 44.3 % Monocytes (%) (Auto) 10.3 % Eosinophils (%) (Auto) 0.0 % Basophils (%) (Auto) 0.4 % Neutrophils # (Auto) 1.17 K/uL Lymphocytes # (Auto) 1.16 K/uL Monocytes # (Auto) 0.27 K/uL Eosinophils # (Auto) 0.00 K/uL Basophils # (Auto) 0.01 K/uL RDW Standard Deviation 52.5 fL RDW Coefficient of Variation 16.3 % Immature Granulocyte % (Auto) 0.4 % Immature Granulocyte # (Auto) 0.01 K/uL Nucleated RBC Absolute Count (auto) 0.02 K/uL Nucleated Red Blood Cells % 0.9 % Platelet Estimate DECREASED Giant Platelets 1+ Prothrombin Time 14.8 SECONDS Prothromb Time International Ratio 1.4 Activated Partial Thromboplast Time 45.8 SECONDS Partial Thromboplastin Ratio 1.8 Fibrinogen 86 mg/dl Fibrin Degradation Products >40 mcg/ml D-Dimer 5410 ug/L FEU Sodium Level 139 mmol/L Potassium Level 4.1 mmol/L Chloride Level 109 mmol/L Carbon Dioxide Level 25 mmol/L Anion Gap 5.0 mmol/L Blood Urea Nitrogen 44 mg/dl Creatinine 1.80 mg/dl Est Creatinine Clear Calc Drug Dose 29.7 ml/min Estimated GFR () 40.6 Estimated GFR (Non- 35.0 BUN/Creatinine Ratio 24.5 Random Glucose 88 mg/dl Calcium Level 9.0 mg/dl Lactate Dehydrogenase 245 U/L Test 12/10/16 18:36 CT chest 1. Generalized aneurysmal distention of the thoracic aorta is somewhat increased from the prior study 2. Maximum diameter currently is 6.5 cm, increased from the prior study of 5.7 cm. 3. No evidence for acute infiltrate. 4. Moderate stable cardiomegaly. 5. Gallstones. Assessment & Plan 81 year old male with pancytopenia, elevated D dimer, low fibrinogen level and elevated PT/PTT No infection found on this admission and no trauma. Prior admission in 07/2016 he had fall and UTI. Probable low grade/chronic DIC. Underlying etiology unclear. Underlying bone marrow neoplasm cannot be excluded. I discussed with the patient regarding his labs and again discussed bone marrow aspirate and biopsy with him but he is undecided about bone marrow biopsy at this time. He states wants to follow with the "blood tests and monitoring of it for now, but will let me know if he changed his mind" Check flow cytometry and MDS FISH panel on peripheral blood - discussed with him and he agreed to those at this time Check KARL lupus anticoagulant cardiolipin IgG and IgM check epo copper level, iron tibc ferritin b12 and folate and immature platelet fraction Check venous doppler of his legs Monitor daily fibrinogen level - cryoprecipitate as needed to keep fibrinogen >/ =100. He received cryoprecipitate 5 pack x 2 since admitted. Thrombocytopenia stable today Thank you for consult
[2016-12-10 19:51] LABS: FERRITIN 327.5 ng/ml (8.0-388.0)
--- NOTE | 2016-12-10 22:38 | Progress Note ---
Medicine Progress Note Date & Time of Visit: Dec 10, 2016 at 11:09. Subjective 81 yo asymptomatic male presents to the ER for abnormal routine blood work and admitted with DIC -pt continues to be asymptomatic this morning. Objective Last 8 Hrs Date Time Temp Pulse Resp B/P (MAP) Pulse Ox O2 Delivery O2 Flow Rate FiO2 12/10/16 10:49 36.8 57 18 108/59 12/10/16 08:00 Room Air 12/10/16 07:24 36.8 53 18 115/72 (86) 93 Room Air 12/10/16 04:13 36.6 56 18 111/63 (79) 90 Room Air Physical Exam: GEN: WNWD, in no acute distress, alert and appropriate HEENT: NC/AT, PERRL, normal sclerae, MMM CARDIO: reg rate, S1/2 heard without m/g/r LUNGS: CTA bilaterally, no crackles, rales or wheezes, good diaphragmatic excursion ABD: soft, non-tender, non-distended, no rebound or guarding, +BS EXTREMITY: RP and DP palpable 2+ bilat, bilateral swelling LE, no edema, extremities are warm and well-perfused NEURO: CN 2-12 grossly intact, sensation intact throughout, no gross focal deficits. MUSC: moves all extremities equally SKIN: warm and dry, no petechiae or rash noted. No bruising Laboratory Results: 12/10/16 05:31 Red Blood Count 3.14, Mean Corpuscular Volume 88.5, Mean Corpuscular Hemoglobin 27.4, Mean Corpuscular Hemoglobin Concent 30.9, Neutrophils (%) (Auto) 44.6, Lymphocytes (%) (Auto) 44.3, Monocytes (%) (Auto) 10.3, Eosinophils (%) (Auto) 0.0, Basophils (%) (Auto) 0.4, Neutrophils # (Auto) 1.17, Lymphocytes # (Auto) 1.16, Monocytes # (Auto) 0.27, Eosinophils # (Auto) 0.00, Basophils # (Auto) 0.01 12/10/16 05:31 Test 12/09/16 16:40 12/09/16 16:53 12/09/16 18:35 12/10/16 05:31 Smudge Cells PRESENT Acanthocytes 1+ Phosphorus Level 3.2 mg/dl (2.5-4.9) Magnesium Level 2.3 mg/dl (1.8-2.4) Total Bilirubin 1.5 mg/dl (0.2-1) Aspartate Amino Transf (AST/SGOT) 37 U/L (15-37) Alanine Aminotransferase (ALT/SGPT) 43 U/L (12-78) Alkaline Phosphatase 136 U/L (45-117) Total Creatine Kinase 22 U/L (39-308) Creatine Kinase MB 1.2 ng/ml (0.5-3.6) Creatine Kinase MB Ratio 5.5 (0-3.0) Troponin I < 0.015 ng/ml (0-0.045) C-Reactive Protein 0.72 mg/dl (0-0.29) Pro-B-Type Natriuretic Peptide 3290 pg/ml (0-1800) Total Protein 7.1 gm/dl (6.4-8.2) Albumin 2.9 gm/dl (3.4-5.0) Globulin 4.2 gm/dl (2.5-4.0) Albumin/Globulin Ratio 0.7 (0.9-2) Lipase 407 U/L (73-393) Bedside Lactic Acid Venous 0.94 mmol/L (0.90-1.70) Urine Color YELLOW Urine Appearance CLEAR (CLEAR) Urine pH 5.0 (4.5-7.5) Urine Specific [place] 1.015 (1.000-1.030) Urine Protein TRACE (NEG) Urine Glucose (UA) NEG (NEG) Urine Ketones NEG (NEG) Urine Occult Blood TRACE (NEG) Urine Nitrite NEG (NEG) Urine Bilirubin NEG (NEG) Urine Urobilinogen NEG (NEG) Urine Leukocyte Esterase NEG (NEG) Urine WBC (Auto) 1-5 /hpf (0-5) Urine RBC (Auto) 0-4 /hpf (0-4) Urine Hyaline Casts (Auto) 1-5 /lpf (0-5) Urine Epithelial Cells (Auto) 5-10 /lpf (0-5) Urine Bacteria (Auto) NEG (NEG) White Blood Count 2.62 K/uL (4.8-10.8) Red Blood Count 3.14 M/uL (4.7-6.1) Hemoglobin 8.6 g/dL (14.0-18.0) Hematocrit 27.8 % (42-52) Mean Corpuscular Volume 88.5 fL (80-100) Mean Corpuscular Hemoglobin 27.4 pg (25-34) Mean Corpuscular Hemoglobin Concent 30.9 g/dl (32-36) Platelet Count 36 K/uL (130-400) Neutrophils (%) (Auto) 44.6 % Lymphocytes (%) (Auto) 44.3 % Monocytes (%) (Auto) 10.3 % Eosinophils (%) (Auto) 0.0 % Basophils (%) (Auto) 0.4 % Neutrophils # (Auto) 1.17 K/uL (1.4-6.5) Lymphocytes # (Auto) 1.16 K/uL (1.2-3.4) Monocytes # (Auto) 0.27 K/uL (0.11-0.59) Eosinophils # (Auto) 0.00 K/uL (0-0.5) Basophils # (Auto) 0.01 K/uL (0-0.2) RDW Standard Deviation 52.5 fL (36.4-46.3) RDW Coefficient of Variation 16.3 % (11.5-14.5) Immature Granulocyte % (Auto) 0.4 % Immature Granulocyte # (Auto) 0.01 K/uL (0.00-0.02) Nucleated RBC Absolute Count (auto) 0.02 K/uL (0-0) Nucleated Red Blood Cells % 0.9 % Platelet Estimate DECREASED Giant Platelets 1+ Prothrombin Time 14.8 SECONDS (9.0-12.0) Prothromb Time International Ratio 1.4 (0.9-1.1) Activated Partial Thromboplast Time 45.8 SECONDS (21.0-31.0) Partial Thromboplastin Ratio 1.8 Fibrinogen 86 mg/dl (184-400) Fibrin Degradation Products >40 mcg/ml (<10) D-Dimer 5410 ug/L FEU (0-500) Anion Gap 5.0 mmol/L (3-11) Est Creatinine Clear Calc Drug Dose 29.7 ml/min Estimated GFR () 40.6 Estimated GFR (Non- 35.0 BUN/Creatinine Ratio 24.5 (10-20) Calcium Level 9.0 mg/dl (8.5-10.1) Lactate Dehydrogenase 245 U/L (87-241) Test 12/10/16 18:36 12/10/16 19:00 Immature Platelet Fraction 15.6 % (0.9-8.3) Erythrocyte Sedimentation Rate 8 mm/hr (0-14) Absolute Reticulocyte Count 0.06 10^6/uL (0.02-0.10) Percent Reticulocyte Count 1.8 % (0.5-2.0) Total Iron Binding Capacity 230 mcg/dl (250-450) Ferritin 327.5 ng/ml (8.0-388.0) Vitamin B12 Level 997 pg/mL (211-911) Folate > 24.00 ng/mL (>5.38) Date/Time Source Procedure Growth Status 12/09/16 16:55 Blood Blood Culture Pending Received 12/09/16 20:54 Urine , Clean Catch Urine Culture - Preliminary NO GROWTH - LESS THAN 1,000 COLONIES/... Resulted Last 24 Hours Test 12/09/16 16:40 12/09/16 16:53 12/09/16 17:28 12/09/16 18:35 White Blood Count 3.38 K/uL Red Blood Count 3.29 M/uL Hemoglobin 9.4 g/dL Hematocrit 29.2 % Mean Corpuscular Volume 88.8 fL Mean Corpuscular Hemoglobin 28.6 pg Mean Corpuscular Hemoglobin Concent 32.2 g/dl Platelet Count 34 K/uL Neutrophils (%) (Auto) 40.5 % Lymphocytes (%) (Auto) 50.0 % Monocytes (%) (Auto) 8.9 % Eosinophils (%) (Auto) 0.0 % Basophils (%) (Auto) 0.3 % Neutrophils # (Auto) 1.37 K/uL Lymphocytes # (Auto) 1.69 K/uL Monocytes # (Auto) 0.30 K/uL Eosinophils # (Auto) 0.00 K/uL Basophils # (Auto) 0.01 K/uL RDW Standard Deviation 52.3 fL RDW Coefficient of Variation 16.2 % Immature Granulocyte % (Auto) 0.3 % Immature Granulocyte # (Auto) 0.01 K/uL Nucleated RBC Absolute Count (auto) 0.02 K/uL Nucleated Red Blood Cells % 0.7 % Smudge Cells PRESENT Acanthocytes 1+ Absolute Reticulocyte Count 0.05 10^6/uL Percent Reticulocyte Count 1.7 % Prothrombin Time 15.5 SECONDS Prothromb Time International Ratio 1.4 Activated Partial Thromboplast Time 41.3 SECONDS Partial Thromboplastin Ratio 1.6 Fibrinogen 75 mg/dl D-Dimer 8570 ug/L FEU Sodium Level 136 mmol/L Potassium Level 4.4 mmol/L Chloride Level 107 mmol/L Carbon Dioxide Level 25 mmol/L Anion Gap 4.0 mmol/L Blood Urea Nitrogen 47 mg/dl Creatinine 2.00 mg/dl Est Creatinine Clear Calc Drug Dose 26.7 ml/min Estimated GFR () 35.7 Estimated GFR (Non- 30.8 BUN/Creatinine Ratio 23.7 Random Glucose 101 mg/dl Calcium Level 8.9 mg/dl Phosphorus Level 3.2 mg/dl Magnesium Level 2.3 mg/dl Total Bilirubin 1.5 mg/dl Aspartate Amino Transf (AST/SGOT) 37 U/L Alanine Aminotransferase (ALT/SGPT) 43 U/L Alkaline Phosphatase 136 U/L Total Creatine Kinase 22 U/L Creatine Kinase MB 1.2 ng/ml Creatine Kinase MB Ratio 5.5 Troponin I < 0.015 ng/ml C-Reactive Protein 0.72 mg/dl Pro-B-Type Natriuretic Peptide 3290 pg/ml Total Protein 7.1 gm/dl Albumin 2.9 gm/dl Globulin 4.2 gm/dl Albumin/Globulin Ratio 0.7 Lipase 407 U/L Bedside Lactic Acid Venous 0.94 mmol/L Fibrin Degradation Products >40 mcg/ml Urine Color YELLOW Urine Appearance CLEAR Urine pH 5.0 Urine Specific [place] 1.015 Urine Protein TRACE Urine Glucose (UA) NEG Urine Ketones NEG Urine Occult Blood TRACE Urine Nitrite NEG Urine Bilirubin NEG Urine Urobilinogen NEG Urine Leukocyte Esterase NEG Urine WBC (Auto) 1-5 /hpf Urine RBC (Auto) 0-4 /hpf Urine Hyaline Casts (Auto) 1-5 /lpf Urine Epithelial Cells (Auto) 5-10 /lpf Urine Bacteria (Auto) NEG Test 12/10/16 05:31 White Blood Count 2.62 K/uL Red Blood Count 3.14 M/uL Hemoglobin 8.6 g/dL Hematocrit 27.8 % Mean Corpuscular Volume 88.5 fL Mean Corpuscular Hemoglobin 27.4 pg Mean Corpuscular Hemoglobin Concent 30.9 g/dl Platelet Count 36 K/uL Neutrophils (%) (Auto) 44.6 % Lymphocytes (%) (Auto) 44.3 % Monocytes (%) (Auto) 10.3 % Eosinophils (%) (Auto) 0.0 % Basophils (%) (Auto) 0.4 % Neutrophils # (Auto) 1.17 K/uL Lymphocytes # (Auto) 1.16 K/uL Monocytes # (Auto) 0.27 K/uL Eosinophils # (Auto) 0.00 K/uL Basophils # (Auto) 0.01 K/uL RDW Standard Deviation 52.5 fL RDW Coefficient of Variation 16.3 % Immature Granulocyte % (Auto) 0.4 % Immature Granulocyte # (Auto) 0.01 K/uL Nucleated RBC Absolute Count (auto) 0.02 K/uL Nucleated Red Blood Cells % 0.9 % Platelet Estimate DECREASED Giant Platelets 1+ Prothrombin Time 14.8 SECONDS Prothromb Time International Ratio 1.4 Activated Partial Thromboplast Time 45.8 SECONDS Partial Thromboplastin Ratio 1.8 Fibrinogen 86 mg/dl Fibrin Degradation Products >40 mcg/ml D-Dimer 5410 ug/L FEU Sodium Level 139 mmol/L Potassium Level 4.1 mmol/L Chloride Level 109 mmol/L Carbon Dioxide Level 25 mmol/L Anion Gap 5.0 mmol/L Blood Urea Nitrogen 44 mg/dl Creatinine 1.80 mg/dl Est Creatinine Clear Calc Drug Dose 29.7 ml/min Estimated GFR () 40.6 Estimated GFR (Non- 35.0 BUN/Creatinine Ratio 24.5 Random Glucose 88 mg/dl Calcium Level 9.0 mg/dl Lactate Dehydrogenase 245 U/L Date/Time Source Procedure Growth Status 12/09/16 16:55 Blood Blood Culture Pending Received 12/09/16 16:40 Blood Blood Culture Pending Received 12/09/16 20:54 Urine , Clean Catch Urine Culture Pending Received Assessment & Plan 81 yo asymptomatic male presents to the ER for abnormal routine blood work and admitted with DIC. 1. DIC poss 2/2 malignancy-current workup in place by Hematology who was consulted. Platelets steady today, INR same at 1.4. Fibrinogen still <100 so repeat cryo transfusion was given. Repeat periph smear pending. Flow cytometry order per Hematology. They are considering BM biopsy but the patient is not interested at this time. No active bleeding. 2. DEE DEE on CKD III-creat improved from 2.0 to 1.8. Baseline is around 1.4. Cont holding Lasix at this time. 3. Renal lesions: repeat retroperitoneal us with likely take place on Mon. CT a/p from last hospitalization 07/2016- Bilateral renal cysts, and small bilateral indeterminate renal lesions 4. CAD: Stable, no anginal symptoms. Continue aspirin, beta anthony, statin 5. CHRONIC DIASTOLIC CHF: Currently compensated, Hold Lasix for DEE DEE 6. AORTIC ANEURYSM: S/p graft repair 2009. CT chest showed increased distension- Max diameter currently is 6.5 cm- upon chart review the CT dissection in 07/2016 showed max diameter 6.1 cm; was 5.7 cm in 01/2015. With increasing size will ask vascular surgery to evaluate. 7. HTN: BP is stable, Continue carvediloln 8. Pancytopenia-likely 2/2 ongoing BM process. Pt refusing BM biopsy at this point. DVT PROPHYLAXIS GRANT's due to thrombocytopenia FULL CODE DISPOSITION Admit to med/ surg Resides at [facility]- [place] planning eval requested. Sophie Rodrigues DO [facility] Hospitalist. Current Inpatient Medications: Current Inpatient Medications Medications (Trade) Dose Ordered Sig/Song Route Start Time Stop Time Status Last Admin Dose Admin Acetaminophen (Tylenol Tab) 650 mg Q4H PRN PO 12/09/16 19:30 01/08/17 19:29 Ondansetron HCl (Zofran Inj) 4 mg Q6H PRN IV 12/09/16 19:30 01/08/17 19:29 Atorvastatin Calcium (Lipitor Tab) 80 mg DAILY PO 12/10/16 08:00 01/09/17 07:59 12/10/16 08:23 80 MG Carvedilol (Coreg Tab) 6.25 mg BID PO 12/10/16 08:00 01/09/17 07:59 Multivitamins/ Minerals (Multivitamin W/ Minerals Tab) 1 tab DAILY PO 12/10/16 08:00 01/09/17 07:59 12/10/16 08:23 1 TAB Potassium Chloride (Klor-Con Tab) 20 meq QAM PO 12/10/16 08:00 01/09/17 07:59 12/10/16 08:22 20 MEQ Terazosin HCl (Hytrin Cap) 5 mg HS PO 12/09/16 21:00 01/08/17 20:59 12/09/16 21:36 5 MG Multi-Ingredient Ointment (Eucerin Unscented Cr) 1 appln DAILY EXT 12/10/16 08:00 01/09/17 07:59 12/10/16 08:21 1 APPLN Pantoprazole Sodium (Protonix Tab) 40 mg BID PO 12/10/16 08:00 01/09/17 07:59 12/10/16 08:22 40 MG Acetaminophen (Tylenol Tab) 650 mg TODAY@0845 PO 12/10/16 08:45 12/10/16 14:00 12/10/16 10:28 650 MG Diphenhydramine HCl (Benadryl Cap) 25 mg TODAY@0845 PO 12/10/16 08:45 12/10/16 12:00 12/10/16 10:28 25 MG
[2016-12-11] VITALS (8 sets, daily range): BP systolic 101–130; BP diastolic 57–70; PULSE 48–87; TEMP 36.6–38.4; O2SAT 92–97
[2016-12-11] MEDS: ACETAMINOPHEN 325 MG TAB PO PRN (03:44)
[2016-12-11 07:30] LABS: HEMATOCRIT 26.8 % (42-52); MEAN CORPUSCULAR HEMOGLOBIN 27.6 pg (25-34); MEAN PLATELET VOLUME 12.3 fL (7.4-10.4); PLATELET COUNT 44 K/uL (130-400); RED BLOOD COUNT 3.01 M/uL (4.7-6.1); WHITE BLOOD COUNT 2.92 K/uL (4.8-10.8)
[2016-12-11 07:43] LABS: INR 1.3 (0.9-1.1); PROTHROMBIN TIME (PATIENT) 14.3 SECONDS (9.0-12.0)
[2016-12-11 07:59] LABS: BUN/CREATININE RATIO 20.9 (10-20); CALCIUM 8.5 mg/dl (8.5-10.1); CREATININE 1.9 mg/dl (0.60-1.40); POTASSIUM 4.2 mmol/L (3.5-5.1)
[2016-12-11] MEDS: PANTOprazole SOD 40 MG TAB PO SCH ×2 (08:20→20:13)
[2016-12-11] MEDS: EUCERIN CR 120 GM JAR EXT SCH (08:20)
[2016-12-11] MEDS: ATORVASTATIN 40 MG TAB PO SCH (08:20)
[2016-12-11] MEDS: CEROVITE ADV FORMULA TAB PO SCH (08:20)
[2016-12-11] MEDS: CARVEDILOL 6.25 MG TAB PO SCH ×2 (08:21→20:00)
[2016-12-11] MEDS: POTASSIUM CHLORIDE 20 MEQ TABCR PO SCH (08:21)
[2016-12-11 08:24] LABS: BASO % 0.3 %; BASO ABS # 0.01 K/uL (0-0.2); COMPLETE YES; LYMPH ABS # 1.46 K/uL (1.2-3.4); MONO % 7.5 %; NEUT % 42.2 %; POIKILOCYTOSIS PRESENT
--- NOTE | 2016-12-11 09:51 | DIAGNOSTIC IMAGING REPORT ---
ABD/PELVIS NO IV OR ORAL CONT CT DOSE: 528.20 mGy.cm HISTORY: Neoplasm 81 yo with chronic DIC, concern for underlying malignancy TECHNIQUE: Multiaxial CT images of the abdomen and pelvis were performed without contrast. A dose lowering technique was utilized adhering to the principles of ALARA. COMPARISON STUDY: 08/03/2016 FINDINGS: Aneurysmal dilatation of the descending thoracic aorta measuring 6 cm. This is unchanged from the prior study. Mild bibasilar atelectasis. Multiple gallstones and slightly contracted gallbladder. Splenomegaly measuring 18 cm somewhat increased in the prior study. Liver is uniform within limitations of an unenhanced scan. Multiple renal cysts as well as hyperdense cysts are stable. No evidence for hydronephrosis. Pancreas is unremarkable. Bowel pattern is nonobstructive. Slight infiltrative change of the omentum as well as pelvic and presacral fascial planes. This is similar as compared to the prior study. Bladder is midline. Bowel pattern is considered nonobstructive. Degenerative change of the osseous structures nonprogressive from the prior study. IMPRESSION: 1. Stable aneurysmal dilatation distal thoracic aorta. 2.. Mildly progressive splenomegaly. 3. Gallstones in a contracted gallbladder lumen. 4. Stable renal cysts as well as hyperdense cyst. 5. Nonobstructive bowel pattern. 6. Mild infiltrative change and or fluid of the abdominal and pelvic fascial planes similar compared to the prior study. The above report was generated using voice recognition software. It may contain grammatical, syntax or spelling errors. Electronically signed by: Cliff Christiansen M.D. 12/11/2016 9:50 AM Dictated Date/Time: 12/11/2016 9:46 AM
--- NOTE | 2016-12-11 09:54 | DIAGNOSTIC IMAGING REPORT ---
(RENAL)RETROPERITONEA COMP HISTORY: Renal lesions renal lesions COMPARISON: None. FINDINGS: Right kidney: Maximum dimension 11.5 cm. Multiple small cysts. Moderate cortical scarring Left kidney: Maximum dimension 11.3 cm. Multiple renal cysts. Bladder: No bladder wall thickening. In some noted is made of a sludge and gallstone filled gallbladder. Splenomegaly. IMPRESSION: Multiple renal cysts bilaterally. No evidence for hydronephrosis. Moderate renal cortical scarring. Gallstone/sludge filled gallbladder. Splenomegaly. The above report was generated using voice recognition software. It may contain grammatical, syntax or spelling errors. Electronically signed by: Cliff Christiansen M.D. 12/11/2016 9:53 AM Dictated Date/Time: 12/11/2016 9:51 AM
--- NOTE | 2016-12-11 09:55 | DIAGNOSTIC IMAGING REPORT ---
VENOUS DOPPLER LW EXT BILAT HISTORY: Pain. Edema. edema, elevated D dimer, rule out DVT COMPARISON STUDY: 08/18/2016 FINDINGS: There is normal compressibility, flow, and augmentation within the bilateral lower extremity deep venous systems. IMPRESSION: No DVT within the right or left lower extremity. The above report was generated using voice recognition software. It may contain grammatical, syntax or spelling errors. Electronically signed by: Cliff Christiansen M.D. 12/11/2016 9:54 AM Dictated Date/Time: 12/11/2016 9:53 AM
--- NOTE | 2016-12-11 16:53 | Progress Note ---
Medicine Progress Note Date & Time of Visit: Dec 11, 2016 at 13:47. Subjective 81 yo asymptomatic male presents to the ER for abnormal routine blood work and admitted with DIC. 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 -denies CP/SOB -tolerating PO -no bruising, bleeding or leg pain Objective Last 8 Hrs Date Time Temp Pulse Resp B/P (MAP) Pulse Ox O2 Delivery O2 Flow Rate FiO2 12/11/16 12:07 36.7 48 17 101/63 (76) 94 Room Air 12/11/16 09:40 Room Air 12/11/16 07:17 36.8 87 18 111/70 (84) 92 Room Air Physical Exam: GEN: WNWD, in no acute distress, alert and appropriate HEENT: NC/AT, PERRL, normal sclerae, MMM, pharynx non-acute, tonsils appear surgically absent, submandibular LAD present that is non-tender, no sinus TTP CARDIO: reg rate, 3/6 MARY JANE heard at [facility] (present since admission) LUNGS: CTA bilaterally, no crackles, rales or wheezes, good diaphragmatic excursion ABD: soft, non-tender, non-distended, no rebound or guarding, +BS EXTREMITY: RP and DP palpable 2+ bilat, bilateral swelling LE, no edema, extremities are warm and well-perfused NEURO: CN 2-12 grossly intact, sensation intact throughout, no gross focal deficits. MUSC: moves all extremities equally SKIN: warm and dry, no petechiae or rash noted. No bruising Laboratory Results: 12/11/16 07:06 Red Blood Count 3.01, Mean Corpuscular Volume 89.0, Mean Corpuscular Hemoglobin 27.6, Mean Corpuscular Hemoglobin Concent 31.0, Mean Platelet Volume 12.3, Neutrophils (%) (Auto) 42.2, Lymphocytes (%) (Auto) 50.0, Monocytes (%) (Auto) 7.5, Eosinophils (%) (Auto) 0.0, Basophils (%) (Auto) 0.3, Neutrophils # (Auto) 1.23, Lymphocytes # (Auto) 1.46, Monocytes # (Auto) 0.22, Eosinophils # (Auto) 0.00, Basophils # (Auto) 0.01 12/11/16 07:06 Test 12/09/16 16:40 12/09/16 16:53 12/09/16 18:35 12/10/16 05:31 Smudge Cells PRESENT Acanthocytes 1+ Phosphorus Level 3.2 mg/dl (2.5-4.9) Magnesium Level 2.3 mg/dl (1.8-2.4) Total Bilirubin 1.5 mg/dl (0.2-1) Aspartate Amino Transf (AST/SGOT) 37 U/L (15-37) Alanine Aminotransferase (ALT/SGPT) 43 U/L (12-78) Alkaline Phosphatase 136 U/L (45-117) Total Creatine Kinase 22 U/L (39-308) Creatine Kinase MB 1.2 ng/ml (0.5-3.6) Creatine Kinase MB Ratio 5.5 (0-3.0) Troponin I < 0.015 ng/ml (0-0.045) C-Reactive Protein 0.72 mg/dl (0-0.29) Pro-B-Type Natriuretic Peptide 3290 pg/ml (0-1800) Total Protein 7.1 gm/dl (6.4-8.2) Albumin 2.9 gm/dl (3.4-5.0) Globulin 4.2 gm/dl (2.5-4.0) Albumin/Globulin Ratio 0.7 (0.9-2) Lipase 407 U/L (73-393) Bedside Lactic Acid Venous 0.94 mmol/L (0.90-1.70) Urine Color YELLOW Urine Appearance CLEAR (CLEAR) Urine pH 5.0 (4.5-7.5) Urine Specific Chambers 1.015 (1.000-1.030) Urine Protein TRACE (NEG) Urine Glucose (UA) NEG (NEG) Urine Ketones NEG (NEG) Urine Occult Blood TRACE (NEG) Urine Nitrite NEG (NEG) Urine Bilirubin NEG (NEG) Urine Urobilinogen NEG (NEG) Urine Leukocyte Esterase NEG (NEG) Urine WBC (Auto) 1-5 /hpf (0-5) Urine RBC (Auto) 0-4 /hpf (0-4) Urine Hyaline Casts (Auto) 1-5 /lpf (0-5) Urine Epithelial Cells (Auto) 5-10 /lpf (0-5) Urine Bacteria (Auto) NEG (NEG) Nucleated RBC Absolute Count (auto) 0.02 K/uL (0-0) Nucleated Red Blood Cells % 0.9 % Platelet Estimate DECREASED Giant Platelets 1+ Activated Partial Thromboplast Time 45.8 SECONDS (21.0-31.0) Partial Thromboplastin Ratio 1.8 Fibrin Degradation Products >40 mcg/ml (<10) D-Dimer 5410 ug/L FEU (0-500) Lactate Dehydrogenase 245 U/L (87-241) Test 12/10/16 18:36 12/10/16 19:00 12/11/16 07:06 Immature Platelet Fraction 15.6 % (0.9-8.3) Erythrocyte Sedimentation Rate 8 mm/hr (0-14) Absolute Reticulocyte Count 0.06 10^6/uL (0.02-0.10) Percent Reticulocyte Count 1.8 % (0.5-2.0) Total Iron Binding Capacity 230 mcg/dl (250-450) Ferritin 327.5 ng/ml (8.0-388.0) Vitamin B12 Level 997 pg/mL (211-911) Folate > 24.00 ng/mL (>5.38) White Blood Count 2.92 K/uL (4.8-10.8) Red Blood Count 3.01 M/uL (4.7-6.1) Hemoglobin 8.3 g/dL (14.0-18.0) Hematocrit 26.8 % (42-52) Mean Corpuscular Volume 89.0 fL (80-100) Mean Corpuscular Hemoglobin 27.6 pg (25-34) Mean Corpuscular Hemoglobin Concent 31.0 g/dl (32-36) Platelet Count 44 K/uL (130-400) Mean Platelet Volume 12.3 fL (7.4-10.4) Neutrophils (%) (Auto) 42.2 % Lymphocytes (%) (Auto) 50.0 % Monocytes (%) (Auto) 7.5 % Eosinophils (%) (Auto) 0.0 % Basophils (%) (Auto) 0.3 % Neutrophils # (Auto) 1.23 K/uL (1.4-6.5) Lymphocytes # (Auto) 1.46 K/uL (1.2-3.4) Monocytes # (Auto) 0.22 K/uL (0.11-0.59) Eosinophils # (Auto) 0.00 K/uL (0-0.5) Basophils # (Auto) 0.01 K/uL (0-0.2) RDW Standard Deviation 53.8 fL (36.4-46.3) RDW Coefficient of Variation 16.4 % (11.5-14.5) Immature Granulocyte % (Auto) 0.0 % Immature Granulocyte # (Auto) 0.00 K/uL (0.00-0.02) Poikilocytosis PRESENT Prothrombin Time 14.3 SECONDS (9.0-12.0) Prothromb Time International Ratio 1.3 (0.9-1.1) Fibrinogen 99 mg/dl (184-400) Anion Gap 8.0 mmol/L (3-11) Est Creatinine Clear Calc Drug Dose 28.1 ml/min Estimated GFR () 38.0 Estimated GFR (Non- 32.8 BUN/Creatinine Ratio 20.9 (10-20) Calcium Level 8.5 mg/dl (8.5-10.1) Date/Time Source Procedure Growth Status 12/09/16 16:55 Blood Blood Culture - Preliminary NO GROWTH TO DATE. Resulted 12/09/16 20:54 Urine , Clean Catch Urine Culture - Final NO GROWTH - LESS THAN 1,000 COLONIES/ML Complete Last 24 Hours Test 12/10/16 18:36 12/10/16 19:00 12/11/16 07:06 Immature Platelet Fraction 15.6 % Erythrocyte Sedimentation Rate 8 mm/hr Absolute Reticulocyte Count 0.06 10^6/uL Percent Reticulocyte Count 1.8 % Total Iron Binding Capacity 230 mcg/dl Ferritin 327.5 ng/ml Vitamin B12 Level 997 pg/mL Folate > 24.00 ng/mL White Blood Count 2.92 K/uL Red Blood Count 3.01 M/uL Hemoglobin 8.3 g/dL Hematocrit 26.8 % Mean Corpuscular Volume 89.0 fL Mean Corpuscular Hemoglobin 27.6 pg Mean Corpuscular Hemoglobin Concent 31.0 g/dl Platelet Count 44 K/uL Mean Platelet Volume 12.3 fL Neutrophils (%) (Auto) 42.2 % Lymphocytes (%) (Auto) 50.0 % Monocytes (%) (Auto) 7.5 % Eosinophils (%) (Auto) 0.0 % Basophils (%) (Auto) 0.3 % Neutrophils # (Auto) 1.23 K/uL Lymphocytes # (Auto) 1.46 K/uL Monocytes # (Auto) 0.22 K/uL Eosinophils # (Auto) 0.00 K/uL Basophils # (Auto) 0.01 K/uL RDW Standard Deviation 53.8 fL RDW Coefficient of Variation 16.4 % Immature Granulocyte % (Auto) 0.0 % Immature Granulocyte # (Auto) 0.00 K/uL Poikilocytosis PRESENT Prothrombin Time 14.3 SECONDS Prothromb Time International Ratio 1.3 Fibrinogen 99 mg/dl Sodium Level 143 mmol/L Potassium Level 4.2 mmol/L Chloride Level 110 mmol/L Carbon Dioxide Level 25 mmol/L Anion Gap 8.0 mmol/L Blood Urea Nitrogen 40 mg/dl Creatinine 1.90 mg/dl Est Creatinine Clear Calc Drug Dose 28.1 ml/min Estimated GFR () 38.0 Estimated GFR (Non- 32.8 BUN/Creatinine Ratio 20.9 Random Glucose 90 mg/dl Calcium Level 8.5 mg/dl Assessment & Plan 81 yo asymptomatic male presents to the ER for abnormal routine blood work and admitted with DIC. 1. DIC poss 2/2 malignancy-current workup in place by Hematology who was consulted. Platelets improved to 44 today without platelet transfusion, INR down to 1.3. Fibrinogen is 99-no repeat cryo transfusion at this time and will see what the repeat is tomorrow morning. Repeat perippheral smear unremarkable per Hematology. Flow cytometry and FISH ordered and pending, likely until after discharge. Pt is declining BM biopsy at this time with plans to follow- up with Dr. Suero in the office post-discharge. Feverish last night and has a productive cough without any other symptoms reported since admission. Swollen submandibular glans on exam with normal pharynx, clear lungs to auscultation and recent chest CT did not show any pneumonia. Poss URI vs constitutional symptom in setting of malignancy. Leaning towards URI as an etiology as he doesn't get persistent fevers and has no other constitutional symptoms. Plus, he has a cough and swollen LNs in the neck indicating acute infection. Of note , he states that the cough began after the recent outpatient bloodwork which brought him in here. CT a/p this morning with nonspecific findings and no overt malignancy. Bone scan in am recommended per Hematology. 2. DEE DEE on CKD III-creat improved from 2.0 to 1.8. Baseline is around 1.4. Cont holding Lasix at this time. Urine studies ordered. In setting of fever, adding IVF overnight to combat against insensible losses. Re-evaluate in am. 3. Renal lesions: repeat retroperitoneal us with stable renal cysts and hyperdense lesions. CT a/p from last hospitalization 07/2016- Bilateral renal cysts, and small bilateral indeterminate renal lesions. As renal lesions may be playing a role in DIC if malignant, will ask Urology to evaluate. Appreciate recs. 4. CAD: Stable, no anginal symptoms. Continue aspirin, beta anthony, statin 5. CHRONIC DIASTOLIC CHF: Currently compensated, Hold Lasix for DEE DEE 6. AORTIC ANEURYSM: S/p graft repair 2009. CT chest showed increased distension- Max diameter currently is 6.5 cm- upon chart review the CT dissection in 07/2016 showed max diameter 6.1 cm; was 5.7 cm in 01/2015. With increasing size will ask vascular surgery to evaluate. 7. HTN: BP is stable, Continue carvedilol 8. Pancytopenia-likely 2/2 ongoing BM process. Pt refusing BM biopsy at this point. FISH and flow cytometry pending. Per Heme, wants to see PLTs >50 prior to discharge DVT PROPHYLAXIS GRANT's due to thrombocytopenia FULL CODE DISPOSITION Admit to med/ surg Resides at [facility] back in next 1-2 days. Will obtain PT/OT evals if needed; appreciate CM letting me know if needed. Thanks! Sophie Rodrigues DO [facility] Hospitalist. Consultants: Urology, Hematology-Dr. Fransisco Suero Current Inpatient Medications: Current Inpatient Medications Medications (Trade) Dose Ordered Sig/Song Route Start Time Stop Time Status Last Admin Dose Admin Acetaminophen (Tylenol Tab) 650 mg Q4H PRN PO 12/09/16 19:30 01/08/17 19:29 12/11/16 03:44 650 MG Ondansetron HCl (Zofran Inj) 4 mg Q6H PRN IV 12/09/16 19:30 01/08/17 19:29 Atorvastatin Calcium (Lipitor Tab) 80 mg DAILY PO 12/10/16 08:00 01/09/17 07:59 12/11/16 08:20 80 MG Carvedilol (Coreg Tab) 6.25 mg BID PO 12/10/16 08:00 01/09/17 07:59 12/11/16 08:21 6.25 MG Multivitamins/ Minerals (Multivitamin W/ Minerals Tab) 1 tab DAILY PO 12/10/16 08:00 01/09/17 07:59 12/11/16 08:20 1 TAB Potassium Chloride (Klor-Con Tab) 20 meq QAM PO 12/10/16 08:00 01/09/17 07:59 12/11/16 08:21 20 MEQ Terazosin HCl (Hytrin Cap) 5 mg HS PO 12/09/16 21:00 01/08/17 20:59 12/10/16 19:44 5 MG Multi-Ingredient Ointment (Eucerin Unscented Cr) 1 appln DAILY EXT 12/10/16 08:00 01/09/17 07:59 12/11/16 08:20 1 APPLN Pantoprazole Sodium (Protonix Tab) 40 mg BID PO 12/10/16 08:00 01/09/17 07:59 12/11/16 08:20 40 MG
[2016-12-11] MEDS: SODIUM CHLORIDE 0.9% 1000ML 1,000 ML IV SCH (17:12)
--- NOTE | 2016-12-11 22:00 | Urology Consultation ---
History General Date of Service: Dec 11, 2016. Primary Care Physician: Treasure Farmer History of Present Illness 81 year old male with PMH of CAD, chronic diastolic heart failure, s/p AVR, aortic aneurysm, CKD stage III, and other problems listed below who was sent to the ED for abnormal labs from 12/08/16. Patient was admitted to [facility] in July- August 2016 for acute DIC 2/2 sepsis from enterococcus UTI, DEE DEE on CKD III, hypophosphatemia. During the admission a CT scan was performed. This showed multiple renal lesions consistent with both simple and complex hyperdense cysts. They are bilateral and vary in location on the kidney and in shape and size. The CT scan was done without contrast so we cannot comment on any enhancing component to the lesions. No hydronephrosis. No kidney stones. The patients denies hematuria. No dysuria. Hx of BPH. Normally voids well. Min urge and freq. Nocturia. Urology was consulted to evaluated the renal lesions for possible role in DIC. Imaging Imaging: CT Laboratory Labs were reviewed and are within normal limits unless listed below. Labs are available in the chart and at [facility] Problem List Medical Problems: (1) ARF (acute renal failure) Status: Acute (2) Thrombocytopenia Status: Acute (3) Thrombocytopenia Status: Acute (4) Weakness Status: Acute Family History Patient reports no known family medical history. Social History Hx Tobacco Use In Past Year?: No Housing status: other (Treasure Farmer) Occupation status: retired Immunizations History of Influenza Vaccine: N/A History of Tetanus Vaccine?: Yes History of Pneumococcal: Yes History of Hepatitis B Vaccine: No History of MDRO No Allergies Coded Allergies: Penicillins (Verified Allergy, Unknown, ITCH,RASH, 02/26/15) ITCHY Medications Home Medications: Home Meds and Scripts Medications Dose Route/Sig Max Daily Dose Days Date Category Dose Instructions Tylenol (Acetaminophen) 325 Mg Tab 650 Mg PO Q6H PRN 12/09/16 Reported MAXIMUM 3 GMS APAP/24 HOURS Hytrin (Terazosin HCl) 5 Mg Cap 5 Mg PO HS 12/09/16 Reported Lubriderm (Emollient) 1 Lot Lot 1 Appln TOP DAILY 12/09/16 Reported APPLY TO LOWER LEGS DAILY I-Rayray (Multiple Vitamins W/ Minerals) 1 Tab Tab 1 Tab PO DAILY 12/09/16 Reported Coreg (Carvedilol) 6.25 Mg Tab 6.25 Mg PO BID 12/09/16 Reported Fish Oil ([place]-3 Fatty Acids) 1 Cap Cap 1 Cap PO BID 12/09/16 Reported Centrum Silver Adult 50+ (Multiple Vitamins W/ Minerals) 1 Tab Tab 1 Tab PO DAILY 12/09/16 Reported Lasix (Furosemide) 40 Mg Tab 40 Mg PO BID 12/09/16 Reported Lipitor (Atorvastatin Calcium) 80 Mg Tab 80 Mg PO DAILY 01/03/14 Reported Klor-Con (Potassium Chloride) 20 Meq Tabcr 20 Meq PO QAM 07/26/11 Reported Prilosec (Omeprazole) 20 Mg Capcr 20 Mg PO BID 05/28/09 Reported TAKE THIS MEDICATION TWICE DAILY 30 MINUTES BEFORE A MEAL Inpatient Medications: Current Inpatient Medications Medications (Trade) Dose Ordered Sig/Song Route Start Time Stop Time Status Last Admin Dose Admin Acetaminophen (Tylenol Tab) 650 mg Q4H PRN PO 12/09/16 19:30 01/08/17 19:29 12/11/16 03:44 650 MG Ondansetron HCl (Zofran Inj) 4 mg Q6H PRN IV 12/09/16 19:30 01/08/17 19:29 Atorvastatin Calcium (Lipitor Tab) 80 mg DAILY PO 12/10/16 08:00 01/09/17 07:59 12/11/16 08:20 80 MG Carvedilol (Coreg Tab) 6.25 mg BID PO 12/10/16 08:00 01/09/17 07:59 12/11/16 08:21 6.25 MG Multivitamins/ Minerals (Multivitamin W/ Minerals Tab) 1 tab DAILY PO 12/10/16 08:00 01/09/17 07:59 12/11/16 08:20 1 TAB Potassium Chloride (Klor-Con Tab) 20 meq QAM PO 12/10/16 08:00 01/09/17 07:59 12/11/16 08:21 20 MEQ Terazosin HCl (Hytrin Cap) 5 mg HS PO 12/09/16 21:00 01/08/17 20:59 12/11/16 20:54 5 MG Multi-Ingredient Ointment (Eucerin Unscented Cr) 1 appln DAILY EXT 12/10/16 08:00 01/09/17 07:59 12/11/16 08:20 1 APPLN Pantoprazole Sodium (Protonix Tab) 40 mg BID PO 12/10/16 08:00 01/09/17 07:59 12/11/16 20:13 40 MG Sodium Chloride 1,000 ml @ 100 mls/hr Q10H IV 12/11/16 16:45 12/12/16 12:44 12/11/16 17:12 100 MLS/HR Review of Systems Review of Systems Constitutional: No fever Eyes: No blurred vision Neurological: No dizzy Gastrointestinal: + abdominal pain Cardiovascular: + chest pain Respiratory: + shortness of breath Blood / Lymphatic: + bleed easily Male : + frequent urination, + urinary retention, + nocturia more than once/ night All Other Systems: Reviewed and Negative Physical Exam Vital Signs: Vital Signs Past 12 Hours Date Time Temp Pulse Resp B/P (MAP) Pulse Ox O2 Delivery O2 Flow Rate FiO2 12/11/16 20:16 50 103/57 (72) 12/11/16 19:35 36.9 54 18 106/60 (75) 94 Room Air 12/11/16 14:22 36.6 49 16 124/62 (82) 97 Room Air 12/11/16 12:07 36.7 48 17 101/63 (76) 94 Room Air Physical Exam: General Appearance: WD/WN ENT: normal ENT inspection Neck: supple, no adenopathy Respiratory/Chest: lungs clear Cardiovascular: regular rate, rhythm Extremities: non-tender Neurologic/Psychiatric: alert Skin: normal color Lymphatic: no adenopathy Assessment & Plan Assessment & Plan (1) Renal lesion Status: Chronic Permanent Comment: CT a/p 07/2016- Bilateral renal cysts, and small bilateral indeterminate renal lesions Last Edited By: Apple Peck on Dec 09, 2016 20: 37 (2) BPH (benign prostatic hypertrophy) Status: Chronic The CT scan shows multiple lesions within the kidney. Some appear to be simple renal cysts, benign in nature, and other appear to be slightly more complex, either full of protein or blood. Without the administration of contrast it is difficult to definitively say weather or not any of these have malignant potential. I do not feel like they would be a cause of his DIC. I would suspect the renal masses to be much larger if they were to cause such systemic effects. Given his elevated Cr, it is probably not feasible to give in a contrasted study at this time. An MRI may shed further light onto the malignant potential of these lesions as well or a percutaneous biopsy of the most concerning appearing lesion; however, I would rec searching for other potential causes of his DIC before heading down that path.
[2016-12-12] VITALS (9 sets, daily range): BP systolic 78–132; BP diastolic 46–66; PULSE 49–62; TEMP 36.5–37; O2SAT 94–96
[2016-12-12] MEDS: SODIUM CHLORIDE 0.9% 1000ML 1,000 ML IV SCH (02:49)
[2016-12-12 07:11] LABS: HEMATOCRIT 27.2 % (42-52); MEAN CELL VOLUME 88.9 fL (80-100); MEAN CORPUSCULAR HEMOGLOBIN 28.1 pg (25-34); MEAN CORPUSCULAR HGB CONC 31.6 g/dl (32-36); PLATELET COUNT 38 K/uL (130-400); RED BLOOD COUNT 3.06 M/uL (4.7-6.1); WHITE BLOOD COUNT 2.56 K/uL (4.8-10.8)
[2016-12-12 07:15] LABS: BUN/CREATININE RATIO 18.8 (10-20); CALCIUM 8.5 mg/dl (8.5-10.1); CREATININE 1.7 mg/dl (0.60-1.40); POTASSIUM 4.2 mmol/L (3.5-5.1)
[2016-12-12 07:24] LABS: BASO % 0.4 %; BASO ABS # 0.01 K/uL (0-0.2); COMPLETE YES; GIANT PLATELETS 1+; LYMPH % 47.3 %; LYMPH ABS # 1.21 K/uL (1.2-3.4); MONO % 10.9 %; NEUT % 41.4 %; SCHISTOCYTES 1+
[2016-12-12] MEDS: CARVEDILOL 6.25 MG TAB PO SCH (07:24)
[2016-12-12] MEDS: ATORVASTATIN 40 MG TAB PO SCH (07:25)
[2016-12-12] MEDS: CEROVITE ADV FORMULA TAB PO SCH (07:25)
[2016-12-12] MEDS: PANTOprazole SOD 40 MG TAB PO SCH ×2 (07:25→20:27)
[2016-12-12] MEDS: EUCERIN CR 120 GM JAR EXT SCH (07:26)
[2016-12-12] MEDS: POTASSIUM CHLORIDE 20 MEQ TABCR PO SCH (07:26)
--- NOTE | 2016-12-12 10:29 | Surgery Consultation ---
Consultation Date of Service Dec 12, 2016. Chief Complaint distal thoracic AA, 6.5cm History of Present Illness The patient is a 81 year old male with multiple medical problems, admitted with fatigue/malaise, and pancytopenia, seen in consultation for distal thoracic AA increased in size from 6.1 cm to 6.5 cm. Pt had CTA in 07/2016 during a different admission for pancytopenia which demonstrated thoracic AA 6.1cm. Now thoracic AA measuring 6.5cm by noncontrast CT. Pt thrombocytopenic at 34,000. Pt has been following with heme/onc, however, no definitive dx has been made d/ t pt refusal to undergo bone marrow bx. Pt himself denies any complaints at this time and states is feeling better than on arrival. Admits mild abd distention and diarrhea. Denies SORIA, fever, chills, chest pain, SOB, abd pain, N/ V, rest pain, claudication, other complaints. Pt previously underwent ascending aortic repair and AVR in 2009 at [facility]. Pt was determined in 2016 to be a poor surgical candidate for TAA repair d/t comorbidities. Currently resides at [facility], but does perform ADL's indepndently. Vitals Vital Signs Past 12 Hours Date Time Temp Pulse Resp B/P (MAP) Pulse Ox O2 Delivery O2 Flow Rate FiO2 12/12/16 07:10 37.0 58 20 121/66 (84) 94 Room Air 12/12/16 04:06 36.9 55 16 112/64 (80) 96 Room Air 12/12/16 00:00 Room Air 12/11/16 23:25 36.8 55 18 130/69 (89) 96 Room Air Allergies Coded Allergies: Penicillins (Verified Allergy, Unknown, ITCH,RASH, 02/26/15) ITCHY Home Medications Scheduled Atorvastatin (Lipitor), 80 MG PO DAILY Carvedilol (Coreg), 6.25 MG PO BID Emollient (Lubriderm), 1 APPLN TOP DAILY Furosemide (Lasix), 40 MG PO BID Multiple Vitamins W/ Minerals (Centrum Silver Adult 50+), 1 TAB PO DAILY Multiple Vitamins W/ Minerals (I-Rayray), 1 TAB PO DAILY [place]-3 Fatty Acids (Fish Oil), 1 CAP PO BID Omeprazole (Prilosec), 20 MG PO BID Potassium Ext Rel (Klor-Con), 20 MEQ PO QAM Terazosin (Hytrin), 5 MG PO HS Scheduled PRN Acetaminophen (Tylenol), 650 MG PO Q6H PRN for Pain or Fever Problem List Medical Problems: (1) Aortic stenosis (2) BPH (benign prostatic hypertrophy) (3) CAD (coronary artery disease) (4) CKD (chronic kidney disease) stage 3, GFR 30-59 ml/min (5) Dyslipidemia (6) GERD (gastroesophageal reflux disease) (7) History of disseminated intravascular coagulation (8) HTN (hypertension) (9) Pancytopenia (10) Renal lesion (11) Thoracic aneurysm (12) Thyroid cyst Surgical Problems: (1) H/O aortic aneurysm repair (2) H/O cataract removal with insertion of prosthetic lens (3) History of appendectomy (4) History of bilateral knee arthroplasty (5) History of tonsillectomy and adenoidectomy (6) S/P AVR (aortic valve replacement) Surgical / Medical History Hx Cardiac Surgery: Yes (valve replacement) Hx Abdominal Surgery: Yes (appendicitis - 1984) Hx Cancer Surgery: No Hx Thoracic Surgery: No Hx Orthopedic: Yes (knee replacement bilaterally) Hx Urinary Tract Surgery: No HX Other Surgery: No Past Medical/Surgical History: Blood Dyscrasias, Hypertension Family History Patient reports no known family medical history. Social History Smoking Status: Former Smoker (quit 35 years ago) Hx Tobacco Use In Past Year?: No Hx Alcohol Use - Type & Amnt: No Hx Substance Use -Type & Amnt: No Review of Systems Constitutional: + malaise, No chills, No fever Skin: No change in color Eyes: No visual changes ENMT: No sore throat Respiratory: No cough, No [place], No hemoptysis, No short of breath Cardiovascular: + edema, No chest pain, No palpitations, No syncope, No intermittent claudication Gastrointestinal: + diarrhea, No abdominal pain, No nausea, No vomiting, No anorexia Neurologic: No dizziness, No headache, No lethargy, No numbness, No tingling Physical Exam Constitutional: General Apperance: well-nourished, well-developed Level of Distress: NAD, chronically ill (pale) Psychiatric: Mental Status: active & alert, normal mood, normal affect Orientation: to time, to place, to person Memory: recent memory abnormal (vague) Head: normocephalic, atraumatic Eyes: EOM: EOMI ENMT: normal ENT inspection, hearing grossly normal Neck: supple, trachea midline Lungs: Respiratory effort: no dyspnea Auscultation: no rales/crackles, no rhonchi, decreased breath sounds Cardiovascular: Apical Impulse: not displaced Heart Auscultation: RRR, no rubs, no gallops Peripheral Pulses: Pulses: full and equal, in all extremities except if noted Bruits: none appreciated Carotid Pulse: normal on the left, normal on the right Brachial Pulses: normal on the left, normal on the right Radial Pulse: normal on the left, normal on the right Posterior Tibialis Pulse: decreased on the left, decreased on the right Dorsalis Pedis Pulse: decreased on the left, decreased on the right Abdomen: Bowel Sounds: normal Inspection & Palpation: soft, no tenderness, guarding & rebound, no masses, distended Musculoskeletal: normal strength (5/5 throughout), normal tone Extremities: Upper Right: no cyanosis, no edema, no varicosities Upper Left: no cyanosis, no edema, no varicosities Lower Right: no cyanosis, no varicosities, edema Lower Left: no cyanosis, no varicosities, edema Neurologic: Cranial Nerves: grossly intact Sensation: grossly intact Assessment and Plan ASSESSMENT and PLAN: Distal thoracic AA, increased to 6.5cm diameter Pancytopenia Hx aortic valve replacement and ascending aortic aneurysm repair Pt demonstrates growth of his thoracic AA, however, remains high risk for surgery d/t comorbidities. No evidence for rupture at this time. After discussion with Dr Morrissey, recommends eval for possible repair at tertiary center after medically stable. Please call if needed.
[2016-12-12] MEDS ORDERED: ACETAMINOPHEN 325 MG TAB PO SCH (11:30)
--- NOTE | 2016-12-12 11:39 | Progress Note ---
Medicine Progress Note Date & Time of Visit: Dec 12, 2016 at 11:29. Subjective 81 yo asymptomatic male presents to the ER for abnormal routine blood work and admitted with DIC. Pt reports feeling good (and is bored). No fevers or chills overnight, tolerating PO. Cough is improved. Objective Last 8 Hrs Date Time Temp Pulse Resp B/P (MAP) Pulse Ox O2 Delivery O2 Flow Rate FiO2 12/12/16 08:00 Room Air 12/12/16 07:10 37.0 58 20 121/66 (84) 94 Room Air 12/12/16 04:06 36.9 55 16 112/64 (80) 96 Room Air Physical Exam: GEN: WNWD, in no acute distress, alert and appropriate HEENT: NC/AT, pupils equal and round bilaterally, normal sclerae, MMM, submandibular LAD present that is non-tender CARDIO: reg rate, 3/6 MARY JANE heard at LUSB (present since admission) LUNGS: CTA bilaterally, no crackles, rales or wheezes, good diaphragmatic excursion ABD: soft, non-tender, non-distended, no rebound or guarding, +BS EXTREMITY: RP and DP palpable 2+ bilat, bilateral swelling LE, no edema, extremities are warm and well-perfused NEURO: CN 2-12 grossly intact, sensation intact throughout, no gross focal deficits. MUSC: moves all extremities equally SKIN: warm and dry, no petechiae or rash noted. No bruising Laboratory Results: 12/12/16 06:30 Red Blood Count 3.06, Mean Corpuscular Volume 88.9, Mean Corpuscular Hemoglobin 28.1, Mean Corpuscular Hemoglobin Concent 31.6, Mean Platelet Volume 12.0, Neutrophils (%) (Auto) 41.4, Lymphocytes (%) (Auto) 47.3, Monocytes (%) (Auto) 10.9, Eosinophils (%) (Auto) 0.0, Basophils (%) (Auto) 0.4, Neutrophils # (Auto ) 1.06, Lymphocytes # (Auto) 1.21, Monocytes # (Auto) 0.28, Eosinophils # (Auto ) 0.00, Basophils # (Auto) 0.01 12/12/16 06:30 Test 12/09/16 16:40 12/09/16 16:53 12/09/16 18:35 12/10/16 05:31 Smudge Cells PRESENT Acanthocytes 1+ Phosphorus Level 3.2 mg/dl (2.5-4.9) Magnesium Level 2.3 mg/dl (1.8-2.4) Total Bilirubin 1.5 mg/dl (0.2-1) Aspartate Amino Transf (AST/SGOT) 37 U/L (15-37) Alanine Aminotransferase (ALT/SGPT) 43 U/L (12-78) Alkaline Phosphatase 136 U/L (45-117) Total Creatine Kinase 22 U/L (39-308) Creatine Kinase MB 1.2 ng/ml (0.5-3.6) Creatine Kinase MB Ratio 5.5 (0-3.0) Troponin I < 0.015 ng/ml (0-0.045) C-Reactive Protein 0.72 mg/dl (0-0.29) Pro-B-Type Natriuretic Peptide 3290 pg/ml (0-1800) Total Protein 7.1 gm/dl (6.4-8.2) Albumin 2.9 gm/dl (3.4-5.0) Globulin 4.2 gm/dl (2.5-4.0) Albumin/Globulin Ratio 0.7 (0.9-2) Lipase 407 U/L (73-393) Bedside Lactic Acid Venous 0.94 mmol/L (0.90-1.70) Urine Color YELLOW Urine Appearance CLEAR (CLEAR) Urine pH 5.0 (4.5-7.5) Urine Specific [place] 1.015 (1.000-1.030) Urine Protein TRACE (NEG) Urine Glucose (UA) NEG (NEG) Urine Ketones NEG (NEG) Urine Occult Blood TRACE (NEG) Urine Nitrite NEG (NEG) Urine Bilirubin NEG (NEG) Urine Urobilinogen NEG (NEG) Urine Leukocyte Esterase NEG (NEG) Urine WBC (Auto) 1-5 /hpf (0-5) Urine RBC (Auto) 0-4 /hpf (0-4) Urine Hyaline Casts (Auto) 1-5 /lpf (0-5) Urine Epithelial Cells (Auto) 5-10 /lpf (0-5) Urine Bacteria (Auto) NEG (NEG) Blood Smear Review Platelet Estimate DECREASED Activated Partial Thromboplast Time 45.8 SECONDS (21.0-31.0) Partial Thromboplastin Ratio 1.8 Fibrin Degradation Products >40 mcg/ml (<10) D-Dimer 5410 ug/L FEU (0-500) Lactate Dehydrogenase 245 U/L (87-241) Test 12/10/16 19:00 12/11/16 07:06 12/12/16 06:30 Immature Platelet Fraction 15.6 % (0.9-8.3) Erythrocyte Sedimentation Rate 8 mm/hr (0-14) Absolute Reticulocyte Count 0.06 10^6/uL (0.02-0.10) Percent Reticulocyte Count 1.8 % (0.5-2.0) Total Iron Binding Capacity 230 mcg/dl (250-450) Ferritin 327.5 ng/ml (8.0-388.0) Vitamin B12 Level 997 pg/mL (211-911) Folate > 24.00 ng/mL (>5.38) Poikilocytosis PRESENT Prothrombin Time 14.3 SECONDS (9.0-12.0) Prothromb Time International Ratio 1.3 (0.9-1.1) White Blood Count 2.56 K/uL (4.8-10.8) Red Blood Count 3.06 M/uL (4.7-6.1) Hemoglobin 8.6 g/dL (14.0-18.0) Hematocrit 27.2 % (42-52) Mean Corpuscular Volume 88.9 fL (80-100) Mean Corpuscular Hemoglobin 28.1 pg (25-34) Mean Corpuscular Hemoglobin Concent 31.6 g/dl (32-36) Platelet Count 38 K/uL (130-400) Mean Platelet Volume 12.0 fL (7.4-10.4) Neutrophils (%) (Auto) 41.4 % Lymphocytes (%) (Auto) 47.3 % Monocytes (%) (Auto) 10.9 % Eosinophils (%) (Auto) 0.0 % Basophils (%) (Auto) 0.4 % Neutrophils # (Auto) 1.06 K/uL (1.4-6.5) Lymphocytes # (Auto) 1.21 K/uL (1.2-3.4) Monocytes # (Auto) 0.28 K/uL (0.11-0.59) Eosinophils # (Auto) 0.00 K/uL (0-0.5) Basophils # (Auto) 0.01 K/uL (0-0.2) RDW Standard Deviation 53.4 fL (36.4-46.3) RDW Coefficient of Variation 16.5 % (11.5-14.5) Immature Granulocyte % (Auto) 0.0 % Immature Granulocyte # (Auto) 0.00 K/uL (0.00-0.02) Nucleated RBC Absolute Count (auto) 0.02 K/uL (0-0) Nucleated Red Blood Cells % 0.9 % Giant Platelets 1+ Schistocytes 1+ Fibrinogen 76 mg/dl (184-400) Anion Gap 7.0 mmol/L (3-11) Est Creatinine Clear Calc Drug Dose 31.4 ml/min Estimated GFR () 43.5 Estimated GFR (Non- 37.5 BUN/Creatinine Ratio 18.8 (10-20) Calcium Level 8.5 mg/dl (8.5-10.1) Date/Time Source Procedure Growth Status 12/09/16 16:55 Blood Blood Culture - Preliminary NO GROWTH TO DATE. Resulted 12/09/16 20:54 Urine , Clean Catch Urine Culture - Final NO GROWTH - LESS THAN 1,000 COLONIES/ML Complete Last 24 Hours Test 12/12/16 06:30 White Blood Count 2.56 K/uL Red Blood Count 3.06 M/uL Hemoglobin 8.6 g/dL Hematocrit 27.2 % Mean Corpuscular Volume 88.9 fL Mean Corpuscular Hemoglobin 28.1 pg Mean Corpuscular Hemoglobin Concent 31.6 g/dl Platelet Count 38 K/uL Mean Platelet Volume 12.0 fL Neutrophils (%) (Auto) 41.4 % Lymphocytes (%) (Auto) 47.3 % Monocytes (%) (Auto) 10.9 % Eosinophils (%) (Auto) 0.0 % Basophils (%) (Auto) 0.4 % Neutrophils # (Auto) 1.06 K/uL Lymphocytes # (Auto) 1.21 K/uL Monocytes # (Auto) 0.28 K/uL Eosinophils # (Auto) 0.00 K/uL Basophils # (Auto) 0.01 K/uL RDW Standard Deviation 53.4 fL RDW Coefficient of Variation 16.5 % Immature Granulocyte % (Auto) 0.0 % Immature Granulocyte # (Auto) 0.00 K/uL Nucleated RBC Absolute Count (auto) 0.02 K/uL Nucleated Red Blood Cells % 0.9 % Giant Platelets 1+ Schistocytes 1+ Fibrinogen 76 mg/dl Sodium Level 142 mmol/L Potassium Level 4.2 mmol/L Chloride Level 110 mmol/L Carbon Dioxide Level 25 mmol/L Anion Gap 7.0 mmol/L Blood Urea Nitrogen 32 mg/dl Creatinine 1.70 mg/dl Est Creatinine Clear Calc Drug Dose 31.4 ml/min Estimated GFR () 43.5 Estimated GFR (Non- 37.5 BUN/Creatinine Ratio 18.8 Random Glucose 89 mg/dl Calcium Level 8.5 mg/dl Assessment & Plan 81 yo asymptomatic male presents to the ER for abnormal routine blood work and admitted with DIC. 1. DIC poss 2/2 malignancy-current workup in place by Hematology who was consulted. Platelets to 36 today without platelet transfusion, down from 44 yesterday. No indication for PLT transfusion unless bleeding or <20K. Heme would like to see >50K prior to dc. Fibrinogen is 76 today from 99 yesterday morning--will transfuse 2 units cryo at this time Repeat perippheral smear unremarkable per Hematology. Flow cytometry and FISH ordered and pending. Pt is declining BM biopsy at this time with plans to follow-up with Dr. Suero in the office post-discharge. One fever documented on 12/11, however, not persistent and patient has a minor cough that is unconcerning; pt not ill- appearing. Swollen submandibular glans on exam with normal pharynx, clear lungs to auscultation and recent chest CT did not show any pneumonia. Poss URI vs constitutional symptom in setting of malignancy. Leaning towards URI as an etiology as he doesn't get persistent fevers and has no other constitutional symptoms. Plus, he has a cough and swollen LNs in the neck indicating acute infection. Of note, he states that the cough began after the recent outpatient bloodwork which brought him in here. CT a/p on 12/11 with nonspecific findings and no overt malignancy. Bone scan pending. Dispo per Hematology who will come up with a plan for the patient moving forward. 2. DEE DEE on CKD III-creat improved from 2.0 to 1.8 to 1.7 today after Lasix held yesterday and IVF given yesterday and overnight in setting of fever and insensible losses. Baseline is around 1.4. Cont holding Lasix at this time. Cont to trend PRP/ 3. Renal lesions: repeat retroperitoneal us with stable renal cysts and hyperdense lesions. CT a/p from last hospitalization 07/2016- Bilateral renal cysts, and small bilateral indeterminate renal lesions. As renal lesions may be playing a role in DIC if malignant, will ask Urology to evaluate. Urology feels these are not significant enough to cause the systemic DIC picture. Cont to follow lesions as outpatient once discharged per PCP. 4. CAD: Stable, no anginal symptoms. Continue aspirin, beta anthony, statin. Of note, bradycardia was noted overnight so cut Coreg to 3.125mg PO BID. 5. CHRONIC DIASTOLIC CHF: Currently compensated, Hold Lasix for DEE DEE, mild improvement with IVF overnight which were stopped. Monitor for volume overload. Will start Lasix back at 50% in light of upcoming extra volume from cryo infusions that were ordered. Currently no respiratory distress. 6. AORTIC ANEURYSM: S/p graft repair 2009. CT chest showed increased distension- Max diameter currently is 6.5 cm- upon chart review the CT dissection in 07/2016 showed max diameter 6.1 cm; was 5.7 cm in 01/2015. With increasing size will ask vascular surgery to evaluate. 7. HTN: BP is stable, Continue carvedilol 8. Pancytopenia-likely 2/2 ongoing BM process. Pt refusing BM biopsy at this point. FISH and flow cytometry pending. Per Heme, wants to see PLTs >50 prior to discharge, see #1 for plan. DVT PROPHYLAXIS GRANT's due to thrombocytopenia FULL CODE DISPOSITION Admit to med/ surg Resides at [facility] back in next 1-2 days. Will obtain PT/OT evals if needed; appreciate CM letting me know if needed. Thanks! Sophie Rodrigues DO [facility] Hospitalist. Consultants: Urology, Hematology-Dr. Fransisco Suero Current Inpatient Medications: Current Inpatient Medications Medications (Trade) Dose Ordered Sig/Song Route Start Time Stop Time Status Last Admin Dose Admin Acetaminophen (Tylenol Tab) 650 mg Q4H PRN PO 12/09/16 19:30 01/08/17 19:29 12/11/16 03:44 650 MG Ondansetron HCl (Zofran Inj) 4 mg Q6H PRN IV 12/09/16 19:30 01/08/17 19:29 Atorvastatin Calcium (Lipitor Tab) 80 mg DAILY PO 12/10/16 08:00 01/09/17 07:59 12/12/16 07:25 80 MG Multivitamins/ Minerals (Multivitamin W/ Minerals Tab) 1 tab DAILY PO 12/10/16 08:00 01/09/17 07:59 12/12/16 07:25 1 TAB Potassium Chloride (Klor-Con Tab) 20 meq QAM PO 12/10/16 08:00 01/09/17 07:59 12/12/16 07:26 20 MEQ Terazosin HCl (Hytrin Cap) 5 mg HS PO 12/09/16 21:00 01/08/17 20:59 12/11/16 20:54 5 MG Multi-Ingredient Ointment (Eucerin Unscented Cr) 1 appln DAILY EXT 12/10/16 08:00 01/09/17 07:59 12/12/16 07:26 1 APPLN Pantoprazole Sodium (Protonix Tab) 40 mg BID PO 12/10/16 08:00 01/09/17 07:59 12/12/16 07:25 40 MG Sodium Chloride 1,000 ml @ 100 mls/hr Q10H IV 12/11/16 16:45 12/12/16 12:44 12/12/16 02:49 100 MLS/HR Carvedilol (Coreg Tab) 3.125 mg BID PO 12/12/16 20:00 01/09/17 07:59 Acetaminophen (Tylenol Tab) 650 mg TODAY@1130 PO 12/12/16 11:30 12/12/16 18:00 Diphenhydramine HCl (Benadryl Cap) 25 mg TODAY@1130 PO 12/12/16 11:30 12/12/16 18:00
--- NOTE | 2016-12-12 15:50 | DIAGNOSTIC IMAGING REPORT ---
BONE SCAN WHOLE BODY CLINICAL HISTORY: chronic DIC with concern for malignancy COMPARISON STUDY: CT scan of the chest dated 12/09/2016, CT scan of the abdomen pelvis dated 12/11/2016 FINDINGS: The patient was injected with 25.8 mCi of technetium 99m MDP. Three-hour delayed whole body images were acquired. There are photopenic defects involving the knees, consistent with prior knee arthroplasties. Increased activity within the ankles is felt to be degenerative/arthritic basis. There is a thoracic scoliosis. Mild increased activity within the mid thoracic spine is felt to be degenerative. There is unexplained increased activity involving the right wrist. This is likely degenerative or posttraumatic. By history, the isotope injection was made into the contralateral left wrist. Plain film correlation of the right wrist is recommended. IMPRESSION: 1. No scintigraphic evidence of skeletal metastasis 2. Unexplained foci of increased activity within the right wrist. Plain film correlation is advocated Electronically signed by: Mateo Hutton M.D. 12/12/2016 3:48 PM Dictated Date/Time: 12/12/2016 3:44 PM
[2016-12-12] MEDS: FUROSEMIDE 20 MG TAB PO SCH (18:07)
[2016-12-12] MEDS: CARVEDILOL 3.125 MG TAB PO SCH (20:00)
[2016-12-13] VITALS (8 sets, daily range): BP systolic 114–145; BP diastolic 60–76; PULSE 54–70; TEMP 36.6–38.3; O2SAT 92–97
[2016-12-13 07:41] LABS: INR 1.3 (0.9-1.1); PROTHROMBIN TIME (PATIENT) 13.6 SECONDS (9.0-12.0)
[2016-12-13 07:54] LABS: HEMATOCRIT 27.1 % (42-52); MEAN CELL VOLUME 88.9 fL (80-100); MEAN CORPUSCULAR HEMOGLOBIN 27.5 pg (25-34); PLATELET COUNT 32 K/uL (130-400); RED BLOOD COUNT 3.05 M/uL (4.7-6.1); WHITE BLOOD COUNT 2.44 K/uL (4.8-10.8)
[2016-12-13 08:00] LABS: BASO % 0.4 %; BASO ABS # 0.01 K/uL (0-0.2); COMPLETE YES; ECHINOCYTES 1+; EOS % 0.4 %; IG% 0.4 %; LYMPH % 43.9 %; LYMPH ABS # 1.07 K/uL (1.2-3.4); MONO % 10.7 %; NEUT % 44.2 %; PLT ESTIMATE DECREASED
[2016-12-13] MEDS: CARVEDILOL 3.125 MG TAB PO SCH ×2 (08:00→20:36)
[2016-12-13 08:03] LABS: BUN/CREATININE RATIO 17.7 (10-20); CALCIUM 8.4 mg/dl (8.5-10.1); CREATININE 1.6 mg/dl (0.60-1.40); POTASSIUM 4.3 mmol/L (3.5-5.1)
[2016-12-13] MEDS: CEROVITE ADV FORMULA TAB PO SCH (08:16)
[2016-12-13] MEDS: PANTOprazole SOD 40 MG TAB PO SCH ×2 (08:16→20:36)
[2016-12-13] MEDS: EUCERIN CR 120 GM JAR EXT SCH (08:16)
[2016-12-13] MEDS: FUROSEMIDE 20 MG TAB PO SCH ×2 (08:16→16:24)
[2016-12-13] MEDS: POTASSIUM CHLORIDE 20 MEQ TABCR PO SCH (08:17)
[2016-12-13] MEDS: ATORVASTATIN 40 MG TAB PO SCH (08:17)
--- NOTE | 2016-12-13 15:27 | Progress Note ---
Medicine Progress Note Date & Time of Visit: Dec 13, 2016 at 14:52. Subjective Pt was seen and examined Sitting in chair with no distress Pt said that he feels fine He said that he continue to have diarrhea He said that he had one episode of diarrhea yesterday and 2 episodes today so far. Pt denies any chest pain, palpitation, dizziness and SOB Objective Last 8 Hrs Date Time Temp Pulse Resp B/P (MAP) Pulse Ox O2 Delivery O2 Flow Rate FiO2 12/13/16 11:54 37.1 61 20 122/60 (80) 95 Room Air 12/13/16 08:20 Room Air 12/13/16 08:19 37.1 56 18 130/60 (83) 92 Room Air Physical Exam: General- No acute distress Head- atraumatic Eyes- PERRL, EOMI ENT- oropharynx clear Neck- supple, no JVD Lungs- clear to auscultation Heart- regular rhythm, +systolic murmur Abdomen- normal bowel sounds, soft Extremities- + edema, no calf tenderness Neuro- alert, oriented x 3; PERRL, EOMI Skin- warm & dry Laboratory Results: Last 24 Hours Test 12/13/16 07:15 White Blood Count 2.44 K/uL Red Blood Count 3.05 M/uL Hemoglobin 8.4 g/dL Hematocrit 27.1 % Mean Corpuscular Volume 88.9 fL Mean Corpuscular Hemoglobin 27.5 pg Mean Corpuscular Hemoglobin Concent 31.0 g/dl Platelet Count 32 K/uL Neutrophils (%) (Auto) 44.2 % Lymphocytes (%) (Auto) 43.9 % Monocytes (%) (Auto) 10.7 % Eosinophils (%) (Auto) 0.4 % Basophils (%) (Auto) 0.4 % Neutrophils # (Auto) 1.08 K/uL Lymphocytes # (Auto) 1.07 K/uL Monocytes # (Auto) 0.26 K/uL Eosinophils # (Auto) 0.01 K/uL Basophils # (Auto) 0.01 K/uL RDW Standard Deviation 54.5 fL RDW Coefficient of Variation 16.7 % Immature Granulocyte % (Auto) 0.4 % Immature Granulocyte # (Auto) 0.01 K/uL Nucleated RBC Absolute Count (auto) 0.03 K/uL Nucleated Red Blood Cells % 1.1 % Platelet Estimate DECREASED Echinocytes 1+ Prothrombin Time 13.6 SECONDS Prothromb Time International Ratio 1.3 Fibrinogen 111 mg/dl Sodium Level 139 mmol/L Potassium Level 4.3 mmol/L Chloride Level 110 mmol/L Carbon Dioxide Level 24 mmol/L Anion Gap 5.0 mmol/L Blood Urea Nitrogen 28 mg/dl Creatinine 1.60 mg/dl Est Creatinine Clear Calc Drug Dose 33.4 ml/min Estimated GFR () 46.8 Estimated GFR (Non- 40.4 BUN/Creatinine Ratio 17.7 Random Glucose 86 mg/dl Calcium Level 8.4 mg/dl Assessment & Plan DIC Etiology unknown Cannot r/o any bone marrow malignancy Platelets was 36 and fibrinogen was 75 on admission No platelet transfusion unless bleeding occurs or <20K. Received 2 unit Cryo yesterday. Flow cytometry and FISH pending. Continue refused Bone Marrow bx. Case discussed with Hem/Onc team recommended to continue monitor fibinogen, cbc Transfuse cruo if fibrinogen is less than 100. DEE DEE on CKD III creatine on admission was 2.0 Baseline creatine is around 1.4. Creatine today 1.6 Cont holding Lasix at this time. Monitor BMP Avoid nephrotoxic agents Renal lesions Renal U/S showed Multiple renal cysts bilaterally. No evidence for hydronephrosis. Moderate renal cortical scarring. Urology was consulted Urology feels these are not significant enough to cause the systemic DIC picture. Cont to follow lesions as outpatient once discharged per PCP. CAD: Asymptomatic Continue aspirin, beta anthony, statin. CHRONIC DIASTOLIC CHF: Stable Continue holding Lasix for DEE DEE, No sign of volume overload. AORTIC ANEURYSM S/p graft repair 2009. CT chest showed increased aneurysmal distension- Max diameter currently is 6.5 cm- upon chart review the CT dissection in 07/2016 showed max diameter 6.1 cm; was 5.7 cm in 01/2015. No evidence for rupture at this time Vascular consulted recommended to get eval for possible repair at a tertiary center after medically stable. HTN Continue carvedilol Stable monitor BP closely Thrombocytopenia Secondary to DIC No sign of active bleeding Monitor CBC DVT PROPHYLAXIS GRANT's due to thrombocytopenia CODE STATUS FULL CODE Consultants: Urology, Hematology-Dr. Fransisco Suero Current Inpatient Medications: Current Inpatient Medications Medications (Trade) Dose Ordered Sig/Song Route Start Time Stop Time Status Last Admin Dose Admin Acetaminophen (Tylenol Tab) 650 mg Q4H PRN PO 12/09/16 19:30 01/08/17 19:29 12/11/16 03:44 650 MG Ondansetron HCl (Zofran Inj) 4 mg Q6H PRN IV 12/09/16 19:30 01/08/17 19:29 Atorvastatin Calcium (Lipitor Tab) 80 mg DAILY PO 12/10/16 08:00 01/09/17 07:59 12/13/16 08:17 80 MG Multivitamins/ Minerals (Multivitamin W/ Minerals Tab) 1 tab DAILY PO 12/10/16 08:00 01/09/17 07:59 12/13/16 08:16 1 TAB Potassium Chloride (Klor-Con Tab) 20 meq QAM PO 12/10/16 08:00 01/09/17 07:59 12/13/16 08:17 20 MEQ Terazosin HCl (Hytrin Cap) 5 mg HS PO 12/09/16 21:00 01/08/17 20:59 12/12/16 20:27 5 MG Multi-Ingredient Ointment (Eucerin Unscented Cr) 1 appln DAILY EXT 12/10/16 08:00 01/09/17 07:59 12/13/16 08:16 1 APPLN Pantoprazole Sodium (Protonix Tab) 40 mg BID PO 12/10/16 08:00 01/09/17 07:59 12/13/16 08:16 40 MG Carvedilol (Coreg Tab) 3.125 mg BID PO 12/12/16 20:00 01/09/17 07:59 Furosemide (Lasix Tab) 20 mg BID17 PO 12/12/16 17:00 01/11/17 16:59 12/13/16 08:16 20 MG
[2016-12-13] MEDS: ACETAMINOPHEN 325 MG TAB PO PRN (15:29)
--- NOTE | 2016-12-13 19:21 | Hematology/Oncology Prog Note ---
Hematology/Onc Progress Note Date of Service Dec 13, 2016. Subjective Patient was rounded on at bedside. He reports no complaints. He has no active bleeding from any sites. He has mild residual cough, but denies dyspnea. He ate breakfast this morning. No urinary or bowel complaints. He denies spontaneous bruising. Vital Signs Vital Signs Past 12 Hours Date Time Temp Pulse Resp B/P (MAP) Pulse Ox O2 Delivery O2 Flow Rate FiO2 12/13/16 16:24 37.4 12/13/16 15:26 38.3 12/13/16 15:19 37.8 66 20 114/62 (79) 96 Room Air 12/13/16 15:16 Room Air 12/13/16 11:54 37.1 61 20 122/60 (80) 95 Room Air 12/13/16 08:20 Room Air 12/13/16 08:19 37.1 56 18 130/60 (83) 92 Room Air Physical Exam Constitutional: Level of Distress: NAD Lungs: Auscuitation: breath sounds normal Cardiovascular: Heart Auscultation: RRR, murmur (systolic) Abdomen: Inspection & Palpation: soft, no tenderness, guarding & rebound Extremities: edema (L>R) Laboratory 12/13/16 07:15 Red Blood Count 3.05, Mean Corpuscular Volume 88.9, Mean Corpuscular Hemoglobin 27.5, Mean Corpuscular Hemoglobin Concent 31.0, Neutrophils (%) (Auto) 44.2, Lymphocytes (%) (Auto) 43.9, Monocytes (%) (Auto) 10.7, Eosinophils (%) (Auto) 0.4, Basophils (%) (Auto) 0.4, Neutrophils # (Auto) 1.08, Lymphocytes # (Auto) 1.07, Monocytes # (Auto) 0.26, Eosinophils # (Auto) 0.01, Basophils # (Auto) 0.01 12/13/16 07:15 Test 12/13/16 07:15 White Blood Count 2.44 K/uL (4.8-10.8) Red Blood Count 3.05 M/uL (4.7-6.1) Hemoglobin 8.4 g/dL (14.0-18.0) Hematocrit 27.1 % (42-52) Mean Corpuscular Volume 88.9 fL (80-100) Mean Corpuscular Hemoglobin 27.5 pg (25-34) Mean Corpuscular Hemoglobin Concent 31.0 g/dl (32-36) Platelet Count 32 K/uL (130-400) Neutrophils (%) (Auto) 44.2 % Lymphocytes (%) (Auto) 43.9 % Monocytes (%) (Auto) 10.7 % Eosinophils (%) (Auto) 0.4 % Basophils (%) (Auto) 0.4 % Neutrophils # (Auto) 1.08 K/uL (1.4-6.5) Lymphocytes # (Auto) 1.07 K/uL (1.2-3.4) Monocytes # (Auto) 0.26 K/uL (0.11-0.59) Eosinophils # (Auto) 0.01 K/uL (0-0.5) Basophils # (Auto) 0.01 K/uL (0-0.2) RDW Standard Deviation 54.5 fL (36.4-46.3) RDW Coefficient of Variation 16.7 % (11.5-14.5) Immature Granulocyte % (Auto) 0.4 % Immature Granulocyte # (Auto) 0.01 K/uL (0.00-0.02) Nucleated RBC Absolute Count (auto) 0.03 K/uL (0-0) Nucleated Red Blood Cells % 1.1 % Platelet Estimate DECREASED Echinocytes 1+ Prothrombin Time 13.6 SECONDS (9.0-12.0) Prothromb Time International Ratio 1.3 (0.9-1.1) Fibrinogen 111 mg/dl (184-400) Anion Gap 5.0 mmol/L (3-11) Est Creatinine Clear Calc Drug Dose 33.4 ml/min Estimated GFR () 46.8 Estimated GFR (Non- 40.4 BUN/Creatinine Ratio 17.7 (10-20) Calcium Level 8.4 mg/dl (8.5-10.1) Radiology Bone scan from 12/12/16: 1. No scintigraphic evidence of skeletal metastasis 2. Unexplained foci of increased activity within the right wrist. Plain film CT of the abdomen/pelvis from 12/12/16: 1. Stable aneurysmal dilatation distal thoracic aorta. 2.Mildly progressive splenomegaly. 3. Gallstones in a contracted gallbladder lumen. 4. Stable renal cysts as well as hyperdense cyst. 5. Nonobstructive bowel pattern. 6. Mild infiltrative change and or fluid of the abdominal and pelvic fascial planes similar compared to the prior study. Assessment & Plan 1. Probable low grade/chronic DIC * Underlying etiology unclear * Underlying bone marrow neoplasm cannot be excluded. * FISH MDS panel and flow cytometry pending * KARL , lupus anticoagulant, anticardiolipins, copper and EPO levels pending * Vit B 12 and folate normal * IFP is increased c/w peripheral destruction * Spelnomegaly on scan, likely contributing component of sequestration * Bone scan negative * Fibrinogen > 100 today, patient s/p 2 cryo units yesterday * Dr. Suero recommends to continue to monitor PLT count and fibrinogen for at least 1 more day to ensure stability Discussed recommendations with hospitalist.
[2016-12-14] VITALS (13 sets, daily range): BP systolic 100–138; BP diastolic 55–75; PULSE 53–63; TEMP 36.3–36.9; O2SAT 94–96
[2016-12-14 06:09] LABS: MEAN CORPUSCULAR HGB CONC 30.4 g/dl (32-36)
[2016-12-14 06:20] LABS: HEMATOCRIT 28.6 % (42-52); MEAN CELL VOLUME 88.5 fL (80-100); MEAN CORPUSCULAR HEMOGLOBIN 26.9 pg (25-34); RED BLOOD COUNT 3.23 M/uL (4.7-6.1); WHITE BLOOD COUNT 3.07 K/uL (4.8-10.8)
[2016-12-14 06:45] LABS: PLATELET COUNT 40 K/uL (130-400)
[2016-12-14 06:46] LABS: BUN/CREATININE RATIO 15.1 (10-20); CALCIUM 8.6 mg/dl (8.5-10.1); CREATININE 1.7 mg/dl (0.60-1.40); POTASSIUM 4.2 mmol/L (3.5-5.1)
[2016-12-14 06:48] LABS: PLT ESTIMATE DECREASED
[2016-12-14 07:28] LABS: INR 1.3 (0.9-1.1); PARTIAL THROMBOPLASTIN RATIO 1.9
[2016-12-14] MEDS: PANTOprazole SOD 40 MG TAB PO SCH ×2 (07:47→20:19)
[2016-12-14] MEDS: CEROVITE ADV FORMULA TAB PO SCH (07:47)
[2016-12-14] MEDS: ATORVASTATIN 40 MG TAB PO SCH (07:47)
[2016-12-14] MEDS: POTASSIUM CHLORIDE 20 MEQ TABCR PO SCH (07:48)
[2016-12-14] MEDS: CARVEDILOL 3.125 MG TAB PO SCH ×2 (07:49→20:19)
[2016-12-14] MEDS: FUROSEMIDE 20 MG TAB PO SCH ×2 (07:49→17:04)
[2016-12-14] MEDS: EUCERIN CR 120 GM JAR EXT SCH (07:49)
[2016-12-14 11:34] LABS: LUPUS ANTICOAGULANT** TC36573X Negative (Negative)
--- NOTE | 2016-12-14 19:23 | Progress Note ---
Medicine Progress Note Date & Time of Visit: Dec 14, 2016 at 19:19. Subjective Pt was seen and examined sitting in chair comfortable with no distress pt said that he feels fine BP dropped a little bit during the transfusion, but pt was asymptomatic denies any chest pain, palpitation and SOB Objective Last 8 Hrs Date Time Temp Pulse Resp B/P (MAP) Pulse Ox O2 Delivery O2 Flow Rate FiO2 12/14/16 16:00 Room Air 12/14/16 15:25 36.5 57 20 114/55 (74) 96 Room Air 12/14/16 13:10 36.9 55 16 108/67 12/14/16 12:50 36.7 56 16 105/64 12/14/16 12:23 36.3 59 16 117/55 12/14/16 12:09 36.8 54 16 115/61 12/14/16 11:53 54 14 106/65 (79) 94 Room Air Physical Exam: General- No acute distress Head- atraumatic Eyes- PERRL, EOMI ENT- oropharynx clear Neck- supple, no JVD Lungs- clear to auscultation Heart- regular rhythm, +systolic murmur Abdomen- normal bowel sounds, soft Extremities- + edema, no calf tenderness Neuro- alert, oriented x 3; PERRL, EOMI Skin- warm & dry Laboratory Results: Last 24 Hours Test 12/14/16 05:31 White Blood Count 3.07 K/uL Red Blood Count 3.23 M/uL Hemoglobin 8.7 g/dL Hematocrit 28.6 % Mean Corpuscular Volume 88.5 fL Mean Corpuscular Hemoglobin 26.9 pg Mean Corpuscular Hemoglobin Concent 30.4 g/dl RDW Standard Deviation 54.1 fL RDW Coefficient of Variation 16.6 % Platelet Count 40 K/uL Platelet Estimate DECREASED Prothrombin Time 14.0 SECONDS Prothromb Time International Ratio 1.3 Activated Partial Thromboplast Time 49.6 SECONDS Partial Thromboplastin Ratio 1.9 Fibrinogen 85 mg/dl Sodium Level 136 mmol/L Potassium Level 4.2 mmol/L Chloride Level 108 mmol/L Carbon Dioxide Level 23 mmol/L Anion Gap 5.0 mmol/L Blood Urea Nitrogen 26 mg/dl Creatinine 1.70 mg/dl Est Creatinine Clear Calc Drug Dose 31.4 ml/min Estimated GFR () 43.5 Estimated GFR (Non- 37.5 BUN/Creatinine Ratio 15.1 Random Glucose 96 mg/dl Calcium Level 8.6 mg/dl Assessment & Plan DIC Etiology unknown Cannot r/o any bone marrow malignancy Platelets was 36 and fibrinogen was 75 on admission No platelet transfusion unless bleeding occurs or <20K. Received 2 unit Cryo yesterday. Flow cytometry and FISH pending. Continue refused Bone Marrow bx. Case discussed with Hem/Onc team recommended to continue monitor fibinogen, cbc Transfuse cruo if fibrinogen is less than 100. 12/14 fibrinogen was 85 today s/p 2 unit cryo today will monitor fibrinogen level in am DEE DEE on CKD III creatine on admission was 2.0 Baseline creatine is around 1.4. Creatine today 1.7 Cont holding Lasix at this time. Monitor BMP Avoid nephrotoxic agents Renal lesions Renal U/S showed Multiple renal cysts bilaterally. No evidence for hydronephrosis. Moderate renal cortical scarring. Urology was consulted Urology feels these are not significant enough to cause the systemic DIC picture. Cont to follow lesions as outpatient once discharged per PCP. CAD: Asymptomatic Continue aspirin, beta anthony, statin. CHRONIC DIASTOLIC CHF: Stable Continue holding Lasix for DEE DEE, No sign of volume overload. AORTIC ANEURYSM S/p graft repair 2009. CT chest showed increased aneurysmal distension- Max diameter currently is 6.5 cm- upon chart review the CT dissection in 07/2016 showed max diameter 6.1 cm; was 5.7 cm in 01/2015. No evidence for rupture at this time Vascular consulted recommended to get eval for possible repair at a tertiary center after medically stable. HTN Continue carvedilol Stable monitor BP closely Thrombocytopenia platelet improved to 40 Secondary to DIC No sign of active bleeding Monitor CBC DVT PROPHYLAXIS GRANT's due to thrombocytopenia CODE STATUS FULL CODE Consultants: Urology, Hematology-Dr. Fransisco Suero Current Inpatient Medications: Current Inpatient Medications Medications (Trade) Dose Ordered Sig/Song Route Start Time Stop Time Status Last Admin Dose Admin Acetaminophen (Tylenol Tab) 650 mg Q4H PRN PO 12/09/16 19:30 01/08/17 19:29 12/13/16 15:29 650 MG Ondansetron HCl (Zofran Inj) 4 mg Q6H PRN IV 12/09/16 19:30 01/08/17 19:29 Atorvastatin Calcium (Lipitor Tab) 80 mg DAILY PO 12/10/16 08:00 01/09/17 07:59 12/14/16 07:47 80 MG Multivitamins/ Minerals (Multivitamin W/ Minerals Tab) 1 tab DAILY PO 12/10/16 08:00 01/09/17 07:59 12/14/16 07:47 1 TAB Potassium Chloride (Klor-Con Tab) 20 meq QAM PO 12/10/16 08:00 01/09/17 07:59 12/14/16 07:48 20 MEQ Terazosin HCl (Hytrin Cap) 5 mg HS PO 12/09/16 21:00 01/08/17 20:59 12/13/16 20:36 5 MG Multi-Ingredient Ointment (Eucerin Unscented Cr) 1 appln DAILY EXT 12/10/16 08:00 01/09/17 07:59 12/14/16 07:49 1 APPLN Pantoprazole Sodium (Protonix Tab) 40 mg BID PO 12/10/16 08:00 01/09/17 07:59 12/14/16 07:47 40 MG Carvedilol (Coreg Tab) 3.125 mg BID PO 12/12/16 20:00 01/09/17 07:59 12/14/16 07:49 3.125 MG Furosemide (Lasix Tab) 20 mg BID17 PO 12/12/16 17:00 01/11/17 16:59 12/14/16 17:04 20 MG
[2016-12-15] VITALS: BP 106/60; PULSE 66; TEMP 36.9; O2SAT 95; O2SAT 96
[2016-12-15 07:33] VITALS: BP 129/56; PULSE 60; TEMP 36.9; O2SAT 99
[2016-12-15 07:36] LABS: HEMATOCRIT 27.8 % (42-52); MEAN CELL VOLUME 89.1 fL (80-100); MEAN CORPUSCULAR HEMOGLOBIN 27.9 pg (25-34); MEAN CORPUSCULAR HGB CONC 31.3 g/dl (32-36); RED BLOOD COUNT 3.12 M/uL (4.7-6.1); WHITE BLOOD COUNT 2.63 K/uL (4.8-10.8)
[2016-12-15 07:38] LABS: MEAN PLATELET VOLUME 11.4 fL (7.4-10.4); PLATELET COUNT 36 K/uL (130-400)
[2016-12-15] MEDS: EUCERIN CR 120 GM JAR EXT SCH (08:00)
[2016-12-15 08:06] LABS: BUN/CREATININE RATIO 15.3 (10-20); CALCIUM 8.7 mg/dl (8.5-10.1); CREATININE 1.7 mg/dl (0.60-1.40); POTASSIUM 4.3 mmol/L (3.5-5.1)
[2016-12-15 08:08] LABS: PARTIAL THROMBOPLASTIN RATIO 1.9
[2016-12-15] MEDS: ATORVASTATIN 40 MG TAB PO SCH (08:12)
[2016-12-15] MEDS: CARVEDILOL 3.125 MG TAB PO SCH ×2 (08:13→20:00)
[2016-12-15] MEDS: POTASSIUM CHLORIDE 20 MEQ TABCR PO SCH (08:13)
[2016-12-15] MEDS: FUROSEMIDE 20 MG TAB PO SCH (08:13)
[2016-12-15] MEDS: PANTOprazole SOD 40 MG TAB PO SCH ×2 (08:13→20:15)
[2016-12-15] MEDS: CEROVITE ADV FORMULA TAB PO SCH (08:13)
[2016-12-15 15:56] VITALS: BP 125/77; PULSE 60; TEMP 36.7; O2SAT 97
--- NOTE | 2016-12-15 19:31 | Progress Note ---
Medicine Progress Note Date & Time of Visit: Dec 15, 2016 at 19:27. Subjective Pt was seen and examined Sitting in chair comfortable with no distress Pt said that he feels fine denies any chest pain, palpitation and sob Objective Last 8 Hrs Date Time Temp Pulse Resp B/P (MAP) Pulse Ox O2 Delivery O2 Flow Rate FiO2 12/15/16 15:56 36.7 60 20 125/77 (93) 97 Room Air 12/15/16 15:03 Room Air Physical Exam: General- No acute distress Head- atraumatic Eyes- PERRL, EOMI ENT- oropharynx clear Neck- supple, no JVD Lungs- clear to auscultation Heart- regular rhythm, +systolic murmur Abdomen- normal bowel sounds, soft Extremities- + edema, no calf tenderness Neuro- alert, oriented x 3; PERRL, EOMI Skin- warm & dry Laboratory Results: Last 24 Hours Test 12/15/16 07:15 White Blood Count 2.63 K/uL Red Blood Count 3.12 M/uL Hemoglobin 8.7 g/dL Hematocrit 27.8 % Mean Corpuscular Volume 89.1 fL Mean Corpuscular Hemoglobin 27.9 pg Mean Corpuscular Hemoglobin Concent 31.3 g/dl RDW Standard Deviation 54.9 fL RDW Coefficient of Variation 16.7 % Platelet Count 36 K/uL Mean Platelet Volume 11.4 fL Nucleated RBC Absolute Count (auto) 0.03 K/uL Nucleated Red Blood Cells % 1.0 % Activated Partial Thromboplast Time 48.5 SECONDS Partial Thromboplastin Ratio 1.9 Fibrinogen 119 mg/dl Sodium Level 136 mmol/L Potassium Level 4.3 mmol/L Chloride Level 106 mmol/L Carbon Dioxide Level 25 mmol/L Anion Gap 5.0 mmol/L Blood Urea Nitrogen 26 mg/dl Creatinine 1.70 mg/dl Est Creatinine Clear Calc Drug Dose 31.4 ml/min Estimated GFR () 43.5 Estimated GFR (Non- 37.5 BUN/Creatinine Ratio 15.3 Random Glucose 103 mg/dl Calcium Level 8.7 mg/dl Assessment & Plan DIC Etiology unknown Cannot r/o any bone marrow malignancy Platelets was 36 and fibrinogen was 75 on admission No platelet transfusion unless bleeding occurs or <20K. Received 2 unit Cryo yesterday. Flow cytometry and FISH pending. Continue refused Bone Marrow bx. Case discussed with Hem/Onc team recommended to continue monitor fibinogen, cbc Transfuse cruo if fibrinogen is less than 100. 12/15 fibrinogen 119 today s/p 2 unit cryo yesterday transfused cryo if fibrinogen less than 100 will monitor fibrinogen level in am DEE DEE on CKD III creatine on admission was 2.0 Baseline creatine is around 1.4. Creatine today 1.7 Cont holding Lasix at this time. Monitor BMP Avoid nephrotoxic agents Renal lesions Renal U/S showed Multiple renal cysts bilaterally. No evidence for hydronephrosis. Moderate renal cortical scarring. Urology was consulted Urology feels these are not significant enough to cause the systemic DIC picture. Cont to follow lesions as outpatient once discharged per PCP. CAD: Asymptomatic Continue aspirin, beta anthony, statin. CHRONIC DIASTOLIC CHF: Stable Continue holding Lasix for DEE DEE, No sign of volume overload. AORTIC ANEURYSM S/p graft repair 2009. CT chest showed increased aneurysmal distension- Max diameter currently is 6.5 cm- upon chart review the CT dissection in 07/2016 showed max diameter 6.1 cm; was 5.7 cm in 01/2015. No evidence for rupture at this time Vascular consulted recommended to get eval for possible repair at a tertiary center after medically stable. HTN Continue carvedilol Stable monitor BP closely Thrombocytopenia platelet improved to 36 Secondary to DIC No sign of active bleeding Monitor CBC DVT PROPHYLAXIS GRANT's due to thrombocytopenia CODE STATUS FULL CODE Consultants: Urology, Hematology-Dr. Fransisco Suero Current Inpatient Medications: Current Inpatient Medications Medications (Trade) Dose Ordered Sig/Song Route Start Time Stop Time Status Last Admin Dose Admin Acetaminophen (Tylenol Tab) 650 mg Q4H PRN PO 12/09/16 19:30 01/08/17 19:29 12/13/16 15:29 650 MG Ondansetron HCl (Zofran Inj) 4 mg Q6H PRN IV 12/09/16 19:30 01/08/17 19:29 Atorvastatin Calcium (Lipitor Tab) 80 mg DAILY PO 12/10/16 08:00 01/09/17 07:59 12/15/16 08:12 80 MG Multivitamins/ Minerals (Multivitamin W/ Minerals Tab) 1 tab DAILY PO 12/10/16 08:00 01/09/17 07:59 12/15/16 08:13 1 TAB Potassium Chloride (Klor-Con Tab) 20 meq QAM PO 12/10/16 08:00 01/09/17 07:59 12/15/16 08:13 20 MEQ Terazosin HCl (Hytrin Cap) 5 mg HS PO 12/09/16 21:00 01/08/17 20:59 12/14/16 20:21 5 MG Multi-Ingredient Ointment (Eucerin Unscented Cr) 1 appln DAILY EXT 12/10/16 08:00 01/09/17 07:59 12/14/16 07:49 1 APPLN Pantoprazole Sodium (Protonix Tab) 40 mg BID PO 12/10/16 08:00 01/09/17 07:59 12/15/16 08:13 40 MG Carvedilol (Coreg Tab) 3.125 mg BID PO 12/12/16 20:00 01/09/17 07:59 12/15/16 08:13 3.125 MG Furosemide (Lasix Tab) 20 mg BID17 PO 12/12/16 17:00 01/11/17 16:59 Future Hold 12/15/16 08:13 20 MG
[2016-12-15 23:46] VITALS: BP 113/70; PULSE 60; TEMP 36.8; O2SAT 95
[2016-12-16 04:21] VITALS: BP 108/60; PULSE 60; TEMP 36.6; O2SAT 95
[2016-12-16 07:48] VITALS: BP 141/74; PULSE 63; TEMP 36.5; O2SAT 97
[2016-12-16] MEDS: EUCERIN CR 120 GM JAR EXT SCH (08:00)
[2016-12-16 08:08] LABS: PARTIAL THROMBOPLASTIN RATIO 1.9
[2016-12-16] MEDS: CEROVITE ADV FORMULA TAB PO SCH (08:18)
[2016-12-16] MEDS: ATORVASTATIN 40 MG TAB PO SCH (08:18)
[2016-12-16] MEDS: CARVEDILOL 3.125 MG TAB PO SCH (08:18)
[2016-12-16] MEDS: PANTOprazole SOD 40 MG TAB PO SCH (08:19)
[2016-12-16] MEDS: POTASSIUM CHLORIDE 20 MEQ TABCR PO SCH (08:19)
[2016-12-16 08:30] LABS: HEMATOCRIT 27.6 % (42-52); MEAN CELL VOLUME 88.2 fL (80-100); MEAN CORPUSCULAR HEMOGLOBIN 28.4 pg (25-34); MEAN CORPUSCULAR HGB CONC 32.2 g/dl (32-36); PLATELET COUNT 47 K/uL (130-400); RED BLOOD COUNT 3.13 M/uL (4.7-6.1); WHITE BLOOD COUNT 3.13 K/uL (4.8-10.8)
[2016-12-16 08:35] LABS: BUN/CREATININE RATIO 16.1 (10-20); CREATININE 1.7 mg/dl (0.60-1.40); POTASSIUM 4.3 mmol/L (3.5-5.1)
[2016-12-16 11:50] VITALS: BP_SYST 102; BP_SYST 96; BP_DIAS 48; BP_DIAS 58; PULSE 50; TEMP 36.5; O2SAT 95
[2016-12-16] MEDS ORDERED: CRG3125 PO (14:04)
--- NOTE | 2016-12-16 14:32 | Discharge Summary ---
Discharge Summary Date of Service Dec 16, 2016. Discharge Summary Admission Date: Dec 09, 2016 at 19:23 Discharge Date: Dec 16, 2016 Discharge Disposition: Personal care Principal Diagnosis: Chronic DIC uncertain etiology DEE DEE on CKD III REnal lesions CAD Chronic Diastolic CHF Thoracic Aorta Aneurysmal dilation to 6.5cm Thrombocytopenia HTN Procedures: None. Vaccinations: None. Consultations: Urology, Hematology-Dr. Fransisco Suero Pending Studies/Follow-Up: see instructions below. Medication Reconciliation New Medications: Carvedilol (Carvedilol) 3.125 Mg Tab 3.125 MG PO BID for 30 Days, #60 TAB 3 Refills Continued Medications: Acetaminophen (Tylenol) 325 Mg Tab 650 MG PO Q6H PRN for Pain or Fever, TAB MAXIMUM 3 GMS APAP/24 HOURS Atorvastatin (Lipitor) 80 Mg Tab 80 MG PO DAILY, TAB Emollient (Lubriderm) 1 Lot Lot 1 APPLN TOP DAILY APPLY TO LOWER LEGS DAILY Multiple Vitamins W/ Minerals (Centrum Silver Adult 50+) 1 Tab Tab 1 TAB PO DAILY Multiple Vitamins W/ Minerals (I-Rayray) 1 Tab Tab 1 TAB PO DAILY Colton-3 Fatty Acids (Fish Oil) 1 Cap Cap 1 CAP PO BID Omeprazole (Prilosec) 20 Mg Capcr 20 MG PO BID TAKE THIS MEDICATION TWICE DAILY 30 MINUTES BEFORE A MEAL Potassium Ext Rel (Klor-Con) 20 Meq Tabcr 20 MEQ PO QAM Terazosin (Hytrin) 5 Mg Cap 5 MG PO HS, CAP Discontinued Medications: Carvedilol (Coreg) 6.25 Mg Tab 6.25 MG PO BID, TAB Admission Information HPI (per Admitting provider): This is a 81 year old male with PMH of CAD, chronic diastolic heart failure, s/p AVR, aortic aneurysm, CKD stage III, and other problems listed below who was sent to the ED for abnormal labs from yesterday 12/08/16. Patient was admitted to [facility] in July-August 2016 for acute DIC 2/2 sepsis from enterococcus UTI, DEE DEE on CKD III, hypophosphatemia. She received 4 units FFP, 3 units platelets, 2 units PRBC and 7 pool of cryoprecipitate. Pt developed rash on bilateral lower extremities and was transferred to [place] for further evaluation to rule out purpura fulminans. He was seen by dermatology who felt the rash was secondary to dependent edema. Pt was diuresed. Pt was discharged to rehab then to [facility]. Saw Dr. Suero in follow up, noted to have improvement in thrombocytopenia and fibrinogen since hospitalization. Bone marrow bx was discussed however patient declined at that time. Labs were being monitored by Dr. Suero, and yesterday 12/08 noted to have WBC 2.97, Hg 9.4, platelets 39 and fibrinogen 83, all of which were decreased from mid-November, therefore pt was called today and sent to hospital. Also had peripheral smear interpreted as normocytic hypochromic anemia with anisopoikilocytosis, leukopenia with absolute neutropenia, few plasmacytoid lymphocytes, thrombocytopenia. Pt admits to generalized weakness but has been ambulating with his walker w/out issue. No recent falls. He admits to cough for ~2 weeks with light yellow sputum. Had approx 2 episodes diarrhea ~6 days ago which resolved with Imodium. Admits to irritation on his gluteal fold region. Denies rash or open wound. States BLLE edema is at baseline. He denies fevers, chills, rhinorrhea, sore throat, ear ache, SOB, wheezing, chest pain, N/V, abdominal pain, dysuria, frequency, urgency. Denies bleeding including epistaxis, gum bleeding, hematochezia, melena, hematuria. Physical Exam (per Admitting): General Appearance: WD/WN, no apparent distress, + pertinent finding (alert cooperative elderly male, brother and sister in law at bedside) Head: normocephalic, atraumatic Eyes: normal inspection, PERRL, sclerae normal ENT: hearing grossly normal, pharynx normal Neck: supple, trachea midline Respiratory/Chest: lungs clear, normal breath sounds, no respiratory distress, no accessory muscle use Cardiovascular: regular rate, rhythm, + systolic murmur Abdomen/GI: normal bowel sounds, non tender, soft Extremities/Musculoskelatal: no calf tenderness, + pertinent finding (trace swelling of lower extremities) Neurologic/Psych: alert, normal mood/affect, oriented x 3 Skin: normal color, warm/dry, + pertinent finding (mild erythema and few pinpoint areas of superficial skin breakdown in gluteal fold.) Hospital Course 81 yo M with h/o DIC thought 2/2 sepsis in July had repeat outpatient labwork performed that was concerning for persistent DIC. Specifically, he had a low fibrinogen level and worsening pancytopenia. He was admitted to the medicine service and transfused several units of cryoprecipitate over the next several days. His platelets ranged from 30-80 but he never exhibited any bruising or bleeding. In an effort to find the cause of DIC, Urology was asked to see him to discern if his multiple heterogeneous but stable kidney lesions were concerning for malignancy. It was thought that they would have to be much larger to cause such a systemic effect and an MRI or a percutaneous biopsy was offered only after an exhaustive search for another cause was undertaken. As an aside, imaging revealed a widening of his known thoracic aortic aneurysm for which Vascular Surgeyr was consulted and recommended repair once things were for more stable from a blood count perspective. Ultimately, the etiology of his DIC was still unclear at discharge. Without a bone marrow biopsy, and underlying bone marrow neoplasm could not be excluded. FISH MDS panel and flow cytometry was pending at discharge. KARL, lupus anticoagulant, anticardiolipics , copper and EPO levels were also pending. A B12 and folate level were normal. IFP was increased consistent with peripheral destruction. There was splenomegaly noted on imaging, likely contributing to a component of sequestration. He had a bone scan performed which was negative. On day of discharge he was hemodynamically stable and afebrile. Of note, he did have one documented fever and a nonproductive cough initially on admission, but never became ill from this which resolved spontaneously. His physical exam was unremarkable and he was sent home in fair condition with close PCP and Hematology follow-up for continued workup of his DIC. Total time spent on discharge = 60 mins This includes examination of the patient, discharge planning, medication reconciliation, and communication with other providers. [place] [address] Discharge Medical Patient Name: Domingo Hartman Unit Number: [id number] Date of : 1935 Patient Status: Admitted Inpatient Attending Doctor: Sophie Rodrigues DO DI: Medical v4 Discharge Instructions Date of Service Dec 16, 2016. Admission Reason for Admission: Pancytopenia Discharge Discharge Diagnosis / Problem: DIC, DEE DEE Discharge Goals Goal(s): Prevent Disease Progression Activity Recommendations Activity Limitations: per Instructions/Follow-up section . Instructions / Follow-Up Instructions / Follow-Up Please continue all medications as prescribed. You have a follow-up appointment with Dr. Perez on 12/20 @ 11:20am for follow-up from this hospitalization. You will need non-fasting bloodwork prior to seeing Dr. Perez so he can adjust your Lasix based on the results. It would be preferable for you to get this bloodwork done on Mon, 12/19, so the results would be available. You have be given a prescription to get this done. You also have a follow-up appointment with Dr. Suero in Hematology/Oncology scheduled for 01/05 @ 2:45pm. You had a bone scan performed while in the hospital revealing an unexplained foci of increased activity within the right wrist. This should be followed up with Dr. Suero during follow-up appointment. You were also found to have an increase in your aortic aneurysm and seen by the Vascular Surgeon, Dr. Shemar Morrissey, while hospitalized. It is recommended that this be considered for surgical repair at a tertiary care facility. Recommend follow-up with Vascular Surgery as an outpatient. You can obtain a referral to them during follow-up appointment with Dr. Perez. You have multiple renal lesions that will need to be followed up as outpatient for stability. You are taking potassium while on Lasix. As the Lasix is currently being held, the potassium is also being held. You need to take your standing weight on a scale every day. If you notice yourself gaining more than 5 pounds in two days or feeling more swollen or short of breath, call the hospitalist pager (below) over the weekend. If you are at all concerned, seek immediate medical attention. DO NOT USE ASPIRIN OR NON-STEROIDAL ANTI-INFLAMMATORY DRUGS (NSAIDS) It was a pleasure taking care of you! Call if you have any questions or problems. You can reach a [facility] hospitalist on duty at [facility] 24 hours a day by calling [phone]. Take care of yourself. Sophie Rodrigues DO [facility] Hospitalist Current Hospital Diet Patient's current hospital diet: AHA Diet (Heart Healthy) Discharge Diet Recommended Diet: Low Sodium Diet (2gm Na) Procedures Procedures Performed: None. Pending Studies Studies pending at discharge: no Medical Emergencies . Who to Call and When: Medical Emergencies: If at any time you feel your situation is an emergency, please call 911 immediately. . Non-Emergent Contact Non-Emergency issues call your: Primary Care Provider . . "Provider Documentation" section prepared by Sophie Rodrigues. . VTE Core Measure Inpt VTE Proph given/why not?: Contraindicated Additional Copies To Fransisco Suero MD; Cliff Perez M.D.
[2016-12-16 15:57] VITALS: BP 118/66; PULSE 60; TEMP 36.7; O2SAT 96
[2016-12-16] MEDS ORDERED: ASPI-232 PO (19:04)
[2016-12-16 19:09] VITALS: BP 118/66; PULSE 60; TEMP 36.7; O2SAT 96
[2017-01-02] MEDS ORDERED: ATOR-26 PO (10:18)
[2017-01-02] MEDS ORDERED: PRLSR20 PO (14:19)
[2017-01-02] MEDS ORDERED: OMEGCAP2 PO (17:57)
[2017-01-02] MEDS ORDERED: MULT-845 PO (17:57)
[2017-01-02] MEDS ORDERED: ACET-1311 PO (18:16)
[2017-01-02] MEDS ORDERED: TERA5CAP PO (18:16)
[2017-01-02] MEDS ORDERED: MULTTAB66 PO (18:16)
[2017-01-02] MEDS ORDERED: EMOL-19 TOP (18:16)
== END 2016-12-16 20:05 | disposition home or self-care (01) | DRG 813 ==
LOC: C.EDB 16:22 → C.4E 19:23 → ENRESERV 19:41
PROVIDERS: ADMIT Hospitalist; ATTEND Hospitalist
DX: D65 Disseminated intravascular coagulation [defibrination syndrome] (principal); D61.818 Other pancytopenia; N17.9 Acute kidney failure, unspecified; Q61.00 Congenital renal cyst, unspecified; I50.32 Chronic diastolic (congestive) heart failure; I13.0 Hypertensive heart and chronic kidney disease with heart failure and stage 1 through stage 4 chronic kidney disease, or unspecified chronic kidney disease; N40.0 Benign prostatic hyperplasia without lower urinary tract symptoms; I25.10 Atherosclerotic heart disease of native coronary artery without angina pectoris; N18.3 Chronic kidney disease, stage 3 (moderate); E78.5 Hyperlipidemia, unspecified; K21.9 Gastro-esophageal reflux disease without esophagitis; Z96.653 Presence of artificial knee joint, bilateral; Z95.2 Presence of prosthetic heart valve; F17.200 Nicotine dependence, unspecified, uncomplicated; Z88.0 Allergy status to penicillin

== ENCOUNTER → 2016-12-19 | Outpatient (CLI) | payer OTHER ==
[~2016-12-19] MED LIST changes: +ACET-1311 PO; -ASPI81TA28 PO; +ATOR-26 PO; -CARV12.52 PO; +CARV3.122 PO; -CNT PO; +CRG3125 PO; +EMOL-19 TOP; -FISHOIL PO; +FRS/40 PO; -LISI40TA PO; -LSX20 PO; +MENTOIN TOP; -MULT-188 PO; +MULT-845 PO; +MULTTAB66 PO; +OMEGCAP2 PO; +PRLSR20 PO
[2016-12-19 13:12] LABS: BLOOD UREA NITROGEN 35 mg/dl (7-18); BUN/CREATININE RATIO 16.8 (10-20); CALCIUM 8.8 mg/dl (8.5-10.1); CARBON DIOXIDE 20 mmol/L (21-32); CHLORIDE 107 mmol/L (98-107); GLUCOSE 123 mg/dl (70-99); POTASSIUM 4.4 mmol/L (3.5-5.1); SODIUM 136 mmol/L (136-145)
[2016-12-19 13:15] LABS: FERRITIN 357.7 ng/ml (8.0-388.0)
== END | disposition home or self-care (01) ==
LOC: C.LABPVFM 08:51
PROVIDERS: ATTEND Internal Medicine Nephrology
DX: N17.9 Acute kidney failure, unspecified (principal); I12.9 Hypertensive chronic kidney disease with stage 1 through stage 4 chronic kidney disease, or unspecified chronic kidney disease; N25.81 Secondary hyperparathyroidism of renal origin; R60.9 Edema, unspecified; N18.3 Chronic kidney disease, stage 3 (moderate); D64.9 Anemia, unspecified

== ENCOUNTER → 2016-12-26 | Outpatient (CLI) | payer OTHER ==
[2016-12-26 13:15] LABS: BLOOD UREA NITROGEN 34 mg/dl (7-18); CALCIUM 8.5 mg/dl (8.5-10.1); CARBON DIOXIDE 25 mmol/L (21-32); CHLORIDE 106 mmol/L (98-107); GLUCOSE 122 mg/dl (70-99); POTASSIUM 4.3 mmol/L (3.5-5.1); SODIUM 135 mmol/L (136-145)
== END | disposition home or self-care (01) ==
LOC: C.LABPVFM 08:49
PROVIDERS: ATTEND Family Medicine
DX: N17.9 Acute kidney failure, unspecified (principal)

== ENCOUNTER 2017-01-02 18:37 | Emergency (ER) | payer OTHER ==
[~2017-01-02] VITALS: Ht 157.5 cm; Wt 84.6 kg
[~2017-01-02 18:37] MED LIST changes: -CARV3.122 PO; -FRS/40 PO; -MENTOIN TOP; -POTA20TA16 PO
[2017-01-02 18:55] VITALS: TEMP 36.8; O2SAT 95; Ht 157.5 cm; Wt 84.6 kg
--- NOTE | 2017-01-02 18:59 | EMERGENCY ROOM VISIT NOTE ---
History Report prepared by Amiraibmartha: Kari Alejo Under the Supervision of: Dr. Esequiel Rao M.D. First contact with patient: 18:39 Chief Complaint: CHEST PAIN Stated Complaint: CHEST PAIN History of Present Illness The patient is a 81 year old white male with a past medical history of aortic stenosis, BPH, CAD, CKD and HTN who presents to the ED with a cc of persistent BLE edema beginning around 0800 this morning. He was brought to the ED via ALS from [facility] where he resides. Positive minor pain in the legs. Negative chest pain, shortness of breath, nausea, vomiting, diarrhea, urinary symptoms. One of the nurses at [facility] helped him wrap his legs about 2 hours [employer]MING [employer]. His last BM was this morning and normal. He admits he stopped taking his Lasix 4 days ago. The patient denies any history of CHF. Source of History: patient Onset: 0800 this morning Position: leg (bilateral) Quality: other (swelling) Timing: other (persistent) Modifying Factors (Worsening): other (recent discontinuation of Lasix) Associated Symptoms: No chest pain, No SOB, No nausea, No vomiting, No diarrhea, No urinary symptoms Review of Systems See HPI for pertinent positives and negatives. A total of ten systems were reviewed and were otherwise negative. Past Medical & Surgical Medical Problems: (1) Aortic stenosis (2) BPH (benign prostatic hypertrophy) (3) CAD (coronary artery disease) (4) CKD (chronic kidney disease) stage 3, GFR 30-59 ml/min (5) Dyslipidemia (6) GERD (gastroesophageal reflux disease) (7) History of disseminated intravascular coagulation (8) HTN (hypertension) (9) Pancytopenia (10) Renal lesion (11) Thoracic aneurysm (12) Thyroid cyst Surgical Problems: (1) H/O aortic aneurysm repair (2) H/O cataract removal with insertion of prosthetic lens (3) History of appendectomy (4) History of bilateral knee arthroplasty (5) History of tonsillectomy and adenoidectomy (6) S/P AVR (aortic valve replacement) Family History Patient reports no known family medical history. Social History Smoking Status: Former Smoker Alcohol Use: none Drug Use: none Marital Status: Housing Status: assisted living Occupation Status: retired Current/Historical Medications Scheduled Atorvastatin (Lipitor), 80 MG PO QAM Carvedilol (Coreg), 3.125 MG PO BID Emollient (Lubriderm), 1 APPLN TOP DAILY Menthol-Zinc Oxide (Calmoseptine), 1 APPLN TOP BID Multiple Vitamins W/ Minerals (Centrum Silver Adult 50+), 1 TAB PO QAM Multiple Vitamins W/ Minerals (I-Rayray), 1 TAB PO DAILY [place]-3 Fatty Acids (Fish Oil), 1 CAP PO BID Omeprazole (Prilosec), 20 MG PO BID Terazosin (Hytrin), 5 MG PO HS Scheduled PRN Acetaminophen (Tylenol), 650 MG PO Q6H PRN for Pain or Fever Allergies Coded Allergies: Penicillins (Verified Allergy, Unknown, ITCH,RASH, 02/26/15) ITCHY Physical Exam Vital Signs Date Time Temp Pulse Resp B/P (MAP) Pulse Ox O2 Delivery O2 Flow Rate FiO2 01/03/17 00:00 66 20 139/71 94 Room Air 01/02/17 22:45 58 18 134/65 97 Room Air 01/02/17 20:42 54 18 99/51 96 Room Air 01/02/17 18:55 95 Room Air 01/02/17 18:55 36.8 65 18 129/72 95 Room Air 01/02/17 18:55 95 Room Air Physical Exam GENERAL: Awake, alert, well-appearing, NAD HENT: Normocephalic, atraumatic. EYES: Normal conjunctiva. Sclera non-icteric. NECK: Supple. No nuchal rigidity. FROM. RESPIRATORY: Crackles in the left lung base, no rhonchi, no wheezing. CARDIAC: RRR, no MRG ABDOMEN: Soft, NTND, BS+ MSK: No chest wall TTP. Neurologically intact. 4+ pitting edema to the lower extremities. Redness that is non blanching to the right medial bradshaw. No petechiae noted. Some spontaneous clear liquid drainage from the leg. NEURO: GCS 15, CN 2-12 intact, moves all 4s on command SKIN: No rash or jaundice noted. Medical Decision & Procedures ER Provider Diagnostic Interpretation: Radiology results as stated below per my review and radiologist interpretation: CHEST ONE VIEW PORTABLE HISTORY: Atypical chest pain. COMPARISON: Chest 12/01/2016. FINDINGS: No change in the tortuous and ectatic thoracic aorta. Poststernotomy changes and mild cardiomegaly persist. No new focal lung consolidations. No pleural effusions. No pneumothorax. No evidence for pulmonary edema. IMPRESSION: No significant change compared to the prior study. No acute process. Electronically signed by: Willam Juarez M.D. 01/02/2017 7:55 PM RIGHT TIBIA/FIBULA 2 VIEWS ROUTINE CLINICAL HISTORY: Right lower extremity swelling w/ redness Right COMPARISON STUDY: None. FINDINGS: Diffuse soft tissue swelling/edema within the right lower leg. Right total knee arthroplasty. The hardware is intact. No fracture or dislocation within the right tibia or fibula. No evidence for osteomyelitis. IMPRESSION: Diffuse soft tissue swelling/edema within the right lower leg. Electronically signed by: Willam Juarez M.D. 01/02/2017 7:57 PM Dictated Date/Time: 01/02/2017 7:55 PM Laboratory Results 01/02/17 19:15 Red Blood Count 3.22, Mean Corpuscular Volume 88.8, Mean Corpuscular Hemoglobin 27.6, Mean Corpuscular Hemoglobin Concent 31.1, Mean Platelet Volume 11.5, Neutrophils (%) (Auto) 45.0, Lymphocytes (%) (Auto) 46.8, Monocytes (%) (Auto) 7.7, Eosinophils (%) (Auto) 0.0, Basophils (%) (Auto) 0.5, Neutrophils # (Auto) 1.00, Lymphocytes # (Auto) 1.04, Monocytes # (Auto) 0.17, Eosinophils # (Auto) 0.00, Basophils # (Auto) 0.01 01/02/17 19:15 Test 01/02/17 19:15 01/02/17 19:30 01/02/17 23:01 White Blood Count 2.22 K/uL (4.8-10.8) Red Blood Count 3.22 M/uL (4.7-6.1) Hemoglobin 8.9 g/dL (14.0-18.0) Hematocrit 28.6 % (42-52) Mean Corpuscular Volume 88.8 fL (80-100) Mean Corpuscular Hemoglobin 27.6 pg (25-34) Mean Corpuscular Hemoglobin Concent 31.1 g/dl (32-36) Platelet Count 48 K/uL (130-400) Mean Platelet Volume 11.5 fL (7.4-10.4) Neutrophils (%) (Auto) 45.0 % Lymphocytes (%) (Auto) 46.8 % Monocytes (%) (Auto) 7.7 % Eosinophils (%) (Auto) 0.0 % Basophils (%) (Auto) 0.5 % Neutrophils # (Auto) 1.00 K/uL (1.4-6.5) Lymphocytes # (Auto) 1.04 K/uL (1.2-3.4) Monocytes # (Auto) 0.17 K/uL (0.11-0.59) Eosinophils # (Auto) 0.00 K/uL (0-0.5) Basophils # (Auto) 0.01 K/uL (0-0.2) RDW Standard Deviation 56.1 fL (36.4-46.3) RDW Coefficient of Variation 17.2 % (11.5-14.5) Immature Granulocyte % (Auto) 0.0 % Immature Granulocyte # (Auto) 0.00 K/uL (0.00-0.02) Nucleated RBC Absolute Count (auto) 0.02 K/uL (0-0) Nucleated Red Blood Cells % 1.2 % Platelet Estimate DECREASED Echinocytes 1+ Prothrombin Time 17.8 SECONDS (9.0-12.0) Prothromb Time International Ratio 1.6 (0.9-1.1) Activated Partial Thromboplast Time 45.0 SECONDS (21.0-31.0) Partial Thromboplastin Ratio 1.7 Venous Blood pH 7.33 (7.36-7.41) Venous Blood Partial Pressure CO2 47 mmHg (38.0-50.0) Venous Blood Partial Pressure O2 21 mmHg Venous Blood HCO3 24 mmol/L Venous Blood Oxygen Saturation < 60.0 % Venous Blood Base Excess -2.0 mEq/L Anion Gap 5.0 mmol/L (3-11) Est Creatinine Clear Calc Drug Dose 37.6 ml/min Estimated GFR () 50.6 Estimated GFR (Non- 43.7 BUN/Creatinine Ratio 20.7 (10-20) Calcium Level 8.5 mg/dl (8.5-10.1) Phosphorus Level 2.8 mg/dl (2.5-4.9) Magnesium Level 2.2 mg/dl (1.8-2.4) Total Bilirubin 1.1 mg/dl (0.2-1) Aspartate Amino Transf (AST/SGOT) 40 U/L (15-37) Alanine Aminotransferase (ALT/SGPT) 50 U/L (12-78) Alkaline Phosphatase 163 U/L (45-117) Pro-B-Type Natriuretic Peptide 4409 pg/ml (0-1800) Total Protein 6.9 gm/dl (6.4-8.2) Albumin 2.5 gm/dl (3.4-5.0) Globulin 4.4 gm/dl (2.5-4.0) Albumin/Globulin Ratio 0.6 (0.9-2) Bedside Troponin I < 0.030 ng/ml (0-0.045) Urine Color YELLOW Urine Appearance CLEAR (CLEAR) Urine pH 5.5 (4.5-7.5) Urine Specific [place] 1.017 (1.000-1.030) Urine Protein 1+ (NEG) Urine Glucose (UA) NEG (NEG) Urine Ketones NEG (NEG) Urine Occult Blood 1+ (NEG) Urine Nitrite NEG (NEG) Urine Bilirubin NEG (NEG) Urine Urobilinogen NEG (NEG) Urine Leukocyte Esterase NEG (NEG) Urine WBC (Auto) 1-5 /hpf (0-5) Urine RBC (Auto) 5-10 /hpf (0-4) Urine Hyaline Casts (Auto) 0 /lpf (0-5) Urine Epithelial Cells (Auto) 10-20 /lpf (0-5) Urine Bacteria (Auto) NEG (NEG) Laboratory results reviewed by me Medications Administered Medications (Trade) Dose Ordered Sig/Song Route Start Time Stop Time Status Last Admin Dose Admin Doxycycline Hyclate 100 mg/ Dextrose 110 ml @ 50 mls/hr NOW STAT IV 01/02/17 23:51 01/03/17 02:02 01/02/17 23:57 50 MLS/HR Furosemide (Lasix Inj) 40 mg STK-MED ONCE .ROUTE 01/02/17 23:53 01/02/17 23:54 DC 01/02/17 23:56 40 MG ECG Indication: other (swelling in bilateral LE) Rate (beats per minute): 62 Findings: 1st degree AV block, LBBB, Q waves (Inferior, anterior), other ( Prolonged SC, widened QRS, no sgarbossa criteria) Change: no significant change (No significant change from 12/09/16) ED Course 9086: The patient was evaluated in room C12B. A complete history and physical exam was performed. 2233: I discussed the patients case with Nereyda Guy. He will order an ultrasound and further evaluate the patient. Medical Decision The patient is a 81 year old white male with a past medical history of aortic stenosis, BPH, CAD, CKD and HTN who presents to the ED with a cc of persistent swelling in his legs beginning around 0800 this morning. Triage Nursing notes reviewed. The patient's presentation and history were concerning for CHF, DEE DEE, ARF, nephrotic syndrome and lymphedema. Subtle and evaluated the patient the bedside. Patient did have bilateral lower extremity swelling and did have some clear drainage coming from his right lower extremity. Patient did have some nonblanching erythema over the medial aspect of the right lower leg. Patient's toes were warm and crepitus was felt. Patient had blood work as well as imaging completed. Patient's blood work was notable for some mild thrombocytopenia but was not less than 10,000. Patient did have mild leukopenia. Patient never complained of any chest pain or shortness of breath. Given the patient's signs and symptoms I did speak with the hospitalist given the concern for the lower extremity swelling in the setting of a positive BNP but with an unchanged chest x-ray. The hospitalist called me back and explained that he further examined some of the records and noted that the clinic notes show that his creatinine where is rising and thus he was taken off Lasix. This may be the likely culprit. The on -call hospitalist stated that he would order an ultrasound and if negative the patient will be discharged to home with follow-up. Medication Reconcilliation Current Medication List: was personally reviewed by me Blood Pressure Screening Patient's blood pressure: Normal blood pressure Blood pressure disposition: Did not require urgent referral Consults Time Called: 2229 Consulting Physician: Nereyda Guy Returned Call: [phone] I discussed the patients case with Nereyda Guy. He will order an ultrasound and further evaluate the patient. Impression Primary Impression: Bilateral leg edema Scribe Attestation The scribe's documentation has been prepared under my direction and personally reviewed by me in its entirety. I confirm that the note above accurately reflects all work, treatment, procedures, and medical decision making performed by me. Departure Information Dispostion Being Evaluated By Hospitalist Referrals NOBLE BETANCOURT (PCP) Patient Instructions My [facility]
[2017-01-02 19:39] LABS: VENOUS BLOOD GAS PCO2 47 mmHg (38.0-50.0); VENOUS BLOOD GAS PO2 21 mmHg
[2017-01-02 19:42] LABS: VEN BLD GAS O2 SATURATION < 60.0 %
[2017-01-02 19:51] LABS: INR 1.6 (0.9-1.1); PARTIAL THROMBOPLASTIN RATIO 1.7; PROTHROMBIN TIME (PATIENT) 17.8 SECONDS (9.0-12.0)
--- NOTE | 2017-01-02 19:56 | DIAGNOSTIC IMAGING REPORT ---
CHEST ONE VIEW PORTABLE HISTORY: Atypical chest pain. COMPARISON: Chest 12/01/2016. FINDINGS: No change in the tortuous and ectatic thoracic aorta. Poststernotomy changes and mild cardiomegaly persist. No new focal lung consolidations. No pleural effusions. No pneumothorax. No evidence for pulmonary edema. IMPRESSION: No significant change compared to the prior study. No acute process. Electronically signed by: Willam Juarez M.D. 01/02/2017 7:55 PM Dictated Date/Time: 01/02/2017 7:54 PM
--- NOTE | 2017-01-02 19:58 | DIAGNOSTIC IMAGING REPORT ---
RIGHT TIBIA/FIBULA 2 VIEWS ROUTINE CLINICAL HISTORY: Right lower extremity swelling w/ redness Right COMPARISON STUDY: None. FINDINGS: Diffuse soft tissue swelling/edema within the right lower leg. Right total knee arthroplasty. The hardware is intact. No fracture or dislocation within the right tibia or fibula. No evidence for osteomyelitis. IMPRESSION: Diffuse soft tissue swelling/edema within the right lower leg. Electronically signed by: Willam Juarez M.D. 01/02/2017 7:57 PM Dictated Date/Time: 01/02/2017 7:55 PM
[2017-01-02 20:04] LABS: BUN/CREATININE RATIO 20.7 (10-20); CALCIUM 8.5 mg/dl (8.5-10.1); CREATININE 1.5 mg/dl (0.60-1.40); MAGNESIUM 2.2 mg/dl (1.8-2.4); POTASSIUM 4.5 mmol/L (3.5-5.1)
[2017-01-02 20:11] LABS: ALB/GLOB RATIO 0.6 (0.9-2); PHOSPHORUS 2.8 mg/dl (2.5-4.9)
[2017-01-02 20:16] LABS: HEMATOCRIT 28.6 % (42-52); MEAN CELL VOLUME 88.8 fL (80-100); MEAN CORPUSCULAR HEMOGLOBIN 27.6 pg (25-34); MEAN CORPUSCULAR HGB CONC 31.1 g/dl (32-36); MEAN PLATELET VOLUME 11.5 fL (7.4-10.4); PLATELET COUNT 48 K/uL (130-400); RED BLOOD COUNT 3.22 M/uL (4.7-6.1); WHITE BLOOD COUNT 2.22 K/uL (4.8-10.8)
[2017-01-02 20:43] LABS: BASO % 0.5 %; BASO ABS # 0.01 K/uL (0-0.2); COMPLETE YES; ECHINOCYTES 1+; LYMPH % 46.8 %; LYMPH ABS # 1.04 K/uL (1.2-3.4); MONO % 7.7 %; PLT ESTIMATE DECREASED
[2017-01-02] MEDS ORDERED: CARV3.122 PO (22:38)
[2017-01-02] MEDS ORDERED: MENTOIN TOP (22:38)
[2017-01-02 23:22] LABS: URINE APPEARANCE CLEAR (CLEAR); URINE BILIRUBIN NEG (NEG); URINE COLOR YELLOW; URINE NITRITE NEG (NEG); URINE PH 5.5 (4.5-7.5); URINE SPECIFIC GRAVITY 1.017 (1.000-1.030); UROBILINOGEN NEG (NEG); ZZUR CULT IF INDIC CLEAN CATCH NO
[2017-01-02 23:33] LABS: MANUAL MICROSCOPIC REQUIRED? NO; REVIEW REQ? NO
[2017-01-02] MEDS ORDERED: DOXYCYCLINE IV 100 MG in DEXTROSE 5% 100ML 100 ML IV STA (23:51)
[2017-01-02] MEDS ORDERED: FUROSEMIDE INJ 20 MG in SYRINGE 0 ML IV STA (23:51)
[2017-01-02] MEDS ORDERED: FUROSEMIDE 40 MG/4 ML VIAL ONE (23:53)
[2017-01-03 02:52] VITALS: BP 138/72; PULSE 74; O2SAT 97
--- NOTE | 2017-01-03 05:44 | INTERNAL MEDICINE CONSULTATION ---
DATE OF CONSULTATION: 01/03/2017 PRIMARY CARE DOCTOR: Cliff Perez MD The patient seen at the request of Dr. Rao for evaluation of bilateral leg swelling. History obtained from patient and records. HISTORY OF PRESENT ILLNESS: Medical history significant for chronic systolic heart failure secondary to ischemic cardiomyopathy EF of 45% (TTE, 2017) CAD, hypertension, hx AVR, chronic pancytopenia, chronic renal insufficiency (baseline creatinine of 1.4 to 1.7), past tobacco abuse, history of AVR, past tobacco abuse. Recent confinement about 3 weeks ago for chronic DIC of uncertain etiology. Px transfused several units of cryoprecipitate. Home Lasix held during confinement and discharge due to kidney dysfunction. Px was discharged last 12/16/2016 to [facility]. Serum creatinine 1.7 on day of discharge. At the facility, patient's Lasix 40 mg twice a day resumed. Outpatient blood work last 12/19 showed creatinine of 2. Patient had a followup visit with PCP last 12/20. Kidney function deterioration attributed to home diuretic meds. Personal care facility instructed to hold Lasix and for patient to be weighed on a daily basis. PCP to be notified if weight increased by more than 5 pounds in 2 days. Repeat BMP in 1 week. Lasix to be restarted if improvement of creatinine 1.4 to 1.6 a lower dose - 40 mg PO daily with addition of daily potassium supplement. Patient was brought to the Emergency Room today because of bilateral leg swelling, redness and some discomfort. No chest pain, no shortness of breath. Some oozing from the legs. No fever, no chills. MEDICAL HISTORY: As above. SURGICAL HISTORY: Aortic valve replacement, aortic aneurysm repair, cataract surgery, appendectomy, knee surgery, tonsillectomy, adenectomy. HOME MEDICATIONS: Include Tylenol, Lipitor, Coreg, Lubriderm, Calmoseptine, centrum, multivitamins, omega fish oil, Prilosec, Hytrin. ALLERGIES: PENICILLIN. FAMILY HISTORY: Heart disease. PERSONAL AND SOCIAL HISTORY: Past tobacco abuse. No chronic intake of alcoholic beverages. [facility] resident. REVIEW OF SYSTEMS: As per HPI. All other ROS negative. PHYSICAL EXAMINATION: VITAL SIGNS: Blood pressure noted to be 129/72, pulse rate 65, RR 18, temperature 36.8, sats 95 on room air. GENERAL: Noted to be comfortable, no respiratory distress. SKIN: Pallor. HEENT: Partial alopecia, pale palpebral conjunctivae. Dry mucosa. NECK: No JVD. Supple. CHEST: Decreased breath sounds. HEART: Regular rate and rhythm. ABDOMEN: Some distension and nontender. EXTREMITIES: Bilateral lower extremity edema, no tenderness, with some erythema/focal induration. NEUROLOGIC: No gross focality. LABORATORY DATA: Hemoglobin 8.9, hematocrit 28.6, white cell count is 2.2, platelets 48 . Sodium 136, potassium 4.5, chloride 107, CO2 24, BUN 31, creatinine 1.5, glucose 111. Chest x-ray showed no congestion, mild cardiomegaly. Tibiofibular x-ray: Diffuse soft tissue swelling, edema of the right leg. Lower extremity ultrasound initial read negative for DVT. ASSESSMENT: LE Cellulitis hx chronic systolic heart failure secondary to ischemic cardiomyopathy (EF 45%) reaccumulation of fluid after Lasix held a few weeks ago by PCP secondary to kidney function deterioration Patient denies shortness of breath symptoms, no congestion on chest x-ray no sepsis. RECOMMENDATIONS: No indication for confinement. Lasix IV 1 dose now Doxycycline course 100 mg twice a day for 7 days (01/03-01/09) Resume Lasix 40 mg daily, along with 20 meqs KCl daily (start 01/04) Continue low salt diet, daily weights Elevate both legs whenever possible Warm compresses t.i.d. on both legs. Followup visit with PCP and repeat chemistry within the week. Return to the ER for shortness of breath or worsening swelling and/or fever symptoms. Patient expressed understanding and was amenable to the plan of care. I will call halfway provider in the morning to go over instructions. I will contact PCPs office to facilitate appointment. Thank you very much for this consultation. DL
--- NOTE | 2017-01-03 07:05 | DIAGNOSTIC IMAGING REPORT ---
ULTRASOUND BILATERAL LOWER EXTREMITY VENOUS CLINICAL HISTORY: Leg swelling. COMPARISON STUDY: Bilateral lower extremity venous ultrasound dated 12/11/2016. TECHNIQUE: Real-time, grayscale, and color Doppler sonography of the deep veins of the right and left lower extremity was performed from the inguinal crease to the calf. Compression and augmentation were utilized. FINDINGS: There is no sonographic evidence of deep venous thrombosis identified in the right or left lower extremity. The common femoral, superficial femoral, and popliteal veins are patent and normally compressible bilaterally. The greater saphenous vein and the profunda femoris vein at the junction with the common femoral vein are clear in both legs. The visualized calf veins are patent bilaterally. Soft tissue edema is present in both legs. IMPRESSION: There is no sonographic evidence of deep venous thrombosis identified in the right or left lower extremity. Electronically signed by: Natalio Pearce M.D. 01/03/2017 7:04 AM Dictated Date/Time: 01/03/2017 7:03 AM
== END 2017-01-03 02:56 | disposition home or self-care (01) ==
LOC: EDBD 18:37 → C.EDC 18:40 → C.EDA 01-03 02:56
DX: R60.9 Edema, unspecified (principal); I44.0 Atrioventricular block, first degree; I44.7 Left bundle-branch block, unspecified; I12.9 Hypertensive chronic kidney disease with stage 1 through stage 4 chronic kidney disease, or unspecified chronic kidney disease; N18.3 Chronic kidney disease, stage 3 (moderate); I25.10 Atherosclerotic heart disease of native coronary artery without angina pectoris; E78.5 Hyperlipidemia, unspecified; K21.9 Gastro-esophageal reflux disease without esophagitis; I35.0 Nonrheumatic aortic (valve) stenosis; Z98.890 Other specified postprocedural states; Z96.651 Presence of right artificial knee joint; Z96.652 Presence of left artificial knee joint; Z98.49 Cataract extraction status, unspecified eye; Z79.899 Other long term (current) drug therapy; Z87.891 Personal history of nicotine dependence; Z88.0 Allergy status to penicillin

== ENCOUNTER → 2017-01-10 | Outpatient (CLI) | payer OTHER ==
[~2017-01-10] MED LIST changes: +CARV3.122 PO; -CRG3125 PO; +FRS/40 PO; +MENTOIN TOP; +POTA20TA16 PO
[2017-01-10 13:27] LABS: BLOOD UREA NITROGEN 29 mg/dl (7-18); BUN/CREATININE RATIO 19.1 (10-20); CALCIUM 8.9 mg/dl (8.5-10.1); CARBON DIOXIDE 27 mmol/L (21-32); CHLORIDE 107 mmol/L (98-107); GLUCOSE 90 mg/dl (70-99); POTASSIUM 3.9 mmol/L (3.5-5.1); SODIUM 139 mmol/L (136-145)
== END | disposition home or self-care (01) ==
LOC: C.LABWYN 13:16
PROVIDERS: ATTEND Internal Medicine
DX: Z79.899 Other long term (current) drug therapy (principal)

== ENCOUNTER → 2017-01-19 | Outpatient (CLI) | payer OTHER ==
[2017-01-19 12:41] LABS: HEMATOCRIT 28.6 % (42-52); MEAN CELL VOLUME 91.7 fL (80-100); MEAN CORPUSCULAR HEMOGLOBIN 27.6 pg (25-34); MEAN CORPUSCULAR HGB CONC 30.1 g/dl (32-36); RED BLOOD COUNT 3.12 M/uL (4.7-6.1); WHITE BLOOD COUNT 2.25 K/uL (4.8-10.8)
[2017-01-19 16:39] LABS: BASO % 0.4 %; BASO ABS # 0.01 K/uL (0-0.2); COMPLETE YES; LYMPH % 57.3 %; LYMPH ABS # 1.29 K/uL (1.2-3.4); MONO % 11.1 %; NEUT % 31.2 %; PLATELET COUNT 30 K/uL (130-400); POIKILOCYTOSIS PRESENT; SCHISTOCYTES OCCASIONAL
== END | disposition home or self-care (01) ==
LOC: C.LABWYN 06:12
PROVIDERS: ATTEND Internal Medicine Hematology & Oncology
DX: D61.818 Other pancytopenia (principal); R23.3 Spontaneous ecchymoses

== ENCOUNTER → 2017-01-23 | Outpatient (CLI) | payer OTHER ==
[2017-01-23 11:39] LABS: HEMATOCRIT 27.1 % (42-52); MEAN CELL VOLUME 91.2 fL (80-100); MEAN CORPUSCULAR HEMOGLOBIN 27.6 pg (25-34); MEAN CORPUSCULAR HGB CONC 30.3 g/dl (32-36); PLATELET COUNT 66 K/uL (130-400); RED BLOOD COUNT 2.97 M/uL (4.7-6.1)
[2017-01-23 11:45] LABS: INR 1.4 (0.9-1.1); PARTIAL THROMBOPLASTIN RATIO 1.8; PROTHROMBIN TIME (PATIENT) 15.7 SECONDS (9.0-12.0)
[2017-01-23 11:52] LABS: FIBRINOGEN* 70 mg/dl (184-400)
[2017-01-23 12:03] LABS: POIKILOCYTOSIS PRESENT
[2017-01-23 12:13] LABS: COMPLETE YES; LARGE GRANULAR LYMPHOCYTE % 16.5 %; LYMPH ABS # 0.94 K/uL (1.2-3.4); LYMPHOCYTE % 39.1 %; NEUTROPHILS % 38.3 %
== END | disposition home or self-care (01) ==
LOC: C.LAB 10:25
PROVIDERS: ATTEND Internal Medicine Hematology & Oncology
DX: D69.6 Thrombocytopenia, unspecified (principal)

== ENCOUNTER 2017-01-26 15:47 | Emergency (ER) | payer OTHER ==
[2017-01-26] VITALS (8 sets, daily range): BP systolic 123–158; BP diastolic 64–80; PULSE 60–73; TEMP 36.5–36.6; O2SAT 95–96; Ht 157.5 cm
[~2017-01-26 15:47] MED LIST changes: -FRS/40 PO; -POTA20TA16 PO
[2017-01-26] MEDS ORDERED: FRS/40 PO (16:38)
[2017-01-26] MEDS ORDERED: POTA20TA16 PO (16:38)
--- NOTE | 2017-01-26 17:35 | EMERGENCY ROOM VISIT NOTE ---
History Report prepared by Selma: Traci Haile Under the Supervision of: Dr. Duran Hickey D.O. 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 The patient was sent to the ED by his shear helper. His platelets were found to be low. He has had low platelets in the past. He has required transfusions before. He is feeling well and does not have any complaints. 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 Review of Systems See HPI for pertinent positives & negatives. A total of 10 systems reviewed and were otherwise negative. Past Medical & Surgical Medical Problems: (1) Aortic stenosis (2) BPH (benign prostatic hypertrophy) (3) CAD (coronary artery disease) (4) CKD (chronic kidney disease) stage 3, GFR 30-59 ml/min (5) Dyslipidemia (6) GERD (gastroesophageal reflux disease) (7) History of disseminated intravascular coagulation (8) HTN (hypertension) (9) Pancytopenia (10) Renal lesion (11) Thoracic aneurysm (12) Thyroid cyst Surgical Problems: (1) H/O aortic aneurysm repair (2) H/O cataract removal with insertion of prosthetic lens (3) History of appendectomy (4) History of bilateral knee arthroplasty (5) History of tonsillectomy and adenoidectomy (6) S/P AVR (aortic valve replacement) Family History Patient reports no known family medical history. Social History Smoking Status: Former Smoker Alcohol Use: none Drug Use: none Marital Status: Housing Status: assisted living Occupation Status: retired Current/Historical Medications Scheduled Atorvastatin (Lipitor), 80 MG PO QAM Carvedilol (Coreg), 3.125 MG PO BID Emollient (Lubriderm), 1 APPLN TOP DAILY Furosemide (Lasix), 40 MG PO BID Multiple Vitamins W/ Minerals (Centrum Silver Adult 50+), 1 TAB PO QAM Multiple Vitamins W/ Minerals (I-Rayray), 1 TAB PO DAILY [place]-3 Fatty Acids (Fish Oil), 1 CAP PO BID Omeprazole (Prilosec), 20 MG PO BID Potassium Ext Rel ([place]lor-Con), 20 MEQ PO DAILY Terazosin (Hytrin), 5 MG PO HS Scheduled PRN Acetaminophen (Tylenol), 650 MG PO Q6H PRN for Pain or Fever Allergies Coded Allergies: Penicillins (Verified Allergy, Unknown, ITCH,RASH, 01/26/17) ITCHY Physical Exam Vital Signs Date Time Temp Pulse Resp B/P (MAP) Pulse Ox O2 Delivery O2 Flow Rate FiO2 01/26/17 17:45 36.6 63 16 123/64 01/26/17 17:09 60 16 138/77 98 Room Air 01/26/17 16:14 63 18 144/71 Room Air 01/26/17 15:54 36.7 76 18 143/72 97 Room Air Physical Exam CONSTITUTIONAL/VITAL SIGNS: Reviewed / noted above. GENERAL: Non-toxic in appearance. INTEGUMENTARY: Warm, dry, and [place]. HEAD: Normocephalic. EYES: without scleral icterus or trauma. ENT/OROPHARYNX: clear and moist. LYMPHADENOPATHY/NECK: Is supple without lymphadenopathy or meningismus. RESPIRATORY: Lungs clear and equal. CARDIOVASCULAR: Regular rate and rhythm. GI/ABDOMEN: Soft and nontender. No organomegaly or pulsatile mass. No rebound or guarding. Normal bowel sounds. EXTREMITIES: Warm and well perfused. BACK: No CVA tenderness. NEUROLOGICAL: Intact without focal deficits. PSYCHIATRIC: normal affect. MUSCULOSKELETAL: Normally developed with good muscle tone. Medical Decision & Procedures ED Course 1559: Previous medical records were reviewed. The patient was evaluated in room B11B. A complete history and physical examination was performed. 1623: I discussed the patient's case with Ellen Dawn PA-C, [facility] hospitalist service. The patient will be evaluated for further treatment and disposition. 1637: I discussed the patient's case with Dr. Suero, [facility] Hematology. She recommends 2 units of cryoprecipitate and discharge home. 1651: On reevaluation, the patient is resting comfortably. I updated them on the plan. They verbalized understanding and agreement. He will be discharged home after receiving cryoprecipitate. Medical Decision Differential includes acute coronary syndrome, myocardial infarction, CVA, TIA, anemia, infection, pneumonia, UTI, pyelonephritis, poor nutrition, dehydration, electrolyte disturbance,hypoglycemia. This is a 81-year-old male who presents to the ED with a chief complaint of abnormal blood work. The patient was told to come to the hospital because of low platelet count and low fibrinogen. I spoke with Dr. Suero. She requested the patient received 2 units (10pk) of cryoprecipitate. The patient has a symptomatic. He denies any symptoms. He has chronic stable anemia based on recent blood work. His platelet count is relatively stable as well. The patient clinically does not have any abnormalities on his exam to suggest bleeding or infection. He denies any symptoms to suggest this as well. The patient was transfused cryoprecipitate and discharged. Medication Reconcilliation Current Medication List: was personally reviewed by me Blood Pressure Screening Patient's blood pressure: Normal blood pressure Blood pressure disposition: Did not require urgent referral Consults Time Called: 1616 Consulting Physician: Ellen Dawn PA-C, [facility] hospitalist service Returned Call: [phone] Discussed the patient's case. The patient will be evaluated for further treatment and disposition. Additional Consults: Time Called: 1608 Consulted Physician: Dr. Suero [facility] Hematology Returned Call: 1631 Additional Comments: I discussed the patient's case with her. She recommends 2 units of cryoprecipitate and discharge home. Impression Primary Impression: Thrombocytopenia Scribe Attestation The scribe's documentation has been prepared under my direction and personally reviewed by me in its entirety. I confirm that the note above accurately reflects all work, treatment, procedures, and medical decision making performed by me. Departure Information Dispostion Home / Self-Care Referrals No Doctor, Assigned (PCP) Patient Instructions My [facility] Additional Instructions Follow-up with Dr. Suero for recheck next week. Return for any concerns.
== END 2017-01-26 20:20 | disposition home or self-care (01) ==
LOC: C.EDB 15:50
DX: D69.6 Thrombocytopenia, unspecified (principal); N40.0 Benign prostatic hyperplasia without lower urinary tract symptoms; I25.10 Atherosclerotic heart disease of native coronary artery without angina pectoris; N18.3 Chronic kidney disease, stage 3 (moderate); K21.9 Gastro-esophageal reflux disease without esophagitis; I10 Essential (primary) hypertension; I71.2 Thoracic aortic aneurysm, without rupture; Z87.891 Personal history of nicotine dependence

== ENCOUNTER → 2017-01-26 | Outpatient (CLI) | payer OTHER ==
[2017-01-26 12:34] LABS: MEAN CORPUSCULAR HGB CONC 31.5 g/dl (32-36)
[2017-01-26 12:56] LABS: MEAN CELL VOLUME 91.2 fL (80-100); MEAN CORPUSCULAR HEMOGLOBIN 28.8 pg (25-34); RED BLOOD COUNT 2.85 M/uL (4.7-6.1)
[2017-01-26 13:07] LABS: PLATELET COUNT 40 K/uL (130-400)
[2017-01-26 13:29] LABS: POIKILOCYTOSIS PRESENT
[2017-01-26 13:32] LABS: COMPLETE YES; LARGE GRANULAR LYMPH ABSOLUTE 0.42 K/uL; LARGE GRANULAR LYMPHOCYTE % 21.1 %; LYMPH ABS # 0.91 K/uL (1.2-3.4); LYMPHOCYTE % 45.6 %; MYELOCYTE % 0.9 %; NEUTROPHILS % 29.8 %
== END | disposition home or self-care (01) ==
LOC: C.LABWYN 13:20
PROVIDERS: ATTEND Internal Medicine Hematology & Oncology
DX: D69.6 Thrombocytopenia, unspecified (principal)

== ENCOUNTER → 2017-02-02 | Outpatient (CLI) | payer OTHER ==
[~2017-02-02] MED LIST changes: +FRS/40 PO; -MENTOIN TOP; +POTA20TA16 PO
[2017-02-02 13:31] LABS: HEMATOCRIT 26.5 % (42-52); MEAN CORPUSCULAR HEMOGLOBIN 29.2 pg (25-34); MEAN CORPUSCULAR HGB CONC 31.7 g/dl (32-36); PLATELET COUNT 32 K/uL (130-400); RED BLOOD COUNT 2.88 M/uL (4.7-6.1); WHITE BLOOD COUNT 1.99 K/uL (4.8-10.8)
[2017-02-02 13:32] LABS: ACANTHOCYTES 1+; ANISOCYTOSIS PRESENT; PLT ESTIMATE SIGNIFIC DECREASED; ROULEAUX 1+
[2017-02-02 13:36] LABS: COMPLETE YES; LARGE GRANULAR LYMPHOCYTE % 14.9 %; LYMPH ABS # 0.84 K/uL (1.2-3.4); LYMPHOCYTE % 42.1 %; NEUTROPHILS % 34.2 %
== END | disposition home or self-care (01) ==
LOC: C.LABWYN 13:12
PROVIDERS: ATTEND Internal Medicine Hematology & Oncology
DX: R23.3 Spontaneous ecchymoses (principal); D61.818 Other pancytopenia

== ENCOUNTER → 2017-02-06 | Outpatient (CLI) | payer OTHER ==
[2017-02-06 12:19] LABS: HEMATOCRIT 26.8 % (42-52); MEAN CELL VOLUME 91.5 fL (80-100); MEAN CORPUSCULAR HEMOGLOBIN 27.6 pg (25-34); MEAN CORPUSCULAR HGB CONC 30.2 g/dl (32-36); MEAN PLATELET VOLUME 11.5 fL (7.4-10.4); PLATELET COUNT 60 K/uL (130-400); RED BLOOD COUNT 2.93 M/uL (4.7-6.1)
[2017-02-06 13:04] LABS: ACANTHOCYTES 1+; COMPLETE YES; EOS % 0.5 %; GIANT PLATELETS 1+; LYMPH % 64.7 %; LYMPH ABS # 1.23 K/uL (1.2-3.4); MONO % 11.1 %; NEUT % 23.7 %
== END | disposition home or self-care (01) ==
LOC: C.LABSPEC 11:57
PROVIDERS: ATTEND Internal Medicine Hematology & Oncology
DX: D65 Disseminated intravascular coagulation [defibrination syndrome] (principal)

== ENCOUNTER → 2017-02-09 | Outpatient (CLI) | payer OTHER ==
[2017-02-09 13:02] LABS: HEMATOCRIT 27.3 % (42-52); MEAN CELL VOLUME 93.5 fL (80-100); MEAN CORPUSCULAR HEMOGLOBIN 29.1 pg (25-34); MEAN CORPUSCULAR HGB CONC 31.1 g/dl (32-36); PLATELET COUNT 38 K/uL (130-400); RED BLOOD COUNT 2.92 M/uL (4.7-6.1); WHITE BLOOD COUNT 1.73 K/uL (4.8-10.8)
[2017-02-09 13:05] LABS: ACANTHOCYTES 1+; ANISOCYTOSIS PRESENT; PLT ESTIMATE DECREASED
[2017-02-09 13:10] LABS: COMPLETE YES; LARGE GRANULAR LYMPH ABSOLUTE 0.45 K/uL; LARGE GRANULAR LYMPHOCYTE % 25.9 %; LYMPH ABS # 0.79 K/uL (1.2-3.4); LYMPHOCYTE % 45.5 %; NEUTROPHILS % 26.8 %
== END | disposition home or self-care (01) ==
LOC: C.LABWYN 12:23
PROVIDERS: ATTEND Internal Medicine Hematology & Oncology
DX: D61.818 Other pancytopenia (principal); R23.3 Spontaneous ecchymoses

== ENCOUNTER → 2017-03-02 | Outpatient (CLI) | payer OTHER ==
[2017-03-02 11:57] LABS: HEMATOCRIT 26.6 % (42-52); MEAN CELL VOLUME 92.7 fL (80-100); MEAN CORPUSCULAR HEMOGLOBIN 28.9 pg (25-34); MEAN CORPUSCULAR HGB CONC 31.2 g/dl (32-36); PLATELET COUNT 49 K/uL (130-400); RED BLOOD COUNT 2.87 M/uL (4.7-6.1)
[2017-03-02 13:17] LABS: ANISOCYTOSIS PRESENT; TOXIC GRANULATION 1+
[2017-03-02 13:22] LABS: BASO ABS # 0.02 K/uL (0-0.2); BASOPHIL % 0.9 % (0-2); COMPLETE YES; EOSINOPHIL % 0.9 %; LYMPH ABS # 0.83 K/uL (1.2-3.4); LYMPHOCYTE % 39.7 %; NEUTROPHILS % 25.2 %; VARIANT LYM ABS # 0.55 K/uL; VARIANT LYMPHOCYTE % 26.1 %
== END | disposition home or self-care (01) ==
LOC: C.LABWYN 11:02
PROVIDERS: ATTEND Family Medicine
DX: D69.6 Thrombocytopenia, unspecified (principal)

== ENCOUNTER → 2017-03-07 | Outpatient (CLI) | payer OTHER ==
[2017-03-07 08:40] LABS: MEAN CORPUSCULAR HGB CONC 32.8 g/dl (32-36); MEAN PLATELET VOLUME 11.9 fL (7.4-10.4); PLATELET COUNT 48 K/uL (130-400)
[2017-03-07 09:29] LABS: HEMATOCRIT 23.5 % (42-52); MEAN CELL VOLUME 91.4 fL (80-100); RED BLOOD COUNT 2.57 M/uL (4.7-6.1); WHITE BLOOD COUNT 2.02 K/uL (4.8-10.8)
[2017-03-07 10:05] LABS: ANISOCYTOSIS PRESENT; ECHINOCYTES 1+
[2017-03-07 10:51] LABS: COMPLETE YES; LYMPH ABS # 0.97 K/uL (1.2-3.4); LYMPHOCYTE % 47.8 %; NEUTROPHILS % 27.4 %; VARIANT LYM ABS # 0.46 K/uL
== END | disposition home or self-care (01) ==
LOC: C.LABWYN 08:14
PROVIDERS: ATTEND Internal Medicine Hematology & Oncology
DX: D69.6 Thrombocytopenia, unspecified (principal)